=== PATIENT | male | born 1960 | race Caucasian/White ===

== ENCOUNTER 2024-12-28 07:13 | Emergency (ER) | payer MEDICARE, MEDICAID, SELFPAY ==
[2024-12-28 07:14] VITALS: BP 149/121; PULSE 78; RESP 18; TEMP 36.8; O2SAT 100; BMI 24.5
[2024-12-28 07:50] VITALS: O2SAT 100
--- NOTE | 2024-12-28 08:06 | EDS_ITS ---
HPI History of Present Illness Chief Complaint: Anxiety Informant: patient Onset/Context/Timing Onset: Weeks (3) Context: Gradual Onset Timing: Continuous Quality: Cannot catch a full breath Location: Chest Worsened by: Laying flat, exertion Relieved by: Nothing Narrative Narrative: Patient presents with increasing anxiety and panic attacks that have been getting worse over the past 3 weeks. Patient states that he wakes up at night feeling like he cannot catch his breath. Patient states his breathing is worse when he lays flat. Patient states that his breathing is also worse with walking and exertion. Patient states nothing makes his breathing any better. Patient admits to some subjective fevers and chills. Patient also admits to some palpitations. Patient states he has some nausea vomiting after coughing episodes. [facility] Medical History (Updated 12/28/24 @ 11:[address] Lauro Barker DO) Lupus (systemic lupus erythematosus) COPD (chronic obstructive pulmonary disease) Home Medications ?Medication ?Instructions ?Recorded ?Last Taken ?Type albuterol sulfate 90 mcg/actuation 2 puff inhalation Q 4H PRN PRN 12/28/24 Unknown History aerosol inhaler wheezing budesonide 160 mcg-glycopyr 9 inh inhalation 12/28/24 Unknown History mcg-formot 4.8 mcg/actuation HFA inhaler (Breztri Aerosphere) hydroxyzine pamoate 25 mg capsule 50 mg (2 x 25 mg) PO TID PRN PRN 12/28/24 Unknown Rx Anxiety #30 CAPSULES tiotropium bromide 2.5 2 puff inhalation DAILY 03/16 Unknown History mcg/actuation mist for inhalation (Spiriva Respimat) Allergy/AdvReac Type Severity Reaction Status Date / Time Unable to Assess Allergy Verified 12/28/24 07:14 Surgical History (Updated 12/28/24 @ 08:[address] Lauro Barker DO) History of total hip replacement Social History (Updated 12/28/24 @ 08:[address] Lauro Barker DO) Smoking Status: Current every day smoker tobacco type: cigarettes substance use type: marijuana ROS ROS ED Constitutional Constitutional ED: Reports chills and fever(s) Eyes Eyes: Reports blurry vision; Denies diplopia ENT ENT ED: Denies rhinorrhea or sore throat Cardiovascular Cardiovascular: Reports chest pain and palpitations Respiratory/Chest Respiratory/Chest: Reports cough and dyspnea Gastrointestinal Gastrointestinal: Reports nausea and vomiting Genitourinary Genitourinary ED: Denies dysuria or hematuria Musculoskeletal Musculoskeletal: Reports back pain and neck pain Integumentary Reports rash; Denies abscess Neurologic Neurologic: Denies headache(s) or weakness Allergic/Immunologic Allergic/Immunologic ED: Denies mouth swelling or urticaria EXAM Physical Exam Const Vital Signs: 12/28/24 07:14 12/28/24 07:50 12/28/24 09:13 Temperature 98.3 F Temperature Source Oral Pulse Rate 78 69 Respiratory Rate 18 16 Respiratory Effort Short of Breath Respiratory Pattern Tachypnea Blood Pressure 149/121 H 117/64 Blood Pressure Mean 130 81 Pulse Ox 100 96 Oxygen Delivery Method Room Air Room Air Room Air 12/28/24 11:00 Temperature Temperature Source Pulse Rate 72 Respiratory Rate 16 Respiratory Effort Respiratory Pattern Blood Pressure 118/63 Blood Pressure Mean 81 Pulse Ox 98 Oxygen Delivery Method Room Air Positive well nourished and well developed General Appearance ED: well developed and NAD HEENT Reports moist mucous membranes Neck supple and no JVD Resp normal respiratory effort and clear to auscultation bilaterally Cardio regular rate and regular rhythm GI non-tender and non-distended Palpation: soft Extremity normal to inspection General Extremety ED: Negative for edema or tenderness General Extremity: Negative for edema Neuro oriented x3, CN's II-XII intact bilaterally and no sensory deficits noted Sensorium / Orientation: alert Motor Exam: strength 5/5 throughout Psych mental status grossly normal MDM MDM MDM Narrative Medical decision making narrative: Different diagnosis includes COPD exacerbation, pneumonia, bronchitis, electrolyte abnormality, viral illness, cardiac dysrhythmia, pulmonary embolism, and anxiety. EKG will be obtained to assess for cardiac dysrhythmia and cardiac ischemia. Chest x-ray will be obtained to assess for pneumonia and bronchitis. CBC will be obtained to assess for leukocytosis and anemia. Basic metabolic profile will be obtained to assess for electrolyte abnormality and renal function. High-sensitivity troponin will be obtained to assess for cardiac ischemia. COVID-19, influenza, and RSV PCR will be obtained to assess for viral illness. D-dimer will be obtained to assess for pulmonary embolism. Lab Data Attestation: I reviewed the patient's lab results. Lab results narrative: CBC was reviewed and was within normal limits. Basic metabolic profile was reviewed and was within normal limits. D-dimer was reviewed and was normal at 0.35. Urinalysis was reviewed. There is no evidence of urinary tract infection or hematuria. COVID-19 PCR was reviewed and was negative. Influenza PCR was reviewed and was negative for influenza A and influenza B. RSV PCR was reviewed and was negative. Labs: Laboratory Results - last 24 hr 12/28/24 12/28/24 12/28/24 08:55 10:12 10:58 WBC 10.2 RBC 4.05 L Hgb 14.5 Hct 41.2 MCV 101.7 H MCH 35.8 H MCHC 35.2 RDW Std Deviation 48.2 H RDW Coeff of Chris 12.7 Plt Count 193 MPV 11.3 Immature Gran % (Auto) 0.400 Neut % (Auto) 85.0 H Lymph % (Auto) 8.[address] [place] [place] % (Auto) 5.2 Eos % (Auto) 0.7 Baso % (Auto) 0.2 Absolute Neuts (auto) 8.7 H Absolute Lymphs (auto) 0.86 Nucleated RBC % 0 D-Dimer Quant (PE/DVT) 0.35 Sodium 139 Potassium 3.7 Chloride 103 Carbon Dioxide 21.2 Anion Gap 15 BUN 12 Creatinine 1.07 Estim Creat Clear Calc 53.15 Est GFR (MDRD) Non-Af 77 BUN/Creatinine Ratio 11.4 Glucose 110 H Calcium 9.3 Urine Color Cancelled [place] Urine Clarity Cancelled Sl. Cloudy Urine pH Cancelled 6.5 Ur Specific [place] Cancelled 1.015 U Specif Grav (Refrac) Cancelled Urine Protein Cancelled 30 H Urine Glucose (UA) Cancelled Normal Urine Ketones Cancelled 50 H Urine Occult Blood Cancelled 10 H Urine Nitrite Cancelled Negative Urine Bilirubin Cancelled Negative Urine Urobilinogen Cancelled 4 H Ur Leukocyte Esterase Cancelled Negative Urine RBC Cancelled 0-5 SEEN Urine WBC Cancelled 0-5 SEEN Ur Squamous Epith Cells Cancelled 0-5 SEEN Ur Transition Epith Cell Cancelled Ur Renal Epithelial Cell Cancelled Calcium Oxalate Crystal Cancelled Uric Acid Crystals Cancelled Triple Phos Crystals Cancelled Other Crystals Cancelled Amorphous Sediment Cancelled Urine Bacteria Cancelled RARE Hyaline Casts Cancelled Fine Granular Casts Cancelled Coarse Granular Casts Cancelled Waxy Casts Cancelled RBC Casts Cancelled WBC Casts Cancelled Urine Mucus Cancelled 2+ Urine Trichomonas Cancelled Urine Yeast Cancelled Radiography Chest X-Ray - ED: 2 View, Read by ED Physician, Read by Radiologist and No Acute Disease Diagnostic Testing: Clinical Impression(s) from Imaging Studies Chest X-Ray 12/28/24 09:10 IMPRESSION: No evidence of acute cardiopulmonary pathology. Other findings as noted. Reading Location: [id number] and lateral chest x-ray was obtained. There are 2 views. On my independent interpretation, lung marcos are clear. There is normal cardiac silhouette. Bony thorax is normal. There is no acute process noted. Radiologist also interpreted the x-ray and agrees. EKG Initial EKG: Attestation: I personally reviewed and interpreted this EKG as follows: Interpretation: Sinus Rhythm (74) and No Acute Injury Pattern Comments: EKG was obtained. On my independent interpretation, it showed a normal sinus rhythm with a rate of 74. MI interval, QRS interval, and QTc intervals were all normal. Walker was normal. There are no acute ST or T wave changes. Prior EKG tracings: not available for review Prior: No Prior Treatment and Re-Evaluation :: Patient was given a dose of hydroxyzine here. Patient is feeling better on reevaluation. Patient was advised of his findings. Patient was given a prescription for a short course of hydroxyzine. Patient was instructed to follow-up with his primary care physician in 5 to 7 days. Patient understood and was agreeable with plan. All questions were answered. Discharge Plan Triage Chief Complaint: Anxiety Other Complaint: Shortness of Breath ED Provider: Lauro Barker Dx/Rx/DC Orders Clinical Impression: Anxiety, COPD (chronic obstructive pulmonary disease) Instructions: ED Anxiety Reaction Prescriptions: New hydroxyzine pamoate 25 mg capsule 50 mg PO TID PRN PRN (Reason: Anxiety) Qty: 30 0RF No Action albuterol sulfate 90 mcg/actuation HFA aerosol inhaler 2 puff inhalation Q4H PRN PRN (Reason: wheezing) Spiriva Respimat 2.5 mcg/actuation mist 2 puff inhalation DAILY Breztri Aerosphere 160-9-4.8 mcg/actuation HFA aerosol inhaler inhalation Primary Care Provider: Maco Bettencourt Referrals: Maco Bettencourt MD [Primary Care Provider] - 3-5 Days Print Language: Cameroonian Disposition Disposition: Home, Self Care
[2024-12-28] MEDS: hydrOXYzine PAM 25 MG Capsule PO (08:53)
[2024-12-28 09:06] LABS: Hematocrit 41.2 % (40-54); Hemoglobin 14.5 g/dL (13.0-16.5); Immature Granulocytes Count 0.040 X10^3/uL (0.0-0.0); Mean Corp Hgb Conc 35.2 g/dL (32-36); Mean Corpuscular Volume 101.7 fL (80-94); Mean Platelet Vol. 11.3 fl (6.2-12.0); NRBC Flagged by Analyzer 0 % (0-5); Platelet Count 193 K/mm3 (150-450); RBC Distribution Width CV 12.7 % (11.6-14.6); RBC Distribution Width SD 48.2 fl (35.1-43.9); Red Blood Count 4.05 M/mm3 (4.6-6.2); White Blood Count 10.2 K/mm3 (4.4-11.0)
--- NOTE | 2024-12-28 09:10 | RAD_ITS ---
PROCEDURE: CHEST PA AND LATERAL 12/28/2024 REASON FOR EXAM: DYSPNEA TECHNIQUE: CHEST PA AND LATERAL COMPARISON: None. FINDINGS: The lungs are clear. The heart size is normal. The mediastinum and pulmonary vascular pattern are unremarkable. The upper abdominal bowel gas pattern is normal. There is a wedge compression fracture probably T12. RAD/Chest PA and Lateral IMPRESSION: No evidence of acute cardiopulmonary pathology. Other findings as noted. Reading Location: [id number]
[2024-12-28 09:13] VITALS: BP 117/64; PULSE 69; RESP 16; O2SAT 96
[2024-12-28 09:31] LABS: D-Dimer Quantitative (DVT/PE) 0.35 FEU/ug/m (0.27-0.49)
[2024-12-28 09:33] LABS: Anion Gap 15 (5-15); BUN 12 mg/dL (4-19); BUN/Creat Ratio 11.4 RATIO (10-20); Calcium,Total 9.3 mg/dL (7.6-11.0); Carbon Dioxide 21.2 mmol/L (21.0-32.0); Chloride 103 mmol/L (98-108); Estimated Creatinine Clearance 53.15 ml/min (50-250); Glucose 110 mg/dL (70-99); Potassium 3.7 mmol/L (3.3-5.1)
[2024-12-28 11:00] VITALS: BP 118/63; PULSE 72; RESP 16; O2SAT 98
[2024-12-28 11:20] LABS: Color, Urine Amber (Yellow); Glucose, Dipstick Normal (Normal); Ketone-Dipstick 50 mg/dl (Negative); Leukocyte Esterase-Dipstick Negative /ul (Negative); Nitrite-Dipstick Negative (Negative); Occult Blood-Urine 10 /ul (Negative); Protein-Dipstick 30 mg/dl (Negative); Specific Gravity, Urine 1.015 (1.002-1.030); Urine Bilirubin Dipstick Negative (Negative)
[2024-12-28 11:28] LABS: Mucous, Urine 2+ /hpf (<or=2+); Red Blood Cells-Urine 0-5 SEEN /hpf (0-5); Squamous Epithelial Cells - UA 0-5 SEEN /hpf (0-5)
[2024-12-28 11:59] VITALS: BP 113/84; PULSE 84; RESP 16; TEMP 36.8; O2SAT 97
== END 2024-12-28 12:04 | disposition home or self-care (01) ==
PROVIDERS: Emergency Provider Emergency Medicine; PCP Family Medicine; Visit Provider Emergency Medicine
DX: F41.9 Anxiety disorder, unspecified (principal); J44.9 Chronic obstructive pulmonary disease, unspecified; F17.210 Nicotine dependence, cigarettes, uncomplicated
CPT/HCPCS: 71046; 80048; 81001; 85025; 85379; 87631; 93005; 99285; A4216

== ENCOUNTER 2025-04-25 09:50 | Inpatient (IN) | payer MEDICARE, MEDICAID, SELFPAY ==
[2025-04-25] VITALS (22 sets, daily range): BP systolic 106–134; BP diastolic 70–86; PULSE 49–87; RESP 10–31; TEMP 36.2–37.1; O2SAT 92–100; BMI 24.7; BMI 24.2
[2025-04-25] MEDS: Heparin Injection (Vial) 5,000 UNIT/ML VIAL 4000 UNIT IV (09:50)
[2025-04-25] MEDS: TICAGRELOR 90 MG TABLET 180 MG PO (09:54)
--- NOTE | 2025-04-25 09:55 | EKG12_ITS ---
Test Reason : STEMI
--- NOTE | 2025-04-25 10:01 | ED.VIS.CHEST ---
HPI History of Present Illness Chief Complaint: Chest Pain Informant: patient Narrative Narrative: Patient is a 64-year-old male with history of COPD and SLE with regular tobacco use presenting as a STEMI. Patient states he woke up this morning and had a hard time getting back to sleep. He states he was having heartburn. He was feeling short of breath. An episode of nausea and vomiting as well as diarrhea. EMS was called and when EMS arrived patient became unresponsive. They state that he was in some type of block and then went into V-fib. ACLS protocol was started and CPR was performed. He was defibrillated, went into V. tach and then had sinus bradycardia. EKG showed inferior SC and patient was transferred to the emergency room. Received full dose aspirin and route. Patient is awake and talking at time of arrival. He is able to provide the history for me. Lives alone but reportedly son is on his way. States he is comfortable with cardiac catheterization as long as he does not receive any vaccinations. Denies any known history of any cardiac disease. Is still having chest pain. [facility] Medical History Lupus (systemic lupus erythematosus) COPD (chronic obstructive pulmonary disease) Home Medications ?Medication ?Instructions ?Recorded ?Last Taken ?Type albuterol sulfate 90 mcg/actuation 2 puff inhalation Q4H PRN PRN 12/28/24 Unknown History aerosol inhaler wheezing budesonide 160 mcg-glycopyr 9 inh inhalation 12/28/24 Unknown History mcg-formot 4.8 mcg/actuation HFA inhaler (Breztri Aerosphere) hydroxyzine pamoate 25 mg capsule 50 mg (2 x 25 mg) PO TID PRN PRN 12/28/24 Unknown Rx Anxiety #30 CAPSULES tiotropium bromide 2.5 2 puff inhalation DAILY 12/28/24 Unknown History mcg/actuation mist for inhalation (Spiriva Respimat) Allergy/AdvReac Type Severity Reaction Status Date / Time Unable to Assess Allergy Verified 12/28/24 07:14 Surgical History History of total hip replacement Social History Smoking Status: Current every day smoker tobacco type: cigarettes substance use type: marijuana ROS ROS ED Constitutional Constitutional ED: Denies chills, fever(s) or sweats Cardiovascular Cardiovascular: Reports chest pain Respiratory/Chest Respiratory/Chest: Reports cough Gastrointestinal Gastrointestinal: Reports diarrhea, nausea and vomiting Musculoskeletal Musculoskeletal: Denies arthralgias, back pain or myalgias Integumentary Denies rash Neurologic Neurologic: Reports weakness Hematologic/Lymphatic Hematologic/Lymphatic: Denies easy bleeding or easy bruising EXAM Physical Exam Const Vital Signs: 04/25/25 09:50 04/25/25 09:50 04/25/25 09:51 Temperature 98.7 F Temperature Source Oral Pulse Rate 59 L Respiratory Rate 20 H 20 H Respiratory Effort Normal Pulse Ox 100 Oxygen Delivery Method Room Air 04/25/25 09:58 Temperature Temperature Source Pulse Rate Respiratory Rate Respiratory Effort Pulse Ox Oxygen Delivery Method Room Air Constitutional Narrative: Patient samuels, in no acute distress but unwell appearing General Appearance ED: Negative for pallor HEENT Reports dry mucous membranes Mouth ED: Yes dry mucous membranes Mouth: dry mucous membranes Neck supple and no JVD Chest Wall inspection of chest normal Resp normal respiratory effort and clear to auscultation bilaterally Cardio regular rhythm and no murmurs Cardio Narrative: 2+ radial and DP pulses Rate: bradycardia GI normal to inspection, nondistended, normoactive bowel sounds and soft to palpation Extremity normal to inspection Extremity Narrative: Mottled General Extremety ED: Negative for edema General Extremity: Negative for edema Neuro oriented x3 Sensorium / Orientation: awake and alert Motor Exam: general weakness Psych mental status grossly normal Skin no rashes or lesions noted and no wounds General Skin Exam: Negative for pallor Heart Score History: Highly Suspicious ECG: Significant ST-Depression Age: >/= 65 years Risk Factors: >/= 3 Risk Factors or History of CAD Score: 8 MDM MDM MDM Narrative Medical decision making narrative: Patient is evaluated for chest pain in the setting of V-fib arrest prior to arrival. Prearrival EKG initiated is a lot of artifact so unable to determine however second EKG send is consistent with inferior SC likely some lateral extension. STEMI alert is called prearrival. Case initially was discussed with Dr. Hernandez who will come and to see the patient. Will go to the ER since initially there was report from EMS of him being in and out of it to determine if he needs any intubation or further airway control. Upon arrival to ER patient is awake alert and conversing appropriately. He does not require intubation emergently. Is given Brilinta, heparin bolus and Zofran. EKG also shows ST elevations in inferior leads with depression in V2, lead I and aVL consistent with ST elevation SC. Patient taken to the [facility] and actually will have cardiac catheterization performed Dr. Everett who is onsite. Case discussed with hospitalist, Dr. Khan for admission after cardiac catheterization. Lab work is pending. Rhythm Strip Rhythm Strip: Bradycardia Rate: 45 EKG Initial EKG: Attestation: I personally reviewed and interpreted this EKG as follows: Comments: Bradycardia at 45 bpm-suspect third-degree heart block ST elevations in inferior leads with reciprocal depressions in lead I, aVL and T wave changes to V4 through V6 Normal intervals These changes are all acute compared to prior EKG on 12/28/2024 Management Discussion w/another healthcare provider: Hospitalist and Healthcare Applications Analyst (Cardiology ) Critical Care Time Critical Care Time: Yes Critical care time (excluding procedures): 30-74 minutes (20), Discussing w/Patient &/or Family/Assistant Professor Of Marine Biology, Discussing w/Consultants and Arranging Admission or Transfer Discharge Plan Dx/Rx/DC Orders Clinical Impression: ST elevation (STEMI) myocardial infarction, Third degree heart block, Cardiac arrest with ventricular fibrillation Disposition Disposition: Acute Care Hospital [facility]
[2025-04-25 10:06] LABS: Hematocrit 42.4 % (40-54); Hemoglobin 14.4 g/dL (13.0-16.5); Immature Granulocytes Count 0.170 X10^3/uL (0.0-0.0); Mean Corp Hgb Conc 34.0 g/dL (32-36); Mean Corpuscular Volume 105.2 fL (80-94); Mean Platelet Vol. 11.0 fl (6.2-12.0); NRBC Flagged by Analyzer 0.2 % (0-5); Platelet Count 243 K/mm3 (150-450); RBC Distribution Width CV 12.6 % (11.6-14.6); RBC Distribution Width SD 49.5 fl (35.1-43.9); Red Blood Count 4.03 M/mm3 (4.6-6.2); White Blood Count 12.6 K/mm3 (4.4-11.0)
[2025-04-25 10:21] LABS: Prothrombin Time (Protime)PT. 13.1 SECONDS (11.7-14.9)
[2025-04-25 10:22] LABS: Partial Thromboplast Time 27.8 Seconds (24.1-36.2)
[2025-04-25 10:24] LABS: Anion Gap 17 (5-15); BUN 8 mg/dL (4-19); BUN/Creat Ratio 5.6 RATIO (10-20); Calcium,Total 8.8 mg/dL (7.6-11.0); Carbon Dioxide 18.8 mmol/L (21.0-32.0); Chloride 105 mmol/L (98-108); Estimated Creatinine Clearance 40.05 ml/min (50-250); Glucose 228 mg/dL (70-99); Potassium 3.2 mmol/L (3.3-5.1); Troponin T High Sensitivity 33 ng/L (<=22)
--- NOTE | 2025-04-25 11:06 | PCM.CONS.C ---
Assessment & Plan Assessment/Plan (1) ST elevation (STEMI) myocardial infarction: PLAN: Emergent coronary angiography was done. It showed total occlusion of the proximal RCA. Successful percutaneous revascularization was performed with balloon angioplasty, aspiration thrombectomy and placement of 2 drug-eluting stents. Excellent results were noted with mosque of NURA-3 flow. Continue aspirin lifelong. P2 Y12 treatment for at least 6 months. (2) Coronary artery disease: PLAN: See #1 above. Patient is also noted to have severe disease in his left circumflex obtuse marginal and in his mid LAD. For staged PCI. (3) Cardiac arrest with successful resuscitation: PLAN: Pulseless V. tach arrest in the field in the setting of an acute myocardial infarction. Successfully cardioverted. (4) Nicotine dependence: PLAN: Quit smoking. (5) COPD (chronic obstructive pulmonary disease): PLAN: As per internal medicine. (6) Lupus (systemic lupus erythematosus): PLAN: As per internal medicine/rheumatology. HPI Consult Data Date of Consult: 04/25/25 HPI Narrative Reason for Consultation: STEMI HPI Narrative: 64-year-old gentleman with past medical history significant for nicotine dependence and SLE. He woke up this morning with anterior chest discomfort. Described it more as burning. EMS was called. Upon arrival of the EMS, he passed out. He was noted to be in ventricular tachycardia. Successfully cardioverted with 1 shock. An ECG was done in the field which showed acute inferior posterior myocardial infarction. Subsequently a STEMI alert was called. [facility] Medical History Lupus (systemic lupus erythematosus) COPD (chronic obstructive pulmonary disease) Home Medications ?Medication ?Instructions ?Recorded ?Last Taken ?Type albuterol sulfate 90 mcg/actuation 2 puff inhalation Q4H PRN PRN 12/28/24 Unknown History aerosol inhaler wheezing budesonide 160 mcg-glycopyr 9 inh inhalation 12/28/24 Unknown History mcg-formot 4.8 mcg/actuation HFA inhaler (Breztri Aerosphere) hydroxyzine pamoate 25 mg capsule 50 mg (2 x 25 mg) PO TID PRN PRN 12/28/24 Unknown Rx Anxiety #30 CAPSULES tiotropium bromide 2.5 2 puff inhalation DAILY 12/28/24 Unknown History mcg/actuation mist for inhalation (Spiriva Respimat) Allergy/AdvReac Type Severity Reaction Status Date / Time Unable to Assess Allergy Verified 12/28/24 07:14 Surgical History History of total hip replacement Social History Smoking Status: Current every day smoker tobacco type: cigarettes substance use type: marijuana Physical Exam Narrative Anxious appearing. Heart sounds 1 and 2 noted. Chest clear to auscultation bilaterally. Alert oriented x 3. No ankle edema. Objective Data Vital Signs: Vital Signs Temp Pulse Resp BP Pulse Ox O2 Del Method 98 F 53 L 10 L 125/86 H 92 Room Air 04/25/25 10:27 04/25/25 10:27 04/25/25 10:27 04/25/25 10:27 04/25/25 10:27 04/25/25 09:58 Oxygen Delivery Method Room Air Weight: 135 lb 2.294 oz Body Mass Index (BMI) 24.7 Intake & Output: Intake and Output for Last 24 Hours 04/23/25 04/24/25 04/25/25 22:59 23:59 23:59 Intake Total 0 / 0 Balance 0 / 0 Lab / Micro Data 04/25/25 09:45 04/25/25 09:45 Labs: Laboratory Results - last 24 hr 04/25/25 09:45: WBC 12.6 H, RBC 4.03 L, Hgb 14.4, Hct 42.4, MCV 105.2 H, MCH 35.7 H, MCHC 34.0, RDW Std Deviation 49.5 H, RDW Coeff of Chris 12.6, Plt Count 243, MPV 11.0, Immature Gran % (Auto) 1.400 H, Neut % (Auto) 70.1 H, Lymph % (Auto) 20.1, [place] % (Auto) 5.4, Eos % (Auto) 2.2, Baso % (Auto) 0.8, Absolute Neuts (auto) 8.8 H, Absolute Lymphs (auto) 2.52, Nucleated RBC % 0.2, Sodium 140, Potassium 3.2 L, Chloride 105, Carbon Dioxide 18.8 L, Anion Gap 17 H, BUN 8, Creatinine 1.42 H, Estim Creat Clear Calc 40.05 L, Est GFR (MDRD) Non-Af 55 L, BUN/Creatinine Ratio 5.6 L, Glucose 228 H, Calcium 8.8, Troponin T High Sens 33 H Rhythm Strip Rhythm Strip: Bradycardia Rate: 45 Cardiology Labs/Tests 04/25/25 09:45: WBC 12.6 H, RBC 4.03 L, Hgb 14.4, Hct 42.4, MCV 105.2 H, MCH 35.7 H, MCHC 34.0, Plt Count 243, MPV 11.0, Immature Gran % (Auto) 1.400 H, Neut % (Auto) 70.1 H, Lymph % (Auto) 20.1, [place] % (Auto) 5.4, Eos % (Auto) 2.2, Baso % (Auto) 0.8, Absolute Neuts (auto) 8.8 H, Nucleated RBC % 0.2, Sodium 140, Potassium 3.2 L, Chloride 105, Carbon Dioxide 18.8 L, Anion Gap 17 H, BUN 8, Creatinine 1.42 H, Est GFR (MDRD) Non-Af 55 L, BUN/Creatinine Ratio 5.6 L, Glucose 228 H, Calcium 8.8 Rhythm: EKG: ECHO: Stress Test: Cardiac Cath: PCI: CT Surgery: Holter monitor: EPS: PPM: CXR: Chest CT Scan: NURA Risk Score for UA/STEMI Assesmment (YES = 1) Risk Stratification Applicable: No
--- NOTE | 2025-04-25 11:35 | PCM.HP.STD ---
HPI - General General Date of Admission: 04/25/25 HPI Narrative JARRELL MERCER, is a 64 M who presents to the hospital as a STEMI alert. He had what appears to be an inferior RI EKG. He was at home feeling short of breath as well as some heartburn and had an episode of nausea and vomiting. EMS was called to the home where he became unresponsive. He appeared to have initially some sort of AV block and then proceeded into V-fib arrest. He was successfully resuscitated after defibrillation and transferred to the hospital. He went to the [facility] where he was found to have a 100% proximal RCA lesion as well as 70% mid LAD and a 90% proximal OM1 lesion with an EF of 40%. He had a drug-eluting stent placed to the proximal RCA with a plan for staged procedure as an outpatient for his remaining lesions. [facility] Medical History Lupus (systemic lupus erythematosus) COPD (chronic obstructive pulmonary disease) Home Medications ?Medication ?Instructions ?Recorded ?Last Taken ?Type albuterol sulfate 90 mcg/actuation 2 puff inhalation Q4H PRN PRN 12/28/24 Unknown History aerosol inhaler wheezing budesonide 160 mcg-glycopyr 9 inh inhalation 12/28/24 Unknown History mcg-formot 4.8 mcg/actuation HFA inhaler (Breztri Aerosphere) hydroxyzine pamoate 25 mg capsule 50 mg (2 x 25 mg) PO TID PRN PRN 12/28/24 Unknown Rx Anxiety #30 CAPSULES tiotropium bromide 2.5 2 puff inhalation DAILY 12/28/24 Unknown History mcg/actuation mist for inhalation (Spiriva Respimat) Allergy/AdvReac Type Severity Reaction Status Date / Time Unable to Assess Allergy Verified 12/28/24 07:14 Family History (Updated 04/25/25 @ 13:[address] Mirza Chew MD) Other Heart disease Surgical History History of total hip replacement Social History Smoking Status: Current every day smoker tobacco type: cigarettes substance use type: marijuana ROS Constitutional Constitutional: Denies chills, fatigue, fever(s) or malaise Eyes Eyes: Denies blurry vision ENT HEENT: Denies headache(s) or nasal discharge Cardiovascular Cardiovascular: Reports chest pain; Denies dyspnea on exertion or syncope Respiratory/Chest Respiratory/Chest: Denies cough, shortness of breath at rest or shortness of breath with exertion Gastrointestinal Gastrointestinal: Reports nausea and vomiting; Denies constipation or diarrhea Genitourinary Genitourinary: Denies dysuria Neurologic Neurologic: Denies focal weakness, numbness or tremor(s) Psychiatric Psychiatric: Denies anxiety or depression Vital Signs Vital Signs Vital Signs: 04/25/25 09:50 04/25/25 09:50 04/25/25 09:51 Temperature 98.7 F Temperature Source Oral Pulse Rate 59 L Respiratory Rate 20 H 20 H Respiratory Effort Normal Blood Pressure Blood Pressure Mean Blood Pressure Source Blood Pressure Position Blood Pressure Location Pulse Ox 100 Oxygen Delivery Method Room Air Oxygen Flow Rate (L/min) 04/25/25 09:58 04/25/25 10:27 04/25/25 11:14 Temperature 98 F 97.2 F L Temperature Source Temporal Pulse Rate 53 L 78 Respiratory Rate 10 L 22 H Respiratory Effort Blood Pressure 125/86 H 134/80 H Blood Pressure Mean 99 98 Blood Pressure Source Monitor Blood Pressure Position Supine Blood Pressure Location Left Arm Pulse Ox 92 100 Oxygen Delivery Method Room Air Nasal Cannula Oxygen Flow Rate (L/min) 4 Weight Weight: 132 lb 8 oz Body Mass Index (BMI) 24.2 Physical Exam Narrative General: Alert, Oriented x3, Cooperative, No apparent distress HEENT: Atraumatic, PERRLA, EOMI, Normocephalic Oral: Moist Mucosa Neck: Supple, No JVD Lungs: Diminished, Normal air movement, No rhonchi, No wheeze, No rales Cardiovascular: Regular rate, Regular Rhythm, Normal S1, Normal S2, No murmurs Abdomen: Soft, Non Tender, Non-Distended, No Hepato-splenomegaly Extremities: No edema, Capillary Refill Less than 3 Seconds Skin: No rashes, No breakdown Musculoskeletal: No Tenderness to Palpation of Joints or Extremities Neurological: No focal neurological deficits, moves all extremities Psych/Mental Status: Normal Affect, Appropriate Results Lab / Micro Data 04/25/25 09:45 04/25/25 09:45 Labs: Laboratory Results - last 24 hr 04/25/25 09:45: WBC 12.6 H, RBC 4.03 L, Hgb 14.4, Hct 42.4, MCV 105.2 H, MCH 35.7 H, MCHC 34.0, RDW Std Deviation 49.5 H, RDW Coeff of Chris 12.6, Plt Count 243, MPV 11.0, Immature Gran % (Auto) 1.400 H, Neut % (Auto) 70.1 H, Lymph % (Auto) 20.1, [place] % (Auto) 5.4, Eos % (Auto) 2.2, Baso % (Auto) 0.8, Absolute Neuts (auto) 8.8 H, Absolute Lymphs (auto) 2.52, Nucleated RBC % 0.2, PT 13.1, INR 1.0, APTT 27.8, Sodium 140, Potassium 3.2 L, Chloride 105, Carbon Dioxide 18.8 L, Anion Gap 17 H, BUN 8, Creatinine 1.42 H, Estim Creat Clear Calc 40.05 L, Est GFR (MDRD) Non-Af 55 L, BUN/Creatinine Ratio 5.6 L, Glucose 228 H, Calcium 8.8, Troponin T High Sens 33 H Rhythm Strip Rhythm Strip: Bradycardia Rate: 45 Assessment & Plan Assessment/Plan (1) Cardiac arrest with successful resuscitation: (2) Cardiac arrest with ventricular fibrillation: PLAN: Plan 1. V-fib then V. tach arrest secondary to an occluded RCA/essential HTN/HLD ? Successful CAROLYNE to the proximal RCA where he had 100% occlusion ? Staged procedure with the left circulation as an outpatient for the LAD and OM1 ? Continue with dual antiplatelets ? Continue with lisinopril and metoprolol ? Continue with Lipitor ? During the procedure he became a little combative had to be given some Versed I was on standby for possible intubation in order to allow the procedure to proceed however he was able to remain calm for the remainder of the procedure 2. COPD ? Not in exacerbation ? Continue with his home inhalers once verified DVT: SCDs 75 minutes was spent on direct patient care, including documentation as well as chart review and collaboration with colleagues Charges/Coding Visit Charges Inpatient E&M: 36447 Init Hosp L3
--- NOTE | 2025-04-25 11:56 | ECQM.STEMI ---
STEMI STEMI ED Door Time / Other REG STEMI EKG Time (1) ST elevation (STEMI) myocardial infarction: Acute 04/25/25 09:50 Balloon/Aspiration Date-Time Date of Balloon/Aspiration:: 04/25/25 Time of Balloon/Aspiration:: 10:14
[2025-04-25 12:09] LABS: ACT Activated Clotting Time 209 sec (74-137)
[2025-04-25 12:09] LABS: ACT Activated Clotting Time 235 sec (74-137)
[2025-04-25] MEDS: 0.9% Normal Saline (1000mL) 1,000 ML 150 ML IV (12:17)
[2025-04-25 14:17] LABS: Troponin T High Sens 2 HR 3017 ng/L (<=22)
[2025-04-25 16:07] LABS: Troponin T High Sens 4 HR 4270 ng/L (<=22)
--- NOTE | 2025-04-25 17:02 | NURSING ---
RN attempted to educate patient and patient son tila on [id number] form. Patient is concerned on denis of medications and would like to speak with social work. Did not sign paper at this time.
[2025-04-25] MEDS: Ensure Plus High Protein 120 ML LIQUID PO (17:43)
[2025-04-25] MEDS: hydrOXYzine PAM 25 MG Capsule 50 MG PO (21:21)
[2025-04-25] MEDS: TICAGRELOR 90 MG TABLET PO (21:22)
[2025-04-25] MEDS: Budesonide Respules 0.5 MG/2 ML AMPUL.NEB. INHALATION (23:37)
[2025-04-26] VITALS (27 sets, daily range): BP systolic 83–116; BP diastolic 58–82; PULSE 66–95; RESP 17–25; TEMP 36.8–37.3; O2SAT 94–99; BMI 25.7
--- NOTE | 2025-04-26 05:02 | EKG12_ITS ---
Test Reason : PORT PCI
[2025-04-26 05:06] LABS: Hematocrit 35.4 % (40-54); Hemoglobin 12.6 g/dL (13.0-16.5); Mean Corp Hgb Conc 35.6 g/dL (32-36); Mean Corpuscular Volume 102.0 fL (80-94); Mean Platelet Vol. 10.9 fl (6.2-12.0); Platelet Count 184 K/mm3 (150-450); RBC Distribution Width CV 13.0 % (11.6-14.6); RBC Distribution Width SD 48.5 fl (35.1-43.9); Red Blood Count 3.47 M/mm3 (4.6-6.2); White Blood Count 9.7 K/mm3 (4.4-11.0)
--- NOTE | 2025-04-26 05:34 | NURSING ---
0445- RN bedside w/ patient. No urine output overnight. Asked patient if he needed to use the bathroom as patient had not urinated all night. Patient responded with well i havent really been drinking so I wouldnt to be peeing, its not like I have a refrigerator full of coke here. This RN asked patient if he would like to attempt to pee, pt declined and requested to go back to sleep, will continue to monitor
[2025-04-26 05:35] LABS: AST(SGOT) 233 U/L (<=37); Alanine Aminotransfer ALT/SGPT 126 U/L (<=46); Albumin, Serum 3.6 g/dL (3.4-4.8); Alkaline Phosphatase 127 U/L (40-129); Anion Gap 9 (5-15); BUN 12 mg/dL (4-19); BUN/Creat Ratio 12.2 RATIO (10-20); Calcium,Total 8.6 mg/dL (7.6-11.0); Carbon Dioxide 23.0 mmol/L (21.0-32.0); Chloride 106 mmol/L (98-108); Cholesterol 115 mg/dL (<=200); Estimated Creatinine Clearance 56.88 ml/min (50-250); Globulin 2.2 g/dL (2.2-4.2); Glucose 116 mg/dL (70-99); Low Density Lipoprotein Calc. 63 mg/dL; Potassium 4.6 mmol/L (3.3-5.1); Triglycerides 122 mg/dL; Very Low Density Lipoprotein 24 mg/dL (5-40); cholesterol:hdl ratio screen 3.87
[2025-04-26] MEDS: Budesonide Respules 0.5 MG/2 ML AMPUL.NEB. INHALATION ×2 (06:59→19:02)
--- NOTE | 2025-04-26 07:00 | ECHOD_ITS ---
Reason For Study ECHO/Echo Complete
--- NOTE | 2025-04-26 08:05 | CRPHASE1_ITS ---
Patient Communication
--- NOTE | 2025-04-26 08:05 | CRPHASE1 ---
Patient Communication Patient Information Former Patient:: Phase I PHII Cardiac Rehab Discussed with Patient:: Yes Guide to Cardiac Rehab Given to Patient:: Yes Cardiac Rehab Facility Choice List Given to Patient:: Yes Communication to Cardiac Rehab Product Managent Intern:: Taylor Everett Sessions:: 36 sessions - 3 days/wk, 12 weeks Cardiac Rehabilitation Info Program Information Cardiac Rehabilitation Program Information: Cardiac Rehab The cardiac rehab team at [facility] consists of highly skilled exercise physiologists, nurses, respiratory therapists and physicians working together with you. Our purpose is to help you have a full recovery and achieve the goals you set for yourself. Over the years many of our patients have returned to activities they assumed they would never do again! We can help restore your confidence and motivation to make lifestyle changes that can have a significant impact on your health and quality of life! We can help answer questions and concerns you may have about exercise, lifestyle, medications, diet, stress and anxiety which are common following a hospitalization. WE monitor ECG and vital signs during exercise and discuss your progress with you and report to your physician(s). Cardiac Rehab is proven to help reduce readmissions, improve functional capacity and lower recurrence of problems with your heart. Our Cardiac Rehab program is Certified by the [place] [employer] and Pulmonary [employer] (AACVPR) and Accredited by the [place] [employer] through our [facility]. You can contact us at . We invite you to call us with your questions or to get started in our program. If you have other questions or concerns be sure to ask your physician/provider during your follow-up visit. WE look forward to seeing you!
--- NOTE | 2025-04-26 08:05 | CRPH1.INSTRU ---
General Education Discussed with Patient CAD and cardiac anatomy and function:: Needs reinforcement Explanation of diagnoses and procedures:: Needs reinforcement Sign/Symptoms of LA:: Needs reinforcement Antiplatelet therapy: Needs reinforcement Proper use of NTG-SL: Needs reinforcement Emergency procedures and activation of EMS: Needs reinforcement Compliance of all prescribed medications: Needs reinforcement Smoking Risk Factors Patient Nicotine/Smoking Risk Factors Are:: Cigarettes Recommendations Recommendations Include:: Smoking cessation strategies/Smoking packet Response Code Nicotine/Smoking Response Code:: Needs reinforcement Dyslipidemia Recommendations Recommendations Include:: Lipid profile not available Response Code Dyslipidemia Response Code:: Needs reinforcement Overweight/Obesity Risk Factors Patient Overweight/Obesity Risk Factors Are:: BMI Normal [24-29 & > 65 years old] Response Code Overweight/Obesity:: Needs reinforcement Hypertension Risk Factors Patient Hypertension Risk Factors Are:: No documented hx of HTN Response Code Hypertension:: Needs reinforcement Heart Disease Risk Factors Patient Heart Disease Risk Factors Are:: Family history of heart disease < 65 years old Recommendations Recommendations Include:: Educated family members of their risk and Educated family members of importance of prevention of heart disease Response Code Heart Disease Response Code:: Needs reinforcement Diabetes Risk Factors Patient Diabetes Risk Factors Are:: No documented hx of diabetes Response Code Diabetes:: Needs reinforcement Metabolic Syndrome Recommendations Recommendations Include:: Does not meet criteria Response Code Metabolic Syndrome Response Code:: Needs reinforcement Sedentary Risk Factors Patient Sedentary Risk Factors Are:: Lack of regular exercise Recommendations Recommendations Include:: Monitored Outpatient Cardiac Rehab Response Code Sedentary Response Code:: Needs reinforcement Stress Recommendations Recommendations Include:: Identification of stressors, and assessment of coping skills and Stress management techniques Response Code Stress Response Code:: Needs reinforcement
--- NOTE | 2025-04-26 08:07 | PCM.PN.CARD ---
Subjective Subjective Patient resting position in bed. Echocardiogram just been completed. He is complaining of some anterior sternal pain status post CPR yesterday. Patient's telemetry is showing some short runs of 3-4 beats of ventricular tachycardia but nothing sustained. Repeat ECG shows an evolving inferior wall infarct. There is no significant heart block noted on his telemetry. The patient denies any recurrence of his mid retrosternal sensation that radiated down his left arm and up into his neck that preceded his VF arrest. Patient also expresses significant anxiety around his family situation he does have a 50-year smoking history. Objective Data Vital Signs: Vital Signs Temp Pulse Resp BP Pulse Ox O2 Del Method O2 Flow Rate 98.6 F 82 23 H 106/58 L 97 Nasal Cannula 2 04/26/25 04:00 04/26/25 07:00 04/26/25 07:00 04/26/25 07:00 04/26/25 07:00 04/26/25 07:00 04/26/25 07:00 Oxygen Flow Rate (L/min) 2 Oxygen Delivery Method Nasal Cannula Weight: 140 lb Body Mass Index (BMI) 25.7 Intake & Output: Intake and Output for Last 24 Hours 04/24/25 04/25/25 04/26/25 23:59 23:59 23:59 Intake Total 1525 / 1525 Output Total 500 / 500 Balance 1025 / 1025 Lab / Micro Data Attestation: I reviewed the patient's lab results. 04/26/25 04:45 04/26/25 04:45 Labs: Laboratory Results - last 24 hr 04/25/25 09:45: WBC 12.6 H, RBC 4.03 L, Hgb 14.4, Hct 42.4, MCV 105.2 H, MCH 35.7 H, MCHC 34.0, RDW Std Deviation 49.5 H, RDW Coeff of Chris 12.6, Plt Count 243, MPV 11.0, Immature Gran % (Auto) 1.400 H, Neut % (Auto) 70.1 H, Lymph % (Auto) 20.1, [place] % (Auto) 5.4, Eos % (Auto) 2.2, Baso % (Auto) 0.8, Absolute Neuts (auto) 8.8 H, Absolute Lymphs (auto) 2.52, Nucleated RBC % 0.2, PT 13.1, INR 1.0, APTT 27.8, Sodium 140, Potassium 3.2 L, Chloride 105, Carbon Dioxide 18.8 L, Anion Gap 17 H, BUN 8, Creatinine 1.42 H, Estim Creat Clear Calc 40.05 L, Est GFR (MDRD) Non-Af 55 L, BUN/Creatinine Ratio 5.6 L, Glucose 228 H, Calcium 8.8, Troponin T High Sens 33 H 04/25/25 10:12: Activated Clotting Time 209 H 04/25/25 10:54: Activated Clotting Time 235 H 04/25/25 13:14: Troponin T Hi Sens 2 Hr 3017 H* 04/25/25 14:57: Troponin T Hi Sens 4Hr 4270 H* 04/26/25 04:45: WBC 9.7, RBC 3.47 L, Hgb 12.6 L, Hct 35.4 L, MCV 102.0 H, MCH 36.3 H, MCHC 35.6, RDW Std Deviation 48.5 H, RDW Coeff of Chris 13.0, Plt Count 184, MPV 10.9, Sodium 138, Potassium 4.6, Chloride 106, Carbon Dioxide 23.0, Anion Gap 9, BUN 12, Creatinine 1.00, Estim Creat Clear Calc 56.88, Est GFR (MDRD) Non-Af 84, BUN/Creatinine Ratio 12.2, Glucose 116 H, Calcium 8.6, Total Bilirubin 0.48, AST 233 H, ALT 126 H, Alkaline Phosphatase 127, Total Protein 5.8 L, Albumin 3.6, Globulin 2.2, Albumin/Globulin Ratio 1.6, Triglycerides 122, Cholesterol 115, LDL Cholesterol, Calc 63, VLDL Cholesterol 24, HDL Cholesterol 30 L, Cholesterol/HDL Ratio 3.87 Rhythm Strip Rhythm Strip: Sinus Rhythm Rate: 65 Ectopy: PVC(s) (Short 3-4 beat runs of VT) Cardiology Labs/Tests 04/25/25 09:45: WBC 12.6 H, RBC 4.03 L, Hgb 14.4, Hct 42.4, MCV 105.2 H, MCH 35.7 H, MCHC 34.0, Plt Count 243, MPV 11.0, Immature Gran % (Auto) 1.400 H, Neut % (Auto) 70.1 H, Lymph % (Auto) 20.1, [place] % (Auto) 5.4, Eos % (Auto) 2.2, Baso % (Auto) 0.8, Absolute Neuts (auto) 8.8 H, Nucleated RBC % 0.2, PT 13.1, INR 1.0, APTT 27.8, Sodium 140, Potassium 3.2 L, Chloride 105, Carbon Dioxide 18.8 L, Anion Gap 17 H, BUN 8, Creatinine 1.42 H, Est GFR (MDRD) Non-Af 55 L, BUN/Creatinine Ratio 5.6 L, Glucose 228 H, Calcium 8.8 04/26/25 04:45: WBC 9.7, RBC 3.47 L, Hgb 12.6 L, Hct 35.4 L, MCV 102.0 H, MCH 36.3 H, MCHC 35.6, Plt Count 184, MPV 10.9, Sodium 138, Potassium 4.6, Chloride 106, Carbon Dioxide 23.0, Anion Gap 9, BUN 12, Creatinine 1.00, Est GFR (MDRD) Non-Af 84, BUN/Creatinine Ratio 12.2, Glucose 116 H, Calcium 8.6, Total Bilirubin 0.48, Triglycerides 122, Cholesterol 115, VLDL Cholesterol 24, HDL Cholesterol 30 L, Cholesterol/HDL Ratio 3.87 Rhythm: EKG: ECHO: Stress Test: Cardiac Cath: PCI: CT Surgery: Holter monitor: EPS: PPM: CXR: Chest CT Scan: Physical Exam Const alert and oriented x3 Constitutional Narrative: Anxious HEENT normocephalic Eyes EOMs intact bilaterally Neck no JVD Chest inspection of chest normal Chest Narrative: Tender to palpation of the along the sternum Resp normal respiratory effort Auscultation: wheezes expiratory wheezes and throughout Cardio Cardio Narrative: Distant heart tones Rate: regular rate Rhythm: regular rhythm Heart Sounds: S1 normal and S2 normal; Negative for click, gallop or murmur GI GI Narrative: Scaphoid Extremity no pedal edema Extremity Narrative: Right hand intact normal neurologic and capillary refill documented Neuro Neuro Narrative: Alert and oriented Psych Psych Narrative: Patient is anxious and almost tearful about his family situation with his son being arrested. Assessment & Plan Assessment/Plan (1) ST elevation (STEMI) myocardial infarction: QUALIFIERS: Involved coronary artery: right coronary artery Qualified Code(s): I21.11 - ST elevation (STEMI) myocardial infarction involving right coronary artery PLAN: Patient presented yesterday with an acute ST elevation microinfarction in the inferior leads. He had developed retrosternal chest discomfort radiating into his left arm and up his neck he called EMS and just as they arrived he arrested with a ventricular fib arrest. The patient had a short round of CPR and was defibrillated and resuscitated. The patient was brought to the [facility] ED he was taken emergently to the [facility] where the right coronary was totally obstructed and was revascularized. The patient also has 70% mid LAD lesion and a 90% OM1 branch lesion of the circumflex. The plan is to intervene upon these after 4 to 6 weeks of recovery. 2D echocardiogram is pending at this time his LV gram appeared to show an EF in the 40% range at the time of his acute intervention. The patient has been started on low-dose LAURA and beta-vincenzo therapy. He is also on dual antiplatelet therapy which cannot be interrupted for 1 year. The patient has had some short runs of nonsustained VT only 3-4 beats. He will need to be monitored for another 24 to 48 hours. He is very anxious about his family situation and if some type of angiolytic therapy could be instituted would be of benefit in his cardiovascular care. I discussed this with the hospitalist. (2) Cardiac arrest with ventricular fibrillation: PLAN: Patient status post VF arrest at the time of an acute ischemic event. Will evaluate his LV function it appeared to be greater than 35% on LV gram at the time of his acute intervention. 2D echocardiogram is pending. (3) Nicotine dependence: QUALIFIERS: Nicotine product type: cigarettes Substance use status: unspecified nicotine-induced disorder Qualified Code(s): F17.219 - Nicotine dependence, cigarettes, with unspecified nicotine-induced disorders PLAN: Patient has a 50-year smoking history. His lung exam is consistent with wheezing he is on some aerosol therapy in his home environment. He was down to about 1/2 pack/day until there was a family event that created significant anxiety and stress in his life and he is now back to smoking over a pack a day. We did go over options for smoking cessation. (4) COPD (chronic obstructive pulmonary disease): QUALIFIERS: COPD type: unspecified COPD Qualified Code(s): J44.9 - Chronic obstructive pulmonary disease, unspecified PLAN: The patient has been diagnosed with COPD in the past he is on albuterol and Breztri aerosol therapies in his home environment. (5) Elevated LFTs: PLAN: Patient's LFTs were elevated on admission. He was instituted on atorvastatin 40 mg daily yesterday. We need to reevaluate his LFTs to make sure they are coming down it is likely they were related to hepatic congestion from his VF arrest. If they are elevating I would recommend holding the atorvastatin. The patient's cholesterol total was 115 triglycerides 122, LDL 63, and HDL 30 on admission. This could be artificially depressed given his acute event. (6) Elevated fasting blood sugar: PLAN: Patient's fasting blood sugar this morning is 116. He does not have a history of diabetes this is probably stress related. However given his risk factor profile would recommend hemoglobin A1c being checked just to rule out diabetes. PLAN: Plan 1. Continue current guideline directed medical therapy for LV recovery with lisinopril and beta-vincenzo therapy. 2. Repeat LFTs and check hemoglobin A1c. 3. If LFTs continue to rise would withhold atorvastatin until reevaluated at a later time improved the LFTs are resolved. 4. Consider adding an Danza lytic therapy to assist with smoking cessation and his overall stressful situation in his home environment. 5. Patient should follow-up with [facility] advanced practitioner in 7 to 10 days after discharge. 6. Patient should follow-up with Dr. Everett in 4 to 6 weeks to reevaluate and plan for staged revascularization of the LAD and OM branch of the circumflex. 7. If patient recovers and is able to ambulate and care for himself in the next 24 to 48 hours he could be discharged at that time provided he has no further significant ventricular ectopy. Charges/Coding Visit Charges Inpatient E&M: 25375 Subs Hosp L3
[2025-04-26] MEDS: Aspirin E.C. 81 MG Tablet PO (08:16)
[2025-04-26] MEDS: TICAGRELOR 90 MG TABLET PO ×2 (08:18→21:55)
[2025-04-26] MEDS: Ensure Plus High Protein 120 ML LIQUID PO ×3 (08:31→18:05)
--- NOTE | 2025-04-26 08:50 | PCM.PN.HOSP ---
Subjective Subjective Nursing is reported that he seems very anxious however he says his anxiety is getting better and refused to take the Zoloft that was prescribed as he did not want to get addicted. Objective Data Objective Data Vital Signs: Vital Signs Temp Pulse Resp BP Pulse Ox O2 Del Method O2 Flow Rate 98.6 F 80 23 H 104/65 97 Nasal Cannula 2 04/26/25 04:00 04/26/25 08:16 04/26/25 07:00 04/26/25 08:16 04/26/25 07:00 04/26/25 07:00 04/26/25 07:00 Oxygen Flow Rate (L/min) 2 Oxygen Delivery Method Nasal Cannula Weight: 140 lb Body Mass Index (BMI) 25.7 Intake & Output: Intake and Output for Last 24 Hours 04/25/25 04/26/25 04/27/25 03:59 03:59 03:59 Intake Total 1525 / 1525 Output Total 500 / 500 Balance 1025 / 1025 Lab / Micro Data 04/26/25 04:45 04/26/25 04:45 Labs: Laboratory Results - last 24 hr 04/25/25 09:45: WBC 12.6 H, RBC 4.03 L, Hgb 14.4, Hct 42.4, MCV 105.2 H, MCH 35.7 H, MCHC 34.0, RDW Std Deviation 49.5 H, RDW Coeff of Chris 12.6, Plt Count 243, MPV 11.0, Immature Gran % (Auto) 1.400 H, Neut % (Auto) 70.1 H, Lymph % (Auto) 20.1, [place] % (Auto) 5.4, Eos % (Auto) 2.2, Baso % (Auto) 0.8, Absolute Neuts (auto) 8.8 H, Absolute Lymphs (auto) 2.52, Nucleated RBC % 0.2, PT 13.1, INR 1.0, APTT 27.8, Sodium 140, Potassium 3.2 L, Chloride 105, Carbon Dioxide 18.8 L, Anion Gap 17 H, BUN 8, Creatinine 1.42 H, Estim Creat Clear Calc 40.05 L, Est GFR (MDRD) Non-Af 55 L, BUN/Creatinine Ratio 5.6 L, Glucose 228 H, Calcium 8.8, Troponin T High Sens 33 H 04/25/25 10:12: Activated Clotting Time 209 H 04/25/25 10:54: Activated Clotting Time 235 H 04/25/25 13:14: Troponin T Hi Sens 2 Hr 3017 H* 04/25/25 14:57: Troponin T Hi Sens 4Hr 4270 H* 04/26/25 04:45: WBC 9.7, RBC 3.47 L, Hgb 12.6 L, Hct 35.4 L, MCV 102.0 H, MCH 36.3 H, MCHC 35.6, RDW Std Deviation 48.5 H, RDW Coeff of Chris 13.0, Plt Count 184, MPV 10.9, Sodium 138, Potassium 4.6, Chloride 106, Carbon Dioxide 23.0, Anion Gap 9, BUN 12, Creatinine 1.00, Estim Creat Clear Calc 56.88, Est GFR (MDRD) Non-Af 84, BUN/Creatinine Ratio 12.2, Glucose 116 H, Calcium 8.6, Total Bilirubin 0.48, AST 233 H, ALT 126 H, Alkaline Phosphatase 127, Total Protein 5.8 L, Albumin 3.6, Globulin 2.2, Albumin/Globulin Ratio 1.6, Triglycerides 122, Cholesterol 115, LDL Cholesterol, Calc 63, VLDL Cholesterol 24, HDL Cholesterol 30 L, Cholesterol/HDL Ratio 3.87 Rhythm Strip Rhythm Strip: Sinus Rhythm Rate: 65 Ectopy: PVC(s) (Short 3-4 beat runs of VT) Physical Exam Narrative General: Alert, Oriented x3, Cooperative, No apparent distress HEENT: Atraumatic, PERRLA, EOMI, Normocephalic Oral: Moist Mucosa Neck: Supple, No JVD Lungs: Diminished, Normal air movement, No rhonchi, No wheeze, No rales Cardiovascular: Regular rate, Regular Rhythm, Normal S1, Normal S2, No murmurs Abdomen: Soft, Non Tender, Non-Distended, No Hepato-splenomegaly Extremities: No edema, Capillary Refill Less than 3 Seconds Skin: No rashes, No breakdown Musculoskeletal: No Tenderness to Palpation of Joints or Extremities Neurological: No focal neurological deficits, moves all extremities Psych/Mental Status: Normal Affect, Appropriate, little anxious Assessment & Plan Assessment/Plan (1) Cardiac arrest with successful resuscitation: (2) Cardiac arrest with ventricular fibrillation: PLAN: Plan 1. V-fib then V. tach arrest secondary to an occluded RCA/essential HTN/HLD ? Successful CAROLYNE to the proximal RCA where he had 100% occlusion ? Staged procedure with the left circulation as an outpatient for the LAD and OM1 ? Continue with dual antiplatelets ? Continue with lisinopril and metoprolol ? Continue with Lipitor ? Plan for discharge tomorrow and will need to follow-up with cardiology in 2 weeks 2. COPD ? Not in exacerbation ? Continue with his home inhalers once verified 3. Anxiety ? He takes hydroxyzine as needed 3 times daily ? I attempted help him out long-term especially since he has had a significant event recently with his heart attack and I started him on Zoloft however he refused because he did not want to get addicted ? Continue with his hydroxyzine DVT: SCDs Charges/Coding Visit Charges Inpatient E&M: 56962 Subs Hosp L2
--- NOTE | 2025-04-26 09:42 | CASEMGMT ---
Addendum entered by Chase Magallon 04/27/25 11:04: GABY MONTEZ to the pt's room to discuss potential P2Y Rx. Pt states that he now prefers [facility] at the time of DC and would like to know the cost of his prescriptions once DC'd. CM to follow. Addendum entered by Chase Magallon 04/26/25 15:03: [facility] returns call and states that they are unable to accept the pt due to being out of network. Pt updated and states that he is agreeable to reviewing a list of other options. See DPA note. List provided at this time and requested the pt to select top 3 preferences. CM to follow. Original Note: RN MELIDA Assessment Face to Face with patient for initial transition planning/care coordination assessment. GABY MONTEZ introduced self and role at [facility], pt voices understanding. Pt is A&Ox4 and is resting comfortably in bed and is calm. Care providers, pharmacy, and demographics verified. Admitting dx: STEMI LACE Strata: 2 PCP: Maco Bettencourt Specialists: Denies. Pt plans to follow up with [facility] as an OP after DC Preferred Pharmacy: [facility] Pt reports that his son can bring in his p2y rx before leaving and denies wanting to use [facility] Insurance: [facility], [facility] Prescription Benefit: Yes LNOK: Dayne (Son), Katty (Son) Living Arrangements: Pt lives alone in a single story home with 4 steps to enter ADLs/IADLs: Pt states that he is indep at baseline Transportation: Self, son DME: Inhaler. Incentive Spirometer. Cane. Pt is currently requiring additional oxygen and may qualify for home oxygen use. A verbal list of local in-network DME companies were provided to the pt at this time. Pt prefers [facility].? HHC/SNF: Denies hx of Pt?s goal: Home Plan: Per the hospitalist, DC is projected for tomorrow. Anticipate home with HHC and follow up with cardiology. Follow for new oxygen needs and anticoag Rx. Pt states that he would like more assistance at home. Pt states that he wants skilled HHC as well as pvt duty aid. Pt was informed that the plans to follow up with the pt about possibly getting set up with [facility] who can help the pt with ENGINEERING EQUIPMENT OPERATOR. Pt states that he cannot afford ENGINEERING EQUIPMENT OPERATOR out of pocket. Regarding skilled HHC, pt declines wanting to review a list of local in-network HHC agencies and states that he prefers [facility]. TC to [facility] HH. No answer, VM left with referral. Pt states that he feels safe with this plan and denies any further questions or concerns at this time. Sherry Magallon RN CM
--- NOTE | 2025-04-26 10:00 | EKG12_ITS ---
Test Reason : post pci
--- NOTE | 2025-04-26 14:06 | CASEMGMT ---
Discharge Planning A list of HH providers including quality and resource use data and consistent with the patient's preferred geographic region, medical needs, and insurance network was created in CarePort Guide.? This list was provided to the RN MELIDA. Becyk Gaston, Discharge Planning Asst.
[2025-04-26 14:35] LABS: AST(SGOT) 236 U/L (<=37); Alanine Aminotransfer ALT/SGPT 128 U/L (<=46); Albumin, Serum 3.6 g/dL (3.4-4.8); Alkaline Phosphatase 125 U/L (40-129); Bilirubin, Direct 0.14 mg/dL (0.00-0.30); Globulin 2.3 g/dL (2.2-4.2)
--- NOTE | 2025-04-26 15:32 | CASEMGMT ---
Social Work- SW met with pt to conduct SDOH assessment. Pt pleasant and cooperative in demeanor. Pt initially presented with flat affect, but as pt engaged in conversation, pt affect became normal. Pt was tearful at times discussing life events, past traumas, and fears of /eternity. Pt shared that since his Kay passed in 2016, pt has had numerous losses and pt has struggled with anxiety and depression. Pt currently works with [employer] at [email or web address] and pt also reports using the crisis call lines regularly. Pt reports that he has notices a significant decrease in anxiety recently. Pt shared that he has been reading the Bible to combat some anxiety regarding /eternity that still exists. Pt reports that he does not sleep well, as he often awakens throughout the night. SW and pt discussed sleep deprivation possibly escalating mental health symptoms. Pt reports that he finds nick in his six grandkids and watches them as needed when his son works. Pt reports his youngest son lives close and reports a strong relationship with him. Pt second son recently went to long-term for 100 years, but pt reports that they were close as well. Pt has two sons that he has never had a relationship with due to custody issues. Pt provided information from [facility] on heating and housing repair programs, as well as information on [facility] housing repair program, food resources for hot meals, WH[facility], and advanced directives packet and rack card. Pt reports that he has stable housing in a rental, but it needs some updates and repairs. Pt reports that he has never had a shut-off notice, but needs assistance with heating. Pt reports that he drives and has no transportation issues. Pt reports that he receives SNAP and often has money left on card. Pt reports poor appetite. Pt reports no safety concerns. Pt spoke about spirituality and shared his intentions to improve his life. Pt seeking out resources and assistance as a part of that. Pt appreciative of time spent. SW remains available to follow for any additional needs. ALEXANDRIA Cooper
--- NOTE | 2025-04-26 15:58 | CASEMGMT ---
Addendum entered by Becky Gaston 04/27/25 09:12: [facility], [facility], and [facility] declined. [facility] has accepted. RN CM updated. Becky Gaston DC Planning Asst. Addendum entered by Becky Gaston 04/27/25 08:13: [facility]. Referral sent to [facility], [facility], [facility], and [facility]. Becky Gaston DC Planning Asst Original Note: Discharge Planning HH referral sent via CarePort to Count Includes [facility], [facility], and [facility]. Becky Gaston DC Planning Asst.
[2025-04-26] MEDS: hydrOXYzine PAM 25 MG Capsule 50 MG PO (21:56)
[2025-04-27] VITALS (11 sets, daily range): BP systolic 104–116; BP diastolic 68–81; PULSE 73–94; RESP 15–35; TEMP 36–36.7; O2SAT 95–97; BMI 26.3
[2025-04-27 06:18] LABS: Hematocrit 34.1 % (40-54); Hemoglobin 11.8 g/dL (13.0-16.5); Immature Granulocytes Count 0.030 X10^3/uL (0.0-0.0); Mean Corp Hgb Conc 34.6 g/dL (32-36); Mean Corpuscular Volume 103.6 fL (80-94); Mean Platelet Vol. 10.5 fl (6.2-12.0); NRBC Flagged by Analyzer 0 % (0-5); Platelet Count 184 K/mm3 (150-450); RBC Distribution Width CV 12.9 % (11.6-14.6); RBC Distribution Width SD 48.7 fl (35.1-43.9); Red Blood Count 3.29 M/mm3 (4.6-6.2); White Blood Count 8.1 K/mm3 (4.4-11.0)
[2025-04-27 06:52] LABS: Anion Gap 11 (5-15); BUN 13 mg/dL (4-19); BUN/Creat Ratio 13.1 RATIO (10-20); Calcium,Total 8.6 mg/dL (7.6-11.0); Carbon Dioxide 22.3 mmol/L (21.0-32.0); Chloride 107 mmol/L (98-108); Estimated Creatinine Clearance 58.63 ml/min (50-250); Glucose 105 mg/dL (70-99); Potassium 3.5 mmol/L (3.3-5.1)
--- NOTE | 2025-04-27 06:56 | PCM.PN.HOSP ---
Subjective Subjective Patient is a 64-year-old gentleman who presented with chest pain. Patient apparently did experience cardiac arrest and route to the hospital resuscitated successfully using ACLS with ROSC SC. He went to the Set O Type Operator was found to have 100%Proximal RCA lesion as well as 70% mid LAD and 90% OM1 with an EF of 40%. Patient had an CAROLYNE placed to the RCA lesion and subsequently admitted to the intensive care unit. Seen this a.m. patient complains of significant chest muscle pain from the compression. Objective Data Objective Data Vital Signs: Vital Signs Temp Pulse Resp BP Pulse Ox O2 Del Method O2 Flow Rate 97.9 F 88 35 H 104/68 95 Room Air 2 04/27/25 04:00 04/27/25 04:00 04/27/25 04:00 04/27/25 04:00 04/27/25 04:00 04/27/25 04:00 04/26/25 12:00 Oxygen Flow Rate (L/min) 2 Oxygen Delivery Method Room Air Weight: 64.949 kg Body Mass Index (BMI) 26.3 Intake & Output: Intake and Output for Last 24 Hours 04/25/25 04/26/25 04/27/25 23:59 23:59 23:59 Intake Total 1525 / 1525 800 / 1100 300 / 300 Output Total 500 / 500 0 / 0 0 / 0 Balance 1025 / 1025 800 / 1100 300 / 300 Lab / Micro Data 04/27/25 06:05 04/27/25 06:05 Labs: Laboratory Results - last 24 hr 04/26/25 04:45: Hemoglobin A1c 5.6, Total Bilirubin 0.45, Direct Bilirubin 0.14, AST 236 H, ALT 128 H, Alkaline Phosphatase 125, Total Protein 5.9, Albumin 3.6, Globulin 2.3 04/27/25 06:05: WBC 8.1, RBC 3.29 L, Hgb 11.8 L, Hct 34.1 L, MCV 103.6 H, MCH 35.9 H, MCHC 34.6, RDW Std Deviation 48.7 H, RDW Coeff of Chris 12.9, Plt Count 184, MPV 10.5, Immature Gran % (Auto) 0.400, Neut % (Auto) 73.8 H, Lymph % (Auto) 15.8 L, [place] % (Auto) 8.6, Eos % (Auto) 1.2, Baso % (Auto) 0.2, Absolute Neuts (auto) 6.0, Absolute Lymphs (auto) 1.27, Nucleated RBC % 0, Sodium 139, Potassium 3.5, Chloride 107, Carbon Dioxide 22.3, Anion Gap 11, BUN 13, Creatinine 0.97, Estim Creat Clear Calc 58.63, Est GFR (MDRD) Non-Af 87, BUN/Creatinine Ratio 13.1, Glucose 105 H, Calcium 8.6 Radiography Diagnostic Testing: Radiology Impression Echocardiogram 04/26/25 07:00 Interpretation Summary The study was technically difficult. Inferior hypokinesis. Estimated LVEF 55%. Stage I diastolic dysfunction. Mild (1+) aortic valve insufficiency. Ordering Physician: Taylor Everett Referring Physician: Maco Bettencourt Performed By: Hayley Palomares, JIM, RVT Rhythm Strip Rhythm Strip: Sinus Rhythm Rate: 65 Ectopy: PVC(s) (Short 3-4 beat runs of VT) Physical Exam Narrative GENERAL: cooperative HEENT: Atraumatic; normocephalic EYES; Anicteric, Normal Conjunctiva NECK; supple, normal thyroid, RESPIRATORY: Diminished to auscultation CARDIOVASCULAR: Regular S1 S2, GI: soft, normoactive bowel sounds, : No Renal angle tenderness; EXTREMITIES: No edema, no clubbing, MUSCULOSKELETAL: no muscle wasting NEURO: Awake; no lateralizing signs. SKIN: No Rash PSYCH; Flat affect Assessment & Plan Assessment/Plan (1) Cardiac arrest with successful resuscitation: (2) Cardiac arrest with ventricular fibrillation: PLAN: Plan Patient is a 64-year-old gentleman who presented with chest pain. Patient apparently did experience cardiac arrest and route to the hospital resuscitated successfully using ACLS with ROSC SC. He went to the Set O Type Operator was found to have 100%Proximal RCA lesion as well as 70% mid LAD and 90% OM1 with an EF of 40%. Patient had an CAROLYNE placed to the RCA lesion and subsequently admitted to the intensive care unit. Acute STEMI ? Patient underwent emergency left heart catheterization; as found to have 100%Proximal RCA lesion as well as 70% mid LAD and 90% OM1 with an EF of 40%. Patient had an CAROLYNE placed to the RCA lesion. Plan is to undergo staged intervention and further evaluation as outpatient. Currently on guideline directed medical therapy 2. V-fib V. tach ? Treated successfully and route to the hospital 3. Musculoskeletal chest wall pain ? An order was given for patient to receive Toradol 30 mg x 1 patient placed on muscle relaxer 4. COPD ? Currently not in exacerbation aerosol treatment as needed 5. Hypertension ? Blood pressure controlled, home medications continued with dose adjustment as needed 6. SLE ? Per history currently not in any flareup 7. Anxiety disorder ? Patient is on hydroxyzine prior to coming in and plan is to resume 8. Tobacco dependence ? Counseled on cessation, offered nicotine patch for tobacco cravings 9. Abnormal LFTs ? Suspected to be secondary to shock liver will continue with monitoring 10. DVT prophylaxis ? On enoxaparin Time spent in the patient's overall evaluation,decision-making process, review of diagnostic data, adjustment of management, discussion with other providers, nursing nursing and ancillary staff involved in patient's care documentation, 50 Minutes Charges/Coding Visit Charges Inpatient E&M: 10201 [facility] L3
[2025-04-27] MEDS: Budesonide Respules 0.5 MG/2 ML AMPUL.NEB. INHALATION ×2 (07:10→20:48)
--- NOTE | 2025-04-27 07:34 | PCM.PN.CARD ---
Subjective Subjective Patient is resting more comfortably in the bed this morning. He still is tachypneic respiratory rate in the 25-35 breaths/min. He also is coughing up some nonpurulent sputum. He also complains of significant rib pain status post CPR. Patient's ectopy has completely resolved he has been in normal sinus rhythm over the last 24 hours. The echocardiogram done yesterday showed an EF in the 55% range which represents excellent recovery from his acute inferior wall infarct. Objective Data Vital Signs: Vital Signs Temp Pulse Resp BP Pulse Ox O2 Del Method O2 Flow Rate 97.9 F 88 35 H 104/68 95 Room Air 2 04/27/25 04:00 04/27/25 04:00 04/27/25 04:00 04/27/25 04:00 04/27/25 04:00 04/27/25 04:00 04/26/25 12:00 Oxygen Flow Rate (L/min) 2 Oxygen Delivery Method Room Air Weight: 143 lb 3 oz Body Mass Index (BMI) 26.3 Intake & Output: Intake and Output for Last 24 Hours 04/25/25 04/26/25 04/27/25 23:59 23:59 23:59 Intake Total 1525 / 1525 800 / 1100 300 / 300 Output Total 500 / 500 0 / 0 0 / 0 Balance 1025 / 1025 800 / 1100 300 / 300 Lab / Micro Data 04/27/25 06:05 04/27/25 06:05 Labs: Laboratory Results - last 24 hr 04/26/25 04:45: Hemoglobin A1c 5.6, Total Bilirubin 0.45, Direct Bilirubin 0.14, AST 236 H, ALT 128 H, Alkaline Phosphatase 125, Total Protein 5.9, Albumin 3.6, Globulin 2.3 04/27/25 06:05: WBC 8.1, RBC 3.29 L, Hgb 11.8 L, Hct 34.1 L, MCV 103.6 H, MCH 35.9 H, MCHC 34.6, RDW Std Deviation 48.7 H, RDW Coeff of Chris 12.9, Plt Count 184, MPV 10.5, Immature Gran % (Auto) 0.400, Neut % (Auto) 73.8 H, Lymph % (Auto) 15.8 L, [place] % (Auto) 8.6, Eos % (Auto) 1.2, Baso % (Auto) 0.2, Absolute Neuts (auto) 6.0, Absolute Lymphs (auto) 1.27, Nucleated RBC % 0, Sodium 139, Potassium 3.5, Chloride 107, Carbon Dioxide 22.3, Anion Gap 11, BUN 13, Creatinine 0.97, Estim Creat Clear Calc 58.63, Est GFR (MDRD) Non-Af 87, BUN/Creatinine Ratio 13.1, Glucose 105 H, Calcium 8.6 Rhythm Strip Rhythm Strip: Sinus Rhythm Rate: 65 Ectopy: PVC(s) (Short 3-4 beat runs of VT) Cardiology Labs/Tests 04/26/25 04:45: Hemoglobin A1c 5.6, Total Bilirubin 0.45, Direct Bilirubin 0.14 04/27/25 06:05: WBC 8.1, RBC 3.29 L, Hgb 11.8 L, Hct 34.1 L, MCV 103.6 H, MCH 35.9 H, MCHC 34.6, Plt Count 184, MPV 10.5, Immature Gran % (Auto) 0.400, Neut % (Auto) 73.8 H, Lymph % (Auto) 15.8 L, [place] % (Auto) 8.6, Eos % (Auto) 1.2, Baso % (Auto) 0.2, Absolute Neuts (auto) 6.0, Nucleated RBC % 0, Sodium 139, Potassium 3.5, Chloride 107, Carbon Dioxide 22.3, Anion Gap 11, BUN 13, Creatinine 0.97, Est GFR (MDRD) Non-Af 87, BUN/Creatinine Ratio 13.1, Glucose 105 H, Calcium 8.6 Rhythm: EKG: ECHO: Stress Test: Cardiac Cath: PCI: CT Surgery: Holter monitor: EPS: PPM: CXR: Chest CT Scan: Radiography Diagnostic Testing: Radiology Impression Echocardiogram 04/26/25 07:00 Interpretation Summary The study was technically difficult. Inferior hypokinesis. Estimated LVEF 55%. Stage I diastolic dysfunction. Mild (1+) aortic valve insufficiency. Ordering Physician: Taylor Everett Referring Physician: Maco Bettencourt Performed By: Hayley Palomares, RDCS, RVT Physical Exam Const alert and oriented x3 HEENT normocephalic Eyes EOMs intact bilaterally Chest inspection of chest normal Resp normal respiratory effort Auscultation: rhonchi throughout Cardio Rate: regular rate Rhythm: regular rhythm Heart Sounds: S1 normal and S2 normal; Negative for click, gallop or murmur Extremity no pedal edema Psych mental status grossly normal Assessment & Plan Assessment/Plan (1) ST elevation (STEMI) myocardial infarction: QUALIFIERS: Involved coronary artery: right coronary artery Qualified Code(s): I21.11 - ST elevation (STEMI) myocardial infarction involving right coronary artery PLAN: Patient is echocardiogram [address] elevation inferior wall microinfarction shows his EF has improved to 55%. Patient denies any recurrence of any anginal symptoms. His original anginal symptom was retrosternal chest discomfort rating to his left arm and up his neck that preceded his VF arrest by a few minutes. Patient does have some elevated LFTs probably related to hepatic congestion and shock liver from his event. He is tolerating his current medical regiment of an LAURA and low-dose beta-vincenzo therapy. The patient is complaining of rib pain related to his resuscitation effort. (2) Cardiac arrest with successful resuscitation: PLAN: Patient status post CPR and defibrillation in the field. This was related to an acute ischemic event with an inferior wall infarct. LVEF is 55% on echocardiogram following recovery. (3) Elevated LFTs: PLAN: Patient's LFTs are elevated on his first set. Would recommend reevaluating the LFTs if they are continuing to rise would discontinue the statin and reevaluate LFTs in 6 weeks. It is highly likely the elevated LFTs were related to shock liver. (4) Elevated fasting blood sugar: PLAN: Patient's fasting blood sugar was elevated his hemoglobin A1c however was measured at 5.6. Suggested his fasting blood sugars are elevated due to his physiologic stress. PLAN: Plan 1. Recommend continue current medical therapy. 2. Increase pulmonary toilet and ambulation. 3. If the patient is stable and ambulating the halls without issues should be able to be discharged in the next 24 hours. 4. Patient should follow-up in the [facility] office with nurse practitioner in 7 to [address] Everett in 4?6 weeks. 5. If further assistance is needed please call Dr. William Chong he is covering for the [facility] the rest of the week and this weekend. Charges/Coding Visit Charges Inpatient E&M: 04780 Subs Hosp L2
[2025-04-27 07:50] LABS: AST(SGOT) 102 U/L (<=37); Alanine Aminotransfer ALT/SGPT 84 U/L (<=46); Albumin, Serum 3.5 g/dL (3.4-4.8); Alkaline Phosphatase 120 U/L (40-129); Bilirubin, Direct 0.30 mg/dL (0.00-0.30); Globulin 2.2 g/dL (2.2-4.2)
--- NOTE | 2025-04-27 09:09 | CASEMGMT ---
Addendum entered by Chase Magallon 04/27/25 09:16: DPA reports that [facility] called and has accepted the pt with a SOC TBD. RN CM to the pt's room and notified. Pt states understanding and denies further questions at this time. Original Note: Per ICU rounds, pt is not medically ready for DC today and is now projected for DC tomorrow. Pt informed that many of the HH referrals have been declined due to staffing and/or being out of network. Pt states that he does not have a preference on the HH agency and states that he is willing to take whoever is able to accept him that is in-network. DPA notified. CM to follow. Tentative DC plan: Home with HH, anticoag Rx, and follow up with [facility] as an OP. Follow for oxygen needs. Pt denies further questions or concerns at this time.
[2025-04-27] MEDS: HYDROmorphone 0.5 MG/0.5 ML SYRINGE IV (09:13)
[2025-04-27] MEDS: TICAGRELOR 90 MG TABLET PO ×2 (09:14→21:38)
[2025-04-27] MEDS: Aspirin E.C. 81 MG Tablet PO (09:14)
[2025-04-27] MEDS: Ensure Plus High Protein 120 ML LIQUID PO ×2 (13:51→16:28)
--- NOTE | 2025-04-27 14:30 | CHAPLAIN ---
Type of Pastoral Visit _x__ Initial Visit ___ Follow-up Visit ___ On-call Visit ___ General Patient Visit ___ Spiritual Assessment ___ Family Conference ___ Bereavement ___ Rapid Response ___ Code Blue ___ Other (describe below) Pastoral Care Referral From _x__ Patient ___ Family _x__ Nurse ___ Physician ___ Salesperson Books ___ [place] ___ Other (describe below) Sacrament/Intervention _x__ Active listening ___ Anointing ___ Druze ___ Bereavement ___ Communion _x__ Karen exploration ___ _x__ Life review _x__ Prayer ___ Reconciliation ___ Sacrament of Sick _x__ Supportive presence ___ Wedding ___ Other (describe below) Pastoral Comments patient requested a visit from the furnace packer due to his concerns and fears about and the after life; pt explains his experience with heart attack and the 'darkness' he felt and saw; pt wants to affirm his Pentecostal beliefs and find peace/assurance of salvation; pt also describes his decisions to move with to [place] and then she ; lots of listening and reflecting with patient; times given to explain what the scriptures of Pentecostal karen say in particualr to his questions; affirmation of patient making good questions known and being open to find peace and hope; also prayed with this patient; pt expresses more peace and contentment at this time
[2025-04-27] MEDS: 0.9% Saline Lock 10 ML Syringe IV (21:38)
[2025-04-28] VITALS (8 sets, daily range): BP systolic 108–123; BP diastolic 70–71; PULSE 77–100; RESP 16–20; TEMP 36.6–36.9; O2SAT 94–99; BMI 24.5
--- NOTE | 2025-04-28 02:43 | EKG12_ITS ---
Test Reason : chest pain
[2025-04-28] MEDS: hydrOXYzine PAM 25 MG Capsule 50 MG PO (03:09)
[2025-04-28 04:44] LABS: Hematocrit 34.0 % (40-54); Hemoglobin 11.8 g/dL (13.0-16.5); Immature Granulocytes Count 0.030 X10^3/uL (0.0-0.0); Mean Corp Hgb Conc 34.7 g/dL (32-36); Mean Corpuscular Volume 103.0 fL (80-94); Mean Platelet Vol. 10.7 fl (6.2-12.0); NRBC Flagged by Analyzer 0 % (0-5); Platelet Count 199 K/mm3 (150-450); RBC Distribution Width CV 12.8 % (11.6-14.6); RBC Distribution Width SD 48.3 fl (35.1-43.9); Red Blood Count 3.30 M/mm3 (4.6-6.2); White Blood Count 6.4 K/mm3 (4.4-11.0)
[2025-04-28 05:26] LABS: Anion Gap 10 (5-15); BUN 11 mg/dL (4-19); BUN/Creat Ratio 10.6 RATIO (10-20); Calcium,Total 8.8 mg/dL (7.6-11.0); Carbon Dioxide 23.0 mmol/L (21.0-32.0); Chloride 107 mmol/L (98-108); Cholesterol 104 mg/dL (<=200); Estimated Creatinine Clearance 55.22 ml/min (50-250); Glucose 95 mg/dL (70-99); Low Density Lipoprotein Calc. 56 mg/dL; Magnesium 2.0 mg/dL (1.5-2.2); Potassium 3.6 mmol/L (3.3-5.1); Triglycerides 92 mg/dL; Very Low Density Lipoprotein 18 mg/dL (5-40); cholesterol:hdl ratio screen 3.50
[2025-04-28] MEDS: Budesonide Respules 0.5 MG/2 ML AMPUL.NEB. INHALATION (07:29)
[2025-04-28] MEDS: Aspirin E.C. 81 MG Tablet PO (08:03)
[2025-04-28] MEDS: TICAGRELOR 90 MG TABLET PO (10:34)
--- NOTE | 2025-04-28 14:20 | PCM.PROGNOTE ---
Subjective Subjective Patient seen and examined with his nurse by his bedside. He had no active complaints. He was admitted with a complaint of debility and weakness. Review of systems otherwise negative. He has remained hemodynamically stable. Objective Data Objective Data Vital Signs: Vital Signs Temp Pulse Resp BP Pulse Ox O2 Del Method O2 Flow Rate 97.9 F 81 16 118/71 94 Room Air 2 04/28/25 08:00 04/28/25 12:45 04/28/25 12:45 04/28/25 08:00 04/28/25 12:45 04/28/25 12:45 04/28/25 08:00 Oxygen Flow Rate (L/min) 2 Oxygen Delivery Method Room Air Weight: 133 lb 6.075 oz Body Mass Index (BMI) 24.5 Intake & Output: Intake and Output for Last 24 Hours 04/26/25 04/27/25 04/28/25 23:59 23:59 23:59 Intake Total 800 / 1100 1360 / 1360 500 / 500 Output Total 0 / 0 0 / 0 Balance 800 / 1100 1360 / 1360 500 / 500 Lab / Micro Data 04/28/25 04:10 04/28/25 04:10 Labs: Laboratory Results - last 24 hr 04/28/25 04:10: WBC 6.4, RBC 3.30 L, Hgb 11.8 L, Hct 34.0 L, MCV 103.0 H, MCH 35.8 H, MCHC 34.7, RDW Std Deviation 48.3 H, RDW Coeff of Chris 12.8, Plt Count 199, MPV 10.7, Immature Gran % (Auto) 0.500, Neut % (Auto) 66.2, Lymph % (Auto) 19.4, Winston % (Auto) 9.9, Eos % (Auto) 3.5, Baso % (Auto) 0.5, Absolute Neuts (auto) 4.2, Absolute Lymphs (auto) 1.23, Nucleated RBC % 0, Sodium 140, Potassium 3.6, Chloride 107, Carbon Dioxide 23.0, Anion Gap 10, BUN 11, Creatinine 1.03, Estim Creat Clear Calc 55.22, Est GFR (MDRD) Non-Af 81, BUN/Creatinine Ratio 10.6, Glucose 95, Calcium 8.8, Phosphorus 3.4, Magnesium 2.0, Triglycerides 92, Cholesterol 104, LDL Cholesterol, Calc 56, VLDL Cholesterol 18, HDL Cholesterol 30 L, Cholesterol/HDL Ratio 3.50 Rhythm Strip Rhythm Strip: Sinus Rhythm Rate: 65 Ectopy: PVC(s) (Short 3-4 beat runs of VT) Physical Exam Const alert, oriented x3 and no apparent distress
--- NOTE | 2025-04-28 14:31 | DCINST_ITS ---
Discharge Instructions
--- NOTE | 2025-04-28 14:31 | PCM.DC.SUM ---
Providers Date of Admission: 04/25/25 Date of Discharge: 04/28/25 Primary Care Physician: Dr. Maco Bettencourt MD Reason For Visit: STEMI Diagnosis Discharge Diagnosis (1) Cardiac arrest with successful resuscitation: Status: Acute Code(s): I46.9 - Cardiac arrest, cause unspecified (2) Cardiac arrest with ventricular fibrillation: Status: Acute Code(s): I46.9 - Cardiac arrest, cause unspecified; I49.01 - Ventricular fibrillation Medications at Discharge Home Medications albuterol sulfate 90 mcg/actuation aerosol inhaler 2 puff inhalation Q4H PRN PRN wheezing 12/28/24 budesonide 160 mcg-glycopyr 9 mcg-formot 4.8 mcg/actuation HFA inhaler (Breztri Aerosphere) 2 inh inhalation BID COPD 12/28/24 hydroxyzine pamoate 25 mg capsule 50 mg (2 x 25 mg) PO TID PRN PRN Anxiety #30 CAPSULES 12/28/24 aspirin 81 mg tablet,delayed release 81 mg PO BREAKFAST #30 tabs 04/28/25 atorvastatin 40 mg tablet 40 mg PO QHS #30 tabs 04/28/25 lisinopril 2.5 mg tablet 2.5 mg PO DAILY #30 tabs 04/28/25 metoprolol tartrate 25 mg tablet 12.5 mg (1/2 x 25 mg) PO BID #30 tabs 04/28/25 oxycodone 5 mg tablet 5 mg PO Q6H PRN PRN Pain Score 6-10 3 days #12 tabs 04/28/25 ticagrelor 90 mg tablet 90 mg PO BID #60 tabs 04/28/25 Hospital Course Operations None Procedures 2-D Echocardiogram and Cardiac catheterization Summary of Care Provided Minutes Spent on Discharge: 45 Hospital Course: Patient is a 64-year-old male with a past medical history as outlined was admitted to the ED on 04/25/2025 with complaint of shortness of breath and chest pain which she thought was heartburn as well as nausea and vomiting. He subsequently became nonresponsive. EMS was called to his home and he was initially in what was thought to be an AV block but subsequently went into V-fib and cardiac arrest. He was successfully resuscitated via ACLS protocol and had defibrillation done and was transferred to the hospital. He had emergent cardiac cath which showed 100% proximal RCA lesion as well as 70% mid LAD and 90% proximal obtuse marginal 1 artery lesion and had an EF of 40%. Cath. He had a drug-eluting stent inserted in the proximal RCA with plan for outpatient staged PCI of the remaining blood vessels. He was admitted and managed for acute cardiopulmonary arrest in the setting of ST elevation [place]. Cardiology was on board during the admission. He had 2D echo which showed stage I diastolic dysfunction with normal left ventricular size and thickness and inferior hypokinesis and EF of 55% as well as stage I diastolic dysfunction. He was placed on aspirin and Brilinta as well as high intensity statin. He was also placed on lisinopril and metoprolol. He was discharged on p.o. oxycodone 5 mg every 6 hours as needed for total of 12 tablets for 3 days for the chest pain that he was having on account of the CPR with rib contusions. OARRS score was checked and no red flags were seen. He was discharged on 04/28/2025 and is follow-up with his PCP and follow-up with cardiology on outpatient basis Patient seen and examined prior to discharge. He still did complain of the musculoskeletal chest pain from the chest compressions. Review of systems otherwise negative. Labs and vitals reviewed. Home medication reviewed and reconciled. Physical Exam Const alert, oriented x3 and no apparent distress General Appearance: cooperative and comfortable Orientation / Consciousness: awake Exam Limitations: no limitations HEENT normocephalic, head/scalp atraumatic, hearing grossly normal bilaterally, moist oral mucous membranes and oropharynx normal Mouth: oral and palatal mucosa normal Eyes PERRL, EOMs intact bilaterally and conjunctivae normal Neck supple and no JVD Resp normal respiratory effort, no retractions, no use of accessory muscles and clear to auscultation bilaterally Cardio regular rate, regular rhythm, S1 normal heart sound, S2 normal heart sound and no murmurs GI normal to inspection, nondistended, normoactive bowel sounds, soft to palpation, non-tender and non-distended Extremity normal to inspection, full ROM and no clubbing, cyanosis or edema Skin no rashes or lesions noted Neuro oriented x3, CN's II-XII intact bilaterally, moves all extremities, no focal motor deficits and no sensory deficits noted Sensorium / Orientation: awake and alert Motor Exam: strength 5/5 throughout Psych affect normal Weight / BMI Weight Weight: 133 lb 6.075 oz Body Mass Index (BMI) 24.5 ABG / Lab / Microbiology Data 04/28/25 04:10 04/28/25 04:10 Laboratory: Laboratory Results - last 24 hr 04/28/25 04:10: WBC 6.4, RBC 3.30 L, Hgb 11.8 L, Hct 34.0 L, MCV 103.0 H, MCH 35.8 H, MCHC 34.7, RDW Std Deviation 48.3 H, RDW Coeff of Chris 12.8, Plt Count 199, MPV 10.7, Immature Gran % (Auto) 0.500, Neut % (Auto) 66.2, Lymph % (Auto) 19.4, Ceiba % (Auto) 9.9, Eos % (Auto) 3.5, Baso % (Auto) 0.5, Absolute Neuts (auto) 4.2, Absolute Lymphs (auto) 1.23, Nucleated RBC % 0, Sodium 140, Potassium 3.6, Chloride 107, Carbon Dioxide 23.0, Anion Gap 10, BUN 11, Creatinine 1.03, Estim Creat Clear Calc 55.22, Est GFR (MDRD) Non-Af 81, BUN/Creatinine Ratio 10.6, Glucose 95, Calcium 8.8, Phosphorus 3.4, Magnesium 2.0, Triglycerides 92, Cholesterol 104, LDL Cholesterol, Calc 56, VLDL Cholesterol 18, HDL Cholesterol 30 L, Cholesterol/HDL Ratio 3.50 D/C Instructions Discharge Activity: Return to Normal Activity Weight Bearing Status: Weight bearing as tolerated Call your doctor if you observe: Fever of 101 or Higher, Shortness of breath, Dizziness, Swelling in the ankles and Chest pain DC O2, CPAP, BIPAP Needs Home O2 Discharge instructions: No DC home with Oxygen: No Meaningful Use Info Meaningful Use Meaningful Use Diagnoses (Choose all that apply): AMI AMI/Post PCI/Angioplasty Aspirin given w/in 24hrs of arrival?: Yes ASA at discharge?: Yes Antiplatelet Therapy at Discharge:: Yes Statins at discharge?: Yes Caio/ARB at discharge?: Yes Beta Chana at discharge?: Yes Done w/ Acute IL measure.: Yes Documented LVEF (%): 55 Discharge Plan Admission Admit Date/Time: 04/25/25 11:32 Primary Reason for Your Visit: cardiac arrest due to STEMI Attending Provider: Damaris [place] Primary Care Provider: Maco Bettencourt Consulting Providers: Araceli Hernandez; Mirza Chew; William Schmitz Instructions Patient Instructions: Exercising After a Heart Attack, Heart Attack Additional Instructions / Restrictions: will need follow up CMP within one week with PCP to monitor liver function levels. Discharge Orders/Prescriptions Prescriptions: New aspirin 81 mg Tablet,Delayed Release (Dr/Ec) 81 mg PO BREAKFAST Qty: 30 2RF atorvastatin 40 mg Tablet 40 mg PO QHS Qty: 30 2RF lisinopril 2.5 mg Tablet 2.5 mg PO DAILY Qty: 30 2RF oxycodone 5 mg Tablet 5 mg PO Q6H PRN PRN (Reason: Pain Score 6-10) 3 Days Qty: 12 0RF metoprolol tartrate 25 mg Tablet 12.5 mg PO BID Qty: 30 2RF ticagrelor 90 mg Tablet 90 mg PO BID Qty: 60 2RF Continued albuterol sulfate 90 mcg/actuation HFA aerosol inhaler 2 puff inhalation Q4H PRN PRN (Reason: wheezing) Breztri Aerosphere 160-9-4.8 mcg/actuation HFA aerosol inhaler 2 inh inhalation BID hydroxyzine pamoate 25 mg capsule 50 mg PO TID PRN PRN (Reason: Anxiety) Qty: 30 0RF Referrals / Follow Up: Jeffery Ferguson MD [Med Staff - Active Staff, Cardiology] - Within 2 Weeks Maco Bettencourt MD [Primary Care Provider, Medical] - Within 1 Week Disposition Disposition (needs filled in before D/C Order can be placed): Home, Self Care Charges/Coding Visit Charges Inpatient E&M: 60031 Disch Hosp >30min
--- NOTE | 2025-04-28 14:46 | CASEMGMT ---
Addendum entered by Becky Gaston 04/28/25 15:23: [facility] confirmed SOC for 05/01/25. Original Note: Discharge Planning DC instructions sent via [facility] to [facility] with request for SOC. Becky Gaston, DC Planning Asst.
--- NOTE | 2025-04-28 14:47 | CASEMGMT ---
Patient has order for discharge. GABY MONTEZ updated DC estate planning attorney to send DC paperwork to [facility]. GABY MONTEZ in to discuss discharge needs with patient. GABY MONTEZ updated patient that [facility] will be contacting him with start of care. Patient denied further needs or help at discharge. Patient did not qualify for home oxygen. Patient had no further questions or concerns.
--- NOTE | 2025-04-28 15:10 | PHA.DC_ITS ---
Pharmacy [place] Med Rec Counseling
--- NOTE | 2025-04-28 15:10 | PHA.DC.MC.R ---
Pharmacy [place] Med Rec Counseling Pharmacy Service has performed discharge medication reconciliation and counseling for this patient. Patient requested meds to beds, this [facility] called retail and asked for delivery. 1. ASPIRIN 81MG PO BREAKFAST 2. ATORVASTATIN 40MG PO QHS 3. LISINOPRIL 2.5MG PO DAILY 4. METOPROLOL TARTRATE 12.5MG PO BID 5. OXYCODONE 5MG PO Q6H PRN PAIN 6. TICAGRELOR 90MG PO BID The patient's discharge medication list was reviewed for discrepancies and discrepancies were resolved. The patient was counseled on the following discharge medications and changes in medications for homegoing were reviewed. The Reason for Use, instructions for use, and potential side effects were reviewed for all new medications. The patient's questions regarding all of their medications were answered. The patient was able to verbally demonstrate an understanding of their discharge medications. Patient counseled by pharmacy services representativeMoo. Medications at Discharge Home Medications albuterol sulfate 90 mcg/actuation aerosol inhaler 2 puff inhalation Q4H PRN PRN wheezing 12/28/24 budesonide 160 mcg-glycopyr 9 mcg-formot 4.8 mcg/actuation HFA inhaler (Breztri Aerosphere) 2 inh inhalation BID COPD 12/28/24 hydroxyzine pamoate 25 mg capsule 50 mg (2 x 25 mg) PO TID PRN PRN Anxiety #30 CAPSULES 12/28/24 aspirin 81 mg tablet,delayed release 81 mg PO BREAKFAST #30 tabs 04/28/25 atorvastatin 40 mg tablet 40 mg PO QHS #30 tabs 04/28/25 lisinopril 2.5 mg tablet 2.5 mg PO DAILY #30 tabs 04/28/25 metoprolol tartrate 25 mg tablet 12.5 mg (1/2 x 25 mg) PO BID #30 tabs 04/28/25 oxycodone 5 mg tablet 5 mg PO Q6H PRN PRN Pain Score 6-10 3 days #12 tabs 04/28/25 ticagrelor 90 mg tablet 90 mg PO BID #60 tabs 04/28/25
== END 2025-04-28 15:35 | disposition home health service (06) | DRG 359 ==
LOC: ED 10:11 → ICU 12:13 → PCU 04-27 15:58
PROVIDERS: Family Medicine; Internal Medicine; Internal Medicine Cardiovascular Disease; Admitting Provider Specialist; Emergency Provider Emergency Medicine; PCP Family Medicine; Referring Provider Specialist; Visit Provider Student in an Organized Health Care Education/Training Program
DX: I21.11 ST elevation (STEMI) myocardial infarction involving right coronary artery (principal); I49.01 Ventricular fibrillation; K72.00 Acute and subacute hepatic failure without coma; I46.2 Cardiac arrest due to underlying cardiac condition; I44.2 Atrioventricular block, complete; I47.20 Ventricular tachycardia, unspecified; M32.9 Systemic lupus erythematosus, unspecified; E78.5 Hyperlipidemia, unspecified; S20.219A Contusion of unspecified front wall of thorax, initial encounter; J44.9 Chronic obstructive pulmonary disease, unspecified; I10 Essential (primary) hypertension; F17.210 Nicotine dependence, cigarettes, uncomplicated; F41.9 Anxiety disorder, unspecified; I25.10 Atherosclerotic heart disease of native coronary artery without angina pectoris; I49.3 Ventricular premature depolarization; R73.09 Other abnormal glucose; X58.XXXA Exposure to other specified factors, initial encounter; Z79.51 Long term (current) use of inhaled steroids
CPT/HCPCS: 36415; 80048; 80053; 80061; 80076; 83036; 83735; 84100; 84484; 85025; 85027; 85347; 85610; 85730; 92941; 92973; 93005; 93306; 93458; 94640; 94668; 94762; 97802; 99152; 99153; 99285; 99406; C1725; C1757; C1894; Q9957; Q9967; A4216; C1769; C1874; C1887; C9606; J2405

== ENCOUNTER 2025-06-06 07:17 | Day surgery (SDC) | payer MEDICARE, MEDICAID, SELFPAY ==
[2025-05-08 12:39] LABS: Hematocrit 45.1 % (40-54); Hemoglobin 16.0 g/dL (13.0-16.5); Immature Granulocytes Count 0.030 X10^3/uL (0.0-0.0); Mean Corp Hgb Conc 35.5 g/dL (32-36); Mean Corpuscular Volume 101.3 fL (80-94); Mean Platelet Vol. 10.3 fl (6.2-12.0); NRBC Flagged by Analyzer 0 % (0-5); Platelet Count 405 K/mm3 (150-450); RBC Distribution Width CV 12.2 % (11.6-14.6); RBC Distribution Width SD 46.3 fl (35.1-43.9); Red Blood Count 4.45 M/mm3 (4.6-6.2); White Blood Count 10.1 K/mm3 (4.4-11.0)
[2025-05-08 13:57] LABS: Anion Gap 16 (5-15); BUN 20 mg/dL (4-19); BUN/Creat Ratio 17.7 RATIO (10-20); Calcium,Total 9.7 mg/dL (7.6-11.0); Carbon Dioxide 18.6 mmol/L (21.0-32.0); Chloride 102 mmol/L (98-108); Glucose 105 mg/dL (70-99); Potassium 4.1 mmol/L (3.3-5.1)
--- NOTE | 2025-05-30 10:04 | PCM.HP.BLA ---
History and Physical Date of Admission: 06/06/25 This is a 64-year-old gentleman who presents to the cardiac color laboratory technician for a staged PCI. He states he woke up on 04/25/2025 with anterior chest discomfort, describing it as a burning sensation. He called EMS, and upon arrival of the EMS, he passed out. He was noted to be in ventricular tachycardia. Successfully cardioverted with 1 shock. An ECG was done in the field which showed acute inferior posterior myocardial infarction. Subsequently a STEMI alert was called. He underwent a cardiac catheterization which demonstrated 100% stenosis in his proximal RCA, 70% stenosis in his mid LAD, and 90% stenosis in his proximal OM1. He underwent successful CAROLYEN to the proximal RCA. His echocardiogram from 04/26/2025 demonstrated an ejection fraction of 55%, inferior hypokinesis, stage I diastolic dysfunction, and mild aortic valve insufficiency. He also has a history of significant nicotine dependence and SLE. From a cardiac standpoint, the patient is doing well. He denies any palpitations, chest pain, pressure or heaviness. He does acknowledge SOB with exertion and at rest. He attributes this to his COPD. He denies Orthopnea, and PND. He does not have bleeding issues; no blood in urine, stool, or nosebleeds. He does acknowledge fatigue. He attributes this to his Lupus. He denies myalgias, or claudication. He does not have edema, or sudden weight gain. He does acknowledge occasional lightheadedness with getting up too quick. He denies dizziness, syncopal or near syncopal episodes, and headaches. Intake Vital Signs See EMR Allergies See EMR Medications See EMR [facility] Medical History Smoker Lupus (systemic lupus erythematosus) COPD (chronic obstructive pulmonary disease) Surgical History History of total hip replacement Family History Other Heart disease Social History Smoking Status: Current every day smoker tobacco type: cigarettes substance use type: marijuana ROS Const Const: Positive for fatigue (LUPUS); Negative for weakness, headache(s) or frequent falls Eyes Eyes: Negative for blurry vision ENT ENT: Negative for headache(s), dizziness or Nosebleed/epistaxis Cardio Chest Pain: No Palpitations: No Edema: None Muscle aches with walking: None Resp Respiratory: Positive for SOB with activity (COPD); Negative for SOB at rest or SOB orthopnea\SOB lying down GI GI: Negative nausea, vomiting, heartburn, bright, red blood in stools or black,tarry stools : Negative for hematuria Neuro Neuro: Positive for lightheadedness (occasional); Negative for dizziness, near syncope, syncope (when he had UT), frequent falls, headache(s), weakness or blurry vision Endo Endo: Positive for fatigue (LUPUS) Cardiology Exam Const Appearance: cooperative and no acute distress Nutritional Appearance: average body habitus Orientation: alert and oriented x3 Head Head: normal to inspection Ears: hearing grossly normal bilaterally Nose: external nose normal Face and Sinus: face symmetric Eyes General: appearance normal, both eyes and all related structures Eyelids: eyelids normal Conjunctivae: conjunctivae normal Pupils: PERRL and pupil size EOM: EOM intact bilaterally Neck Neck: normal visual inspection Carotids: Negative bruit Chest Chest inspection: normal inspection of the chest and normal respiratory effort Auscultation: Bilateral: Diminished Lung Sounds Cardio Palpation: normal PMI Rate: regular rate Rhythm: regular rhythm Heart sounds: S1 normal and S2 normal; Negative rub, gallop or murmur GI GI: normal to inspection and soft Neuro General: patient alert and patient oriented x3 Skin Skin: no rashes or lesions noted Extremities Pulses: Normal: Right Posterior Tibial Pulse, Left Posterior Tibial Pulse, Right Radial Pulse and Left Radial Pulse Bruits: Negative: Right Radial Bruit Lower Extremity Edema: None: Bilateral Psych Psychological: normal affect Supplemental Info Supplemental Information Echocardiogram 04/26/2025: Interpretation Summary The study was technically difficult. Inferior hypokinesis. Estimated LVEF 55%. Stage I diastolic dysfunction. Mild (1+) aortic valve insufficiency. Cardiac catheterization 04/25/2025: CONCLUSIONS 100% Prox RCA 70% Mid LAD 90% Prox OM1 LVEF 40% post-dilated using 3.5 mm balloon, optimized distally using 4.0 mm balloon RECOMMENDATIONS ASA Indefinitley P2Y12 inhibitors for atleast 6 months Staged PCI to OM/LAD Assessment and Plan Assessment and Plan (1) Coronary artery disease status post coronary stent insertion: Status: Acute Comment: CAROLYNE to the proximal RCA?04/25/2025 Plan: Patient has a history of coronary artery disease with recent stent placement to his Proximal RCA on 04/25/2025. His most recent cardiac catheterization from 04/25/2025 demonstrated 100% stenosis in his proximal RCA, 70% stenosis in his mid LAD, and 90% stenosis in his proximal OM1. This was reviewed with patient. Dr. Everett would like to have a staged PCI to his OM/LAD. Cardiac catheterization instructions were reviewed with patient, and he verbalizes understanding. His most recent lipid panel from 04/28/2025: Cholesterol 104, HDL 30, LDL 56, triglycerides 92. At this time he will continue aspirin 81 mg daily, Brilinta 90 mg twice daily, atorvastatin 40 mg daily, and metoprolol 12.5 mg twice daily. The importance of staying on Brilinta was reviewed. Will keep close follow-up with patient.
[2025-06-05 08:50] VITALS: BMI 24.7
[2025-06-06] VITALS (12 sets, daily range): BP systolic 91–107; BP diastolic 58–73; PULSE 63–89; RESP 11–21; TEMP 36–36.4; O2SAT 94–99
--- OUTSIDE RECORDS SUMMARY | 2025-06-06 07:22 | XMS RPT_ITS | CCD ---
Author Organization [facility] Care Team Providers Care Power House Engineer Name Role Phone ROBBIE CARLOS Referring Unavailable ROBBIE CARLOS Admitting Unavailable ROBBIE CARLOS Attending Unavailable KIRAN CAIN Consulting Unavailable Maco Morales MD Primary Care Provider [phone] REFERRING, SHASHI PABON Attending Unavailable REFERRING, SHASHI PABON Primary Care Unavailable Maco Morales MD Primary Care Provider SHIMA MARTIN Referring Unavailable MACO MORALES Primary Care Unavailable SHIMA MARTIN Admitting Unavailable SHIMA MARTIN Attending Unavailable Haagen RELIEF CHARGE NURSE.RUBBERIZING MECHANIC Vee Unavailable Brandon RELIEF CHARGE NURSE.MILENA, Antonietta A Unavailable Dr. Maco Morales MD Primary Care Provider Dr. Lauro Barker DO Emergency Provider Nagajothi, Nagapradee Admitting Unavailabl e Vincentajothi, Nagapradee Referring UnavailJeffery Stack Attending Unavailable [facility] Care Unavailable David, Nagapradee Consulting UnavailMirza Aaron Consulting Unavailable Mirza Chew Attending Unavailable Nagajothi, Nagapradee Admitting Unavailabl e Vincentajothi, Nagapradee Referring UnavailJeffery Stack Attending Unavailable David, Vincentapradee Consulting UnavailMaco [facility] Care Unavailable Mirza Chew Consulting Unavailable Karolyn Schmitz Consulting Unavailable Taylor Everett Attending Unavailable Maco Morales Primary Care Unavailable Karolyn Schmitz Attending Unavailable Damaris [place] Attending Unavailable Damaris [place] Consulting Unavailable aTylor Everett Attending Unavailable Lauro Barker Attending Unavailable Maco Morales Primary Care Unavailable Damaris [place] Attending Unavailable Vincent Hernandezapradee Admitting Unavailabl e Nagajothi, Nagapradee Referring Unavailabl e David, Vincentapradee Consulting [facility] Unavailable Mirza Chew Consulting Unavailable Karolyn Schmitz Unavailable NICOLE HOWARD Referring Unavailable MACO MORALES Primary Care Unavailable ANTONIETTA SYKES Referring Unavailable MACO MORALES Primary Care Unavailable ANTONIETTA SYKES Attending Unavailable MACO MORALES Primary Care Unavailable CARMENMACO Vaca Primary Care Unavailable YAW LANGSTON Attending Unavailable YAW LANGSTON Referring Unavailable MACO MORALES Primary Care Unavailable NICOLE HOWARD Attending Unavailable NICOLE HOWARD Referring Unavailable CARMENMACO [place]aca Primary Care Unavailable Allergies Allergy Classification Reported Allergen(s) Allergy Type Date of Onset Reaction(s) Facility (20 sources) Minocycline; Translations: [MINOCYCLINE] Drug Allergy 1 Itching [facility] Other [place] Repository (20 sources) Acetaminophen / oxyCODONE; Translations: [OXYCODONE-ACETAM INOPHEN] Drug Allergy 1 Mental Status Change [facility] (8 sources) oxyCODONE Drug Allergy 9 Mental Status Change [facility] (13 sources) buPROPion; Translations: [BUPROPION] Drug Allergy 5 Unknown [facility] (13 sources) varenicline; Translations: [VARENICLINE] Drug Allergy 5 Other: See Comments [facility] Work Phone: (1 source) Unable to Assess Drug allergy (disorder) 5 [facility] Repository Medications Current Medications Medication Drug Class(es) Dates Sig (Normalized) Sig (Original) acetaminophen 325 mg oral tablet (5 sources) take 1 tablet by mouth every six hours as needed acetaminophen (TYLENOL) 325 mg tablet Take 325 mg by mouth every 6 hours as needed for pain. Active [id number] 200 actuat albuterol 0.09 mg/actuat metered dose inhaler (20 sources) beta2-Adrenergic Agonist Start: 12-28-2024 Albuterol Sulfate 90 mcg/actuation HFA aerosol inhaler Active 2 NMA INHALATION EVERY 4 HOURS NEEDED as needed for wheezing December 28, 2024 12:00am Start: 10-19-2023 End: 11-03-2025 take 2 puff(s) by inhalation every four hours as needed for wheezing albuterol HFA (VENTOLIN HFA) 90 mcg/actuation inhaler Indications: Other emphysema (HCC) Inhale 2 puffs as instructed every 4 hours as needed for wheezing/shortness of breath. 1 each 11/03/2024 11/03/2025 Active Start: 05-07-2021 End: 09-01-2023 albuterol (PROVENTIL) 2.5 mg /3 mL (0.083 %) nebulizer solution Indications: Bronchitis Use 3 mL via nebulizer every 4 hours as needed for wheezing/shortness of breath. Use over 5-15minutes. 3 mL 0 05/07/2021 09/01/2023 Discontinued Start: 05-07-2021 End: 09-01-2023 take 2 puff(s) by inhalation every four hours as needed for wheezing albuterol HFA (PROVENTIL HFA, VENTOLIN HFA) 90 mcg/actuation inhaler Indications: Bronchitis Inhale 2 Puffs as instructed every 4 hours as needed for wheezing/shortness of breath. 18 g 0 05/07/2021 09/01/2023 Discontinued Comment on above: Inhale 2 Puffs as in structed every 4 hours as needed for wheezing/shortness of breath. Use 3 mL via nebuliz er every 4 hours as needed for wheezing/shortness of breath. Use over 5-15minutes. azithromycin 250 mg oral tablet (3 sources) Macrolide Antimicrobial Start: End: take 2 tablets by mouth once daily, then take 1 tablet by mouth once daily azithromycin (ZITHROMAX) 250 mg tablet Take 2 tablets by mouth once daily for 1 day, THEN 1 tablet once daily for 4 days. 6 tablet 12/03/2024 12/08/2024 Active Budesonide-Glycopyr- Formoterol [Budesonide 160 Mcg-Glycopyr 9 Mcg-Formot 4.8 Mcg/Actuation Hfa Inhaler] (14 sources) Corticosteroid, beta2-Adrenergic Agonist Start: Budesonide-Glycopyr -Formoterol [Budesonide 160 Mcg-Glycopyr 9 Mcg-Formot 4.8 Mcg/Actuation Hfa Inhaler] (Budesonide 160 Mcg-Glycopyr 9 Mcg-Formot 4.8 ) 160-9-4.8 mcg/actuation HFA aerosol inhaler Active NMA INHALATION December 28, 2024 12:00am Start: 11-03-2024 End: 11-03-2025 take 2 puff(s) by inhalation twice daily stzgrfdooi-gbxqgcla-zwphbhcgyb (BREZTRI) 160-9-4.8 mcg/actuation HFA aerosol inhaler Indications: Chronic obstructive pulmonary disease, unspecified COPD type (HCC) Inhale 2 puffs as instructed two times a day. 1 each 11/03/2024 11/03/2025 Active hydrOXYzine pamoate 25 mg oral capsule (1 source) Antihistamine Start: 12-28-2024 Hydroxyzine Pamoate 25 mg capsule Active 50 mg PO 3 TIMES DAILY NEEDED as needed for Anxiety 30 0 December 28, 2024 12:00am predniSONE 10 mg oral tablet (3 sources) Start: 12-03-2024 End: 12-12-2024 predniSONE (DELTASONE) 10 mg tablet Take 4 tabs daily for 3 days, then 2 tabs daily for 3 days, then 1 tab daily for 3 days with food. 21 tablet 12/03/2024 12/12/2024 Active 60 actuat tiotropium 0.0025 mg/actuat inhalation spray (20 sources) Anticholinergic Start: 12-28-2024 take 2.5 ug by inhalation once daily Tiotropium [place] (Tiotropium [place] 2.5 Mcg/Actuation Mist For Inhalation) 2.5 mcg/actuation mist Active 2 NMA INHALATION DAILY December 28, 2024 12:00am Start: 09-14-2023 End: 10-25-2025 take 2 puff(s) by inhalation once daily, then take 2 puff(s) by inhalation once daily tiotropium bromide (SPIRIVA RESPIMAT) 2.5 mcg/actuation inhaler Indications: Chronic obstructive pulmonary disease, unspecified COPD type (HCC) Inhale 2 puffs as instructed once daily. Inhale two puffs once daily. 1 each 10/25/2024 11/03/2024 Discontinued (Duplicate Entry) Comment on above: Inhale 2 Puffs as in structed once daily. Inhale two puffs once daily. Completed/Discontinued Medications Medication Drug Class(es) Dates Sig (Normalized) Sig (Original) busPIRone hydrochloride 5 mg oral tablet (5 sources) Start: 09-03-2018 End: 09-01-2023 take 1 tablet by mouth every twelve hours as needed for anxiety and anxiety busPIRone (BUSPAR) 5 mg tablet Indications: Anxiety Take 1 tablet by mouth twice daily as needed. For anxiety 60 tablet 09/03/2018 09/01/2023 Discontinued Comment on above: Take 1 tablet by regino twice daily as needed. For anxiety diphenhydrAMINE hydrochloride 25 mg oral capsule (5 sources) Histamine-1 Receptor Antagonist Start: 04-28-2012 End: 09-01-2023 take 1 capsule by mouth every six hours as needed diphenhydrAMINE (BENADRYL) 25 mg capsule Indications: Pain, hip , Pain, knee Take 1 capsule by mouth every 6 hours as needed. 0 04/28/2012 09/01/2023 Discontinued Comment on above: Take 1 capsule by mo [facility] every 6 hours as needed. loratadine 10 mg oral tablet (5 sources) Start: 09-02-2018 End: 09-01-2023 take 1 tablet by mouth once daily loratadine (CLARITIN) 10 mg tablet Indications: Nasal congestion Take 1 tablet by mouth once daily. 30 tablet 3 09/02/2018 09/01/2023 Discontinued Comment on above: Take 1 tablet by regino once daily. polyethylene glycol 3350 261821 mg / potassium chloride 2970 mg / sodium bicarbonate 6740 mg / sodium chloride 5860 mg / sodium sulfate 25717 mg powder for oral solution (1 source) Osmotic Laxative Start: 10-12-2023 End: 10-12-2023 peg 3350-Electrolytes (GOLYTELY) 236-22.74-6.74 -5.86 gram suspension Indications: Positive colorectal cancer screening using Cologuard test Take 4,000 mL by mouth one time only for 1 dose. Refer to printed prep instructions from your provider. 4000 mL 0 10/12/2023 10/12/2023 sertraline 50 mg oral tablet (5 sources) Serotonin Reuptake Inhibitor Start: 08-10-2018 End: 09-01-2023 sertraline (ZOLOFT) 50 mg tablet Indications: Anxiety with depression 1/2 pill daily X 1 week; then increase to a whole pill daily. 30 tablet 1 08/10/2018 09/01/2023 Discontinued Comment on above: 1/2 pill daily X 1 w [place]; then increase to a whole pill daily. triamcinolone acetonide 1 mg/ml topical cream (5 sources) Corticosteroid Start: 12-12-2013 End: 09-01-2023 triamcinolone acetonide 0.1 % cream Indications: Eczematous dermatitis , Contact dermatitis and other eczema, due to unspecified cause , Pruritus , Rash and other nonspecific skin eruption , Allergy to insect bites Use as directed 454 g 0 12/12/2013 09/01/2023 Discontinued Comment on above: Use as directed varenicline 1 mg oral tablet (16 sources) Partial Cholinergic Nicotinic Agonist Start: 12-03-2024 End: 12-03-2025 take 1 tablet by mouth twice daily varenicline (CHANTIX) 1 mg tablet Indications: Tobacco use Take 1 tablet by mouth two times a day. Patient should start on December 03, 2024. 60 tablet 11 12/03/2024 02/06/2025 Discontinued Start: 11-03-2024 End: 02-06-2025 take 0.5 tablet by mouth once daily, then take 0.5 tablet by mouth twice daily, then take 1 tablet by mouth twice daily varenicline (CHANTIX) 1 mg tablet Indications: Tobacco use Take 0.5 tablets by mouth once daily for 3 days, THEN 0.5 tablets two times a day for 4 days, THEN 1 tablet two times a day for 23 days. 52 tablet 11/03/2024 02/06/2025 Discontinued Problems Active Problems Problem Classification Problem Date Documented Da te Episodic/Chronic Acute myocardial infarction (4 sources) ST elevation (STEMI) myocardial infarction of unspecified site; Translations: [ST elevation (STEMI) myocardial infarction involving right coronary artery] Onset: 05-03-2025 Chronic Anxiety disorders (20 sources) Mixed anxiety and depressive disorder; Translations: [Anxiety disorder, unspecified] Onset: 07-12-2018 Resolved: 09-01-2023 07-12-2018 Chronic Cardiac arrest and ventricular fibrillation (4 sources) Cardiac arrest, cause unspecified; Translations: [Ventricular fibrillation] Onset: 05-03-2025 Chronic Chronic obstructive pulmonary disease and bronchiectasis (20 sources) Chronic obstructive lung disease; Translations: [Chronic obstructive pulmonary disease, unspecified] Onset: 10-19-2023 09-14-2023 Chronic Coronary atherosclerosis and other heart disease (2 sources) Atherosclerotic heart disease of [place] coronary artery without angina pectoris; Translations: [Atherosclerotic heart disease of [place] coronary artery without angina pectoris] Onset: 05-03-2025 Chronic Diabetes mellitus without complication (2 sources) Impaired fasting glucose; Translations: [Impaired fasting glucose] Onset: 05-03-2025 Episodic Disorders of lipid metabolism (20 sources) Hypertriglyceridemia; Translations: [Pure hyperglyceridemia] Onset: 12-04-2010 12-04-2010 Chronic Other bone disease and musculoskeletal deformities (1 source) Idiopathic aseptic necrosis of left femur; Translations: [Idiopathic aseptic necrosis of left femur] Onset: 07-26-2018 Chronic Other bone disease and musculoskeletal deformities (20 sources) Bilateral hips aseptic necrosis; Translations: [Idiopathic aseptic necrosis of right femur] Onset: 09-13-2013 09-13-2013 Chronic Other connective tissue disease (1 source) Presence of left artificial hip joint; Translations: [Presence of left artificial hip joint] Onset: 07-26-2018 Chronic Other gastrointestinal disorders (1 source) Other fecal abnormalities; Translations: [Positive colorectal cancer screening using Cologuard test] Onset: 09-22-2023 Episodic Other hematologic conditions (1 source) Macrocytosis; Translations: [Other specified diseases of blood and blood-forming organs] 10-20-2023 Chronic Other inflammatory condition of skin (20 sources) Cutaneous lupus erythematosus; Translations: [Other local lupus erythematosus] Onset: 09-01-2023 09-01-2023 Chronic Other inflammatory condition of skin (1 source) Other local lupus erythematosus; 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] Onset: 09-01-2023 Chronic Other liver diseases (1 source) Alkaline phosphatase raised; Translations: [Abnormal levels of other serum enzymes] 10-20-2023 Episodic Other lower respiratory disease (3 sources) Dyspnea; Translations: [Shortness of breath] 09-01-2023 Episodic Other lower respiratory disease (2 sources) Cough; Translations: [Subacute cough] 12-03-2024 Episodic Other lower respiratory disease (3 sources) Multiple nodules of lung; Translations: [Other nonspecific abnormal finding of lung field] 02-06-2025 Episodic Other lower respiratory disease (1 source) Other nonspecific abnormal finding of lung field; Translations: [Multiple lung nodules] Onset: 02-06-2025 Episodic Other screening for suspected conditions (not mental disorders or infectious disease) (14 sources) Patient encounter status; Translations: [Encounter for screening for malignant neoplasm of colon] Onset: 11-03-2024 09-01-2023 Episodic Residual codes; unclassified (6 sources) Tobacco user; Translations: [Tobacco use] 02-06-2025 Episodic Residual codes; unclassified (3 sources) Tobacco use; Translations: [Tobacco abuse] Onset: 07-12-2018 Episodic Residual codes; unclassified (1 source) Pain, unspecified; Translations: [Pain, unspecified] Onset: 06-04-2018 Screening and history of mental health and substance abuse codes (3 sources) Tobacco use and exposure - finding 09-07-2024 Chronic Substance-related disorders (6 sources) Tobacco dependence caused by cigarettes; Translations: [Nicotine dependence, cigarettes, uncomplicated] Onset: 12-03-2024 12-03-2024 Chronic Systemic lupus erythematosus and connective tissue disorders (20 sources) Systemic lupus erythematosus; Translations: [Systemic lupus erythematosus, unspecified] Onset: 07-12-2018 Resolved: 09-01-2023 07-12-2018 Chronic Unclassified (2 sources) Patient encounter status 09-07-2024 Unclassified (1 source) Subacute cough; Translations: [Subacute cough] Onset: 12-03-2024 Past or Other Problems Problem Classification Problem Date Documented Da te Episodic/Chronic Allergic reactions (20 sources) Eczema; Translations: [Dermatitis, unspecified] Onset: 04-08-2011 Resolved: 09-01-2023 04-08-2011 Episodic Immunizations and screening for infectious disease (2 sources) Suspected disease caused by 2019-nCoV; Translations: [Suspected COVID-19 virus infection] Onset: 11-03-2024 05-07-2021 Episodic Osteoarthritis (20 sources) Unilateral primary osteoarthritis, left hip; Translations: [Osteoarthritis of left hip joint] Onset: 06-30-2018 Resolved: 07-26-2018 07-26-2018 Chronic Other bone disease and musculoskeletal deformities (20 sources) Avascular necrosis of bone of hip; Translations: [Idiopathic aseptic necrosis of right femur] Onset: 09-13-2013 Resolved: 07-26-2018 09-13-2013 Chronic Other gastrointestinal disorders (20 sources) Stool DNA-based colorectal cancer screening positive; Translations: [Other fecal abnormalities] Onset: 09-22-2023 09-22-2023 Episodic Other inflammatory condition of skin (1 source) Itching of skin; Translations: [Pruritus, unspecified] Onset: 04-08-2011 04-08-2011 Episodic Other inflammatory condition of skin (20 sources) Pruritus, unspecified; Translations: [Unspecified pruritic disorder] Onset: 04-08-2011 Resolved: 09-01-2023 04-08-2011 Episodic Other injuries and conditions due to external causes (20 sources) Excoriation of skin; Translations: [Other injury of unspecified body region, initial encounter] Onset: 04-08-2011 Resolved: 09-01-2023 04-08-2011 Episodic Other nervous system disorders (20 sources) Skin sensation disturbance; Translations: [Unspecified disturbances of skin sensation] Onset: 04-08-2011 Resolved: 09-01-2023 04-08-2011 Episodic Other skin disorders (20 sources) Eruption; Translations: [Rash and other nonspecific skin eruption] Onset: 04-08-2011 Resolved: 09-01-2023 04-08-2011 Episodic Other skin disorders (20 sources) Folliculitis; Translations: [Follicular disorder, unspecified] Onset: 04-09-2011 Resolved: 09-01-2023 04-09-2011 Episodic Residual codes; unclassified (20 sources) Tobacco use and exposure - finding; Translations: [Tobacco use] Onset: 07-12-2018 07-12-2018 Episodic Residual codes; unclassified (20 sources) Postoperative state; Translations: [Other specified postprocedural states] Onset: 07-26-2018 Resolved: 07-27-2018 07-27-2018 Episodic Screening and history of mental health and substance abuse codes (20 sources) H/O: depression; Translations: [Personal history of other mental and behavioral disorders] Onset: 09-01-2023 09-01-2023 Episodic Skin and subcutaneous tissue infections (20 sources) Pyoderma; Translations: [Pyoderma] Onset: 04-08-2011 04-08-2011 Episodic Results Test Name Value Interpretation Reference Range Facility CNPNon 11-11-2025 CNPN Telephone (FAMPWS) JOHNNIE PISANO ([id number]) 1960 M Date Time Provider Department 05/02/25 MACO MORALES [facility] During your visit today, we recorded the following information about you: Pebbles Gastelum, JAZMINE 05/02/2025 12:30 PM Signed Keshia Magallon pillowcase turner with [facility] calling as they received referral to see pt post hospital discharge for an CT. Requesting order for SN, OT AND PT. Please call back only if problem. Pt has hospital follow up scheduled with Dr. Morales for 05/08. TCM already completed. Maco Morales MD 05/02/2025 1:41 PM Signed agree Allergies As of Date: 05/02/2025 Noted Allergy Reaction PERCOCET (OXYCODONE-ACETAMINO PHEN)05/07/2021 1 - Mental Status Change CHANTIX (VARENICLINE) 11/15/2024 14 - Other: See Comments Comments: panic WELLBUTRIN (BUPROPION) 11/15/2024 16 - Unknown Comments: Panic MINOCYCLINE 04/21/2011 9 - Itching Date Reviewed: 02/06/2025 Reviewed by: Shima Chow MA - Fully Assessed Reason for Visit: Home Care Management [1305] Prescriptions as of 05/02/2025 - acetaminophen (TYLENOL) 325 mg tablet Take 325 mg by mouth every 6 hours as needed for pain. - albuterol HFA (VENTOLIN HFA) 90 mcg/actuation inhaler Inhale 2 puffs as instructed every 4 hours as needed for wheezing/shortness of breath. - budesonide-glycopyr- formoterol (BREZTRI) 160-9-4.8 mcg/actuation HFA aerosol inhaler Inhale 2 puffs as instructed two times a day. Problem List As Of Date 05/02/2025 Noted Resolved Hypertriglyceridemia [E78.1] 12/04/2010 Pyoderma, unspecified [L08.0] 04/08/2011 Eczematous dermatitis [L30.9] 04/08/2011 09/01/2023 Contact dermatitis and other eczema, due to uns*04/08/2011 09/01/2023 Pruritus [L29.9] 04/08/2011 09/01/2023 Excoriation [T14.8XXA] 04/08/2011 09/01/2023 Disturbance of skin sensation [R20.9] 04/08/2011 09/01/2023 Rash and other nonspecific skin eruption [R21] 04/08/2011 09/01/2023 Allergy to insect bites [Z91.038] 04/08/2011 Folliculitis [L73.9] 04/09/2011 09/01/2023 Avascular necrosis of bones of both hips [M87.0*09/13/2013 Primary localized osteoarthritis of left hip [M*06/30/2018 07/26/2018 Avascular necrosis of hip, left (HCC) [M87.052] 06/30/2018 07/26/2018 Systemic lupus erythematosus (HCC) [M32.9] 07/12/2018 09/01/2023 Tobacco use [Z72.0] 07/12/2018 Anxiety and depression [F41.9, F32.A] 07/12/2018 09/01/2023 Post-operative state [Z98.890] 07/26/2018 07/27/2018 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] 09/01/2023 History of depression [Z86.59] 09/01/2023 Well adult exam [Z00.00] 09/01/2023 10/19/2023 Positive colorectal cancer screening using [place]*09/22/2023 Other emphysema (HCC) [J43.8] 10/19/2023 Encounter Status:Closed by MACO MORALES on 05/02/25 Normal [facility] Basic Metabolic Profile (BMP )on 04-30-2025 BUN Normal 4-19 [facility] Comment on above: Result Comment: Canc elled via OM: Order cancelled - Patient discharged Performed By: #### L 300.8000, L500.2500, L100.0100 #### [facility] Laboratory [address] [place], [address] BUN/CRE Normal 10-20 [facility] Comment on above: Result Comment: Canc elled via OM: Order cancelled - Patient discharged Performed By: #### L 300.8000, L500.2500, L100.0100 #### [facility] [address] [place], [address] Calcium Normal 7.6-11.0 [facility] Comment on above: Result Comment: Canc elled via OM: Order cancelled - Patient discharged Performed By: #### L 300.8000, L500.2500, L100.0100 #### [facility] [address] [place], [address] CL Normal 98-108 [facility] Comment on above: Result Comment: Canc elled via OM: Order cancelled - Patient discharged Performed By: #### L 300.8000, L500.2500, L100.0100 #### [facility] [address] [place], [address] CO2 Normal 21.0-32.0 [facility] Comment on above: Result Comment: Canc elled via OM: Order cancelled - Patient discharged Performed By: #### L 300.8000, L500.2500, L100.0100 #### [facility] [address] [place], [address] CREAT,SERUM Normal 0.70-1.20 [facility] Comment on above: Result Comment: Canc elled via OM: Order cancelled - Patient discharged Performed By: #### L 300.8000, L500.2500, L100.0100 #### [facility] [address] [place], [address] eGFR Normal >60 [facility] Comment on above: Result Comment: Canc elled via OM: Order cancelled - Patient discharged Performed By: #### L 300.8000, L500.2500, L100.0100 #### [facility] [address] [place], [address] GAP Normal 5-15 [facility] Comment on above: Result Comment: Canc elled via OM: Order cancelled - Patient discharged Performed By: #### L 300.8000, L500.2500, L100.0100 #### [facility] [address] [place], [address] GLU Normal 70-99 [facility] Comment on above: Result Comment: Canc elled via OM: Order cancelled - Patient discharged Performed By: #### L 300.8000, L500.2500, L100.0100 #### [facility] [address] [place], [address] Potassium Normal 3.3-5.1 [facility] Comment on above: Result Comment: Canc elled via OM: Order cancelled - Patient discharged Performed By: #### L 300.8000, L500.2500, L100.0100 #### [facility] [address] [place], [address] Basic Metabolic Profile (BMP) Normal 133-145 [facility] [facility] Comment on above: Result Comment: Canc elled via OM: Order cancelled - Patient discharged Performed By: #### L 300.8000, L500.2500, L100.0100 #### [facility] [address] [place], [address] CBC W/Diff, Automatedon 11-0 -2024 Absolute Neut Normal 2.0-7.7 [facility] Comment on above: Result Comment: Canc elled via OM: Order cancelled - Patient discharged Performed By: #### L 300.8000, L500.2500, L100.0100 #### [facility] [address] [place], [address] HCT Normal 40-54 [facility] Comment on above: Result Comment: Canc elled via OM: Order cancelled - Patient discharged Performed By: #### L 300.8000, L500.2500, L100.0100 #### [facility] [address] [place], [address] HGB Normal 13.0-16.5 [facility] Comment on above: Result Comment: Canc elled via OM: Order cancelled - Patient discharged Performed By: #### L 300.8000, L500.2500, L100.0100 #### [facility] [address] [place], [address] MCH Normal 27.0-32.0 [facility] Comment on above: Result Comment: Canc elled via OM: Order cancelled - Patient discharged Performed By: #### L 300.8000, L500.2500, L100.0100 #### [facility] [address] [place], [address] MCHC Normal 32-36 [facility] Comment on above: Result Comment: Canc elled via OM: Order cancelled - Patient discharged Performed By: #### L 300.8000, L500.2500, L100.0100 #### [facility] [address] [place], [address] MCV Normal 80-94 [facility] Comment on above: Result Comment: Canc elled via OM: Order cancelled - Patient discharged Performed By: #### L 300.8000, L500.2500, L100.0100 #### [facility] [address] [place], [address] NEUT% Normal 47-70 [facility] Comment on above: Result Comment: Canc elled via OM: Order cancelled - Patient discharged Performed By: #### L 300.8000, L500.2500, L100.0100 #### [facility] [address] [place], [address] PLT Normal 150-450 [facility] Comment on above: Result Comment: Canc elled via OM: Order cancelled - Patient discharged Performed By: #### L 300.8000, L500.2500, L100.0100 #### [facility] [address] [place], [address] RBC Normal 4.6-6.2 [facility] Comment on above: Result Comment: Canc elled via OM: Order cancelled - Patient discharged Performed By: #### L 300.8000, L500.2500, L100.0100 #### [facility] [address] [place], [address] RDW CV Normal 11.6-14.6 [facility] Comment on above: Result Comment: Canc elled via OM: Order cancelled - Patient discharged Performed By: #### L 300.8000, L500.2500, L100.0100 #### [facility] [address] [place], [address] RDW SD Normal 35.1-43.9 [facility] Comment on above: Result Comment: Canc elled via OM: Order cancelled - Patient discharged Performed By: #### L 300.8000, L500.2500, L100.0100 #### [facility] [address] [place], [address] WBC Normal 4.4-11.0 [facility] Comment on above: Result Comment: Canc elled via OM: Order cancelled - Patient discharged Performed By: #### L 300.8000, L500.2500, L100.0100 #### [facility] [address] [place], [address] Basic Metabolic Profile (BMP )on 04-29-2025 BUN Normal 4-19 [facility] Comment on above: Result Comment: Canc elled via OM: Order cancelled - Patient discharged Performed By: #### L 300.8000, L500.2500, L100.0100 #### [facility] [address] [place], [address] BUN/CRE Normal 10-20 [facility] Comment on above: Result Comment: Canc elled via OM: Order cancelled - Patient discharged Performed By: #### L 300.8000, L500.2500, L100.0100 #### [facility] [address] [place], [address] Calcium Normal 7.6-11.0 [facility] Comment on above: Result Comment: Canc elled via OM: Order cancelled - Patient discharged Performed By: #### L 300.8000, L500.2500, L100.0100 #### [facility] [address] [place], [address] CL Normal 98-108 [facility] Comment on above: Result Comment: Canc elled via OM: Order cancelled - Patient discharged Performed By: #### L 300.8000, L500.2500, L100.0100 #### [facility] [address] [place], [address] CO2 Normal 21.0-32.0 [facility] Comment on above: Result Comment: Canc elled via OM: Order cancelled - Patient discharged Performed By: #### L 300.8000, L500.2500, L100.0100 #### [facility] [address] [place], [address] CREAT,SERUM Normal 0.70-1.20 [facility] Comment on above: Result Comment: Canc elled via OM: Order cancelled - Patient discharged Performed By: #### L 300.8000, L500.2500, L100.0100 #### [facility] [address] [place], [address] eGFR Normal >60 [facility] Comment on above: Result Comment: Canc elled via OM: Order cancelled - Patient discharged Performed By: #### L 300.8000, L500.2500, L100.0100 #### [facility] [address] [place], [address] GAP Normal 5-15 [facility] Comment on above: Result Comment: Canc elled via OM: Order cancelled - Patient discharged Performed By: #### L 300.8000, L500.2500, L100.0100 #### [facility] [address] [place], [address] GLU Normal 70-99 [facility] Comment on above: Result Comment: Canc elled via OM: Order cancelled - Patient discharged Performed By: #### L 300.8000, L500.2500, L100.0100 #### [facility] [address] [place], [address] Potassium Normal 3.3-5.1 [facility] Comment on above: Result Comment: Canc elled via OM: Order cancelled - Patient discharged Performed By: #### L 300.8000, L500.2500, L100.0100 #### [facility] [address] [place], [address] Basic Metabolic Profile (BMP) Normal 133-145 [facility] Comment on above: Result Comment: Canc elled via OM: Order cancelled - Patient discharged Performed By: #### L 300.8000, L500.2500, L100.0100 #### [facility] [address] [place], [address] CBC W/Diff, Automatedon 11-0 -2024 Absolute Neut Normal 2.0-7.7 [facility] Comment on above: Result Comment: Canc elled via OM: Order cancelled - Patient discharged Performed By: #### L 300.8000, L500.2500, L100.0100 #### [facility] [address] [place], [address] HCT Normal 40-54 [facility] Comment on above: Result Comment: Canc elled via OM: Order cancelled - Patient discharged Performed By: #### L 300.8000, L500.2500, L100.0100 #### [facility] [address] [place], [address] HGB Normal 13.0-16.5 [facility] Comment on above: Result Comment: Canc elled via OM: Order cancelled - Patient discharged Performed By: #### L 300.8000, L500.2500, L100.0100 #### [facility] [address] [place], [address] MCH Normal 27.0-32.0 [facility] Comment on above: Result Comment: Canc elled via OM: Order cancelled - Patient discharged Performed By: #### L 300.8000, L500.2500, L100.0100 #### [facility] [address] [place], [address] MCHC Normal 32-36 [facility] Comment on above: Result Comment: Canc elled via OM: Order cancelled - Patient discharged Performed By: #### L 300.8000, L500.2500, L100.0100 #### [facility] [address] [place], [address] MCV Normal 80-94 [facility] Comment on above: Result Comment: Canc elled via OM: Order cancelled - Patient discharged Performed By: #### L 300.8000, L500.2500, L100.0100 #### [facility] [address] [place], [address] NEUT% Normal 47-70 [facility] Comment on above: Result Comment: Canc elled via OM: Order cancelled - Patient discharged Performed By: #### L 300.8000, L500.2500, L100.0100 #### [facility] [address] [place], [address] PLT Normal 150-450 [facility] Comment on above: Result Comment: Canc elled via OM: Order cancelled - Patient discharged Performed By: #### L 300.8000, L500.2500, L100.0100 #### [facility] [address] [place], [address] RBC Normal 4.6-6.2 [facility] Comment on above: Result Comment: Canc elled via OM: Order cancelled - Patient discharged Performed By: #### L 300.8000, L500.2500, L100.0100 #### [facility] [address] [place], [address] RDW CV Normal 11.6-14.6 [facility] Comment on above: Result Comment: Canc elled via OM: Order cancelled - Patient discharged Performed By: #### L 300.8000, L500.2500, L100.0100 #### [facility] [address] [place], [address] RDW SD Normal 35.1-43.9 [facility] Comment on above: Result Comment: Canc elled via OM: Order cancelled - Patient discharged Performed By: #### L 300.8000, L500.2500, L100.0100 #### [facility] [address] [place], [address] WBC Normal 4.4-11.0 [facility] Comment on above: Result Comment: Canc elled via OM: Order cancelled - Patient discharged Performed By: #### L 300.8000, L500.2500, L100.0100 #### [facility] [address] [place], [address] 12 Lead EKGon 04-28-2025 12 Lead EKG [facility] [address] [place] [address] 12 Lead EKG 04/28/25 0254 MR#: [id number] Acct: [id number] Name: JOHNNIE PISANO Rep #: [id number] : 1960 64 From: Jeffery Ferguson MD Attending Dr: Dr. Damaris [place] MD Status: DI S IN Ordering Dr: Mirza Chew MD Date: 04/28/25 Location: [facility] Sex: M C Admitted: 04/25/25 Test Reason : chest pain Blood Pressure : */* mmHG Vent. Rate : 66 BPM Atrial Rate : 66 BPM P-R Int : 172 ms QRS Dur : 72 ms QT Int : 402 ms P-R-T Axes : 45 -6 -52 degrees QTcB Int : 421 ms Normal sinus rhythm Low voltage QRS Inferior infarct (cited on or before 26-Apr-2025) Abnormal ECG When compared with ECG of 26-Apr-2025 05:02, No significant change was found Confirmed by Jeffery Ferguson ([id number]), acquisition editor RIZWANA BRIZUELA ([id number]) on 05/01/2025 10:34:54 AM Referred By: Araceli Hernandez Confirmed By: Jeffery Ferguson 05/01/25 1034 Date Jeffery Ferguson MD CC: Dr. Araceli Hernandez MD; Dr. Damaris Colorado MD; Dr. Mirza Chew MD; Dr. Maco Morales MD Signed Normal [facility] Basic Metabolic Profile (BMP )on 04-28-2025 BUN/CRE 10.6 RATIO Normal 10-20 [facility] Comment on above: Performed By: #### L 500.2500, L500.4100, L501.2300, L501.5200, L100.0100 #### [facility] [address] [place], [address] Calcium [Mass/Vol] 8.8 mg/dL Normal 7.6-11.0 [facility] Comment on above: Performed By: #### L 500.2500, L500.4100, L501.2300, L501.5200, L100.0100 #### [facility] [address] [place], [address] Chloride [Moles/Vol] 107 mmol/L Normal 98-108 [facility] Comment on above: Performed By: #### L 500.2500, L500.4100, L501.2300, L501.5200, L100.0100 #### [facility] [address] [place], [address] CO2 [Moles/Vol] 23.0 mmol/L Normal 21.0-32.0 [facility] Comment on above: Performed By: #### L 500.2500, L500.4100, L501.2300, L501.5200, L100.0100 #### [facility] [address] [place], [address] Creatinine [Mass/Vol] 1.03 mg/dL Normal 0.70-1.20 [facility] Comment on above: Performed By: #### L 500.2500, L500.4100, L501.2300, L501.5200, L100.0100 #### [facility] [address] [place], [address] ECRCL 55.22 ml/min Normal 50-250 [facility] Comment on above: Performed By: #### L 500.2500, L500.4100, L501.2300, L501.5200, L100.0100 #### [facility] [address] [place], [address] GAP 10 Normal 5-15 [facility] Comment on above: Performed By: #### L 500.2500, L500.4100, L501.2300, L501.5200, L100.0100 #### [facility] [address] [place], [address] GFR/1.73 sq M.predicted among non-blacks MDRD (S/P/Bld) [Vol rate/Area] 81 mL/min/{1.73_m2} Normal >60 [facility] Comment on above: Result Comment: mL/m in/1.73m2 CKD-EPI Creatinine Equation (2020) Performed By: #### L 500.2500, L500.4100, L501.2300, L501.5200, L100.0100 #### [facility] [address] [place], [address] Glucose [Mass/Vol] 95 mg/dL Normal 70-99 [facility] Comment on above: Performed By: #### L 500.2500, L500.4100, L501.2300, L501.5200, L100.0100 #### [facility] [address] [place], [address] Potassium [Moles/Vol] 3.6 mmol/L Normal 3.3-5.1 [facility] Comment on above: Performed By: #### L 500.2500, L500.4100, L501.2300, L501.5200, L100.0100 #### [facility] [address] [place], [address] Sodium [Moles/Vol] 140 mmol/L Normal 133-145 [facility] Comment on above: Performed By: #### L 500.2500, L500.4100, L501.2300, L501.5200, L100.0100 #### [facility] [address] [place], [address] Urea nitrogen [Mass/Vol] 11 mg/dL Normal 4-19 [facility] Comment on above: Performed By: #### L 500.2500, L500.4100, L501.2300, L501.5200, L100.0100 #### [facility] [address] [place], [address] CBC W/Diff, Automatedon 11-0 Absolute Lymph 1.23 X10 3/uL Normal 0.83-4.51 [facility] Comment on above: Performed By: #### L 500.2500, L500.4100, L501.2300, L501.5200, L100.0100 #### [facility] [address] [place], [address] Absolute Neut 4.2 X10 3/uL Normal 2.0-7.7 [facility] Comment on above: Performed By: #### L 500.2500, L500.4100, L501.2300, L501.5200, L100.0100 #### [facility] [address] [place], [address] Basophils/100 WBC (Bld) 0.5 % Normal 0-1 [facility] Comment on above: Performed By: #### L 500.2500, L500.4100, L501.2300, L501.5200, L100.0100 #### [facility] [address] [place], [address] Eosinophils/100 WBC (Bld) 3.5 % Normal 0-5 [facility] Comment on above: Performed By: #### L 500.2500, L500.4100, L501.2300, L501.5200, L100.0100 #### [facility] [address] [place], [address] Erythrocyte distribution width (RBC) [Ratio] 12.8 % Normal 11.6-14.6 [facility] Comment on above: Performed By: #### L 500.2500, L500.4100, L501.2300, L501.5200, L100.0100 #### [facility] [address] [place], [address] Hematocrit (Bld) [Volume fraction] 34.0 % Low 40-54 [facility] Comment on above: Performed By: #### L 500.2500, L500.4100, L501.2300, L501.5200, L100.0100 #### [facility] [address] [place], [address] Hemoglobin (Bld) [Mass/Vol] 11.8 g/dL Low 13.0-16.5 [facility] Comment on above: Performed By: #### L 500.2500, L500.4100, L501.2300, L501.5200, L100.0100 #### [facility] [address] [place], [address] IG% 0.500 Normal 0.0-0.9 [facility] Comment on above: Result Comment: IG% - Immature Granulocytes (promyelocytes, myelocytes and metamyelocytes) > 1% indicates that a LEFT SHIFT is Present. Performed By: #### L 500.2500, L500.4100, L501.2300, L501.5200, L100.0100 #### [facility] [address] [place], [address] Lymphocytes/100 WBC (Bld) 19.4 % Normal 19-41 [facility] Comment on above: Performed By: #### L 500.2500, L500.4100, L501.2300, L501.5200, L100.0100 #### [facility] [address] [place], [address] MCH (RBC) [Entitic mass] 35.8 pg High 27.0-32.0 [facility] Comment on above: Performed By: #### L 500.2500, L500.4100, L501.2300, L501.5200, L100.0100 #### [facility] [address] [place], [address] MCHC (RBC) [Mass/Vol] 34.7 g/dL Normal 32-36 [facility] Comment on above: Performed By: #### L 500.2500, L500.4100, L501.2300, L501.5200, L100.0100 #### [facility] [address] [place], [address] MCV (RBC) [Entitic vol] 103.0 fL High 80-94 [facility] Comment on above: Performed By: #### L 500.2500, L500.4100, L501.2300, L501.5200, L100.0100 #### [facility] [address] [place], [address] Monocytes/100 WBC (Bld) 9.9 % Normal 0-10 [facility] Comment on above: Performed By: #### L 500.2500, L500.4100, L501.2300, L501.5200, L100.0100 #### [facility] [address] [place], [address] Neutrophils/100 WBC (Bld) 66.2 % Normal 47-70 [facility] Comment on above: Performed By: #### L 500.2500, L500.4100, L501.2300, L501.5200, L100.0100 #### [facility] [address] [place], [address] Nucleated RBC (Bld) [#/Vol] 0 10*3/uL Normal 0-5 [facility] Comment on above: Performed By: #### L 500.2500, L500.4100, L501.2300, L501.5200, L100.0100 #### [facility] [address] [place], [address] Platelet mean volume (Bld) [Entitic vol] 10.7 fL Normal 6.2-12.0 [facility] Comment on above: Performed By: #### L 500.2500, L500.4100, L501.2300, L501.5200, L100.0100 #### [facility] [address] [place], [address] Platelets (Bld) [#/Vol] 199 10*3/uL Normal 150-450 [facility] Comment on above: Performed By: #### L 500.2500, L500.4100, L501.2300, L501.5200, L100.0100 #### [facility] [address] [place], [address] RBC (Bld) [#/Vol] 3.30 10*6/uL Low 4.6-6.2 [facility] Comment on above: Performed By: #### L 500.2500, L500.4100, L501.2300, L501.5200, L100.0100 #### [facility] [address] [place], [address] RDW SD 48.3 fl High 35.1-43.9 [facility] Comment on above: Performed By: #### L 500.2500, L500.4100, L501.2300, L501.5200, L100.0100 #### [facility] [address] [place], [address] WBC (Bld) [#/Vol] 6.4 10*3/uL Normal 4.4-11.0 [facility] Comment on above: Performed By: #### L 500.2500, L500.4100, L501.2300, L501.5200, L100.0100 #### [facility] [address] [place], [address] Discharge Instructionon 11-[address] [facility] Medical Records Department [address] [place] [address] Instructions for Home/Discharge Instructions 04/28/25 1431 MR#: [id number] Acct: [id number] Name: JOHNNIE IPSANO Rep #: [id number] : 1960 64 From: Damaris Colorado MD PCP: Dr. Maco Morales MD Status:ADM IN Discharge Instructions DC O2, CPAP, BIPAP needs Home O2 Discharge instructions: No Dressing / Incision Discharge Activity: Return to Normal Activity Weight Bearing Status: Weight bearing as tolerated Dressing / Incision Call your doctor if you observe: Fever of 101 or Higher, Shortness of breath, Dizziness, Swelling in the ankles and Chest pain Follow Up Care Test Results: Test results from this visit will be discussed in further detail at your follow-up appointment, if applicable. Discharge Plan Admission Admit Date/Time: 04/25/25 11:32 Primary Reason for Your Visit: cardiac arrest due to STEMI Attending Provider: Damaris Colorado Primary Care Provider: Maco Morales Consulting Providers: Araceli Hernandez ; Mirza Chew; Karolyn Schmitz Instructions Patient Instructions: Exercising After a Heart Attack, Heart Attack Additional Instructions / Restrictions: will need follow up CMP within one week with PCP to monitor liver function levels. Discharge Orders/Prescriptions Prescriptions: New aspirin 81 mg Tablet,Delayed Release (Dr/Ec) 81 mg PO BREAKFAST Qty: 30 2RF atorvastatin 40 mg Tablet 40 mg PO QHS Qty: 30 2RF lisinopril 2.5 mg Tablet 2.5 mg PO DAILY Qty: 30 2RF oxycodone 5 mg Tablet 5 mg PO Q6H PRN PRN (Reason: Pain Score 6-10) 3 Days Qty: 12 0RF metoprolol tartrate 25 mg Tablet 12.5 mg PO BID Qty: 30 2RF ticagrelor 90 mg Tablet 90 mg PO BID Qty: 60 2RF Continued albuterol sulfate 90 mcg/actuation HFA aerosol inhaler 2 puff inhalation Q4H PRN PRN (Reason: wheezing) Breztri Aerosphere 160-9-4.8 mcg/actuation HFA aerosol inhaler 2 inh inhalation BID hydroxyzine pamoate 25 mg capsule 50 mg PO TID PRN PRN (Reason: Anxiety) Qty: 30 0RF Referrals / Follow Up: Jeffery Ferguson MD [Med Staff - Active Staff, Cardiology] - Within 2 Weeks Maco Morales MD [Primary Care Provider, Medical] - Within 1 Week Disposition Disposition (needs filled in before D/C Order can be placed): Home, Self Care 04/28/25 1431 Damaris Colorado MD CC: Dr. Karolyn Schmitz MD; Dr. Araceli Hernandez MD; Dr. Mirza Chew MD; Dr. Mcao Morales MD Signed Normal [facility] Lipid Profileon 04-28-2025 CHOL:HDL 3.50 Normal [facility] Comment on above: Performed By: #### L 500.2500, L500.4100, L501.2300, L501.5200, L100.0100 #### [facility] Laboratory [address] [place], [address] Cholesterol [Mass/Vol] 104 mg/dL Normal <=200 [facility] Comment on above: Result Comment: Chol esterol level, Desirable <200 mg/dL Borderline high cholesterol 200-239 mg/dL High cholesterol >=240 mg/dL Recommendations of the NCEP Adult Treatment Panel for the following risk-cutoff thresholds for the [place] population. Performed By: #### L 500.2500, L500.4100, L501.2300, L501.5200, L100.0100 #### [facility] Laboratory [address] [place], [address] Cholesterol in HDL [Mass/Vol] 30 mg/dL Low [facility] Comment on above: Result Comment: [place] onal Cholesterol Education Program (NCEP) guidelines: <40 mg/dL: Low HDL-cholesterol (major risk factor for CHD) >= 60 mg/dL: High HDL-cholesterol (negative risk factor for CHD) HDL-cholesterol is affected by a number of factors, e.g. smoking, exercise, hormones, sex and age. Performed By: #### L 500.2500, L500.4100, L501.2300, L501.5200, L100.0100 #### [facility] Laboratory [address] [place], [address] Cholesterol in LDL [Mass/Vol] 56 mg/dL Normal [facility] Comment on above: Result Comment: Bord xkoqrp=038-926 mg/dL Higher Gfwj=859 mg/dL or greater Do Equation 2020 for LDL-C Performed By: #### L 500.2500, L500.4100, L501.2300, L501.5200, L100.0100 #### [facility] Laboratory [address] [place], [address] Cholesterol in VLDL [Mass/Vol] 18 mg/dL Normal 5-40 [facility] Comment on above: Performed By: #### L 500.2500, L500.4100, L501.2300, L501.5200, L100.0100 #### [facility] Laboratory [address] [place], [address] Triglyceride [Mass/Vol] 92 mg/dL Normal [facility] Comment on above: Result Comment: The drugs N-Acetylcysteine and Metamizole may falsely depress this assay. Normal range: <150 mg/dL Borderline High: 150-199 mg/dL High: 200-499 mg/dL Very High: >500 mg/dL Performed By: #### L 500.2500, L500.4100, L501.2300, L501.5200, L100.0100 #### [facility] Laboratory [address] [place], [address] Magnesiumon 04-28-2025 Magnesium [Mass/Vol] 2.0 mg/dL Normal 1.5-2.2 [facility] Comment on above: Performed By: #### L 400.0001 #### [facility] Laboratory [address] [place], [address] Phosphoruson 04-28-2025 Phosphate [Mass/Vol] 3.4 mg/dL Normal 2.7-4.5 [facility] Comment on above: Performed By: #### L 500.2500, L500.4100, L501.2300, L501.5200, L100.0100 #### [facility] Laboratory [address] [place], [address] 12 Lead EKGon 04-27-2025 12 Lead EKG [facility] Cardiovascular Services [address] [place] [address] 12 Lead EKG 04/27/25 1512 MR#: [id number] Acct: [id number] Name: RUSLANJOHNNIE DAVE Rep #: [id number] : 1960 64 From: Jeffery Ferguson MD Attending Dr: Dr. Damaris Colorado MD Status: DI S IN Ordering Dr: Taylor Everett MD Date: 04/27/25 Location: [facility] Sex: M C Admitted: 04/25/25 Test Reason : Blood Pressure : */* mmHG Vent. Rate : 68 BPM Atrial Rate : 69 BPM P-R Int : 174 ms QRS Dur : 74 ms QT Int : 452 ms P-R-T Axes : -6 -21 -40 degrees QTcB Int : 480 ms Poor data quality rhythm probably NSR with 1st degree AV block Inferior infarct (cited on or before 26-Apr-2025) Abnormal ECG Confirmed by Jeffery Ferguson ([id number]), acquisition editor RIZWANA BRIZUELA ([id number]) on 05/01/2025 10:36:25 AM Referred By: Araceli Hernandez Confirmed By: Jeffery Ferguson 05/01/25 1036 Date Jeffery Ferguson MD CC: Dr. Taylor Everett MD; Dr. Araceli Hernandez MD; Dr. Damaris Colorado MD; Dr. Maco Morales MD Signed Normal [facility] Basic Metabolic Profile (BMP )on 04-27-2025 BUN/CRE 13.1 RATIO Normal 10-20 [facility] Comment on above: Performed By: #### L 400.0001 #### [facility] Laboratory [address] [place], [place], [address] Calcium [Mass/Vol] 8.6 mg/dL Normal 7.6-11.0 [facility] Comment on above: Performed By: #### L 400.0001 #### [facility] Laboratory [address] [place], [place], [address] (329 Chloride [Moles/Vol] 107 mmol/L Normal 98-108 [facility] Comment on above: Performed By: #### L 400.0001 #### [facility] Laboratory [address] [place], [address] CO2 [Moles/Vol] 22.3 mmol/L Normal 21.0-32.0 [facility] Comment on above: Performed By: #### L 400.0001 #### [facility] Laboratory [address] [place], [address] Creatinine [Mass/Vol] 0.97 mg/dL Normal 0.70-1.20 [facility] Comment on above: Performed By: #### L 400.0001 #### [facility] Laboratory [address] [place], [address] ECRCL 58.63 ml/min Normal 50-250 [facility] Comment on above: Performed By: #### L 400.0001 #### [facility] Laboratory [address] [place], [address] GAP 11 Normal 5-15 [facility] Comment on above: Performed By: #### L 400.0001 #### [facility] Laboratory [address] [place], [address] GFR/1.73 sq M.predicted among non-blacks MDRD (S/P/Bld) [Vol rate/Area] 87 mL/min/{1.73_m2} Normal >60 [facility] Comment on above: Result Comment: mL/m in/1.73m2 CKD-EPI Creatinine Equation (2020) Performed By: #### L 400.0001 #### [facility] Laboratory [address] [place], [address] Glucose [Mass/Vol] 105 mg/dL High 70-99 [facility] Comment on above: Performed By: #### L 400.0001 #### [facility] Laboratory [address] [place], [address] Potassium [Moles/Vol] 3.5 mmol/L Normal 3.3-5.1 [facility] Comment on above: Performed By: #### L 400.0001 #### [facility] Laboratory [address] [place], [address] Sodium [Moles/Vol] 139 mmol/L Normal 133-145 [facility] Comment on above: Performed By: #### L 400.0001 #### [facility] Laboratory [address] [place], [address] Urea nitrogen [Mass/Vol] 13 mg/dL Normal 4-19 [facility] Comment on above: Performed By: #### L 400.0001 #### [facility] Laboratory [address] [place], [address] CBC W/Diff, Automatedon 11-0 6-2024 Absolute Lymph 1.27 X10 3/uL Normal 0.83-4.51 [facility] Comment on above: Performed By: #### L 400.0001 #### [facility] Laboratory [address] [place], [address] Absolute Neut 6.0 X10 3/uL Normal 2.0-7.7 [facility] Comment on above: Performed By: #### L 400.0001 #### [facility] Laboratory [address] [place], [address] Basophils/100 WBC (Bld) 0.2 % Normal 0-1 [facility] Comment on above: Performed By: #### L 400.0001 #### [facility] Laboratory [address] [place], [address] Eosinophils/100 WBC (Bld) 1.2 % Normal 0-5 [facility] Comment on above: Performed By: #### L 400.0001 #### [facility] Laboratory [address] [place], [address] Erythrocyte distribution width (RBC) [Ratio] 12.9 % Normal 11.6-14.6 [facility] Comment on above: Performed By: #### L 400.0001 #### [facility] Laboratory [address] [place], [address] Hematocrit (Bld) [Volume fraction] 34.1 % Low 40-54 [facility] Comment on above: Performed By: #### L 400.0001 #### [facility] Laboratory [address] [place], [address] Hemoglobin (Bld) [Mass/Vol] 11.8 g/dL Low 13.0-16.5 [facility] Comment on above: Performed By: #### L 400.0001 #### [facility] Laboratory [address] [place], [address] IG% 0.400 Normal 0.0-0.9 [facility] Comment on above: Result Comment: IG% - Immature Granulocytes (promyelocytes, myelocytes and metamyelocytes) > 1% indicates that a LEFT SHIFT is Present. Performed By: #### L 400.0001 #### [facility] Laboratory [address] [facility] [place], [address] Lymphocytes/100 WBC (Bld) 15.8 % Low 19-41 [facility] Comment on above: Performed By: #### L 400.0001 #### [facility] Laboratory [address] [place], [address] MCH (RBC) [Entitic mass] 35.9 pg High 27.0-32.0 [facility] Comment on above: Performed By: #### L 400.0001 #### [facility] Laboratory [address] [place], [address] MCHC (RBC) [Mass/Vol] 34.6 g/dL Normal 32-36 [facility] Comment on above: Performed By: #### L 400.0001 #### [facility] Laboratory [address] [facility] [place], [address] MCV (RBC) [Entitic vol] 103.6 fL High 80-94 [facility] Comment on above: Performed By: #### L 400.0001 #### [facility] Laboratory [address] [place], [address] Monocytes/100 WBC (Bld) 8.6 % Normal 0-10 [facility] Comment on above: Performed By: #### L 400.0001 #### [facility] Laboratory [address] [place], [address] Neutrophils/100 WBC (Bld) 73.8 % High 47-70 [facility] Comment on above: Performed By: #### L 400.0001 #### [facility] Laboratory [address] [place], [address] Nucleated RBC (Bld) [#/Vol] 0 10*3/uL Normal 0-5 [facility] Comment on above: Performed By: #### L 400.0001 #### [facility] Laboratory [address] [place], [address] Platelet mean volume (Bld) [Entitic vol] 10.5 fL Normal 6.2-12.0 [facility] Comment on above: Performed By: #### L 400.0001 #### [facility] Laboratory [address] [place], [address] Platelets (Bld) [#/Vol] 184 10*3/uL Normal 150-450 [facility] Comment on above: Performed By: #### L 400.0001 #### [facility] Laboratory [address] [place], [address] RBC (Bld) [#/Vol] 3.29 10*6/uL Low 4.6-6.2 [facility] Comment on above: Performed By: #### L 400.0001 #### [facility] Laboratory [address] [place], [address] RDW SD 48.7 fl High 35.1-43.9 [facility] Comment on above: Performed By: #### L 400.0001 #### [facility] Laboratory [address] [place], [address] WBC (Bld) [#/Vol] 8.1 10*3/uL Normal 4.4-11.0 [facility] Comment on above: Performed By: #### L 400.0001 #### [facility] Laboratory [address] [place], [address] Liver Profileon 04-27-2025 Albumin [Mass/Vol] 3.5 g/dL Normal 3.4-4.8 [facility] Comment on above: Performed By: #### L 400.0001 #### [facility] Laboratory [address] [place], [address] ALK PHOS 120 U/L Normal 40-129 [facility] Comment on above: Performed By: #### L 400.0001 #### [facility] Laboratory [address] [place], [address] ALT [Catalytic activity/Vol] 84 U/L High <=46 [facility] Comment on above: Performed By: #### L 400.0001 #### [facility] Laboratory [address] [place], [address] AST [Catalytic activity/Vol] 102 U/L High <=37 [facility] Comment on above: Performed By: #### L 400.0001 #### [facility] Laboratory [address] [place], [address] Bilirubin [Mass/Vol] 0.65 mg/dL Normal 0.00-1.30 [facility] Comment on above: Performed By: #### L 400.0001 #### [facility] Laboratory [address] [place], [address] Bilirubin.direct [Mass/Vol] 0.30 mg/dL Normal 0.00-0.30 [facility] Comment on above: Performed By: #### L 400.0001 #### [facility] Laboratory [address] [place], [address] Globulin (S) [Mass/Vol] 2.2 g/dL Normal 2.2-4.2 [facility] Comment on above: Performed By: #### L 400.0001 #### [facility] Laboratory [address] [place], [address] T PROT 5.7 g/dL Low 5.9-8.4 [facility] Comment on above: Performed By: #### L 400.0001 #### [facility] Laboratory [address] [place], [address] 12 Lead EKGon 04-26-2025 12 Lead EKG [facility] Cardiovascular Services [address] [place] [address] 12 Lead EKG 04/25/25 1110 MR#: [id number] Acct: [id number] Name: JOHNNIE PISANO Rep #: [id number] : 1960 64 From: Jeffery Ferguson MD Attending Dr: Dr. Mirza Chew MD Status : ADM IN Ordering Dr: Taylor Everett MD Date: 04/26/25 Location: ICU Sex: M C Admitted: 04/25/25 Test Reason : post pci Blood Pressure : */* mmHG Vent. Rate : 77 BPM Atrial Rate : 77 BPM P-R Int : 232 ms QRS Dur : 74 ms QT Int : 382 ms P-R-T Axes : 78 69 87 degrees QTcB Int : 432 ms Critical Test Result: STEMI Sinus rhythm with 1st degree A-V block ST elevation consider inferior injury or acute infarct ACUTE CT / STEMI Consider right ventricular involvement in acute inferior infarct Abnormal ECG When compared with ECG of 25-Apr-2025 09:51, MANUAL COMPARISON REQUIRED DATA IS UNCONFIRMED Confirmed by Jeffery Ferguson ([id number]), acquisition editor ZAIRA GARBER ([id number]) on 04/26/2025 7:17:32 AM Referred By: Araceli Hernandez Confirmed By: Jeffery Ferguson 04/26/25 0717 Date Jeffery Ferguson MD CC: Dr. Taylor Everett MD; Dr. Araceli Hernandez MD; Dr. Mirza Chew MD; Dr. Maco Morales MD Signed [facility] 12 Lead EKG [facility] Cardiovascular Services [address] [place] [address] 12 Lead EKG 04/26/25 0502 MR#: [id number] Acct: [id number] Name: JOHNNIE PISANO Rep #: [id number] : 1960 64 From: Jeffery Ferguson MD Attending Dr: Dr. Mirza Chew MD Status : ADM IN Ordering Dr: Araceli Hernandez MD Date: 5 Location: ICU Sex: M C Admitted: 04/25/25 Test Reason : PORT PCI Blood Pressure : */* mmHG Vent. Rate : 66 BPM Atrial Rate : 66 BPM P-R Int : 188 ms QRS Dur : 66 ms QT Int : 412 ms P-R-T Axes : -10 0 -12 degrees QTcB Int : 431 ms Normal sinus rhythm Inferior infarct , age undetermined Abnormal ECG When compared with ECG of 25-Apr-2025 11:10, MANUAL COMPARISON REQUIRED DATA IS UNCONFIRMED Confirmed by Jeffery Ferguson ([id number]), acquisition editor ZAIRA GARBER ([id number]) on 04/26/2025 12:45:56 PM Referred By: Araceli Hernandez Confirmed By: Jeffery Ferguson 04/26/25 1245 Date Jeffery Ferguson MD CC: Dr. Araceli Hernandez MD; Dr. Mirza Chew MD; Dr. Maco Morales MD Signed [facility] CBC-Complete Blood Cnt No Di ffon 04-26-2025 Erythrocyte distribution width (RBC) [Ratio] 13.0 % Normal 11.6-14.6 [facility] Comment on above: Performed By: #### L 300.8000, L500.2500, L100.0100 #### [facility] Laboratory [address] [place], [address] Hematocrit (Bld) [Volume fraction] 35.4 % Low 40-54 [facility] Comment on above: Performed By: #### L 300.8000, L500.2500, L100.0100 #### [facility] Laboratory [address] [place], [address] Hemoglobin (Bld) [Mass/Vol] 12.6 g/dL Low 13.0-16.5 [facility] Comment on above: Performed By: #### L 300.8000, L500.2500, L100.0100 #### [facility] Laboratory [address] [place], [address] MCH (RBC) [Entitic mass] 36.3 pg High 27.0-32.0 [facility] Comment on above: Performed By: #### L 300.8000, L500.2500, L100.0100 #### [facility] Laboratory [address] [place], [address] MCHC (RBC) [Mass/Vol] 35.6 g/dL Normal 32-36 [facility] Comment on above: Performed By: #### L 300.8000, L500.2500, L100.0100 #### [facility] Laboratory [address] [place], [address] MCV (RBC) [Entitic vol] 102.0 fL High 80-94 [facility] Comment on above: Performed By: #### L 300.8000, L500.2500, L100.0100 #### [facility] Laboratory [address] [place], [address] Platelet mean volume (Bld) [Entitic vol] 10.9 fL Normal 6.2-12.0 [facility] Comment on above: Performed By: #### L 300.8000, L500.2500, L100.0100 #### [facility] Laboratory [address] [place], [address] Platelets (Bld) [#/Vol] 184 10*3/uL Normal 150-450 [facility] Comment on above: Performed By: #### L 300.8000, L500.2500, L100.0100 #### [facility] Laboratory [address] [place], [address] RBC (Bld) [#/Vol] 3.47 10*6/uL Low 4.6-6.2 [facility] Comment on above: Performed By: #### L 300.8000, L500.2500, L100.0100 #### [facility] Laboratory [address] [place], [address] RDW SD 48.5 fl High 35.1-43.9 [facility] Comment on above: Performed By: #### L 300.8000, L500.2500, L100.0100 #### [facility] Laboratory [address] [place], [address] WBC (Bld) [#/Vol] 9.7 10*3/uL Normal 4.4-11.0 [facility] Comment on above: Performed By: #### L 300.8000, L500.2500, L100.0100 #### [facility] Laboratory [address] [place], [address] Comprehensive Metabolic Prof azemil 04-26-2025 Albumin [Mass/Vol] 3.6 g/dL Normal 3.4-4.8 [facility] Comment on above: Performed By: #### L 300.8000, L500.2500, L100.0100 #### [facility] Laboratory [address] [place], [address] Albumin/Globulin [Mass ratio] 1.6 {ratio} Normal 0.9-2.4 [facility] Comment on above: Performed By: #### L 300.8000, L500.2500, L100.0100 #### [facility] Laboratory [address] [place], [address] ALK PHOS 127 U/L Normal 40-129 [facility] Comment on above: Performed By: #### L 300.8000, L500.2500, L100.0100 #### [facility] Laboratory [address] [place], [address] ALT [Catalytic activity/Vol] 126 U/L High <=46 [facility] Comment on above: Performed By: #### L 300.8000, L500.2500, L100.0100 #### [facility] Laboratory [address] [place], [address] AST [Catalytic activity/Vol] 233 U/L High <=37 [facility] Comment on above: Result Comment: Hemo lysis present, Results??could be affected. ?? Performed By: #### L 300.8000, L500.2500, L100.0100 #### [facility] Laboratory [address] [place], [address] Bilirubin [Mass/Vol] 0.48 mg/dL Normal 0.00-1.30 [facility] Comment on above: Performed By: #### L 300.8000, L500.2500, L100.0100 #### [facility] Laboratory [address] [place], [address] BUN/CRE 12.2 RATIO Normal 10-20 [facility] Comment on above: Performed By: #### L 300.8000, L500.2500, L100.0100 #### [facility] Laboratory [address] [place], [address] Calcium [Mass/Vol] 8.6 mg/dL Normal 7.6-11.0 [facility] Comment on above: Performed By: #### L 300.8000, L500.2500, L100.0100 #### [facility] Laboratory [address] [place], [address] Chloride [Moles/Vol] 106 mmol/L Normal 98-108 [facility] Comment on above: Performed By: #### L 300.8000, L500.2500, L100.0100 #### [facility] Laboratory [address] [place], [address] CO2 [Moles/Vol] 23.0 mmol/L Normal 21.0-32.0 [facility] Comment on above: Performed By: #### L 300.8000, L500.2500, L100.0100 #### [facility] [address] [place], [address] Creatinine [Mass/Vol] 1.00 mg/dL Normal 0.70-1.20 [facility] Comment on above: Performed By: #### L 300.8000, L500.2500, L100.0100 #### [facility] [address] [place], [address] ECRCL 56.88 ml/min Normal 50-250 [facility] Comment on above: Performed By: #### L 300.8000, L500.2500, L100.0100 #### [facility] [address] [place], [address] GAP 9 Normal 5-15 [facility] Comment on above: Performed By: #### L 300.8000, L500.2500, L100.0100 #### [facility] [address] [place], [address] GFR/1.73 sq M.predicted among non-blacks MDRD (S/P/Bld) [Vol rate/Area] 84 mL/min/{1.73_m2} Normal >60 [facility] Comment on above: Result Comment: mL/m in/1.73m2 CKD-EPI Creatinine Equation (2020) Performed By: #### L 300.8000, L500.2500, L100.0100 #### [facility] [address] [place], [address] Globulin (S) [Mass/Vol] 2.2 g/dL Normal 2.2-4.2 [facility] Comment on above: Performed By: #### L 300.8000, L500.2500, L100.0100 #### [facility] [address] [place], [address] Glucose [Mass/Vol] 116 mg/dL High 70-99 [facility] Comment on above: Performed By: #### L 300.8000, L500.2500, L100.0100 #### [facility] [address] [place], [address] Potassium [Moles/Vol] 4.6 mmol/L Normal 3.3-5.1 [facility] Comment on above: Result Comment: Hemo lysis present, Results??could be affected. ?? Performed By: #### L 300.8000, L500.2500, L100.0100 #### [facility] [address] [place], [address] Sodium [Moles/Vol] 138 mmol/L Normal 133-145 [facility] Comment on above: Performed By: #### L 300.8000, L500.2500, L100.0100 #### [facility] [address] [place], [address] T PROT 5.8 g/dL Low 5.9-8.4 [facility] Comment on above: Performed By: #### L 300.8000, L500.2500, L100.0100 #### [facility] [address] [place], [address] Urea nitrogen [Mass/Vol] 12 mg/dL Normal 4-19 [facility] Comment on above: Performed By: #### L 300.8000, L500.2500, L100.0100 #### [facility] [address] [place], [address] Echo Completeon 04-26-2025 Echo Complete [facility] Cardiovascular Services [address] [place] [address] Echo Complete 04/26/25 0724 MR#: [id number] Acct: [id number] Name: JOHNNIE PISANO Rep #: [id number] : 1960 64 From: Taylor Everett MD Attending Dr: Dr. Mirza Chew MD Status : ADM IN Ordering Dr: Taylor Everett MD Date: 04/26/25 Location: ICU Sex: M C Admitted: 04/25/25 Reason For Study Reason For Study: CHEST PAIN Procedure This was a 2D Doppler, Color Flow transthoracic echocardiogram. The study was technically difficult. Exam performed portable in ICU/CCU. Left Ventricle Normal size and thickness. Inferior hypokinesis. Estimated LVEF 55%. Stage I diastolic dysfunction. Right Ventricle Normal right ventricle. Atria The left and right atria are normal. Mitral Valve Normal mitral valve. Tricuspid Valve Trivial tricuspid valve insufficiency. Unable to estimate RV systolic pressure due to insufficient tricuspid regurgitant envelope. Aortic Valve Trisinus/trileaflet aortic valve. Mild (1+) aortic valve insufficiency. Pulmonic Valve The pulmonic valve is not well visualized. Great Vessels Normal sized aortic root. Pericardium/Pleural No pericardial effusion. MMode/2D Measurements Calculations LVIDd: 4.5 cm IVSd: 0.83 cm Ao root diam: 3.2 cm LVIDs: 3.3 cm LVPWd: 0.91 cm RVDd: 3.3 cm FS: 26.5 % LAV(MOD-bp): 43.4 ml LVAd ap4: 27.9 cm2 LVAd ap2: 19.0 cm2 LAV(MOD-bp) Indexed: 27.1 ml/m2 LVLd ap4: 7.7 cm LVLd ap2: 6.6 cm LAV(MOD-sp2): 40.6 ml EDV(MOD-sp4): 83.7 ml EDV(MOD-sp2): 45.1 ml LAV(MOD-sp4): 41.6 ml EDV(sp4-el): 85.6 ml EDV(sp2-el): 46.4 ml LVAs ap4: 14.8 cm2 LVAs ap2: 10.7 cm2 LVLs ap4: 6.4 cm LVLs ap2: 5.5 cm ESV(MOD-sp4): 29.9 ml ESV(MOD-sp2): 18.1 ml ESV(sp4-el): 28.9 ml ESV(sp2-el): 17.4 ml EF(MOD-sp4): 64.3 % EF(MOD-sp2): 59.9 % EF(sp4-el): 66.2 % SV(MOD-sp4): 53.8 ml SV(MOD-sp2): 27.0 ml SV(sp4-el): 56.6 ml SI(MOD-sp4): 33.6 ml/m2 SI(MOD-sp2): 16.8 ml/m2 LA A4 area: 14.9 cm2 LA dimension(2D): 4.4 cm RA A4 area: 11.4 cm2 TAPSE: 1.8 cm Time Measurements MV dec time: 0.16 sec Doppler Measurements Calculations MV E max john: 76.8 cm/sec Lat Peak E' John: 10.6 cm/sec Med Peak E' John: 9.0 cm/sec MV A max john: 59.9 cm/sec E/E' lat: 7.2 E/E' med: 8.6 MV E/A: 1.3 MV V2 max: 89.7 cm/sec MV P1/2t max john: 90.6 cm/sec Ao V2 max: 136.9 cm/sec MV max P.2 mmHg MV P1/2t: 50.5 msec Ao max P.5 mmHg MV V2 mean: 42.6 cm/sec Ao V2 mean: 88.4 cm/sec MV mean P.91 mmHg MV dec slope: 525.7 cm/sec2 Ao mean P.6 mmHg MV V2 VTI: 19.8 cm MVA(P1/2t): 4.4 cm2 Ao V2 VTI: 22.4 cm AV (velocity ratio): 0.84 LV V1 max: 96.9 cm/sec PA V2 max: 104.5 cm/sec TR max john: 187.9 cm/sec LV V1 max P.8 mmHg TR max P.1 mmHg LV V1 mean P.9 mmHg LV V1 mean: 64.5 cm/sec LV V1 VTI: 18.8 cm ECHO/Echo Complete Interpretation Summary The study was technically difficult. Inferior hypokinesis. Estimated LVEF 55%. Stage I diastolic dysfunction. Mild (1+) aortic valve insufficiency. Ordering Physician: Taylor Everett Referring Physician: Maco Morales Performed By: Hayley Palomares, JIM, RVT 04/26/25 1500 Date Taylor Everett MD CC: Dr. Taylor Everett MD; Dr. Araceli Hernandez MD; Dr. Mirza Chew MD; Dr. Maco Morales MD Date Dictated: 04/26/25 0724 Date Transcribed: 04/26/25 1500 Electronic Device Repairer: Signed Normal [facility] Hemoglobin A1con 04-26-2025 HbA1c (Bld) [Mass fraction] 5.6 % Normal <=5.6 [facility] Comment on above: Result Comment: Norm al < 5.7 % Prediabetic 5.7 - 6.4 % Diabetic >or= 6.5 % Please note range changes. Performed By: #### L 400.0001 #### [facility] [address] [place], [address] Lipid Profileon 04-26-2025 CHOL:HDL 3.87 Normal [facility] Comment on above: Performed By: #### L 300.8000, L500.2500, L100.0100 #### [facility] [address] [place], [address] Cholesterol [Mass/Vol] 115 mg/dL Normal <=200 [facility] Comment on above: Result Comment: Chol esterol level, Desirable <200 mg/dL Borderline high cholesterol 200-239 mg/dL High cholesterol >=240 mg/dL Recommendations of the NCEP Adult Treatment Panel for the following risk-cutoff thresholds for the [place] population. Performed By: #### L 300.8000, L500.2500, L100.0100 #### [facility] [address] [place], [address] Cholesterol in HDL [Mass/Vol] 30 mg/dL Low [facility] Comment on above: Result Comment: [place] onal Cholesterol Education Program (NCEP) guidelines: <40 mg/dL: Low HDL-cholesterol (major risk factor for CHD) >= 60 mg/dL: High HDL-cholesterol (negative risk factor for CHD) HDL-cholesterol is affected by a number of factors, e.g. smoking, exercise, hormones, sex and age. Performed By: #### L 300.8000, L500.2500, L100.0100 #### [facility] [address] [place], [address] Cholesterol in LDL [Mass/Vol] 63 mg/dL Normal [facility] Comment on above: Result Comment: Bord cfazhk=238-823 mg/dL Higher Meah=821 mg/dL or greater Do Equation 2020 for LDL-C Performed By: #### L 300.8000, L500.2500, L100.0100 #### [facility] [address] [place], [address] Cholesterol in VLDL [Mass/Vol] 24 mg/dL Normal 5-40 [facility] Comment on above: Performed By: #### L 300.8000, L500.2500, L100.0100 #### [facility] [address] [place], [address] Triglyceride [Mass/Vol] 122 mg/dL Normal [facility] Comment on above: Result Comment: The drugs N-Acetylcysteine and Metamizole may falsely depress this assay. Normal range: <150 mg/dL Borderline High: 150-199 mg/dL High: 200-499 mg/dL Very High: >500 mg/dL Performed By: #### L 300.8000, L500.2500, L100.0100 #### [facility] [address] [place], [address] Liver Profileon 04-26-2025 Albumin [Mass/Vol] 3.6 g/dL Normal 3.4-4.8 [facility] Comment on above: Performed By: #### L 400.0001 #### [facility] [address] [place], [address] ALK PHOS 125 U/L Normal 40-129 [facility] Comment on above: Performed By: #### L 400.0001 #### [facility] [address] [place], [address] ALT [Catalytic activity/Vol] 128 U/L High <=46 [facility] Comment on above: Performed By: #### L 400.0001 #### [facility] [address] [place], [address] AST [Catalytic activity/Vol] 236 U/L High <=37 [facility] Comment on above: Result Comment: Hemo lysis present, Results??could be affected. ?? Performed By: #### L 400.0001 #### [facility] [address] [place], [address] Bilirubin [Mass/Vol] 0.45 mg/dL Normal 0.00-1.30 [facility] Comment on above: Performed By: #### L 400.0001 #### [facility] [address] [place], [address] Bilirubin.direct [Mass/Vol] 0.14 mg/dL Normal 0.00-0.30 [facility] Comment on above: Result Comment: Hemo lysis present, Results??could be affected. ?? Performed By: #### L 400.0001 #### [facility] [address] [place], [address] Globulin (S) [Mass/Vol] 2.3 g/dL Normal 2.2-4.2 [facility] Comment on above: Performed By: #### L 400.0001 #### [facility] [address] [place], [address] T PROT 5.9 g/dL Normal 5.9-8.4 [facility] Comment on above: Performed By: #### L 400.0001 #### [facility] [address] [place], [address] 12 Lead EKGon 04-25-2025 12 Lead EKG [facility] Cardiovascular Services [address] [place] [address] 12 Lead EKG 04/25/25 0951 MR#: [id number] Acct: [id number] Name: JOHNNIE PISANO Rep #: [id number] : 1960 64 From: Jeffery Ferguson MD Attending Dr: Dr. Mirza Chew MD Status : ADM IN Ordering Dr: Jazmin Kuhn DO Date: 04/25/25 Location: ICU Sex: M C Admitted: 04/25/25 Test Reason : STEMI Blood Pressure : */* mmHG Vent. Rate : 45 BPM Atrial Rate : 48 BPM P-R Int : * ms QRS Dur : 104 ms QT Int : 422 ms P-R-T Axes : * 81 86 degrees QTcB Int : 365 ms Critical Test Result: STEMI Sinus bradycardia with second degree AV block Cannot rule out Septal infarct Inferior injury pattern ACUTE CT / STEMI Consider right ventricular involvement in acute inferior infarct Abnormal ECG Confirmed by Jeffery Ferugson ([id number]), acquisition editor ZAIRA GARBER ([id number]) on 04/26/2025 12:36:24 PM Referred By: Araceli Hernandez Confirmed By: Jeffery Ferguson 04/26/25 1236 Date Jeffery Ferguson MD CC: Dr. Jazmin Kuhn DO; Dr. Araceli Hernandez MD; Dr. Mirza Chew MD; Dr. Maco Morales MD Signed Normal [facility] ACT Activated Clotting Timeo n 04-25-2025 ACTk CLOT TIME 235 sec High 74-137 [facility] Comment on above: Performed By: #### L 9100.0100 #### [facility] [address] [place], [address] ACTk CLOT TIME 209 sec High 74-137 [facility] Comment on above: Performed By: #### L 400.0001 #### [facility] [address] [place], [address] Basic Metabolic Profile (BMP )on 04-25-2025 BUN/CRE 5.6 RATIO Low 10-20 [facility] Comment on above: Performed By: #### L 300.8000, L500.2500, L100.0100 #### [facility] [address] [place], [address] Calcium [Mass/Vol] 8.8 mg/dL Normal 7.6-11.0 [facility] Comment on above: Performed By: #### L 300.8000, L500.2500, L100.0100 #### [facility] Laboratory [address] [place], [address] Chloride [Moles/Vol] 105 mmol/L Normal 98-108 [facility] Comment on above: Performed By: #### L 300.8000, L500.2500, L100.0100 #### [facility] [address] [place], [address] CO2 [Moles/Vol] 18.8 mmol/L Low 21.0-32.0 [facility] Comment on above: Performed By: #### L 300.8000, L500.2500, L100.0100 #### [facility] [address] [place], [address] Creatinine [Mass/Vol] 1.42 mg/dL High 0.70-1.20 [facility] Comment on above: Performed By: #### L 300.8000, L500.2500, L100.0100 #### [facility] [address] [place], [address] ECRCL 40.05 ml/min Low 50-250 [facility] Comment on above: Performed By: #### L 300.8000, L500.2500, L100.0100 #### [facility] Laboratory [address] [place], [address] GAP 17 High 5-15 [facility] Comment on above: Performed By: #### L 300.8000, L500.2500, L100.0100 #### [facility] Laboratory [address] [place], [address] GFR/1.73 sq M.predicted among non-blacks MDRD (S/P/Bld) [Vol rate/Area] 55 mL/min/{1.73_m2} Low >60 [facility] Comment on above: Result Comment: mL/m in/1.73m2 CKD-EPI Creatinine Equation (2020) Performed By: #### L 300.8000, L500.2500, L100.0100 #### [facility] [address] [place], [address] Glucose [Mass/Vol] 228 mg/dL High 70-99 [facility] Comment on above: Performed By: #### L 300.8000, L500.2500, L100.0100 #### [facility] [address] [place], [address] Potassium [Moles/Vol] 3.2 mmol/L Low 3.3-5.1 [facility] Comment on above: Performed By: #### L 300.8000, L500.2500, L100.0100 #### [facility] [address] [place], [address] Sodium [Moles/Vol] 140 mmol/L Normal 133-145 [facility] Comment on above: Performed By: #### L 300.8000, L500.2500, L100.0100 #### [facility] [address] [place], [address] Urea nitrogen [Mass/Vol] 8 mg/dL Normal 4-19 [facility] Comment on above: Performed By: #### L 300.8000, L500.2500, L100.0100 #### [facility] [address] [place], [address] CBC W/Diff, Automatedon 11-0 -2024 Absolute Lymph 2.52 X10 3/uL Normal 0.83-4.51 [facility] Comment on above: Performed By: #### L 300.8000, L500.2500, L100.0100 #### [facility] [address] [place], [address] Absolute Neut 8.8 X10 3/uL High 2.0-7.7 [facility] Comment on above: Performed By: #### L 300.8000, L500.2500, L100.0100 #### [facility] [address] [place], [address] Basophils/100 WBC (Bld) 0.8 % Normal 0-1 [facility] Comment on above: Performed By: #### L 300.8000, L500.2500, L100.0100 #### [facility] [address] [place], [address] Eosinophils/100 WBC (Bld) 2.2 % Normal 0-5 [facility] Comment on above: Performed By: #### L 300.8000, L500.2500, L100.0100 #### [facility] [address] [place], [address] Erythrocyte distribution width (RBC) [Ratio] 12.6 % Normal 11.6-14.6 [facility] Comment on above: Performed By: #### L 300.8000, L500.2500, L100.0100 #### [facility] [address] [place], [address] Hematocrit (Bld) [Volume fraction] 42.4 % Normal 40-54 [facility] Comment on above: Performed By: #### L 300.8000, L500.2500, L100.0100 #### [facility] [address] [place], [address] Hemoglobin (Bld) [Mass/Vol] 14.4 g/dL Normal 13.0-16.5 [facility] Comment on above: Performed By: #### L 300.8000, L500.2500, L100.0100 #### [facility] [address] [place], [address] IG% 1.400 High 0.0-0.9 [facility] Comment on above: Result Comment: IG% - Immature Granulocytes (promyelocytes, myelocytes and metamyelocytes) > 1% indicates that a LEFT SHIFT is Present. Performed By: #### L 300.8000, L500.2500, L100.0100 #### [facility] [address] [place], [address] Lymphocytes/100 WBC (Bld) 20.1 % Normal 19-41 [facility] Comment on above: Performed By: #### L 300.8000, L500.2500, L100.0100 #### [facility] [address] [place], [address] MCH (RBC) [Entitic mass] 35.7 pg High 27.0-32.0 [facility] Comment on above: Performed By: #### L 300.8000, L500.2500, L100.0100 #### [facility] [address] [place], [address] MCHC (RBC) [Mass/Vol] 34.0 g/dL Normal 32-36 [facility] Comment on above: Performed By: #### L 300.8000, L500.2500, L100.0100 #### [facility] [address] [place], [address] MCV (RBC) [Entitic vol] 105.2 fL High 80-94 [facility] Comment on above: Performed By: #### L 300.8000, L500.2500, L100.0100 #### [facility] [address] [place], [address] Monocytes/100 WBC (Bld) 5.4 % Normal 0-10 [facility] Comment on above: Performed By: #### L 300.8000, L500.2500, L100.0100 #### [facility] [address] [place], [address] Neutrophils/100 WBC (Bld) 70.1 % High 47-70 [facility] Comment on above: Performed By: #### L 300.8000, L500.2500, L100.0100 #### [facility] [address] [place], [address] Nucleated RBC (Bld) [#/Vol] 0.2 10*3/uL Normal 0-5 [facility] Comment on above: Performed By: #### L 300.8000, L500.2500, L100.0100 #### [facility] [address] [place], [address] Platelet mean volume (Bld) [Entitic vol] 11.0 fL Normal 6.2-12.0 [facility] Comment on above: Performed By: #### L 300.8000, L500.2500, L100.0100 #### [facility] [address] [place], [address] Platelets (Bld) [#/Vol] 243 10*3/uL Normal 150-450 [facility] Comment on above: Performed By: #### L 300.8000, L500.2500, L100.0100 #### [facility] [address] [place], [address] RBC (Bld) [#/Vol] 4.03 10*6/uL Low 4.6-6.2 [facility] Comment on above: Performed By: #### L 300.8000, L500.2500, L100.0100 #### [facility] [address] [place], [address] RDW SD 49.5 fl High 35.1-43.9 [facility] Comment on above: Performed By: #### L 300.8000, L500.2500, L100.0100 #### [facility] [address] [place], [address] WBC (Bld) [#/Vol] 12.6 10*3/uL High 4.4-11.0 [facility] Comment on above: Performed By: #### L 300.8000, L500.2500, L100.0100 #### [facility] [address] [place], [address] Cardiac Cath Interventionon 04-25-2025 Cardiac Cath Intervention [facility] Imaging Services [address] [place] [address] Cardiac Cath Intervention MR#: [id number] Acct: [id number] Name: PISANOJOHNNIE DAVE Rep #: [id number] : 1960 64 From: Taylor Everett MD PCP: Dr. Maco Morales MD Status:ADM IN Patient Name: JOHNNIE PISANO Study Date: 04/25/2025 Performing: Taylor Everett MD Ht: 62 inches 157.48 cm : 1960 Wt: 135.14 lbs 61.3 kg Age: 64 Gender: male BSA: 1.62 PROCEDURE(S) PERFORMED IC16-([id number])AM I, CAROLYNE OR PTCA, ARTERY/GRAFT, SINGLE VESSEL DC01-([id number])LHC/COR/ LV IC17-([id number])CORONARY MECHANICAL THROMBECTOMY (ANGIOJET,PENUMBRA) CLINICAL PROFILE AND CO-MORBIDITIES Indications: ACS <= 24 hrs Heart Failure: None Stress/Imaging Stress/Image Study Performed: No CAD Presentations: STEMI. Symptom onset Date/Time: 03/25/2025 Time Not Available CONCLUSIONS 100% Prox RCA 70% Mid LAD 90% Prox OM1 LVEF 40% post-dilated using 3.5 mm balloon, optimized distally using 4.0 mm balloon RECOMMENDATIONS ASA Indefinitley P2Y12 inhibitors for atleast 6 months Staged PCI to OM/LAD DESCRIPTION OF PROCEDURE The patient arrived to the procedure lab. The risks and benefits of the procedure as well as a full description of our services here and lack of surgical backup were fully explained to the patient and/or their significant other prior to the catheterization. The Timeout was completed, verifying the correct patient and procedure. The patient's procedural site was prepped and draped in the usual fashion. Local anesthetic was given subcutaneously to right radial region with Lidocaine 2%. Using a modified Seldinger technique, arterial access was obtained via the right radial artery, a 6Fr sheath was inserted.. Right Coronary Artery selective angiography was then performed in multiple views using a 6 Fr. JR 4 guide. Left Coronary Artery selective angiography was performed in multiple views using a 5 Fr. JL3.5 catheter. Left Ventriculography was performed in STERLING projection using a 5 Fr. Pigtail catheter. LV to AO pullback pressures were then recorded JR 4.0 Guide catheter was inserted and engaged into the RCA. Runthrough Guide wire was advanced to the RCA. 2.5 x 15 Emerge Balloon catheter was advanced across lesion in the right coronary, proximal. PTCA balloon inflated at 9 atms for 8 secs. 3.0 x 38 Lavelle Drug Eluting stent was advanced across the lesion in the right coronary, proximal. Angiogram performed post stent deployment. 3.0 x 22 [place] Drug Eluting stent was advanced across the lesion in the right coronary, proximal. Angiogram performed post stent deployment. 3.5 x 20 NC Emerge Balloon catheter was inserted post stent. 4 x 6 NC Euphora Balloon catheter was inserted post stent. Angiogram performed pre balloon dilatation. Angiogram performed post balloon dilatation. The arterial sheath was pulled and a TR Band was applied for hemostasis. 10cc air CORONARY ANGIOGRAPHY DOMINANCE: Right Dominant LEFT HEART ASSESSMENT Left Ventricular Ejection Fraction: by LV Gram 40% LVEDP: 19 mmHg LEFT MAIN: Angiographically normal LEFT ANTERIOR DESCENDING ARTERY: LAD: Tubular 50% Proximal lesion in LAD Tubular 70% Mid lesion in LAD OM 1: Tubular 90% Proximal lesion in MARG1 OM 2: Tubular 90% Proximal lesion in MARG1 RIGHT CORONARY ARTERY: RCA: Complex 100% Proximal lesion in RCA INTERVENTION INFORMATION LESION SITE: RCA (Proximal) Lesion Complexity: High/C, thrombus present: Yes, lesion length: 58 mm, culprit lesion: Yes, In-stent restenosis: No Pre Stenosis: 100 % Pre intervention NURA flow: 0 PROCEDURE: Drug Eluting Stent with pre and post dilatation, Aspiration thrombectomy Post Stenosis: 0 % Post intervention NURA flow: 3 Lesion Devices: Terumo .014 180cm Runthrough Extra Floppy straight Cordis 6 Fr JR4 100cm Guide Catheter Humza Sci EMERGE MR 2.50x15 BALLOON Penumbra Indigo Penumbra CAT Rx 140cm large lumen Medtronic 3.0 x 38 LAVELLE FRONTIER CAROLYNE Medtronic 3.0 x 22 LAVELLE FRONTIER CAROLYNE Humza Sci NC EMERGE MR 3.50x20 BALLOON Medtronic NC EUPHORA RX 4.0x06 BALLOON COMPLICATIONS No Complications PROCEDURE MEDICATIONS Fentanyl 50 mcg IV Versed 2 mg IV Oxygen: 4 L/min via nasal cannula Amiodarone 150 mg/min @ 04/25/2025 10:17:42 Heparin 3000 unit(s) IV 04/25/2025 10:15:45 Heparin 1000 unit(s) IV 04/25/2025 11:00:21 Magnesium Sulfate 2 Gm 04/25/2025 10:22:00 Verapamil 2.5mg, Ntg 200mcgs, given IA 04/25/2025 10:09:45 SUMMARY OF HEMODYNAMIC DATA Time AIR REST ECG 10:06:12 AO 96/59 (74) SA 10:12:11 LV 98/4, 18 10:48:57 LV 100/4, 19 10:49:05 LV 100/0, 20 10:50:27 LVp 100/2, 19 10:50:42 AOp 98/54 (73) 10:50:49 11:17:07 Signed By Taylor Everett MD On 04/25/2025 11:20:49 Taylor Everett MD 1 (more content not included)... Normal [facility] Consultation - Cardiologyon 04-25-2025 Consultation - Cardiology [facility] Medical Records Department [address] [place] [address] Consultation - Cardiology 04/25/25 1106 MR#: [id number] Acct: [id number] Name: JOHNNIE PISANO Rep #: [id number] : 1960 64 From: Taylor Everett MD PCP: Dr. Maco Morales MD Status:ADM IN Location: ICU ICU-1 Assessment Plan Assessment/Plan (1) ST elevation (STEMI) myocardial infarction: PLAN: Emergent coronary angiography was done. It showed total occlusion of the proximal RCA. Successful percutaneous revascularization was performed with balloon angioplasty, aspiration thrombectomy and placement of 2 drug-eluting stents. Excellent results were noted with rastafari of NURA-3 flow. Continue aspirin lifelong. P2 Y12 treatment for at least 6 months. (2) Coronary artery disease: PLAN: See #1 above. Patient is also noted to have severe disease in his left circumflex obtuse marginal and in his mid LAD. For staged PCI. (3) Cardiac arrest with successful resuscitation: PLAN: Pulseless V. tach arrest in the field in the setting of an acute myocardial infarction. Successfully cardioverted. (4) Nicotine dependence: PLAN: Quit smoking. (5) COPD (chronic obstructive pulmonary disease): PLAN: As per internal medicine. (6) Lupus (systemic lupus erythematosus): PLAN: As per internal medicine/rheumatolog y. HPI Consult Data Date of Consult: 04/25/25 HPI Narrative Reason for Consultation: STEMI HPI Narrative: 64-year-old gentleman with past medical history significant for nicotine dependence and SLE. He woke up this morning with anterior chest discomfort. Described it more as burning. EMS was called. Upon arrival of the EMS, he passed out. He was noted to be in ventricular tachycardia. Successfully cardioverted with 1 shock. An ECG was done in the field which showed acute inferior posterior myocardial infarction. Subsequently a STEMI alert was called. [facility] Medical History Lupus (systemic lupus erythematosus) COPD (chronic obstructive pulmonary disease) Home Medications ???Medication ???Instructions ???Recorded ???Last Taken ???Type albuterol sulfate 90 mcg/actuation 2 puff inhalation Q4H PRN PRN Unknown History aerosol inhaler wheezing budesonide 160 mcg-glycopyr 9 inh inhalation 12/28/24 Unknown Hi story mcg-formot 4.8 mcg/actuation HFA inhaler (Breztri Aerosphere) hydroxyzine pamoate 25 mg capsule 50 mg (2 x 25 mg) PO TID PRN PRN 12/28/24 Unknown Rx Anxiety #30 CAPSULES tiotropium bromide 2.5 2 puff inhalation DAILY 12/28/24 U nknown History mcg/actuation mist for inhalation (Spiriva Respimat) Allergy/AdvReac Type Severity Reaction Status Date / Time Unable to Assess Allergy Verified 12/28/24 07:14 Surgical History History of total hip replacement Social History Smoking Status: Current every day smoker tobacco type: cigarettes substance use type: marijuana Physical Exam Narrative Anxious appearing. Heart sounds 1 and 2 noted. Chest clear to auscultation bilaterally. Alert oriented x 3. No ankle edema. Objective Data Vital Signs: Vital Signs Temp Pulse Resp BP Pulse Ox O2 Del Method 98 F 53 L 10 L 125/86 H 92 Room Air 04/25/25 10:27 04/25/25 10:27 04/25/25 10:27 04/25/25 10:27 04/25/25 10:27 04/25/25 09:58 Oxygen Delivery Method Room Air Weight: 135 lb 2.294 oz Body Mass Index (BMI) 24.7 Intake Output: Intake and Output for Last 24 Hours 04/23/25 04/24/25 04/25/25 22:59 23:59 23:59 Intake Total 0 / 0 Balance 0 / 0 Lab / Micro Data 04/25/25 09:45 04/25/25 09:45 Labs: Laboratory Results - last 24 hr 04/25/25 09:45: WBC 12.6 H, RBC 4.03 L, Hgb 14.4, Hct 42.4, MCV 105.2 H, MCH 35.7 H, MCHC 34.0, RDW Std Deviation 49.5 H, RDW Coeff of Chris 12.6, Plt Count 243, MPV 11.0, Immature Gran % (Auto) 1.400 H , Neut % (Auto) 70.1 H, Lymph % (Auto) 20.1, [place] % (Auto) 5.4, Eos % (Auto) 2.2, Baso % (Auto) 0.8, Absolute Neuts (auto) 8.8 H, Absolute Lymphs (auto) 2.52, Nucleated RBC % 0.2, Sodium 140, Potassium 3.2 L, Chloride 105, Carbon Dioxide 18.8 L, Anion Gap 17 H, BUN 8, Creatinine 1.42 H, Estim Creat Clear Calc 40.05 L, Est GFR (MDRD) Non-Af 55 L, BUN/Creatinine Ratio 5.6 L, Glucose 228 H, Calcium 8.8, Troponin T High Sens 33 H Rhythm Strip Rhythm Strip: Bradycardia Rate: 45 Cardiology Labs/Tests 04/25/25 09:45: WBC 12.6 H, RBC 4.03 L, Hgb 14.4, Hct 42.4, MCV 105.2 H, MCH 35.7 H, MCHC 34.0, Plt Count 243, MPV 11.0, Immature Gran % (Auto) 1.400 H, Neut % (Auto) 70.1 H, Lymph % (Auto) 20.1, [place] % (Auto) 5.4, Eos % (Auto) 2.2, Baso % (Auto) 0.8, Absolute Neuts (auto) 8.8 H, Nucleated RBC % 0.2, Sodium 140, Potass (more content not included)... Normal [facility] Emergency Department Summary on 04-25-2025 Emergency Department Summary [facility] Medical Records Department [address] [place] [address] Emergency Department Summary 04/25/25 MR#: [id number] Acct: [id number] Name: JOHNNIE PISANO Rep #: [id number] : 1960 64 From: Jazmin Kuhn DO PCP: Dr. Maco Morales MD Status:REG ER Location: ED HPI History of Present Illness Chief Complaint: Chest Pain Informant: patient Narrative Narrative: Patient is a 64-year-old male with history of COPD and SLE with regular tobacco use presenting as a STEMI. Patient states he woke up this morning and had a hard time getting back to sleep. He states he was having heartburn. He was feeling short of breath. An episode of nausea and vomiting as well as diarrhea. EMS was called and when EMS arrived patient became unresponsive. They state that he was in some type of block and then went into V-fib. ACLS protocol was started and CPR was performed. He was defibrillated, went into V. tach and then had sinus bradycardia. EKG showed inferior CT and patient was transferred to the emergency room. Received full dose aspirin and route. Patient is awake and talking at time of arrival. He is able to provide the history for me. Lives alone but reportedly son is on his way. States he is comfortable with cardiac catheterization as long as he does not receive any vaccinations. Denies any known history of any cardiac disease. Is still having chest pain. [facility] Medical History Lupus (systemic lupus erythematosus) COPD (chronic obstructive pulmonary disease) Home Medications ???Medication ???Instructions ???Recorded ???Last Taken ???Type albuterol sulfate 90 mcg/actuation 2 puff inhalation Q4H PRN PRN Unknown History aerosol inhaler wheezing budesonide 160 mcg-glycopyr 9 inh inhalation 12/28/24 Unknown Hi story mcg-formot 4.8 mcg/actuation HFA inhaler (Breztri Aerosphere) hydroxyzine pamoate 25 mg capsule 50 mg (2 x 25 mg) PO TID PRN PRN 12/28/24 Unknown Rx Anxiety #30 CAPSULES tiotropium bromide 2.5 2 puff inhalation DAILY 12/28/24 U nknown History mcg/actuation mist for inhalation (Spiriva Respimat) Allergy/AdvReac Type Severity Reaction Status Date / Time Unable to Assess Allergy Verified 12/28/24 07:14 Surgical History History of total hip replacement Social History Smoking Status: Current every day smoker tobacco type: cigarettes substance use type: marijuana ROS ROS ED Constitutional Constitutional ED: Denies chills, fever(s) or sweats Cardiovascular Cardiovascular: Reports chest pain Respiratory/Chest Respiratory/Chest: Reports cough Gastrointestinal Gastrointestinal: Reports diarrhea, nausea and vomiting Musculoskeletal Musculoskeletal: Denies arthralgias, back pain or myalgias Integumentary Denies rash Neurologic Neurologic: Reports weakness Hematologic/Lymphati c Hematologic/Lymphati c: Denies easy bleeding or easy bruising EXAM Physical Exam Const Vital Signs: 04/25/25 09:50 04/25/25 09:50 04/25/25 09:51 Temperature 98.7 F Temperature Source Oral Pulse Rate 59 L Respiratory Rate 20 H 20 H Respiratory Effort Normal Pulse Ox 100 Oxygen Delivery Method Room Air 04/25/25 09:58 Temperature Temperature Source Pulse Rate Respiratory Rate Respiratory Effort Pulse Ox Oxygen Delivery Method Room Air Constitutional Narrative: Patient samuels, in no acute distress but unwell appearing General Appearance ED: Negative for pallor HEENT Reports dry mucous membranes Mouth ED: Yes dry mucous membranes Mouth: dry mucous membranes Neck supple and no JVD Chest Wall inspection of chest normal Resp normal respiratory effort and clear to auscultation bilaterally Cardio regular rhythm and no murmurs Cardio Narrative: 2+ radial and DP pulses Rate: bradycardia GI normal to inspection, nondistended, normoactive bowel sounds and soft to palpation Extremity normal to inspection Extremity Narrative: Mottled General Extremety ED: Negative for edema General Extremity: Negative for edema Neuro oriented x3 Sensorium / Orientation: awake and alert Motor Exam: general weakness Psych mental status grossly normal Skin no rashes or lesions noted and no wounds General Skin Exam: Negative for pallor Heart Score History: Highly Suspicious ECG: Significant ST-Depression Age: >/= 65 years Risk Factors: >/= 3 Risk Factors or History of CAD Score: 8 MDM MDM MDM Narrative Medical decision making narrative: Patient is evaluated for chest pain in the setting of V-fib arrest prior to arrival. Prearrival EKG initiated is a lot of artifact (more content not included)... Normal [facility] H AND P Exam - Hospitaliston 04-25-2025 H&P Exam - Hospitalist [facility] Medical Records Department [address] [place] [address] H P Exam - Hospitalist 04/25/25 1135 MR#: [id number] Acct: [id number] Name: JOHNNIE PISANO Rep #: [id number] : 1960 64 From: Mirza Chew MD PCP: Dr. Maco Morales MD Status:ADM IN Location: ICU ICU05-1 HPI - General General Date of Admission: 04/25/25 HPI Narrative JOHNNIE PISANO, is a 64 M who presents to the hospital as a STEMI alert. He had what appears to be an inferior CT EKG. He was at home feeling short of breath as well as some heartburn and had an episode of nausea and vomiting. EMS was called to the home where he became unresponsive. He appeared to have initially some sort of AV block and then proceeded into V-fib arrest. He was successfully resuscitated after defibrillation and transferred to the hospital. He went to the [facility] where he was found to have a 100% proximal RCA lesion as well as 70% mid LAD and a 90% proximal OM1 lesion with an EF of 40%. He had a drug-eluting stent placed to the proximal RCA with a plan for staged procedure as an outpatient for his remaining lesions. [facility] Medical History Lupus (systemic lupus erythematosus) COPD (chronic obstructive pulmonary disease) Home Medications ???Medication ???Instructions ???Recorded ???Last Taken ???Type albuterol sulfate 90 mcg/actuation 2 puff inhalation Q4H PRN PRN Unknown History aerosol inhaler wheezing budesonide 160 mcg-glycopyr 9 inh inhalation 12/28/24 Unknown Hi story mcg-formot 4.8 mcg/actuation HFA inhaler (Breztri Aerosphere) hydroxyzine pamoate 25 mg capsule 50 mg (2 x 25 mg) PO TID PRN PRN 12/28/24 Unknown Rx Anxiety #30 CAPSULES tiotropium bromide 2.5 2 puff inhalation DAILY 12/28/24 U nknown History mcg/actuation mist for inhalation (Spiriva Respimat) Allergy/AdvReac Type Severity Reaction Status Date / Time Unable to Assess Allergy Verified 12/28/24 07:14 Family History (Updated 04/25/25 @ 13:[address] Mirza Chew MD) Other Heart disease Surgical History History of total hip replacement Social History Smoking Status: Current every day smoker tobacco type: cigarettes substance use type: marijuana ROS Constitutional Constitutional: Denies chills, fatigue, fever(s) or malaise Eyes Eyes: Denies blurry vision ENT HEENT: Denies headache(s) or nasal discharge Cardiovascular Cardiovascular: Reports chest pain; Denies dyspnea on exertion or syncope Respiratory/Chest Respiratory/Chest: Denies cough, shortness of breath at rest or shortness of breath with exertion Gastrointestinal Gastrointestinal: Reports nausea and vomiting; Denies constipation or diarrhea Genitourinary Genitourinary: Denies dysuria Neurologic Neurologic: Denies focal weakness, numbness or tremor(s) Psychiatric Psychiatric: Denies anxiety or depression Vital Signs Vital Signs Vital Signs: 04/25/25 09:50 04/25/25 09:50 04/25/25 09:51 Temperature 98.7 F Temperature Source Oral Pulse Rate 59 L Respiratory Rate 20 H 20 H Respiratory Effort Normal Blood Pressure Blood Pressure Mean Blood Pressure Source Blood Pressure Position Blood Pressure Location Pulse Ox 100 Oxygen Delivery Method Room Air Oxygen Flow Rate (L/min) 04/25/25 09:58 04/25/25 10:27 04/25/25 11:14 Temperature 98 F 97.2 F L Temperature Source Temporal Pulse Rate 53 L 78 Respiratory Rate 10 L 22 H Respiratory Effort Blood Pressure 125/86 H 134/80 H Blood Pressure Mean 99 98 Blood Pressure Source Monitor Blood Pressure Position Supine Blood Pressure Location Left Arm Pulse Ox 92 100 Oxygen Delivery Method Room Air Nasal Cannula Oxygen Flow Rate (L/min) 4 Weight Weight: 132 lb 8 oz Body Mass Index (BMI) 24.2 Physical Exam Narrative General: Alert, Oriented x3, Cooperative, No apparent distress HEENT: Atraumatic, PERRLA, EOMI, Normocephalic Oral: Moist Mucosa Neck: Supple, No JVD Lungs: Diminished, Normal air movement, No rhonchi, No wheeze, No rales Cardiovascular: Regular rate, Regular Rhythm, Normal S1, Normal S2, No murmurs Abdomen: Soft, Non Tender, Non-Distended, No Hepato-splenomegaly Extremities: No edema, Capillary Refill Less than 3 Seconds Skin: No rashes, No breakdown Musculoskeletal: No Tenderness to Palpation of Joints or Extremities Neurological: No focal neurological deficits, moves all extremities Psych/Mental Status: Normal Affect, Appropriate Results Lab / Micro Data 04/25/25 09:45 04/25/25 09:45 Labs: Laboratory Results - last 24 hr 04/25/25 09:45: WBC (more content not included)... Normal [facility] L501.4021on 04-25-2025 Trop T High Sen 33 ng/L High <=22 [facility] Comment on above: Performed By: #### L 300.8000, L500.2500, L100.0100 #### [facility] Laboratory [address] [place], [address] /QUALITYon 04-25-2025 /QUALITY [facility] Medical Records Department [address] [place] [address] Quality Report 04/25/25 1156 MR#: [id number] Acct: [id number] Name: JOHNNIE PISANO Rep #: [id number] : 1960 64 From: Evan Ness PCP: Dr. Maco Morales MD Status:ADM IN Y Location: ICU ICU05-1 STEMI STEMI ED Door Time / Other REG STEMI EKG Time (1) ST elevation (STEMI) myocardial infarction: Acute 04/25/25 09:50 Balloon/Aspiration Date-Time Date of Balloon/Aspiration:: 04/25/25 Time of Balloon/Aspiration:: 10:14 04/25/25 1157 Date Evan Rogers Signature (if applicable): Date CC: Signed Normal [facility] Partial Thromboplast Timeon 04-25-2025 aPTT Coag (Bld) [Time] 27.8 s Normal 24.1-36.2 [facility] Comment on above: Performed By: #### L 300.8000, L500.2500, L100.0100 #### [facility] Laboratory [address] [place], [address] Prothrombin Time w/INRon INR Coag (PPP) [Relative time] 1.0 {INR} Normal [facility] Comment on above: Performed By: #### L 300.8000, L500.2500, L100.0100 #### [facility] Laboratory [address] [place], [address] PT Coag (PPP) [Time] 13.1 s Normal 11.7-14.9 [facility] Comment on above: Performed By: #### L 300.8000, L500.2500, L100.0100 #### [facility] Laboratory [address] [place], [address] Troponin T HS 2 HRon 025 Trop T High Sen 3017 ng/L Invalid Interpretation Code <=22 [facility] Comment on above: Result Comment: Crit ical Result(s) Called at: by:??Results read back by same. Critical Result(s) Called at 1410 04/25: by: ABDI??Results read back by same. AMENDED REPORT 04/25/25 1417 Trop T HS 2HR previously reported as: 3017 *H ng/L Critical Result(s) Called at: by:??Results read back by same. Performed By: #### L 300.8000, L500.2500, L100.0100 #### [facility] Laboratory [address] [place], [place], [id number] Troponin T HS 4 HRon 025 Trop T High Sen 4270 ng/L Invalid Interpretation Code <=22 [facility] Comment on above: Result Comment: Crit ical Result(s) Called at 1600 04/25/25 by:??ROMAN OSBORNE Results read back by same. Performed By: #### L 400.0001 #### [facility] Laboratory [address] [place], [place], [address] US Abdominal Aorta for elinor solomon 02-09-2025 IMPRESSION: Negative study for abdominal aortic aneurysm. Electronic Device Repairer: JOSE Transcribe Date/Time: Feb 09 2025 10:06A Dictated by : MAHIN LARKIN MD This examination was interpreted and the report reviewed and electronically signed by: MAHIN LARKIN MD on Feb 09 2025 10:07AM [facility] DIVISION OF RADIOLOGY * * *Final Report* * * DATE OF EXAM: Feb 09 2025 9:10AM U 1028 - US SCREENING AAA / PROCEDURE REASON: Tobacco abuse * * * * Physician Interpretation * * * * EXAMINATION: SCREENING ABDOMINAL AORTA ULTRASOUND HISTORY: Screening evaluation for abdominal aortic aneurysm. Risk factor for aortic aneurysm. TECHNIQUE: Sonography of the abdominal aorta was performed. Images were obtained and stored in a permanent archive. MQ: USAOS_1 COMPARISON: None RESULT: AORTA (AP x TV): Proximal: 2.2 cm x 2.2 cm Mid (level of renal arteries): 2.1 cm x 1.9 cm Distal:1.5 cm x 2.0 cm Common Iliac Arteries (AP x TV): Right:0.8 cm x 0.9 cm Left: 0.7 cm x 0.8 cm Atherosclerotic plaque: present DIVISION OF RADIOLOGY Provider, [facility] [place] - 02/09/2025 * * *Final Report* * * DATE OF EXAM: Feb 09 2025 9:10AM WRU 1028 - US SCREENING AAA / PROCEDURE REASON: Tobacco abuse * * * * Physician Interpretation * * * * EXAMINATION: SCREENING ABDOMINAL AORTA ULTRASOUND HISTORY: Screening evaluation for abdominal aortic aneurysm. Risk factor for aortic aneurysm. TECHNIQUE: Sonography of the abdominal aorta was performed. Images were obtained and stored in a permanent archive. MQ: USAOS_1 COMPARISON: None RESULT: AORTA (AP x TV): Proximal: 2.2 cm x 2.2 cm Mid (level of renal arteries): 2.1 cm x 1.9 cm Distal:1.5 cm x 2.0 cm Common Iliac Arteries (AP x TV): Right:0.8 cm x 0.9 cm Left: 0.7 cm x 0.8 cm Atherosclerotic plaque: present IMPRESSION IMPRESSION: Negative study for abdominal aortic aneurysm. Electronic Device Repairer: [employer] Transcribe Date/Time: Feb 09 2025 10:06A Dictated by : MAHIN LARKIN MD This examination was interpreted and the report reviewed and electronically signed by: MAHIN LARKIN MD on Feb 09 2025 10:07AM EST [facility] Radiology Study observation (narrative) [facility] US Abdominal Aorta for elinor ningOrdered By: [facility] Provider on 02-09-2025 [facility] US SCREENING AAAon US SCREENING AAA * * *Final Report* * * DATE OF EXAM: Feb 09 2025 9:10AM WRU 1028 - US SCREENING AAA / PROCEDURE REASON: Tobacco abuse * * * * Physician Interpretation * * * * EXAMINATION: SCREENING ABDOMINAL AORTA ULTRASOUND HISTORY: Screening evaluation for abdominal aortic aneurysm. Risk factor for aortic aneurysm. TECHNIQUE: Sonography of the abdominal aorta was performed. Images were obtained and stored in a permanent archive. MQ: USAOS_1 COMPARISON: None RESULT: AORTA (AP x TV): Proximal: 2.2 cm x 2.2 cm Mid (level of renal arteries): 2.1 cm x 1.9 cm Distal:1.5 cm x 2.0 cm Common Iliac Arteries (AP x TV): Right:0.8 cm x 0.9 cm Left: 0.7 cm x 0.8 cm Atherosclerotic plaque: present IMPRESSION: Negative study for abdominal aortic aneurysm. Electronic Device Repairer: PSCB Transcribe Date/Time: Feb 09 2025 10:06A Dictated by : MAHIN LARKIN MD This examination was interpreted and the report reviewed and electronically signed by: MAHIN LARKIN MD on Feb 09 2025 10:07AM EST [id number] CN Normal [facility] CNOVon 02-06-2025 CNOV Office Visit (PULMWS) JOHNNIE PISANO ([id number]) 1960 M Date Time Provider Department 02/06/25 10:30 AM NICOLE HOWARD PULMKADI During your visit today, we recorded the following information about you: Pulse Respiration Blood pressure Weight 94/minute 20/minute 131/52 60 kg Shima Chow MA 02/06/2025 11:54 AM Signed Patient presents with: Follow up lung cancer screening AMB ROOMING INTAKE FLOWSHEET DATA Pain Pain Level: 3 Pain Location: (Side in ribs) Description: Aching Duration Amount of Time: 3 Duration Units: Months Frequency: Intermittent Intervention/Comfort measure: Medication Patient is having pain on both sides of his ribs,. Feels is from his coughing. Patient states his mucous has been more solid lately. CT Scan done today. Taking Tylenol for his pain and is effective. Nicole Howard APRN.CNP 02/06/2025 11:54 AM Signed [facility] Lung Cancer Screening Annual Visit Current or Ex-smoker? [Current] Exam Type: annual LDCT Number of Pack Years: 36 Current smoker (=0) or Number of Years since Quit: 0 The patient's smoking history is similar to prior year lung cancer screening visit. Chief Complaint: Established patient in lung cancer screening program here for annual follow-up and preliminary evaluation of today's LDCT exam for lung nodule surveillance/managem ent. Impression / Recommendations Assessment: Johnnie Pisano is at an increased risk for developing lung cancer based on their past tobacco use and continues to qualify for annual low dose CT screening. Plan: Indeterminate pulmonary nodules: Previously identified lung nodules appear stable and no new nodules of concern were noted during preliminary review of today's exam. Anticipated result: LUNG RADS Category 2 - Low dose CT Scan to be repeated in one year. Plan subject to change pending final radiology report and recommendations. Nature of the lung nodule(s) and the recommendations for further evaluation discussed in detail with patient. Johnnie Pisano expressed understanding and is in agreement with plan. 2. Encounter for screening for malignant neoplasm of respiratory organs I have determined that the patient is eligible for continued low dose CT screening based on age, absence of signs or symptoms of lung cancer, smoking history and total pack years. The patient was counseled on the importance of adherence to annual LDCT lung cancer screening, impact of comorbidities and ability or willingness to undergo diagnosis and treatment. The patient understands and would like to continue with annual lung screening: Yes. 3. Personal history of nicotine dependence reports that he has been smoking cigarettes. He has a 36 pack-year smoking history. He has quit using smokeless tobacco. His smokeless tobacco use included chew and snuff. The patient was counseled on the importance of smoking cessation if current smoker and, if appropriate, offered additional tobacco cessation counseling services - Smoking Cessation Counseling. SMOKING CESSATION COUNSELING Smoking cessation methods including Nicotine Replacement Therapies, Varenicline, and Behavior Modification were discussed with the patient and assistance offered. Consider aculaser treatment. The medical conditions adversely affected by cigarette use include:COPD, Emphysema, and Lung Cancer. Counseled on benefits of quitting smoking, recommended cessation or reduction to prevent development and/or progression of emphysema. The patient is currently not ready to quit. I personally spent 5 minutes in counseling. The time spent in smoking cessation counseling is exclusive of any other counseling during this visit. Nicole Howard APRN.RUBBERIZING MECHANIC History of Present Illness: Johnnie Pisano is a 64-year-old male with a history of COPD and emphysema, presenting for annual lung cancer screening follow-up. Johnnie reports chronic dyspnea, which has been progressively worsening. He experiences significant shortness of breath with minimal exertion, such as walking from room to room or checking the mail. He also notes dyspnea when drying himself after bathing. He denies chest pain associated with exertion but reports positional chest discomfort when sitting, which he attributes to his posture and underlying lupus. This discomfort is exacerbated by movement and is described as a stretching sensation in the chest. Johnnie has a chronic cough with sputum production, which he describes as thick, gummy, and grayish in color. He denies hemoptysis. He also reports wheezing, which has improved since using Breztri inhaler. He occasionally uses albuterol, especially in hotter weather. He has been on Breztri for 2 months and notes relief of chest pressure a (more content not included)... Normal [facility] JOHNNIE PISANO ([id number]) 1960 M Date Time Provider Department 02/06/25 ANTONIETTA SYKES [facility] During your visit today, we recorded the following information about you: Farheen Napier RDMS 02/06/2025 1:58 PM Signed Good afternoon, Please change the Aorta ultrasound to an US SCREENING FOR AAA- this is the correct order for that diagnosis. Thanks, [facility]en Napier [facility] Antonietta Sykes, ASHLEE.RUBBERIZING MECHANIC 02/06/2025 5:31 PM Signed Third order placed Allergies As of Date: 02/06/2025 Noted Allergy Reaction PERCOCET (OXYCODONE-ACETAMINO PHEN)05/07/2021 1 - Mental Status Change CHANTIX (VARENICLINE) 11/15/2024 14 - Other: See Comments Comments: panic WELLBUTRIN (BUPROPION) 11/15/2024 16 - Unknown Comments: Panic MINOCYCLINE 04/21/2011 9 - Itching Date Reviewed: 02/06/2025 Reviewed by: Shima Chow MA - Fully Assessed Reason for Visit: Orders [681] Primary Visit Diagnosis:Tobacco abuse [Z72.0] Order(s):US SCREENING FOR AAA [[id number]] Order #: [id number] FUTURE Prescriptions as of 02/06/2025 - acetaminophen (TYLENOL) 325 mg tablet Take 325 mg by mouth every 6 hours as needed for pain. - albuterol HFA (VENTOLIN HFA) 90 mcg/actuation inhaler Inhale 2 puffs as instructed every 4 hours as needed for wheezing/shortness of breath. - budesonide-glycopyr- formoterol (BREZTRI) 160-9-4.8 mcg/actuation HFA aerosol inhaler Inhale 2 puffs as instructed two times a day. Problem List As Of Date 02/06/2025 Noted Resolved Hypertriglyceridemia [E78.1] 12/04/2010 Pyoderma, unspecified [L08.0] 04/08/2011 Eczematous dermatitis [L30.9] 04/08/2011 09/01/2023 Contact dermatitis and other eczema, due to uns*04/08/2011 09/01/2023 Pruritus [L29.9] 04/08/2011 09/01/2023 Excoriation [T14.8XXA] 04/08/2011 09/01/2023 Disturbance of skin sensation [R20.9] 04/08/2011 09/01/2023 Rash and other nonspecific skin eruption [R21] 04/08/2011 09/01/2023 Allergy to insect bites [Z91.038] 04/08/2011 Folliculitis [L73.9] 04/09/2011 09/01/2023 Avascular necrosis of bones of both hips [M87.0*09/13/2013 Primary localized osteoarthritis of left hip [M*06/30/2018 07/26/2018 Avascular necrosis of hip, left (HCC) [M87.052] 06/30/2018 07/26/2018 Systemic lupus erythematosus (HCC) [M32.9] 07/12/2018 09/01/2023 Tobacco use [Z72.0] 07/12/2018 Anxiety and depression [F41.9, F32.A] 07/12/2018 09/01/2023 Post-operative state [Z98.890] 07/26/2018 07/27/2018 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] 09/01/2023 History of depression [Z86.59] 09/01/2023 Well adult exam [Z00.00] 09/01/2023 10/19/2023 Positive colorectal cancer screening using [place]*09/22/2023 Other emphysema (HCC) [J43.8] 10/19/2023 Encounter Status:Closed by ANTONIETTA SYKES on 02/06/25 [address] [facility] [address] LUNG SCREEN WO IVCONon CT LUNG SCREEN WO IVCON * * *Final Repor t* * * DATE OF EXAM: Feb 06 2025 10:38AM [facility] 0562 - CT LUNG SCREEN WO IVCON / PROCEDURE REASON: multiple diagnoses * * * * Physician Interpretation * * * * EXAMINATION: CHEST CT WITHOUT CONTRAST (LOW-DOSE CT LUNG CANCER SCREENING PROTOCOL) CLINICAL HISTORY: Lung cancer LDCT screening ? absence of signs or symptoms of lung cancer. Nicotine dependence (cigarettes). Subsequent (annual) Technique: Spiral CT acquisition of the chest from the thoracic inlet to the upper abdomen without contrast. MQ: CTLCS_6 Patient characteristics: * Isha-za-Pbfvr: 1960; Age at exam: 64 years * Gender: Male * Lung Disease: Asymptomatic (no signs or symptoms of lung disease) * Number of Pack Years: 36 * Current smoker (=0) or Number of Years since Quit: 0 * Ordering provider and NPI: NICOLE HOWARD [id number] * Interpreting radiologist and NPI: Omar [id number] Exam acquisition parameters: * Exam Date: 02/06/2025 10:38 AM * Site: [facility] * * CT System Doubler Helper: [place] * CT System Model: Sensation * Tube Current-Time (mA-sec): 18 * Peak Voltage (kV): 120V * Scan Time (sec): 11.03 * Scan Volume (z-length, cm): -29.35 * Pitch: 0.75 * Slice Thickness (mm): 1.5 * CT Dose-Length Product: 67 mGy*cm * CT Dose Index: 1.43mGy * CT Dose Reduction Method: Automated exposure control(AEC) and iterative recon COMPARISON: 10/15/2023 RESULT: Are nodules present? Yes, 1-5 nodules There is a new ill-defined nodule in right lower lobe measuring approximately 4 mm on image 150 series 4. It may represent a small mucous plug. The previously described right upper lobe 2 mm nodule is no longer identified. Other lung nodule comments: Other findings: The visualized portion of thyroid gland is unremarkable. No lymph node enlargement in the thorax. Normal heart size. No pleural effusions or pleural thickening. Emphysema: Mild, centrilobular and paraseptal, upper lung Incidental coronary calcium as automatically processed and calculated using AI: Total Coronary Calcium Score = [100+] Agatston Units Percentile Rank (age and gender matched relative to reference population): [25th-75th] percentile* [* https://www.tejada-nhl bi.org/calcium/input .aspx] Localizer images: No additional findings. IMPRESSION: LungRADS category: 3 LungRADS modifier: None LungRADS 0 reason: n/a Recommendations: Followup LDCT in 6 months Other actionable findings: Reference: [employer]. Lung CT Screening Reporting and Data System (Lung-RADS). Available at: http://www.acr.org/Q uality-Safety/Resour janet/LungRADS Electronic Device Repairer: JOSE Transcribe Date/Time: Feb 09 2025 9:35A Dictated by : MALIK QUINTANA MD This examination was interpreted and the report reviewed and electronically signed by: MALIK QUINTANA MD on Feb 09 2025 9:39AM EST [id number] Normal [facility] JOHNNIE PISANO ([id number]) 1960 M Date Time Provider Department 12/29/24 MACO MORALES During your visit today, we recorded the following information about you: Dafne Dumont RN 12/29/2024 1:26 PM Signed Patient requesting to cancel today's appt due to transportation issues. Appt was for anxiety issues related to 9 year anniversary of his 's . Reports he did have recent ER visit due to this. He was evaluated and discharged. ER ordered him 30 pills of hydroxyzine to use prn. Patirnt unable to make ER F/U at this time but plans to call back in to make appt. Dafne Dumont RN Allergies As of Date: 12/29/2024 Noted Allergy Reaction PERCOCET (OXYCODONE-ACETAMINO PHEN)05/07/2021 1 - Mental Status Change CHANTIX (VARENICLINE) 11/15/2024 14 - Other: See Comments Comments: panic WELLBUTRIN (BUPROPION) 11/15/2024 16 - Unknown Comments: Panic MINOCYCLINE 04/21/2011 9 - Itching Date Reviewed: 12/03/2024 Reviewed by: Michelle Dorsey LPN - Fully Assessed Reason for Visit: Patient Update [1234] Prescriptions as of 12/29/2024 - albuterol HFA (VENTOLIN HFA) 90 mcg/actuation inhaler Inhale 2 puffs as instructed every 4 hours as needed for wheezing/shortness of breath. - budesonide-glycopyr- formoterol (BREZTRI) 160-9-4.8 mcg/actuation HFA aerosol inhaler Inhale 2 puffs as instructed two times a day. - varenicline (CHANTIX) 1 mg tablet Take 0.5 tablets by mouth once daily for 3 days, THEN 0.5 tablets two times a day for 4 days, THEN 1 tablet two times a day for 23 days. - varenicline (CHANTIX) 1 mg tablet Take 1 tablet by mouth two times a day. Patient should start on December 03, 2024. Problem List As Of Date 12/29/2024 Noted Resolved Hypertriglyceridemia [E78.1] 12/04/2010 Pyoderma, unspecified [L08.0] 04/08/2011 Eczematous dermatitis [L30.9] 04/08/2011 09/01/2023 Contact dermatitis and other eczema, due to uns*04/08/2011 09/01/2023 Pruritus [L29.9] 04/08/2011 09/01/2023 Excoriation [T14.8XXA] 04/08/2011 09/01/2023 Disturbance of skin sensation [R20.9] 04/08/2011 09/01/2023 Rash and other nonspecific skin eruption [R21] 04/08/2011 09/01/2023 Allergy to insect bites [Z91.038] 04/08/2011 Folliculitis [L73.9] 04/09/2011 09/01/2023 Avascular necrosis of bones of both hips [M87.0*09/13/2013 Primary localized osteoarthritis of left hip [M*06/30/2018 07/26/2018 Avascular necrosis of hip, left (HCC) [M87.052] 06/30/2018 07/26/2018 Systemic lupus erythematosus (HCC) [M32.9] 07/12/2018 09/01/2023 Tobacco use [Z72.0] 07/12/2018 Anxiety and depression [F41.9, F32.A] 07/12/2018 09/01/2023 Post-operative state [Z98.890] 07/26/2018 07/27/2018 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] 09/01/2023 History of depression [Z86.59] 09/01/2023 Well adult exam [Z00.00] 09/01/2023 10/19/2023 Positive colorectal cancer screening using [place]*09/22/2023 Other emphysema (HCC) [J43.8] 10/19/2023 Encounter Status:Closed by DAFNE DUMNOT on 12/29/24 Normal [facility] Absolute lymphocyte countOrd ered By: Lauro Barker on 12-28-2024 Lymphocytes Auto (Unsp spec) [#/Vol] 0.86 10*3/uL 0.83-4.51 [facility] Absolute neutrophil countOrd ered By: Lauro Barker on 12-28-2024 Neutrophils (Bld) [#/Vol] 8.7 10*3/uL High 2.0-7.7 [facility] Anion gap in Serum or Plasma Ordered By: Lauro Barker on 12-28-2024 Anion gap [Moles/Vol] 15 mmol/L 5-15 [facility] Automated lymphocyte count a s percentage of total leukocytesOrdered By: Lauro Barker on 12-28-2024 Lymphocytes/100 WBC Auto (Unsp spec) 8.5 % Low 19- [facility] BUN/creatinine ratioOrdered By: Lauro Barker on 12-28-2024 Urea nitrogen/Creatinine [Mass ratio] 11.4 mg/mg - [facility] Basic Metabolic Profile (BMP )on 12-28-2024 BUN/CRE 11.4 RATIO Normal - [facility] Comment on above: Performed By: #### L 300.8000, L500.2500, L100.0100 #### [facility] Laboratory [address] [place], [address] Calcium [Mass/Vol] 9.3 mg/dL Normal 7.6-11.0 [facility] Comment on above: Performed By: #### L 300.8000, L500.2500, L100.0100 #### [facility] [address] [place], [address] Chloride [Moles/Vol] 103 mmol/L Normal 98-108 [facility] Comment on above: Performed By: #### L 300.8000, L500.2500, L100.0100 #### [facility] [address] [place], [address] CO2 [Moles/Vol] 21.2 mmol/L Normal 21.0-32.0 [facility] Comment on above: Performed By: #### L 300.8000, L500.2500, L100.0100 #### [facility] [address] [place], [address] Creatinine [Mass/Vol] 1.07 mg/dL Normal 0.70-1.20 [facility] Comment on above: Performed By: #### L 300.8000, L500.2500, L100.0100 #### [facility] [address] [place], [address] ECRCL 53.15 ml/min Normal 50-250 [facility] Comment on above: Performed By: #### L 300.8000, L500.2500, L100.0100 #### [facility] [address] [place], [address] GAP 15 Normal 5-15 [facility] Comment on above: Performed By: #### L 300.8000, L500.2500, L100.0100 #### [facility] [address] [place], [address] GFR/1.73 sq M.predicted among non-blacks MDRD (S/P/Bld) [Vol rate/Area] 77 mL/min/{1.73_m2} Normal >60 [facility] Comment on above: Result Comment: mL/m in/1.73m2 CKD-EPI Creatinine Equation (2020) Performed By: #### L 300.8000, L500.2500, L100.0100 #### [facility] [address] [place], [address] Glucose [Mass/Vol] 110 mg/dL High 70-99 [facility] Comment on above: Performed By: #### L 300.8000, L500.2500, L100.0100 #### [facility] [address] [place], [address] Potassium [Moles/Vol] 3.7 mmol/L Normal 3.3-5.1 [facility] Comment on above: Performed By: #### L 300.8000, L500.2500, L100.0100 #### [facility] [address] [place], [address] Sodium [Moles/Vol] 139 mmol/L Normal 133-145 [facility] Comment on above: Performed By: #### L 300.8000, L500.2500, L100.0100 #### [facility] [address] [place], [address] Urea nitrogen [Mass/Vol] 12 mg/dL Normal 4-19 [facility] Comment on above: Performed By: #### L 300.8000, L500.2500, L100.0100 #### [facility] [address] [place], [address] Basophil percentageOrdered B y: Lauro Barker on 12-28-2024 Basophils/100 WBC (Bld) 0.2 % 0-1 [facility] Bilirubin Test strip Ql (U)O rdered By: Lauro Barker on 12-28-2024 Bilirubin Ql (U) Negative Negative [facility] CBC W/Diff, Automatedon Absolute Lymph 0.86 X10 3/uL Normal 0.83-4.51 [facility] Comment on above: Performed By: #### L 300.8000, L500.2500, L100.0100 #### [facility] [address] [place], [address] Absolute Neut 8.7 X10 3/uL High 2.0-7.7 [facility] Comment on above: Performed By: #### L 300.8000, L500.2500, L100.0100 #### [facility] [address] [place], [address] Basophils/100 WBC (Bld) 0.2 % Normal 0-1 [facility] Comment on above: Performed By: #### L 300.8000, L500.2500, L100.0100 #### [facility] [address] [place], [address] Eosinophils/100 WBC (Bld) 0.7 % Normal 0-5 [facility] Comment on above: Performed By: #### L 300.8000, L500.2500, L100.0100 #### [facility] [address] [place], [address] Erythrocyte distribution width (RBC) [Ratio] 12.7 % Normal 11.6-14.6 [facility] Comment on above: Performed By: #### L 300.8000, L500.2500, L100.0100 #### [facility] [address] [place], [address] Hematocrit (Bld) [Volume fraction] 41.2 % Normal 40-54 [facility] Comment on above: Performed By: #### L 300.8000, L500.2500, L100.0100 #### [facility] [address] [place], [address] Hemoglobin (Bld) [Mass/Vol] 14.5 g/dL Normal 13.0-16.5 [facility] Comment on above: Performed By: #### L 300.8000, L500.2500, L100.0100 #### [facility] [address] [place], [address] IG% 0.400 Normal 0.0-0.9 [facility] Comment on above: Result Comment: IG% - Immature Granulocytes (promyelocytes, myelocytes and metamyelocytes) > 1% indicates that a LEFT SHIFT is Present. Performed By: #### L 300.8000, L500.2500, L100.0100 #### [facility] [address] [place], [address] Lymphocytes/100 WBC (Bld) 8.5 % Low 19-41 [facility] Comment on above: Performed By: #### L 300.8000, L500.2500, L100.0100 #### [facility] [address] [place], [address] MCH (RBC) [Entitic mass] 35.8 pg High 27.0-32.0 [facility] Comment on above: Performed By: #### L 300.8000, L500.2500, L100.0100 #### [facility] [address] [place], [address] MCHC (RBC) [Mass/Vol] 35.2 g/dL Normal 32-36 [facility] Comment on above: Performed By: #### L 300.8000, L500.2500, L100.0100 #### [facility] [address] [place], [address] MCV (RBC) [Entitic vol] 101.7 fL High 80-94 [facility] Comment on above: Performed By: #### L 300.8000, L500.2500, L100.0100 #### [facility] [address] [place], [address] Monocytes/100 WBC (Bld) 5.2 % Normal 0-10 [facility] Comment on above: Performed By: #### L 300.8000, L500.2500, L100.0100 #### [facility] [address] [place], [address] Neutrophils/100 WBC (Bld) 85.0 % High 47-70 [facility] Comment on above: Performed By: #### L 300.8000, L500.2500, L100.0100 #### [facility] [address] [place], [address] Nucleated RBC (Bld) [#/Vol] 0 10*3/uL Normal 0-5 [facility] Comment on above: Performed By: #### L 300.8000, L500.2500, L100.0100 #### [facility] [address] [place], [address] Platelet mean volume (Bld) [Entitic vol] 11.3 fL Normal 6.2-12.0 [facility] Comment on above: Performed By: #### L 300.8000, L500.2500, L100.0100 #### [facility] [address] [place], [address] Platelets (Bld) [#/Vol] 193 10*3/uL Normal 150-450 [facility] Comment on above: Performed By: #### L 300.8000, L500.2500, L100.0100 #### [facility] [address] [place], [address] RBC (Bld) [#/Vol] 4.05 10*6/uL Low 4.6-6.2 [facility] Comment on above: Performed By: #### L 300.8000, L500.2500, L100.0100 #### [facility] [address] [place], [address] RDW SD 48.2 fl High 35.1-43.9 [facility] Comment on above: Performed By: #### L 300.8000, L500.2500, L100.0100 #### [facility] [address] [place], [address] WBC (Bld) [#/Vol] 10.2 10*3/uL Normal 4.4-11.0 [facility] Comment on above: Performed By: #### L 300.8000, L500.2500, L100.0100 #### [facility] [address] [place], [address] Carbon dioxide, total [Moles /volume] in Central venous bloodOrdered By: Lauro Barker on 12-28-2024 CO2 [Moles/Vol] 21.2 mmol/L 21.0-32.0 [facility] Chest PA and Lateralon 12-28 Chest PA and Lateral [facility] Imaging Services [address] [place] [address] Chest PA and Lateral MR#: [id number] Acct: [id number] Name: JOHNNIE PISANO Rep #: [id number] : 1960 M 64 From: Andrade Chavez MD PCP: Dr. Maco Morales MD Status: REG ER Study: Chest PA and Lateral Date of Exam: 12/28/24 Exam# [id number] Ordering Dr: Laruo Barker DO PROCEDURE: CHEST PA AND LATERAL 12/28/2024 REASON FOR EXAM: DYSPNEA TECHNIQUE: CHEST PA AND LATERAL COMPARISON: None. FINDINGS: The lungs are clear. The heart size is normal. The mediastinum and pulmonary vascular pattern are unremarkable. The upper abdominal bowel gas pattern is normal. There is a wedge compression fracture probably T12. RAD/Chest PA and Lateral IMPRESSION: No evidence of acute cardiopulmonary pathology. Other findings as noted. Reading Location: [id number] CC: Dr. Lauro Barker DO; Dr. Maco Morales MD Electronic Device Repairer: Signed Normal [facility] Chloride assayOrdered By: Hal Barker on 12-28-2024 Chloride [Moles/Vol] 103 mmol/L 98-108 [facility] D-Dimer Quantitative (DVT/PE )on 12-28-2024 D-DIMER QUANT 0.35 FEU/ug/m Normal 0.27-0.49 [facility] Comment on above: Result Comment: NORM AL D-Dimer level (<0.50) indicates no DVT or PE. Performed By: #### L 300.8000, L500.2500, L100.0100 #### [facility] Laboratory [address] [place], [place], [id number] Emergency Department Summary on 12-28-2024 Emergency Department Summary [facility] Medical Records Department [address] [place] [address] Emergency Department Summary 12/28/24 MR#: [id number] Acct: [id number] Name: JOHNNIE PISANO Rep #: [id number] : 1960 64 From: Lauro Barker DO PCP: Dr. Maco Morales MD Status:DEP ER Location: ED HPI History of Present Illness Chief Complaint: Anxiety Informant: patient Onset/Context/Timing Onset: Weeks (3) Context: Gradual Onset Timing: Continuous Quality: Cannot catch a full breath Location: Chest Worsened by: Laying flat, exertion Relieved by: Nothing Narrative Narrative: Patient presents with increasing anxiety and panic attacks that have been getting worse over the past 3 weeks. Patient states that he wakes up at night feeling like he cannot catch his breath. Patient states his breathing is worse when he lays flat. Patient states that his breathing is also worse with walking and exertion. Patient states nothing makes his breathing any better. Patient admits to some subjective fevers and chills. Patient also admits to some palpitations. Patient states he has some nausea vomiting after coughing episodes. [facility] Medical History (Updated 12/28/24 @ 11:[address] Lauro Barker DO) Lupus (systemic lupus erythematosus) COPD (chronic obstructive pulmonary disease) Home Medications ???Medication ???Instructions ???Recorded ???Last Taken ???Type albuterol sulfate 90 mcg/actuation 2 puff inhalation Q4H PRN PRN Unknown History aerosol inhaler wheezing budesonide 160 mcg-glycopyr 9 inh inhalation 12/28/24 Unknown Hi story mcg-formot 4.8 mcg/actuation HFA inhaler (Breztri Aerosphere) hydroxyzine pamoate 25 mg capsule 50 mg (2 x 25 mg) PO TID PRN PRN 12/28/24 Unknown Rx Anxiety #30 CAPSULES tiotropium bromide 2.5 2 puff inhalation DAILY 12/28/24 U nknown History mcg/actuation mist for inhalation (Spiriva Respimat) Allergy/AdvReac Type Severity Reaction Status Date / Time Unable to Assess Allergy Verified 12/28/24 07:14 Surgical History (Updated 12/28/24 @ 08:[address] Lauro Barker DO) History of total hip replacement Social History (Updated 12/28/24 @ 08:[address] Lauro Barker DO) Smoking Status: Current every day smoker tobacco type: cigarettes substance use type: marijuana ROS ROS ED Constitutional Constitutional ED: Reports chills and fever(s) Eyes Eyes: Reports blurry vision; Denies diplopia ENT ENT ED: Denies rhinorrhea or sore throat Cardiovascular Cardiovascular: Reports chest pain and palpitations Respiratory/Chest Respiratory/Chest: Reports cough and dyspnea Gastrointestinal Gastrointestinal: Reports nausea and vomiting Genitourinary Genitourinary ED: Denies dysuria or hematuria Musculoskeletal Musculoskeletal: Reports back pain and neck pain Integumentary Reports rash; Denies abscess Neurologic Neurologic: Denies headache(s) or weakness Allergic/Immunologic Allergic/Immunologic ED: Denies mouth swelling or urticaria EXAM Physical Exam Const Vital Signs: 12/28/24 07:14 12/28/24 07:50 12/28/24 09:13 Temperature 98.3 F Temperature Source Oral Pulse Rate 78 69 Respiratory Rate 18 16 Respiratory Effort Short of Breath Respiratory Pattern Tachypnea Blood Pressure 149/121 H 117/64 Blood Pressure Mean 130 81 Pulse Ox 100 96 Oxygen Delivery Method Room Air Room Air Room Air 12/28/24 11:00 Temperature Temperature Source Pulse Rate 72 Respiratory Rate 16 Respiratory Effort Respiratory Pattern Blood Pressure 118/63 Blood Pressure Mean 81 Pulse Ox 98 Oxygen Delivery Method Room Air Positive well nourished and well developed General Appearance ED: well developed and NAD HEENT Reports moist mucous membranes Neck supple and no JVD Resp normal respiratory effort and clear to auscultation bilaterally Cardio regular rate and regular rhythm GI non-tender and non-distended Palpation: soft Extremity normal to inspection General Extremety ED: Negative for edema or tenderness General Extremity: Negative for edema Neuro oriented x3, CN's II-XII intact bilaterally and no sensory deficits noted Sensorium / Orientation: alert Motor Exam: strength 5/5 throughout Psych mental status grossly normal MDM MDM MDM Narrative Medical decision making narrative: Different diagnosis includes COPD exacerbation, pneumonia, bronchitis, electrolyte abnormality, viral illness, cardiac dysrhythmia, pulmonary embolism, and anxiety. EKG will be obtained to assess for cardiac dysrhythmia and cardiac ischemia. Chest x-ray will be obtained to assess for pneumonia and bronchitis. CBC will be obtained to assess for leukocytosis and anemia. Basic metabolic profile will be obtained to assess for electroly (more content not included)... Normal [facility] Eosinophil percentageOrdered By: Lauro Barker on 12-28-2024 Eosinophils/100 WBC (Bld) 0.7 % 0-5 [facility] Erythrocyte distribution wid th ratioOrdered By: Lauro Barker on 12-28-2024 Erythrocyte distribution width (RBC) [Ratio] 12.7 % 11.6-14.6 [facility] Erythrocyte distribution wid th standard deviationOrdered By: Lauro Barker on 12-28-2024 Erythrocyte distribution width (RBC) [Ratio] 48.2 fl High 35.1-43.9 [facility] Glomerular filtration rate ( GFR) estimation/1.73 sq m using serum, plasma, or whole bOrdered By: Lauro Barker on 12-28-2024 GFR/1.73 sq M.predicted among non-blacks MDRD (S/P/Bld) [Vol rate/Area] 77 mL/min/{1.73_m2} >60 [facility] Comment on above: mL/min/1.73m2 CKD-EP I Creatinine Equation (2020) Hematocrit Auto (Bld) [Volum e fraction]Ordered By: Lauro Barker on 12-28-2024 Hematocrit (Bld) [Volume fraction] 41.2 % 40-54 [facility] Hemoglobin measurementOrdere d By: Lauro Barker on 12-28-2024 Hemoglobin (Bld) [Mass/Vol] 14.5 g/dL 13.0-16.5 [facility] Immature granulocytes/100 WB C Auto (Bld)Ordered By: Lauro Barker on 12-28-2024 Immature granulocytes/100 WBC (Bld) 0.400 % 0.0-0.9 [facility] Comment on above: IG% - Immature Granu locytes (promyelocytes, myelocytes and metamyelocytes) > 1% indicates that a LEFT SHIFT is Present. Influenza virus A and B and SARS-CoV-2 (COVID-19) and Respiratory syncytial virus RNAOrdered By: Lauro Barker on 12-28-2024 SARS-CoV-2 (COVID-19) RNA SULEIMAN+probe Ql (Unsp spec) [facility] Ketones Test strip Ql (U)Ord ered By: Lauro Barker on 12-28-2024 Ketones Ql (U) 50 mg/dl High Negative [facility] M100.678on 12-28-2024 M100.678 Pending SARS-CoV-2 (COVID 19) Negative INFLUENZA A Negative INFLUENZA B Negative RSV PCR Negative Normal [facility] Comment on above: Performed By: #### L 300.8000, L500.2500, L100.0100 #### [facility] Laboratory [address] [place], [address] MCV (mean corpuscular volume ) determinationOrdered By: Lauro Barker on 12-28-2024 MCV (RBC) [Entitic vol] 101.7 fL High 80-94 [facility] Mean corpuscular hemoglobin (MCH) determinationOrdered By: Lauro Barker on 12-28-2024 MCH (RBC) [Entitic mass] 35.8 pg High 27.0-32.0 [facility] Mean corpuscular hemoglobin concentration (MCHC) determinationOrdered By: Lauro Barker on 12-28-2024 MCHC (RBC) [Mass/Vol] 35.2 g/dL 32-36 [facility] Mean platelet volume determi nationOrdered By: Lauro Barker on 12-28-2024 Platelet mean volume (Bld) [Entitic vol] 11.3 fL 6.2-12.0 [facility] Microscopic analysis of urin e for red blood cells (RBC)Ordered By: Lauro Barker on 12-28-2024 Microscopic analysis of urine for red blood cells (RBC) 0-5 SEEN /hpf 0-5 [facility] Monocyte percentageOrdered B y: Lauro Barker on 12-28-2024 Monocytes/100 WBC (Bld) 5.2 % 0-10 [facility] Mucus LM Ql (Urine sed)Order ed By: Lauro Barker on 12-28-2024 Mucus Ql (Urine sed) 2+ /hpf [facility] Neutrophil percentageOrdered By: Lauro Barker on 12-28-2024 Neutrophils/100 WBC (Bld) 85.0 % High 47-70 [facility] Nitrite Test strip Ql (U)Ord ered By: Lauro Barker on 12-28-2024 Nitrite Ql (U) Negative Negative [facility] Nucleated red blood cell per centageOrdered By: Lauro Barkre on 12-28-2024 Nucleated RBC/100 WBC (Bld) [Ratio] 0 % 0-5 [facility] Platelet countOrdered By: Hal Barker on 12-28-2024 Platelets (Bld) [#/Vol] 193 10*3/uL 150-450 [facility] Potassium measurement (mass/ volume)Ordered By: Lauro Barker on 12-28-2024 Potassium (Unsp spec) [Mass/Vol] 3.7 mmol/L 3.3-5.1 [facility] Protein Test strip Ql (U)Ord ered By: Lauro Barker on 12-28-2024 Protein Ql (U) 30 mg/dl High Negative [facility] RBC Auto (Bld) [#/Vol]Ordere d By: Lauro Barker on 12-28-2024 RBC (Bld) [#/Vol] 4.05 10*6/uL Low 4.6-6.2 [facility] Serum creatinine measurement (mass/volume)Ordered By: Lauro Barker on 12-28-2024 Creatinine [Mass/Vol] 1.07 mg/dL 0.70-1.20 [facility] Serum glucose measurement (m ass/volume)Ordered By: Lauro Barker on 12-28-2024 Glucose [Mass/Vol] 110 mg/dL High 70-99 [facility] Serum or plasma calcium natalya urement (mass/volume)Ordered By: Lauro Barker on 12-28-2024 Calcium [Mass/Vol] 9.3 mg/dL 7.6-11.0 [facility] Serum or plasma urea nitroge n measurement (mass/volume)Ordered By: Lauro Barker on 12-28-2024 Urea nitrogen [Mass/Vol] 12 mg/dL 4-19 [facility] Sodium levelOrdered By: Lauro Barker on 12-28-2024 Sodium [Moles/Vol] 139 mmol/L 133-145 [facility] Squamous epithelial cells de tection in urine sediment by light microscopyOrdered By: Lauro Barker on 12-28-2024 Epithelial cells.squamous LM Ql (Urine sed) 0-5 SEEN /hpf 0-5 [facility] Urinalysis, Completeon 12-28 BACTERIA RARE Normal None Seen [facility] Comment on above: Order Comment: COLOR OF URINE MAY AFFECT DIPSTICK RESULTS. CLEAN CATCH Performed By: #### L 400.0001 #### [facility] Laboratory [address] [place], [address] EPI,SQUAMOUS 0-5 SEEN Normal 0-5 [facility] Comment on above: Order Comment: COLOR OF URINE MAY AFFECT DIPSTICK RESULTS. CLEAN CATCH Performed By: #### L 400.0001 #### [facility] Laboratory [address] [facility] [address] Mucus Ql (Urine sed) 2+ /hpf Normal [facility] Comment on above: Order Comment: COLOR OF URINE MAY AFFECT DIPSTICK RESULTS. CLEAN CATCH Performed By: #### L 400.0001 #### [facility] Laboratory [address] [facility] [address] RBC 0-5 SEEN Normal 0-5 [facility] Comment on above: Order Comment: COLOR OF URINE MAY AFFECT DIPSTICK RESULTS. CLEAN CATCH Performed By: #### L 400.0001 #### [facility] Laboratory [address] [place], [address] WBC 0-5 SEEN Normal 0-5 [facility] Comment on above: Order Comment: COLOR OF URINE MAY AFFECT DIPSTICK RESULTS. CLEAN CATCH Performed By: #### L 400.0001 #### [facility] Laboratory [address] [place], [address] UR Preservative Preservative Added Normal [facility] Comment on above: Order Comment: COLOR OF URINE MAY AFFECT DIPSTICK RESULTS. CLEAN CATCH Result Comment: WRON G PATIENT COLLECTED PER A. KIRKPATRICK Performed By: #### L 400.0001 #### [facility] Laboratory [address] [place], [address] BILIRUBIN URINE Negative Normal Negative [facility] Comment on above: Order Comment: COLOR OF URINE MAY AFFECT DIPSTICK RESULTS. CLEAN CATCH Result Comment: WRON G PATIENT COLLECTED PER A. KIRKPATRICK Performed By: #### L 400.0001 #### [facility] Laboratory [address] [place], [address] Clarity (U) Turbid Normal Clear [facility] Comment on above: Order Comment: COLOR OF URINE MAY AFFECT DIPSTICK RESULTS. CLEAN CATCH Result Comment: SURINDER Lopez PATIENT COLLECTED PER Martina KIRKPATRICK Performed By: #### L 400.0001 #### [facility] Laboratory [address] [place], [address] Color (U) Brown Normal Yellow [facility] Comment on above: Order Comment: COLOR OF URINE MAY AFFECT DIPSTICK RESULTS. CLEAN CATCH Result Comment: SURINDER Lopez PATIENT COLLECTED PER Martina KIRKPATRICK Performed By: #### L 400.0001 #### [facility] Laboratory [address] [place], [address] GLUCOSE, UR Normal Normal Normal [facility] Comment on above: Order Comment: COLOR OF URINE MAY AFFECT DIPSTICK RESULTS. CLEAN CATCH Result Comment: SURINDER Lopez PATIENT COLLECTED PER Martina KIRKPATRICK Performed By: #### L 400.0001 #### [facility] Laboratory [address] [place], [address] KETONE UR 5 mg/dl Abnormal Negative [facility] Comment on above: Order Comment: COLOR OF URINE MAY AFFECT DIPSTICK RESULTS. CLEAN CATCH Result Comment: SURINDER Lopez PATIENT COLLECTED PER Martina KIRKPATRICK Performed By: #### L 400.0001 #### [facility] Laboratory [address] [place], [address] LEUK ESTERASE 500 /ul Abnormal Negative [facility] Comment on above: Order Comment: COLOR OF URINE MAY AFFECT DIPSTICK RESULTS. CLEAN CATCH Result Comment: SURINDER Lopez PATIENT COLLECTED PER Martina KIRKPATRICK Performed By: #### L 400.0001 #### [facility] Laboratory [address] [place], [address] Nitrite Ql (U) Positive Abnormal Negative [facility] Comment on above: Order Comment: COLOR OF URINE MAY AFFECT DIPSTICK RESULTS. CLEAN CATCH Result Comment: SURINDER Lopez PATIENT COLLECTED PER Martina KIRKPATRICK Performed By: #### L 400.0001 #### [facility] Laboratory [address] [place], [address] OCCULT BLOOD-UR 250 /ul Abnormal Negative [facility] Comment on above: Order Comment: COLOR OF URINE MAY AFFECT DIPSTICK RESULTS. CLEAN CATCH Result Comment: SURINDER Lopez PATIENT COLLECTED PER Martina KIRKPATRICK Performed By: #### L 400.0001 #### [facility] Laboratory [address] [place], [address] pH UR 6.0 Normal 5.0 - 8.0 [facility] Comment on above: Order Comment: COLOR OF URINE MAY AFFECT DIPSTICK RESULTS. CLEAN CATCH Result Comment: SURINDER Lopez PATIENT COLLECTED PER Cary. ABDIAS Performed By: #### L 400.0001 #### [facility] Laboratory [address] [place], [address] PROT DIPSTX 100 mg/dl Abnormal Negative [facility] Comment on above: Order Comment: COLOR OF URINE MAY AFFECT DIPSTICK RESULTS. CLEAN CATCH Result Comment: SURINDER Lopez PATIENT COLLECTED PER Cary. ABDIAS Performed By: #### L 400.0001 #### [facility] Laboratory [address] [place], [address] SP.GR. DIPSTX 1.020 Normal 1.002-1.030 [facility] Comment on above: Order Comment: COLOR OF URINE MAY AFFECT DIPSTICK RESULTS. CLEAN CATCH Result Comment: SURINDER Lopez PATIENT COLLECTED PER Cary. ABDIAS Performed By: #### L 400.0001 #### [facility] Laboratory [address] [place], [address] UROBILI 1 mg/dl Abnormal Normal [facility] Comment on above: Order Comment: COLOR OF URINE MAY AFFECT DIPSTICK RESULTS. CLEAN CATCH Result Comment: SURINDER Lopez PATIENT COLLECTED PER Cary. ABDIAS Performed By: #### L 400.0001 #### [facility] Laboratory [address] [place], [address] BACTERIA 0 SEEN Normal None Seen [facility] Comment on above: Order Comment: COLOR OF URINE MAY AFFECT DIPSTICK RESULTS. CLEAN CATCH Result Comment: SURINDER Lopez PATIENT COLLECTED PER Martina KIRKPATRICK Performed By: #### L 400.0001 #### [facility] Laboratory [address] [place], [address] EPI,SQUAMOUS 0 SEEN Normal 0-5 [facility] Comment on above: Order Comment: COLOR OF URINE MAY AFFECT DIPSTICK RESULTS. CLEAN CATCH Result Comment: SURINDER Lopez PATIENT COLLECTED PER Cary. ABDIAS Performed By: #### L 400.0001 #### [facility] Laboratory [address] [place], [address] Mucus Ql (Urine sed) 0 SEEN Normal [facility] Comment on above: Order Comment: COLOR OF URINE MAY AFFECT DIPSTICK RESULTS. CLEAN CATCH Result Comment: SURINDER Lopez PATIENT COLLECTED PER Martina KIRKPATRICK Performed By: #### L 400.0001 #### [facility] Laboratory [address] [facility] [address] RBC 0 SEEN Normal 0-5 [facility] Comment on above: Order Comment: COLOR OF URINE MAY AFFECT DIPSTICK RESULTS. CLEAN CATCH Result Comment: SURINDER Lopez PATIENT COLLECTED PER Martina KIRKPATRICK Performed By: #### L 400.0001 #### [facility] Laboratory [address] [place], [address] WBC 0 SEEN Normal 0-5 [facility] Comment on above: Order Comment: COLOR OF URINE MAY AFFECT DIPSTICK RESULTS. CLEAN CATCH Result Comment: SURINDER Lopez PATIENT COLLECTED PER Martina KIRKPATRICK Performed By: #### L 400.0001 #### [facility] Laboratory [address] [place], [address] Urine clarityOrdered By: Yumiko Barker on 12-28-2024 Clarity (U) Sl. Cloudy Clear [facility] Urine color determinationOrd ered By: Lauro Barker on 12-28-2024 Color (U) Falguni Yellow [facility] Urine glucose detectionOrder ed By: Lauro Barker on 12-28-2024 Glucose Ql (U) Normal mg/dl Normal [facility] Urine leukocyte esterase det ection by dipstickOrdered By: Lauro Barker on 12-28-2024 Leukocyte esterase Test strip Ql (U) Negative Negative [facility] Urine pHOrdered By: Lauro cabrera on 12-28-2024 pH (U) 6.5 [pH] 5.0 - 8.0 [facility] Urine sediment bacteria coun t by microscopy (number/high power field)Ordered By: Lauro Barker on 12-28-2024 Bacteria LM.HPF (Urine sed) [#/Area] RARE /hpf None Seen [facility] Urine specific gravity measu rementOrdered By: Lauro Barker on 12-28-2024 Specific gravity (U) [Rel density] 1.015 1.002-1.030 [facility] Urine urobilinogen measureme ntOrdered By: Lauro Barker on 12-28-2024 Urobilinogen Ql (U) 4 mg/dl High Normal [facility] White blood cell (WBC) count Ordered By: Lauro Barker on 12-28-2024 WBC (Bld) [#/Vol] 10.2 10*3/uL 4.4-11.0 [facility] White blood cell countOrdere d By: Lauro Barker on 12-28-2024 White blood cell count 0-5 SEEN /hpf 0-5 [facility] CNOVon 12-03-2024 [facility] Office Visit ([facility]) JOHNNIE PISANO ([id number]) 1960 M Date Time Provider Department 12/03/24 10:30 AM YAW LANGSTON [facility] During your visit today, we recorded the following information about you: Temperature Pulse Respiration Blood pressure 98 degrees 95/minute 20/minute 115/87 Weight 61 kg Yaw Langston PA 12/03/2024 10:59 AM Signed [facility] Subjective Johnnie Pisano is a 64 year old male. Patient presents with: Wheezing: SOB, cough chronic, increased and changed, states mucous is solid and is sticking in throat, x months worsening HPI Dyspnea: - Experiencing dyspnea, particularly when warm; leads to panic and hyperventilation. - Using Breztri and albuterol inhalers; albuterol use increased to every 2 hours when outdoors. - Noted increase in thick phlegm production. - Denies recent chest X-ray. COPD: - Diagnosed with COPD; using Breztri and albuterol inhalers. - Albuterol use increased to every 2 hours when outdoors. - Noted increase in thick phlegm production. - Denies recent chest X-ray. Anxiety: - Experiencing anxiety attacks related to dyspnea. - Reports hot and cold flashes, with difficulty regulating body temperature. - Loss of appetite; eating minimally over the past few days. - History of significant family stress and loss of , which may contribute to anxiety. - No SI/HI. Tobacco Use: - Smoking over a pack of cigarettes per day - Tried Chantix- had side effects - Considering laser treatment for smoking cessation. PAST MEDICAL HISTORY Diagnosis Date Avascular necrosis of bone of hip (HCC) Eczema Elevated blood pressure 2010 Hyperlipidemia Lupus PAST SURGICAL HISTORY Procedure Laterality Date COLONOSCOPY FLX DX W/COLLJ SPEC WHEN PFRMD 11/2023 rpt 2yrs PAST SURGICAL HISTORY OF teeth extraction TOTAL HIP REPLACEMENT Left 07/2018 [facility] ALLERGIES Percocet [Oxycodone-Acetamino phen], Chantix [Varenicline], Wellbutrin [Bupropion], and Minocycline MEDICATIONS albuterol HFA (VENTOLIN HFA) 90 mcg/actuation inhaler Inhale 2 puffs as instructed every 4 hours as needed for wheezing/shortness of breath. budesonide-glycopyr- formoterol (BREZTRI) 160-9-4.8 mcg/actuation HFA aerosol inhaler Inhale 2 puffs as instructed two times a day. azithromycin (ZITHROMAX) 250 mg tablet Take 2 tablets by mouth once daily for 1 day, THEN 1 tablet once daily for 4 days. predniSONE (DELTASONE) 10 mg tablet Take 4 tabs daily for 3 days, then 2 tabs daily for 3 days, then 1 tab daily for 3 days with food. varenicline (CHANTIX) 1 mg tablet Take 0.5 tablets by mouth once daily for 3 days, THEN 0.5 tablets two times a day for 4 days, THEN 1 tablet two times a day for 23 days. (Patient not taking: Reported on 12/03/2024) varenicline (CHANTIX) 1 mg tablet Take 1 tablet by mouth two times a day. Patient should start on December 03, 2024. (Patient not taking: Reported on 12/03/2024) FAMILY HISTORY Problem Relation Age of Onset Cancer Father Lung cancer other (lupus) Sister other (lupus) Sister Cancer Brother ? unsure what type(s) of CA Heart Maternal Grandmother Stroke Maternal Grandmother Hypertension Maternal Grandmother Ischemic Heart Disease Maternal Grandfather None Son None Son None Son Social History Tobacco Use Smoking status: Every Day Current packs/day: 1.00 Average packs/day: 1 pack/day for 36.0 years (36.0 ttl pk-yrs) Types: Cigarettes Smokeless tobacco: Former Types: Chew, Snuff Vaping Use Vaping status: Never Used Substance Use Topics Alcohol use: Yes Comment: approx 8 beers/month Drug use: Yes Frequency: 2.0 times per week Types: Marijuana Review of Systems Constitutional: (+) hot flashes, (+) chills, (+) decreased appetite Ears/Nose/Mouth/Thro at: (+) nasal congestion Respiratory: (+) dyspnea, (+) hyperventilation, (+) cough with thick sputum Psychiatric: (+) panic attacks, (+) anxiety Objective BP 115/87 Pulse 95 Temp 36.7 ?C (98 ?F) Resp 20 Wt 61 kg (134 lb 7.7 oz) SpO2 98% BMI 24.43 kg/m? Physical Exam Vitals reviewed. Constitutional: General: He is not in acute distress. Appearance: Normal appearance. He is not toxic-appearing. HENT: Right Ear: Tympanic membrane and ear canal normal. Left Ear: Tympanic membrane and ear canal normal. Nose: Nose normal. Mouth/Throat: Mouth: Mucous membranes are moist. Cardiovascular: Rate and Rhythm: Normal rate and regular rhythm. Pulmonary: Effort: Pulmonary effort is normal. Breath sounds: Wheezing present. No rhonchi or rales. Skin: General: Skin is warm and dry. Neurological: Mental Status: He is alert. General: No acute distress. Resp: Wheezing noted in left lung. {1. Subacute cough (R05.2) 2. COPD with exacerbation (HCC) (J44.1) - Increased cough with production of thick sputum; wheezing noted in the (more content not included)... Normal [facility] XR CHEST 2V FRONTAL/LATon XR CHEST 2V FRONTAL/LAT * * *Final Repor t* * * DATE OF EXAM: Dec 03 2024 10:59AM WOX [id number] - XR CHEST 2V FRONTAL/LAT / PROCEDURE REASON: Subacute cough * * * * Physician Interpretation * * * * EXAMINATION: CHEST RADIOGRAPH (2 VIEW FRONTAL and LATERAL) CLINICAL HISTORY: Subacute cough MQ: XC2_6 EXAM DATE/TIME: 12/03/2024 10:59 AM COMPARISON: 05/07/2021. RESULT: Lines, tubes, and devices: None. Lungs and pleura: There is bilateral pulmonary emphysema. No consolidation. No lung mass. No pleural effusion. No pneumothorax. Cardiomediastinal silhouette: Normal cardiomediastinal silhouette. Bones and soft tissues: Unremarkable. IMPRESSION: Stable exam with bilateral pulmonary emphysema and no definite acute radiographic abnormality. Electronic Device Repairer: JOSE Transcribe Date/Time: Dec 03 2024 11:29A Dictated by : DEJAH CH MD This examination was interpreted and the report reviewed and electronically signed by: DEJAH CH MD on Dec 03 2024 11:31AM EST [id number] CN Normal [facility] XR Chest PA and Lateralon IMPRESSION: Stable exam with bilateral pulmonary emphysema and no definite acute radiographic abnormality. Electronic Device Repairer: [facility] Transcribe Date/Time: Dec 03 2024 11:29A Dictated by : DEJAH CH MD This examination was interpreted and the report reviewed and electronically signed by: DEJAH CH MD on Dec 03 2024 11:31AM EST DIVISION OF RADIOLOGY * * *Final Report* * * DATE OF EXAM: Dec 03 2024 10:59AM WOX 5291 - XR CHEST 2V FRONTAL/LAT / PROCEDURE REASON: Subacute cough * * * * Physician Interpretation * * * * EXAMINATION: CHEST RADIOGRAPH (2 VIEW FRONTAL & LATERAL) CLINICAL HISTORY: Subacute cough MQ: XC2_6 EXAM DATE/TIME: 12/03/2024 10:59 AM COMPARISON: 05/07/2021. RESULT: Lines, tubes, and devices: None. Lungs and pleura: There is bilateral pulmonary emphysema. No consolidation. No lung mass. No pleural effusion. No pneumothorax. Cardiomediastinal silhouette: Normal cardiomediastinal silhouette. Bones and soft tissues: Unremarkable. DIVISION OF RADIOLOGY Provider, [facility] [place] - 12/03/2024 * * *Final Report* * * DATE OF EXAM: Dec 03 2024 10:59AM WOX 5291 - XR CHEST 2V FRONTAL/LAT / PROCEDURE REASON: Subacute cough * * * * Physician Interpretation * * * * EXAMINATION: CHEST RADIOGRAPH (2 VIEW FRONTAL & LATERAL) CLINICAL HISTORY: Subacute cough MQ: XC2_6 EXAM DATE/TIME: 12/03/2024 10:59 AM COMPARISON: 05/07/2021. RESULT: Lines, tubes, and devices: None. Lungs and pleura: There is bilateral pulmonary emphysema. No consolidation. No lung mass. No pleural effusion. No pneumothorax. Cardiomediastinal silhouette: Normal cardiomediastinal silhouette. Bones and soft tissues: Unremarkable. IMPRESSION IMPRESSION: Stable exam with bilateral pulmonary emphysema and no definite acute radiographic abnormality. Electronic Device Repairer: [facility] Transcribe Date/Time: Dec 03 2024 11:29A Dictated by : DEJAH CH MD This examination was interpreted and the report reviewed and electronically signed by: DEJAH CH MD on Dec 03 2024 11:31AM [facility] Study observation (narrative) Kalin carrera [facility] XR Chest PA and LateralOrder ed By: [facility] Provider on 12-03-2024 [facility] Kathryn 12-01-2024 CNPN Telephone (FAMPWS) JOHNNIE PISANO ([id number]) 1960 M Date Time Provider Department 12/01/24 MACO MORALESWS During your visit today, we recorded the following information about you: Yaa, Dariana Jensen 12/01/2024 2:35 PM Signed Patient calling in to let the office know he wants to move forward with quitting smoking. He states he has heard good things about a facility in [place] called [facility]. He wanted to see the providers thoughts on this and if they think he would be a good fit he is asking us to send a referral over to them. Their fax number is [phone]. Please review and advise. Dariana Mon December 01, 2024 2:34 PM Moshe Cruz LPN 12/02/2024 9:20 AM Signed [email or web address] Maco Morales MD 12/02/2024 11:10 AM Signed I don't think it will hurt. Not sure how effective it is. Not well studied. Maco Morales MD 12/02/2024 12:56 PM Signed done Moshe Cruz LPN 12/02/2024 2:51 PM Signed States that he talked with his insurance company and they are the ones who gave him the info. Advised that would fax the referral as requested. Moshe Cruz LPN 12/03/2024 8:48 AM Signed Completed. Allergies As of Date: 12/01/2024 Noted Allergy Reaction PERCOCET (OXYCODONE-ACETAMINO PHEN)05/07/2021 1 - Mental Status Change CHANTIX (VARENICLINE) 11/15/2024 14 - Other: See Comments Comments: panic WELLBUTRIN (BUPROPION) 11/15/2024 16 - Unknown Comments: Panic MINOCYCLINE 04/21/2011 9 - Itching Date Reviewed: 11/03/2024 Reviewed by: Raquel Bean MA - Fully Assessed Reason for Visit: Patient Question [6937] Primary Visit Diagnosis:Tobacco use [Z72.0] Order(s):CONSULT TO SMOKING/VAPING CESSATION [[id number]] Order #: [id number]: 1 Prescriptions as of 12/03/2024 - albuterol HFA (VENTOLIN HFA) 90 mcg/actuation inhaler Inhale 2 puffs as instructed every 4 hours as needed for wheezing/shortness of breath. - budesonide-glycopyr- formoterol (BREZTRI) 160-9-4.8 mcg/actuation HFA aerosol inhaler Inhale 2 puffs as instructed two times a day. - varenicline (CHANTIX) 1 mg tablet Take 0.5 tablets by mouth once daily for 3 days, THEN 0.5 tablets two times a day for 4 days, THEN 1 tablet two times a day for 23 days. - varenicline (CHANTIX) 1 mg tablet Take 1 tablet by mouth two times a day. Patient should start on December 03, 2024. Problem List As Of Date 12/01/2024 Noted Resolved Hypertriglyceridemia [E78.1] 12/04/2010 Pyoderma, unspecified [L08.0] 04/08/2011 Eczematous dermatitis [L30.9] 04/08/2011 09/01/2023 Contact dermatitis and other eczema, due to uns*04/08/2011 09/01/2023 Pruritus [L29.9] 04/08/2011 09/01/2023 Excoriation [T14.8XXA] 04/08/2011 09/01/2023 Disturbance of skin sensation [R20.9] 04/08/2011 09/01/2023 Rash and other nonspecific skin eruption [R21] 04/08/2011 09/01/2023 Allergy to insect bites [Z91.038] 04/08/2011 Folliculitis [L73.9] 04/09/2011 09/01/2023 Avascular necrosis of bones of both hips [M87.0*09/13/2013 Primary localized osteoarthritis of left hip [M*06/30/2018 07/26/2018 Avascular necrosis of hip, left (HCC) [M87.052] 06/30/2018 07/26/2018 Systemic lupus erythematosus (HCC) [M32.9] 07/12/2018 09/01/2023 Tobacco use [Z72.0] 07/12/2018 Anxiety and depression [F41.9, F32.A] 07/12/2018 09/01/2023 Post-operative state [Z98.890] 07/26/2018 07/27/2018 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] 09/01/2023 History of depression [Z86.59] 09/01/2023 Well adult exam [Z00.00] 09/01/2023 10/19/2023 Positive colorectal cancer screening using [place]*09/22/2023 Other emphysema (HCC) [J43.8] 10/19/2023 Encounter Status:Closed by MOSHE CRUZ on 12/03/24 [facility] ([id number]) 1960 M Date Time Provider Department 11/15/24 ANTONIETTA SYKES [facility] During your visit today, we recorded the following information about you: Ana Castellanos LPN 11/15/2024 8:31 AM Signed Patient calling has been having side effects from the chantix rx, he is having anxiety, panic attacks, decreased appetite, worse dry mouth, hot and cold flashes, has very real fear can not shake. He did not take chantix stopped Thursday. He is still very fearful, feels like he needs to talk to someone all the time. Gave him the phone number for [facility]. Patient asking for a referral for Grief counseling to deal with his 10 years ago. Patient said he had similar effects from Wellbutrin in the past. Patient uses [facility] for his pharmacy if needed. He is still trying not to smoke. Please advise Antonietta Sykes APRN.[facility] 11/15/2024 8:58 AM Signed Please let patient know that I listed Chantix and Wellbutrin as an intolerance under his allergies. The medication is metabolized out through the urine. He can have some in his system for up to 4 days but will continue to lessen. Raquel Bean MA 11/15/2024 10:47 AM Signed Attempted to call patient. Mailbox is full Raquel Bean MA November 15, 2024 10:47 AM Heidi Reyna RN 11/15/2024 11:18 AM Signed Patient notified of provider's instructions. Patient verbalizes understanding. Heidi Reyna RN Allergies As of Date: 11/15/2024 Noted Allergy Reaction PERCOCET (OXYCODONE-ACETAMINO PHEN)05/07/2021 1 - Mental Status Change CHANTIX (VARENICLINE) 11/15/2024 14 - Other: See Comments Comments: panic WELLBUTRIN (BUPROPION) 11/15/2024 16 - Unknown Comments: Panic MINOCYCLINE 04/21/2011 9 - Itching Date Reviewed: 11/03/2024 Reviewed by: Raquel Bean MA - Fully Assessed Reason for Visit: Patient Question [5814] side effects [Other] Prescriptions as of 11/15/2024 - albuterol HFA (VENTOLIN HFA) 90 mcg/actuation inhaler Inhale 2 puffs as instructed every 4 hours as needed for wheezing/shortness of breath. - budesonide-glycopyr- formoterol (BREZTRI) 160-9-4.8 mcg/actuation HFA aerosol inhaler Inhale 2 puffs as instructed two times a day. - varenicline (CHANTIX) 1 mg tablet Take 0.5 tablets by mouth once daily for 3 days, THEN 0.5 tablets two times a day for 4 days, THEN 1 tablet two times a day for 23 days. - varenicline (CHANTIX) 1 mg tablet Take 1 tablet by mouth two times a day. Patient should start on December 03, 2024. Problem List As Of Date 11/15/2024 Noted Resolved Hypertriglyceridemia [E78.1] 12/04/2010 Pyoderma, unspecified [L08.0] 04/08/2011 Eczematous dermatitis [L30.9] 04/08/2011 09/01/2023 Contact dermatitis and other eczema, due to uns*04/08/2011 09/01/2023 Pruritus [L29.9] 04/08/2011 09/01/2023 Excoriation [T14.8XXA] 04/08/2011 09/01/2023 Disturbance of skin sensation [R20.9] 04/08/2011 09/01/2023 Rash and other nonspecific skin eruption [R21] 04/08/2011 09/01/2023 Allergy to insect bites [Z91.038] 04/08/2011 Folliculitis [L73.9] 04/09/2011 09/01/2023 Avascular necrosis of bones of both hips [M87.0*09/13/2013 Primary localized osteoarthritis of left hip [M*06/30/2018 07/26/2018 Avascular necrosis of hip, left (HCC) [M87.052] 06/30/2018 07/26/2018 Systemic lupus erythematosus (HCC) [M32.9] 07/12/2018 09/01/2023 Tobacco use [Z72.0] 07/12/2018 Anxiety and depression [F41.9, F32.A] 07/12/2018 09/01/2023 Post-operative state [Z98.890] 07/26/2018 07/27/2018 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] 09/01/2023 History of depression [Z86.59] 09/01/2023 Well adult exam [Z00.00] 09/01/2023 10/19/2023 Positive colorectal cancer screening using [place]*09/22/2023 Other emphysema (HCC) [J43.8] 10/19/2023 Encounter Status:Closed by HEIDI REYNA on 11/15/24 [facility] CNOVon 11-03-2024 CNOV Office Visit (FAMPWS) JOHNNIE PISANO ([id number]) 1960 M Date Time Provider Department 11/03/24 3:40 PM ANTONIETTA SYKESPWS During your visit today, we recorded the following information about you: Pulse Blood pressure Weight Height 90/minute 118/68 64.9 kg 1.58 m Antonietta Sykes APRN.CNP 11/03/2024 4:38 PM Signed Chief Reason For Appointment Patient presents with: Medicare Wellness Exam Johnnie Pisano is a 64 year old male who presents for annual exam. Last office visit date: 10/19/2023 Accompanied By self only Have you had any critical events, hospital stays, ER visits, surgeries or procedures since your last visit here in our office: No Specialists/Other Healthcare Providers Seen: Patient Care Team: Maco Morales MD as PCP - General (Family Medicine) Vee Clayton APRN.CNP as Floor Coverer Apprentice (Family Medicine) Antonietta Sykes APRN.CNP as Floor Coverer Apprentice (Family Medicine) Concerns today: Tobacco use Emphysema Pain in back between scapula- occ. Into shoulder tips HPI Breathing bad espeically when it is dense air Johnnie is a 64-year-old male with a history of lupus and COPD, presenting for evaluation of shoulder pain. Shoulder Pain: - Chronic bilateral shoulder pain, initially in the right shoulder, now also in the left. - Pain localized to the scapular region and occasionally at the distal end of the shoulder. - Aggravated by prolonged sitting with pressure on the shoulders; radiates to the neck. - Denies known trauma or injury. - Attempts to alleviate pain by changing posture and stretching. COPD: - Managed with Spiriva and albuterol; notices increased dyspnea when Spiriva is not used in the morning. - Dyspnea exacerbated by heavy air, such as during foggy or rainy mornings. - Chronic cough with sputum production, thicker in the morning. - Occasional chest pain, not worsened by movement or palpation, typically occurs when sitting. - Occasional palpitations. - Denies orthopnea or paroxysmal nocturnal dyspnea. - Smokes approximately one pack per day; previously reduced to half a pack per day. - Has tried nicotine patches in the past without success. - Interested in smoking cessation options. - Recent lung cancer screening performed in [place]; next screening scheduled for February 06. Lupus: - Diagnosed while living in [place]; has not seen a letter carrier due to distance and cost. - Manages symptoms independently, using moisturizing cream for skin lesions and wearing UV-protective sleeves. - Experiences joint pain primarily in the winter and skin issues in the summer. - Avoids sun exposure and wears long sleeves when possible. - Reports excessive thirst and sweating, believes it is related to lupus. - Denies seizures or tremors. - Denies suicidal thoughts, but expresses concern about current world events. Active Problems ACTIVE PROBLEM LIST Other Emphysema (Hcc) - 10/19/2023 Positive Colorectal Cancer Screening Using Cologuard Test - 09/22/2023 Cutaneous Lupus Erythematosus - 09/01/2023 Comment: Saw Dr Miller History of Depression - 09/01/2023 Tobacco Use - 07/12/2018 Avascular Necrosis of Bones of Both Hips (Hcc) - 09/13/2013 Pyoderma, Unspecified - 04/08/2011 Allergy to Insect Bites - 04/08/2011 Hypertriglyceridemia - 12/04/2010 ROS: GENERAL: NAD, alert and oriented. SKIN: unremarkable, no rash but multiple round lesions that itch. HEAD: normocephalic. EYES: PERRLA, EOMI, conjunctiva clear. EARS: external ears normal, canals clear, TM's normal. NOSE/SINUSES: Nares normal. Septum midline. OROPHARYNX: lips, mucosa, and tongue normal, good dentition. No oral lesions noted. Throat appears dry. NECK: Supple, no lymphadenopathy, normal thyroid, no carotid bruits. LUNGS: Clear to auscultation bilaterally, no wheezes/rhonchi/rale s. HEART: Regular rate and rhythm, no murmurs. No ectopy. EXTREMITIES: Normal, No deformities, No skin discoloration, No edema. NEURO: Awake, alert and oriented x3, cranial nerves II-XII grossly intact, normal gait, no involuntary motions. PAST MEDICAL HISTORY Diagnosis Date Avascular necrosis of bone of hip (HCC) Eczema Elevated blood pressure 2010 Hyperlipidemia Lupus PAST SURGICAL HISTORY Procedure Laterality Date COLONOSCOPY FLX DX W/COLLJ SPEC WHEN PFRMD 11/2023 rpt 2yrs PAST SURGICAL HISTORY OF teeth extraction TOTAL HIP REPLACEMENT Left 07/2018 [facility] Medication List Current Outpatient Medications Medication Sig Dispense Refill albuterol HFA (VENTOLIN HFA) 90 mcg/actuation inhaler Inhale 2 puffs as instructed every 4 hours as needed for wheezing/shortness of breath. 1 each 11 budesonide-glycopyr- formoterol (BREZTRI) 160-9-4.8 mcg/actuation HFA aerosol inhaler Inhale 2 puffs as instructed two times a day. 1 each 11 varenicline (CHANTIX) 1 mg tablet Take 0.5 ta (more content not included)... Normal [facility] ANES POSTPROC EVALon 024 ANES POSTPROC EVAL HNO ID: [id number] Author: KAROLYN SUMMERS APRN.CRNA Service: Anesthesiology Author Type: Nurse Drive Away Driver Type: Anesthesia Postprocedure Evaluation Filed: 11/05/2023 12:07 Note Text: POST ANESTHESIA EVALUATION NOTE : 1960 Procedure Summary Date: 11/05/23 Room / Location: SURGERY Anesthesia Start: 1047 Anesthesia Stop: 1207 Procedure: COLONOSCOPY DIAGNOSTIC Diagnosis: Positive colorectal cancer screening using Cologuard test Positive colorectal cancer screening using Cologuard test Scheduled Providers: Shima Martin MD; Karolyn Summers APRN.[employer] Responsible Provider: Karolyn Summers APRN.CRNA Anesthesia Type: MAC ASA Status: 3 Anesthesia Type: MAC Last Vitals Vitals Value Taken Time BP 102/69 11/05/23 1205 Temp 36.6 ?C (97.8 ?F) 11/05/23 1204 Pulse 84 11/05/23 1206 Resp 27 11/05/23 1206 SpO2 95 % 11/05/23 1206 Vitals shown include unfiled device data. Post Anesthesia Patient Status Patient Evaluation: PACU. Anticipated Disposition: phase 2 then home. Neurological Status: sleepy but arousable. Pulmonary Status: breathing comfortably on room air Airway Control: returned to baseline unsupported. Cardiovascular Status: stable. Pain Management: clinically adequate Postoperative Hydration: acceptable. Intraoperative Events: no significant anesthesia events Post Operative Nausea/Vomiting Status: no significant post operative nausea or vomiting Recommendation: continue current plan of care. Anesthesia Observations No Documentation SIGNATURE: Karolyn Summers APRN.[employer] PATIENT NAME: Johnnie Pisano DATE: November 05, 2023 TIME: 12:07 PM CSN: [id number] Normal [facility] ANES PRE-OPon 11-05-2023 ANES PRE-OP HNO ID: [id number] Author: KAROLYN SUMMERS APRN.[employer] Service: Anesthesiology Author Type: Nurse Drive Away Driver Type: Anesthesia Preprocedure Evaluation Filed: 11/05/2023 10:39 Note Text: ANESTHESIOLOGY DAY OF SURGERY NOTE : 1960 Procedure Information Date/Time: 11/05/23 1115 Scheduled providers: Shima Martin MD; Karolyn Summers APRN.[employer] Procedure: COLONOSCOPY DIAGNOSTIC Location: LD SURGERY Estimated body mass index is 24.87 kg/m? as calculated from the following: Height as of 10/29/23: 157.5 cm (5' 2). Weight as of 10/29/23: 61.7 kg (136 lb). Most recent hematocrit and potassium results: Hematocrit 44.2 10/19/2023 Potassium 4.1 10/19/2023 Relevant Problems NEURO-PSYCH (+) History of depression PULMONARY (+) Other emphysema (HCC) I - PHYSICAL EVALUATION AIRWAY Patient intubated: No. Tracheostomy tube not present Mallampati: II. TM distance: >3 FB. Neck ROM: full ROM without neurological symptoms. Mouth opening: adequate. Short neck: no. Thick neck: no Fonseca present: no Lip Bite Test: II Microretrognathia/Mi cronagthia/Recessed Chin: No DENTAL Dentures, upper: complete. Additional exam findings: no II - ANESTHESIA PLAN ASA Score: 3 Anesthetic Plan: MAC The patient is a current smoker. NPO Status: adequate Beta Vincenzo Administration of chronic beta vincenzo medication not planned. Monitoring Plan Monitoring plan: standard ASA. Post Procedure Analgesic Plan Postoperative analgesic plan: per surgical service. Informed Consent Anesthetic risks, benefits, alternatives, personnel and consent discussed: yes. Patient / Responsible Libertarian agrees to proceed: yes Patient / Surrogate agrees to blood products: blood products not planned DNR status reviewed with patient and/or family prior to surgery. patient elects to suspend DNR status in the perioperative setting (Full Code). Significant changes in the patient condition since the History and Physical, not otherwise documented in primary service progress note: no. Potential Anesthesia issues that may suggest increased risk of complications or contraindication to planned procedure: none. Discussed the possibility of lip / dental damage: yes Vitals Value Taken Time BP 139/101 11/05/23 1035 Pulse 108 11/05/23 1038 Resp 25 11/05/23 1038 Temp SpO2 100 % 11/05/23 1038 Vitals shown include unfiled device data. No current facility-administere d medications on file as of 11/05/2023. Outpatient Medications as of 11/05/2023 Medication Sig - tiotropium bromide (SPIRIVA RESPIMAT) 2.5 mcg/actuation inhaler Inhale 2 Puffs as instructed once daily. Inhale two puffs once daily. - albuterol HFA (VENTOLIN HFA) 90 mcg/actuation inhaler Inhale 2 Puffs as instructed every 4 hours as needed for wheezing/shortness of breath. I have interviewed and examined the patient. I have reviewed the medical record and/or the pre-anesthesia evaluation, pertinent labs, and test results. This contains updated information obtained within 48 hours of Surgery/Procedure. SIGNATURE: Karolyn Summers APRN.CRNA PATIENT NAME: Johnnie Pisano DATE: November 05, 2023 TIME: 10:38 AM CSN: [id number] [facility] BRIEF OP NOTon 11-05-2023 BRIEF OP NOT HNO ID: [id number] Author: SHIMA MARTIN MD Service: General Surgery Author Type: Physician Type: Brief Op Note Filed: 11/05/2023 12:03 Note Text: BRIEF OPERATIVE NOTE SURGERY DATE: 11/05/2023 Incision/Procedure Start Time: 10:53 cecal intubation time: 11:05 Incision Close/Procedure End Time: 11:58 Surgeon(s)/Procedura list(s) and Rehab Office Coordinator(s): alicia Procedures: Colonoscopy with multiple polyectomies Anesthesia: MAC Findings: hepatic flex polyps x 4 (1 - 2 cm); tranverse colon polyp 1 cm; descending colon polyp x 4 9 (1-2. 5 cm) - clip placed at defect to close 2.5 cm site; sigmoid colon x 4 (1-2 cm), rectosigmoid mass biopsies using cold forceps; rectal polyp 2 cm Estimated Blood Loss: minimal Specimens: see above Complications: None Closure Technique: na Preop Diagnosis: cologard positive, no previous colonoscopy Postop Diagnosis: multiple colon polyps as above, diverticulosis, hemorrhoids, sigmoid colon mass SIGNATURE: Shima Martin MD PATIENT NAME: Johnnie Pisano DATE: November 05, 2023 TIME: 12:00 PM Acct: [id number] [facility] HISTORY PHYSICALon HISTORY PHYSICAL HNO ID: [id number] Author: SHIMA MARTIN MD Service: General Surgery Author Type: Physician Type: H&P Filed: 11/05/2023 10:35 Note Text: HISTORY AND PHYSICAL Johnnie Pisano 1960 REFERRING PHYSICIAN: Maco Morales MD CHIEF COMPLAINT: Colonoscopy Consult (Positive Cologuard test 09/14/2023) HPI: The patient is a 63 year old male referred for endoscopy. Johnnie is found to be positive for Cologard. He states that his brother of unknown metastatic cancer. The patient denies blood in stools, denies abdominal pain, and denies changes in bowel habits. The patient has not had previous colonoscopy. PAST MEDICAL HISTORY PAST MEDICAL HISTORY Diagnosis Date Avascular necrosis of bone of hip (HCC) Eczema Elevated blood pressure 2010 Hyperlipidemia Lupus (HCC) PAST SURGICAL HISTORY PAST SURGICAL HISTORY Procedure Laterality Date PAST SURGICAL HISTORY OF teeth extraction TOTAL HIP REPLACEMENT Left 07/2018 [facility] CURRENT MEDICATIONS Current Outpatient Medications Medication Sig tiotropium bromide (SPIRIVA RESPIMAT) 2.5 mcg/actuation inhaler Inhale 2 Puffs as instructed once daily. Inhale two puffs once daily. peg 3350-Electrolytes (GOLYTELY) 236-22.74-6.74 -5.86 gram suspension Take 4,000 mL by mouth one time only for 1 dose. Refer to printed prep instructions from your provider. No current facility-administere d medications for this visit. ALLERGIES: Percocet [Oxycodone-Acetamino phen] and Minocycline PERSONAL HISTORY: SOCIAL HISTORY Social History Tobacco Use Smoking status: Every Day Packs/day: 1.00 Years: 36.00 Additional pack years: 0.00 Total pack years: 36.00 Types: Cigarettes Smokeless tobacco: Former Types: Chew, Snuff Vaping Use Vaping Use: Never used Substance Use Topics Alcohol use: Yes Comment: approx 8 beers/month Drug use: Yes Frequency: 2.0 times per week Types: Marijuana FAMILY HISTORY FAMILY HISTORY Problem Relation Age of Onset Cancer Father Lung cancer other (lupus) Sister other (lupus) Sister Cancer Brother ? unsure what type(s) of CA Heart Maternal Grandmother Stroke Maternal Grandmother Hypertension Maternal Grandmother Ischemic Heart Disease Maternal Grandfather None Son None Son None Son REVIEW OF SYSTEMS: Denies chest pain Denies shrtoness of breath PHYSICAL EXAMINATION: General: The patient is 63 year old male, well nourished, well hydrated in no acute distress. The patient is oriented to time, place, and person. VITALS: Blood pressure 132/82, pulse 100, temperature 36.8 ?C (98.2 ?F), resp. rate 20, height 157.5 cm (5' 2), weight 62.1 kg (137 lb), SpO2 97%. Body mass index is 25.06 kg/m?. Head: Normal cephalic, atraumatic Eyes: pupils are equally round, sclera are clear/anicteric, wearing glasses Neck is supple with no tracheal deviation Cardiac: normal heart sounds, regular Respiratory: Normal respiratory excursion and pattern. Abdominal exam: benign Extremities: no clubbing, cyanosis or edema. Neuro: non focal Psych: normal mood IMPRESSION: cologard positive PLAN: I have discussed the above with the patient. I have offered colonoscopy , possible biopsies I have explained the procedure to the patient. I have counseled the patient as to the risks of the procedure, including but not limited to: infection, bleeding, injury to any intrabdominal organs such as liver/spleen, perforation of the GI tract, inability to complete the procedure, complications of anesthesia, etc. - the patient understands. The patient wishes to proceed. I have answered all questions to the patient?s satisfaction and the patient has no further questions. [facility] OPERATIVE NOon 11-05-2023 OPERATIVE NO HNO ID: [id number] Author: SHIMA MARTIN MD Service: General Surgery Author Type: Physician Type: Operative Report Filed: 11/06/2023 08:50 Note Text: [facility] - Operative Report - JOHNNIE Diaz : 1960 AGE: 63. SEX: M PATIENT TYPE: O HOSP [facility]: [facility] LOCATION: [facility] ATTENDING PHYSICIAN: Shima Martin MD CSN NUMBER: [id number] DATE OF SURGERY/PROCEDURE: 11/05/2023 INCISION/PROCEDURE START TIME: 1053 INCISION CLOSE/PROCEDURE END TIME: 1158 PREOPERATIVE DIAGNOSIS: Cologuard positive. POSTOPERATIVE DIAGNOSIS: Multiple colon polyps, sigmoid colon mass, diverticulosis, and hemorrhoids. SURGEON: Shima Martin MD OIL LEASE OPERATOR: No Additional Staff SURGERY/PROCEDURE: Colonoscopy with polypectomies. ANESTHESIA: MAC. LOCATION: [facility]. INDICATIONS: Johnnie Pisano is a 63-year-old male who presents for a colonoscopy. He was found to be Cologuard positive. He has had no previous colonoscopy. He has been counseled on the risks of procedure including, but not limited to, infection, bleeding, perforation of GI tract, inability to complete the procedure, injury to any internal organs, etc. The patient understands and agrees to proceed. DESCRIPTION OF PROCEDURE: After informed consent was given, the patient was brought to the endoscopy suite. Appropriate time-out protocol was followed. The patient was placed in left lateral decubitus position. The colonoscope was lubricated and carefully inserted in the patient's anus and advanced into the rectum. It was then advanced into the sigmoid colon, then left colon, past splenic flexure into transverse colon, past hepatic flexure into the right colon, then into the cecum. The cecum was identified by confluence of teniae coli, identification of ileocecal valve, appendiceal orifice, and external palpation. At this level, the colonoscope was slowly retracted back and entire colonic mucosal surface was examined. The colon cleansing preparation had retained fecal material; however, with adequate irrigation lavage, the colonic brennan could be seen adequately. There was no evidence of any masses, polyps, lesions in the right colon. At the hepatic flexure, there were multiple polyps noted, 4 in total. They range in size from 1 to 2 cm. They were removed completely using a hot snare device. In the transverse colon, there appeared to be a 1 cm polyp. This was also removed using a hot snare device. In the descending colon, there appeared to be 4 polyps. They range in size from 1 to 2.5 cm in size. For the largest polyp that was 2.5 cm, clips were placed to close the defect and a total of 3 clips were used. The polyps had been removed using a hot snare device. In the sigmoid colon, there were 4 polyps that were removed using hot snare device and these range in size from 1 to 2 cm. At the rectosigmoid junction, there appeared to be a large polypoid mass. It appeared greater than 3 cm. Biopsies were taken using cold forceps. In the rectum, polyp that was removed that was approximately 2 cm in size and this was about 2 cm from the anal verge. Retroflexed view in the rectum revealed hemorrhoidal changes, but no active inflammation or bleeding. The endoscope was removed intact. Digital examination of the anal canal revealed no palpable masses. The patient tolerated the procedure well, was brought to Recovery Room in stable condition. ESTIMATED BLOOD LOSS: Minimal. SPECIMENS: Hepatic flexure polyps x4, transverse colon polyp, descending colon polyps x4, sigmoid colon polyps x4, rectosigmoid mass biopsies, and rectal polyp. COMPLICATIONS: None. RECOMMENDATIONS: The patient will be referred to the advanced Endoscopic center at ([facility]) [facility] for consideration of removal of the sigmoid colon mass/polyp. Shima Martin MD LW:[id number] /[id number] Normal [facility] SURGICAL PATHOLOGYon 024 CASE REPORT Normal [facility] Comment on above: Order Comment: Speci men Type: TISSUE SPECIMEN Ordering Facility: [facility] Address: [address] [place] [address] Result Comment: Surg ical Pathology Report Case: [id number] Authorizing Provider: Shima Martin MD Collected: 11/05/2023 11:13 AM Ordering Location: [facility] SURGERY Received: 11/05/2023 02:10 PM Pathologist: Eda Martinez MD Specimens: A) - Colon, Hepatic Flexure, Polyp, 4 polyps Hepatic flexure B) - Colon, Transverse, Polyp, 1 polyp transverse colon C) - Colon, Descending, Polyp, 4 polyps descending colon D) - Colon, Sigmoid, Polyp, 4 polyps Sigmoid colon E) - Colon, Rectosigmoid, Biopsy, rectosigmoid mass F) - Rectum, Polyp, 1 polyp rectal Performed By: #### S #### [facility] CLIA [id number] [address] DIAGNOSIS COMMENT Normal [facility] Comment on above: Order Comment: Darreli jose angel Type: TISSUE SPECIMEN Ordering Facility: [facility] Address: [address] [place] [address] Result Comment: In p art E fragmentation and limited sample precludes further evaluation, no evidence of malignancy identified in submitted sample. In view of endoscopic findings clinical correlation and additional tissue sampling is recommended if clinically warranted. Parts B and E has been reviewed by Dr. Zayra Shay, who concurs with the above findings. Performed By: #### S #### [facility] CLIA [id number] [address] FINAL DIAGNOSIS Normal [facility] Comment on above: Order Comment: Speci men Type: TISSUE SPECIMEN Ordering Facility: [facility] Address: [address] [place] [address] Result Comment: A. H epatic flexure polyp, polypectomy: -- Fragments of tubular adenoma, in part obscured by cautery artifact. B. Transverse colon polyp, polypectomy: -- Polypoid fragment of colonic mucosa with marked cautery artifact and features suggestive of tubular adenoma, see comment. C. Descending colon polyp (x4), polypectomy: -- Fragments of tubular adenoma, in part obscured by cautery artifact. D. Sigmoid colon polyp (x4), polypectomy: -- Fragments of tubular adenoma. E. Rectosigmoid mass, biopsy: -- Fragments of colonic mucosa with features of mucosal prolapse and melanosis coli, see comment. F. Rectal polyp, polypectomy: -- Tubular adenoma. Performed By: #### S #### [facility] CLIA [id number] [address] FINAL PERFORMING LAB Normal [facility] Comment on above: Order Comment: Speci men Type: TISSUE SPECIMEN Ordering Facility: [facility] Address: [address] [place] [address] Result Comment: Diag nostic interpretation performed at [place], [address] [place] [address] CLIA# [id number] Junior Legal Secretary: Lauro Fine M.D. Performed By: #### S #### [facility] CLIA [id number] [address] GROSS DESCRIPTION Normal [facility] Comment on above: Order Comment: Speci men Type: TISSUE SPECIMEN Ordering Facility: [facility] Address: [address] [place] [address] Result Comment: A. C olon, Hepatic Flexure, Polyp Received in formalin labeled hepatic flexure colon polyp are multiple irregular [place]ledo soft tissue fragments aggregating to 1.5 x 0.6 x 0.4 cm. The specimen is submitted entirely in A1. B. Colon, Transverse, Polyp Received in formalin labeled transverse colon polyp is a irregular [place]o soft tissue fragment measuring 0.3 x 0.3 x 0.2 cm. The specimen is submitted entirely in B1. C. Colon, Descending, Polyp Received in formalin labeled 4 polyps descending colon are multiple irregular [place] soft tissue fragments aggregating to 1.5 x 1 x 0.4 cm. The specimen is submitted entirely in C1. D. Colon, Sigmoid, Polyp Received in formalin labeled sigmoid colon polyps x4 are multiple irregular [place]ledo soft tissue fragments aggregating to 1.7 x 1 x 0.4 cm. The specimen is submitted entirely in D1. E. Colon, Rectosigmoid, Biopsy Received in formalin labeled rectosigmoid biopsy are multiple irregular [place]o soft tissue fragments aggregating to 0.5 x 0.4 x 0.2 cm. The specimen is submitted entirely in E1. F. Rectum, Polyp Received in formalin labeled rectal polyp is a round-toledo sessile polyp measuring 1 x 0.8 x 0.7 cm. The line of resection is inked blue. Specimen is serially sectioned and submitted entirely in F1. Gross examination performed at [place], [address] [place] [address] CLIA#[id number] OLS November 06, 2023 1:54 PM Performed By: #### S #### [facility] CLIA [id number] [address] [place] [address] NURSING PROGon 10-29-2023 NURSING PROG HNO ID: [id number] Author: JILLIAN MENSAH, JAZMINE Service: ? Author Type: Registered Nurse Type: Nursing Progress Note Filed: 10/29/2023 11:58 Note Text: Pre-Procedure Checklist Johnnie Pisano [phone] (home) 1960 63 year old Body mass index is 24.87 kg/m?. Allergies: Percocet [Oxycodone* Mental Status Change Minocycline Itching Procedure: colonoscopy ( Positive cologuard) Date of Procedure: 11/05/23 Smoke: Yes (18 cigs/day) Alcohol: Yes (occasional) Street Drugs: Yes (medical Marijuana occasionally Diabetic: No Insulin: No Problems with Anesthesia (Self or Family?) No Detail Assembler: none Saw committee member in the last 6 months? No Recent EKG/Cardiac Testing: No Chest pain in the last 6 months (<6 months cardiac clearance needed): No History of: Heart Attack/Stroke/Blood Clot?: none Shortness of Breath: Yes (has COPD)Asthma: No Inhalers: Yes Any Outstanding Consults?: No If yes, list: Additional Notes: Maritime Guard: Brandin Bernal [facility] LUNG VOLUMESon 09-11-2023 [facility] SPIROMETRY WITH DILATOR IF O BSTRUCTEDon 09-11-2023 ERV BOX (L) 1.13 L [facility] GBZ52-97% POST (L/S) 0.96 L/S [facility] eland [facility] RGS36-80% PRE (L/S) 0.81 L/S [facility] land [facility] FEV1 PRE (L) 2.02 L [facility] FEV1/FVC POST (%) 56 % [facility] FEV1/FVC PRE (%) 56 % [facility] FEV1_POST (L) 2.16 L [facility] FRC Box (L) 4.61 L [facility] FVC POST (L) 3.86 L [facility] FVC PRE (L) 3.61 L [facility] IC BOX (L) 2.24 L [facility] PEF POST (L/S) 4.28 L/S [facility] PEF PRE (L/S) 4.38 L/S [facility] RV Box (L) 3.43 L [facility] RV/TLC Box (%) 51 % [facility] TLC Box (L) 6.78 L [facility] VC (L) BOX 3.37 L [facility] XR HIP 1 VIEW LEFTon 024 XR HIP 1 VIEW LEFT ORIGINAL EXAMINATION: 1 XRAY VIEWS OF THE LEFT HIP 08/01/2023 9:39 am COMPARISON: None. HISTORY: ORDERING SYSTEM PROVIDED HISTORY: Reason for Exam: PAIN FINDINGS: Left total hip arthroplasty is in place. The hardware is intact and there is no evidence of loosening. Alignment is normal. There is no acute fracture. The soft tissues are unremarkable. IMPRESSION: Unremarkable left hip arthroplasty. Interpreted by: Todd Kirkpatrick Preliminary Report By: Todd Kirkpatrick Electronically signed By Todd Kirkpatrick Dictated Date: 2023 3:59:49 PM Prelim Date: 2023 4:00:30 PM Sign Date: 2023 4:00:30 PM Ordering Provider: SHASHI REFERRING Normal [facility] ([place]) XR SPINE LUMBOSACRAL 2 OR 3 VIEWSon 2023 XR SPINE LUMBOSACRAL 2 OR 3 VIEWS ORIGINAL EXAMINATION: XRAY VIEWS OF THE LUMBAR SPINE08/01/2023 9:38 am LUMBAR SPINE 2 or 3 VIEWS COMPARISON: None HISTORY: ORDERING SYSTEM PROVIDED HISTORY: Reason for Exam: PAIN FINDINGS: There is a moderate compression deformity of L1. Vertebral body heights are otherwise maintained. There is no spondylolisthesis. Disc spaces are relatively well preserved. The sacroiliac joints are unremarkable. IMPRESSION: Age-indeterminate moderate compression deformity of L1. Interpreted by: Todd Kirkpatrick Preliminary Report By: Todd Kirkpatrick Electronically signed By Todd Kirkpatrick Dictated Date: 2023 5:03:44 PM Prelim Date: 2023 5:05:24 PM Sign Date: 2023 5:05:24 PM Ordering Provider: SHASHI REFERRING Normal [facility]) XR Chest PA and Lateralon IMPRESSION: Overall findings unchanged. Electronic Device Repairer: JOSE Transcribe Date/Time: May 07 2021 2:33P Dictated by : HELEN GREENE MD This examination was interpreted and the report reviewed and electronically signed by: HELEN GREENE MD on May 07 2021 2:36PM [facility] DIVISION OF RADIOLOGY * * *Final Report* * * DATE OF EXAM: May 07 2021 2:20PM WOX [id number] - XR CHEST 2V FRONTAL/LAT / PROCEDURE REASON: Suspected COVID-19 virus infection * * * * Physician Interpretation * * * * EXAMINATION: CHEST RADIOGRAPH (2 VIEW FRONTAL & LATERAL) CLINICAL HISTORY: Suspected COVID-19 virus infection MQ: XC2_6 EXAM DATE/TIME: 05/07/2021 2:20 PM COMPARISON: Chest radiograph(s) dated 07/12/2018 RESULT: Lines, tubes, and devices: None. Lungs and pleura: Mild left basilar opacities/atelectasi s remain unchanged. No new consolidation. No lung mass. No pleural effusion. No pneumothorax. There are large bilateral pericardial fat pads. Cardiomediastinal silhouette: Stable cardiomediastinal silhouette. Bones and soft tissues: The spine shows degenerative changes. L1 or T12 vertebral body compression deformity/age indeterminate fracture is again noted. DIVISION OF RADIOLOGY Provider, [facility] [place] - 05/07/2021 * * *Final Report* * * DATE OF EXAM: May 07 2021 2:20PM WOX [id number] - XR CHEST 2V FRONTAL/LAT / PROCEDURE REASON: Suspected COVID-19 virus infection * * * * Physician Interpretation * * * * EXAMINATION: CHEST RADIOGRAPH (2 VIEW FRONTAL & LATERAL) CLINICAL HISTORY: Suspected COVID-19 virus infection MQ: XC2_6 EXAM DATE/TIME: 05/07/2021 2:20 PM COMPARISON: Chest radiograph(s) dated 07/12/2018 RESULT: Lines, tubes, and devices: None. Lungs and pleura: Mild left basilar opacities/atelectasi s remain unchanged. No new consolidation. No lung mass. No pleural effusion. No pneumothorax. There are large bilateral pericardial fat pads. Cardiomediastinal silhouette: Stable cardiomediastinal silhouette. Bones and soft tissues: The spine shows degenerative changes. L1 or T12 vertebral body compression deformity/age indeterminate fracture is again noted. IMPRESSION IMPRESSION: Overall findings unchanged. Electronic Device Repairer: FLAG[facility] MEM[facility] HOSPITALSherry Transcribe Date/Time: May 07 2021 2:33P Dictated by : HELEN GREENE MD This examination was interpreted and the report reviewed and electronically signed by: HELEN GREENE MD on May 07 2021 2:36PM EST [facility] Radiology Study observation (narrative) Kalin Romero XR Chest PA and LateralOrder ed By: [facility] Provider on 05-07-2021 [facility] Basic Metabolic Panlon 07-27 Anion gap molar conc 8 mmol/L Low -18 [facility] Comment on above: Performed By: #### C , BMP ####[facility] [address] [place], [place] [id number] Calcium mass conc 8.7 mg/dL Normal 8.5-10.2 [facility] Comment on above: Performed By: #### C BC, BMP ####[facility] [address] [place] [address] Chloride molar conc 104 mmol/L Normal 97-105 [facility] Comment on above: Performed By: #### C BC, BMP ####[facility] [address] [place] [address] CO2 molar conc 25 mmol/L Normal 22-30 [facility] Comment on above: Performed By: #### C BC, BMP ####[facility] [address] [place] [address] Creatinine mass conc 0.79 mg/dL Normal 0.73-1.22 [facility] Comment on above: Performed By: #### C BC, BMP ####[facility] [address] [place] [address] eGFR- Amer. >60 Normal [facility] Comment on above: Performed By: #### C BC, BMP ####[facility] [address] [place] [address] GFR/1.73 sq M predicted among non-blacks MDRD vol rate/area (S/P/Bld) mL/min/{1.73_m2} Normal [facility] Comment on above: Result Comment: eGFR (Estimated GFR) Units of measure: mL/min/1.73 meters squared eGFR is derived from the reexpressed MDRD Study equation using the following parameters: serum creatinine, age, gender and race. The creatinine assay has been calibrated to be traceable to IDMS. An eGFR <60 mL/min/1.73m2 for >3 months is consistent with chronic kidney disease. Refer to KDOQI guidelines for clinical interpretation. In patients with unstable renal function, e.g. those with acute kidney injury, the eGFR may not accurately reflect actual GFR. Performed By: #### C BC, BMP ####[facility] [address] [place] [address] Glucose mass conc 96 mg/dL Normal 74-99 [facility] Comment on above: Result Comment: The [place] Diabetes Association (ADA) provides guidance for cutoff values for fasting glucose and random glucose. The ADA defines fasting as no caloric intake for at least 8 hours. Fasting plasma glucose results between 100 to 125 mg/dL indicate increased risk for diabetes (prediabetes). Fasting plasma glucose results greater than or equal to 126 mg/dL meet the criteria for diagnosis of diabetes. In the absence of unequivocal hyperglycemia, results should be confirmed by repeat testing. In a patient with classic symptoms of hyperglycemia or hyperglycemic crisis, random plasma glucose results greater than or equal to 200 mg/dL meet the criteria for diagnosis of diabetes. Reference: Standards of Medical Care in Diabetes 2016, [place] [employer] Association. Diabetes Care. 2016.39(Suppl 1). Performed By: #### C BC, BMP ####[facility] [address] [place] [address] Potassium molar conc 4.0 mmol/L Normal 3.7-5.1 [facility] Comment on above: Performed By: #### C BC, BMP ####[facility] [address] [place] [address] Sodium molar conc 137 mmol/L Normal 136-144 [facility] Comment on above: Performed By: #### C BC, BMP ####[facility] [address] [place] [address] Urea nitrogen mass conc 8 mg/dL Low 9-24 [facility] Comment on above: Performed By: #### C BC, BMP ####[facility] [address] [place] [address] CASE MANAGEMon 07-27-2018 CASE MANAGEM HNO ID: [id number] Author: Aliyah (Rn) JAZMINE Reid Service: Case Management Author Type: Registered Nurse Type: Care Mgt Progress Note Filed: 07/27/2018 12:14 PM Note Text: CARE MANAGEMENT DISCHARGE NOTE SERVICE DATE: 07/27/2018 SERVICE TIME: 12:12 PM LOS: 1 day Admission Date: 07/26/2018 DISCHARGE ARRANGEMENT (list agency and phone number) Home Provider: rose mary Phone: rose mary CAREGIVER ASSESSMENT: Caregiver is ready, willing and able to meet the patient's needs as recommended by the inter-professional team? No Caregiver Needed Patient's transition needs and plan for meeting these needs: na Does the patient have an acute stroke diagnosis, or has the patient had a stroke during this admission? No HANDOFF COMMUNICATION: Primary Care Physician: :Carmen Summary of care sent to: Maco Morales MD? PCP - General Family Practice [phone] [address] [facility] [address] Next Steps: Follow up Kiran Cain MD? Internal Medicine [phone] Kiran Cain MD INC [address] [facility] [address] Next Steps: Follow up Robbie Carlos MD FACS? Orthopedics [phone] [address] TRANSPORTATION ARRANGEMENTS: Car Family will transport ADDITIONAL CONTACT RESOURCES: na Needs Prior to Discharge: Ready for Discharge Discharge order written for today, patient discharged home with no services. Patient agrees with discharge plan. Family will transport. SIGNATURE: Aliyah Reid RN PATIENT NAME: Johnnie Pisano DATE: July 27, 2018 TIME: 12:12 PM PAGER/CONTACT #: [phone] [facility] CASE [facility]: [id number] Author: Aliyah (Rn) JAZMINE Reid Service: Case Management Author Type: Registered Nurse Type: Care Mgt Initial Assessment Filed: 07/27/2018 12:10 PM Note Text: CARE MANAGEMENT: ASSESSMENT AND DISCHARGE PLAN SERVICE DATE: 07/27/2018 SERVICE TIME: 10:55 AM PRIMARY CARE PHYSICIAN: Maco Morales MD (confirmed) ADMISSION STATUS: Inpatient Needs Prior to Discharge: None MEDICAL: Patient/Representati ve Stated Goals: To have reduction in pain To have reduction in symptoms To improve my functional status To return home to life as it was Health Insurance: MEDICARE A AND B Medicaid Health Issues Impacting Discharge Plan: Chronic Avascular necrosis of hip, smoker, lupus, HTN, chronic pain Last Admission Date: none Is this Within the Past 30 days? No Advance Directive: Current Advance Directive: None Litigator Attempted to Assist with AD Completion: Yes Action: Education Provided;Patient Unwilling Health Literacy: 1. How often do you need to have someone help you when you read instructions, pamphlets, or other written material from your doctor or pharmacy? Never - 1 2. How confident are you filling out medical forms by yourself? Extremely - 1 If Patient scores > 3 on either question, the following interventions were put into place: Patient did not score > 3 FUNCTIONAL AND COGNITIVE/BEHAVIORAL PRIOR TO ADMISSION: Baseline Mental Status: Alert AND Oriented, Person, Place , Time and Situation Functional Status: Independent Does Patient Currently Receive Any Community Services or Home Care? None Equipment Prior to Admission: Cane - Straight Elevated toilet seat Tub bench/chair Walker Has the Patient Been in a Half-Way Facility in the Past 30 days? No SOCIAL: Living Arrangement: Home Lives With: Alone Financial Resources: Disabled Primary Contact: Extended Emergency Contact Information Primary Emergency Contact: Ruby Norton Relation: Mother Supportive: Yes Other Important Patient Contacts: None Caregiver Assessment: Caregiver is ready, willing and able to meet the patient's needs as recommended by the inter-professional team? No Caregiver Needed Patient's transition needs and plan for meeting these needs: na Does the patient have an acute stroke diagnosis, or has the patient had a stroke during this admission? No Medication Adherence: I am convinced of the importance of my prescription medication: Agree completely - 0 I worry that my prescription medication will do more harm than good to me Disagree completely - 0 I feel financially burdened by my [id number] expenses for my prescription medication: Disagree somewhat - 0 Patient is categorized as low risk < 2 Are you interested in bedside delivery of your medications? Yes Food Concerns: In the Last Month, Have You had Trouble Getting Food? No trouble getting food During the Last Month, Have You Worried Whether Your Food Would Run Out Before You Had Enough Money to Buy More? No Is the Patient Psychosocially Complex? No ASSESSMENT AND PLAN: Medical Needs: 2 or more chronic diseases Psychosocial Needs: None FREEDOM OF CHOICE EXPLAINED: N/A POTENTIAL TRANSITION PLANS No Services Indicated Met with patient at bedside, introduced self/role of TCC. Patient was a scheduled admission for a ARTHROPLASTY REPLACE JOINT TOTAL HIP (Left). Patient is in [place] stay with his sons in the [facility]. Normally he lives alone in a single story apartment. Patient is independent with ADLs and IADLs. Patient will stay with his son while recovering. PT recommended home no needs. Patient agrees with discharge plan. CM will remain available for discharge planning needs. SIGNATURE: Aliyah Reid RN PATIENT NAME: Johnnie Pisano DATE: July 27, 2018 TIME: 11:30 AM PAGER/CONTACT #: [phone] [facility] 07-27-2018 Erythrocyte distribution width Ratio (RBC) 12.5 % Normal 11.5-15.0 [facility] Comment on above: Performed By: #### C BC, BMP ####[facility] [id number] [place] [address] Hematocrit Volume Fraction (Bld) 36.1 % Low 39.0-51.0 [facility] Comment on above: Performed By: #### C BC, BMP ####[place] [address] Hemoglobin mass conc (Bld) 11.9 g/dL Low 13.0-17.0 [facility] Comment on above: Performed By: #### C NICOLE, BMP ####[place] [address] MCH Entitic mass (RBC) 34.8 pG High 26.0-34.0 [facility] Comment on above: Performed By: #### C BC, BMP ####[place] [address] MCHC mass conc (RBC) 33.0 g/dL Normal 30.5-36.0 [facility] Comment on above: Performed By: #### C BC, BMP ####[place] [address] MCV Entitic volume (RBC) 105.6 fL High 80.0-100.0 [facility] Comment on above: Performed By: #### C BC, BMP ####[place] [address] Platelet mean volume Entitic volume (Bld) 11.3 fL Normal 9.0-12.7 [facility] Comment on above: Performed By: #### C BC, BMP ####[facility] [id number] [place] [address] Platelets #/vol (Bld) 165 10*3/uL Normal 150-400 [facility] Comment on above: Performed By: #### C BC, BMP ####[facility] [address] [place] [address] RBC #/vol (Bld) 3.42 10*6/uL Low 4.20-6.00 [facility] Comment on above: Performed By: #### C BC, BMP ####[facility] [id number] [phone] WBC #/vol (Bld) 5.88 10*3/uL Normal 3.70-11.00 [facility] Comment on above: Performed By: #### C BC, BMP ####[facility] [id number] [phone] [facility] 07-27-2018 [facility] Letter Text July 27, 2018 Johnnie Pisano [address] [place] [address] Dear Mr. Pisano, The nurses and staff of [facility] hope this letter finds you feeling well and progressing in your recovery. Our staff would like to thank you for trusting and choosing us for your health care needs. It was an honor for us to provide your nursing care. We know that placing our Patients First and maintaining a culture of continuous improvement each and every day, are essential to the success of our organization. I hope your stay with us has been positive. We want to hear from you. If you have any comments, questions or concerns about your hospital stay, please feel free to contact me, Geetha Mathew RN ([phone]) or email me at, [email or web address] Additionally, you will receive a survey in the mail asking you to rate the care you received while in the hospital. Please take the time to complete and send back the survey, as it is essential to our continued success. I personally review all the results and would appreciate your feedback. Thank you in advance for your participation and thank you for choosing the [facility] for your health needs. Sincerely, Nurse Sales Representative [facility]: Geetha Mathew RN ([phone]) [facility] Unit: 4 [facility] PLAN OF CAREon 07-27-2018 PLAN OF CARE HNO ID: [id number] Author: Jyoti Dorsey (Side Trimmer) Service: (none) Author Type: (none) Type: Plan of Care Filed: 07/27/2018 1:15 PM Note Text: HUMANITIES AND LANGUAGES PROFESSOR BEDSIDE DELIVERY SURVEY 1. Patient to use [facility] Bedside Delivery - YES Insurance Information as follows: 2. Insurance card on file - YES 3. Credit card for payment - YES PHARMACY BEDSIDE DELIVERY SERVICE Patient Name: Johnnie Pisano The marked outpatient medications were Filled at: [facility] and delivered to the patient's bedside to pharm p/u Medication List START taking these medications docusate sodium 100 mg capsule Commonly known as: COLACE Take 1 capsule by mouth twice daily. enoxaparin 40 mg/0.4 mL Syrg Commonly known as: LOVENOX Inject 0.4 mL subcutaneously once daily for 13 days. Start taking on: 07/28/2018 oxyCODONE IR 5 mg immediate release tablet Commonly known as: ROXICODONE Take 1-2 tablets by mouth every 4 hours as needed for Pain (post op acute pain) for up to 7 days. polyethylene glycol 3350 17 gram packet Commonly known as: MIRALAX, GLYCOLAX Take 1 Packet by mouth once daily. Start taking on: 07/28/2018 CHANGE how you take these medications acetaminophen 500 mg tablet Commonly known as: TYLENOL Take 2 tablets by mouth every 8 hours. What changed: ? how much to take ? when to take this ? reasons to take this CONTINUE taking these medications BENADRYL 25 mg capsule Generic drug: diphenhydrAMINE triamcinolone acetonide 0.1 % cream Commonly known as: KENALOG Use as directed You might also be taking other medications not listed above. If you have questions about any of your other medications, talk to the person who prescribed them or your Primary Care Provider. Jyoti Dorsey (Side Trimmer) PAGER: [phone] July 27, 2018 1:15 PM Medication List START taking these medications docusate sodium 100 mg capsule Commonly known as: COLACE Take 1 capsule by mouth twice daily. X enoxaparin 40 mg/0.4 mL Syrg Commonly known as: LOVENOX Inject 0.4 mL subcutaneously once daily for 13 days. Start taking on: 07/28/2018 X oxyCODONE IR 5 mg immediate release tablet Commonly known as: ROXICODONE Take 1-2 tablets by mouth every 4 hours as needed for Pain (post op acute pain) for up to 7 days. X polyethylene glycol 3350 17 gram packet Commonly known as: MIRALAX, GLYCOLAX Take 1 Packet by mouth once daily. Start taking on: 07/28/2018 X CHANGE how you take these medications acetaminophen 500 mg tablet Commonly known as: TYLENOL Take 2 tablets by mouth every 8 hours. What changed: ? how much to take ? when to take this ? reasons to take this CONTINUE taking these medications BENADRYL 25 mg capsule Generic drug: diphenhydrAMINE triamcinolone acetonide 0.1 % cream Commonly known as: KENALOG Use as directed You might also be taking other medications not listed above. If you have questions about any of your other medications, talk to the person who prescribed them or your Primary Care Provider. [facility] PROGRESSon 07-27-2018 Protein mass conc HNO ID: [id number] Author: Kiran Cain Service: General Internal Medicine Author Type: Physician Type: Progress Notes Filed: 07/27/2018 10:07 AM Note Text: INPATIENT CONSULT PROGRESS NOTES Patient Name: Johnnie Pisano DATE of SERVICE: 07/27/18 TIME of SERVICE: 7:43 CONSULTING SERVICE: Medicine,post op 1 INTERVAL HPI: uneventful night, pain is fairly control Patient seen and examined: Vitals/Meds/Labs/U/O reviewed Alert AND Oriented NO nausea, vomiting NO light headedness, NO shortness of breathe Dry oral mucosa CVS ? RRR Lungs ? fair air movement , no wheezing Abdomen ? soft, NT, + BS LLE ? Ankle No edema RLE ? Ankle No edema MEDICATIONS: Current hospital medications: oxyCODONE IR 5-10 mg tab(s) (ROXICODONE) 5-10 mg ORAL q 3 H PRN acetaminophen 1,000 mg tab(s) (TYLENOL) 1,000 mg ORAL q 8 H ondansetron orally disintegrating 4 mg tab(s) (ZOFRAN ODT) 4 mg ORAL q 6 H PRN ondansetron (PF) 4 mg injection (ZOFRAN) 4 mg INTRAVENOUS q 6 H PRN magnesium hydroxide 400 mg/5 mL 30 mL (MOM) 30 mL ORAL DAILY PRN aluminum-magnesium hydroxide-simethicon e 200-200-20 mg/5 mL 30 mL (MAALOX,MYLANTA,MAG- AL PLUS) 30 mL ORAL q 6 H PRN ascorbic acid (vitamin C) 500 mg tab(s) (VITAMIN C) 500 mg ORAL BID w MEALS docusate sodium 100 mg cap(s) (COLACE) 100 mg ORAL BID enoxaparin 40 mg injection (LOVENOX) 40 mg SUBCUTANEOUS DAILY NaCl 0.9% iv infusion 75 mL/hr INTRAVENOUS CONTINUOUS morphine 2 mg injection 2 mg INTRAVENOUS q 2 H PRN ketorolac 15 mg injection (TORADOL) 15 mg INTRAVENOUS q 6 H [START ON 07/28/2018] polyethylene glycol 3350 17 g packet (MIRALAX, GLYCOLAX) 17 g ORAL DAILY nicotine 7 mg/24 hr 1 Patch (NICODERM) 1 Patch TRANSDERMAL DAILY nicotine -- REMOVE patch OTHER DAILY nicotine - verify patch OTHER q 8 H diphenhydrAMINE 25 mg (BENADRYL) 25 mg ORAL q 6 H PRN PHYSICAL EXAM: Patient Vitals for the past 24 hrs: BP Temp Temp src Pulse Resp SpO2 Height Weight 07/27/18 0808 113/66 36.2 ?C (97.2 ?F) Oral 67 18 98 % - - 07/27/18 0343 98/60 36.8 ?C (98.2 ?F) Oral 74 18 94 % - - 07/26/18 2320 131/86 36.6 ?C (97.9 ?F) Oral 83 16 98 % - - 07/26/18 1929 110/80 36.7 ?C (98.1 ?F) Oral 76 18 99 % - - 07/26/18 1655 141/75 36.3 ?C (97.3 ?F) Oral 69 18 99 % - - 07/26/18 1237 - - - - - - 160 cm (5' 3) 59 kg (130 lb 1.1 oz) 07/26/18 1232 114/68 36.4 ?C (97.5 ?F) Oral 68 16 96 % - - 07/26/18 1204 116/65 36.3 ?C (97.3 ?F) Oral 77 18 98 % - - 07/26/18 1123 106/61 36.3 ?C (97.3 ?F) Oral 62 18 96 % - - 07/26/18 1115 128/67 36.2 ?C (97.2 ?F) - 64 16 96 % - - 07/26/18 1100 128/66 - - 65 16 95 % - - 07/26/18 1045 138/61 - - 64 17 97 % - - 07/26/18 1030 89/61 - - 65 17 97 % - - 07/26/18 1015 91/58 - - 72 16 94 % - - Body mass index is 23.04 kg/m?. DATA: CBC: Recent Labs 07/27/18 0557 WBC 5.88 RBC 3.42* HB 11.9* HCT 36.1* PLT 165 MCV 105.6* MCH 34.8* MPV 11.3 Coags: No results for input(s): INR, APTT in the last 24 hours. Invalid input(s): PT CMP: Recent Labs 07/27/18 0557 NA 137 K 4.0 CHLOR 104 CO2 25 BUN 8* CREAT 0.79 GLUC 96 CA 8.7 ANION 8* ASSESSMENT AND PLAN: A. OA S/P - Total Hip Unilateral: left with Lovenox and SCD Continue PT/OT Possible discharge today SIGNATURE: Kiran Cain MD [facility] Protein mass conc HNO ID: [id number] Author: Casa Bobo Service: Orthopaedic Surgery Author Type: Nurse Practitioner Type: Progress Notes Filed: 07/27/2018 9:28 AM Note Text: POSTOP NOTE ORTHOPEDIC SERVICE DATE: 07/27/2018 SERVICE TIME: 9:27 AM IMPRESSION/PLAN: S/P Procedure(s) (LRB): ARTHROPLASTY REPLACE JOINT TOTAL HIP (Left) on 07/26/2018 Physical Therapy, recommending Home DVT prophylaxis: with Lovenox and Intermittent pneumatic compression device (IPCD) Pain control Case Management for discharge planning, discharge home today ACTIVE PROBLEM LIST Hypertriglyceridemia Pyoderma, Unspecified Eczematous Dermatitis Contact Dermatitis and Other Eczema, Due to Unspecified Cause Pruritus Excoriation Disturbance of Skin Sensation Rash and Other Nonspecific Skin Eruption Allergy to Insect Bites Folliculitis 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 Mild incisional pain. OBJECTIVE: VITAL SIGNS: BP 113/66 Pulse 67 Temp 36.2 ?C (97.2 ?F) (Oral) Resp 18 Ht 160 cm (5' 3) Wt 59 kg (130 lb 1.1 oz) SpO2 98% BMI 23.04 kg/m? INTAKE AND OUTPUT: Intake/Output Summary (Last 24 hours) at 07/27/18 0997 Last data filed at 07/27/18 0640 Gross per 24 hour Intake 1340 ml Output 2250 ml Net -910 ml PHYSICAL EXAMINATION: Left Lower Extremity: Dorsalis pedis pulses palpable. Posterior tibial pulses palpable. Dorsi flexion 5/5. Plantar flexion 5/5. Extensor hallucis extension: 5/5. Sensory intact to light touch L1-S1. Dressing clean, dry and intact. Surgical site no drainage and Silverlon intact. Thigh is not swollen, calf is not tender, no signs of DVT or infection Problem Review and Assessment: Skin and Abdominal Wall: Patient monitored, no new events overnight Cardiovascular and Vascular: Patient monitored, no new events overnight Respiratory: Patient monitored, no new events overnight Endocrine and Metabolic: Patient monitored, no new events overnight Gastrointestinal: Patient monitored, no new events overnight Genitourinary and Nephrology: Patient monitored, no new events overnight Behavioral, Cerebrovascular and Nervous: Patient monitored, no new events overnight Infectious: Patient monitored, no new events overnight LABS: Recent Labs 07/27/18 0557 HB 11.9* HCT 36.1* DATA: Diagnostic tests reviewed for today's visit: Most recent labs and imaging results. SIGNATURE: Casa Bobo APRN.CNP PATIENT NAME: Johnnie Pisano DATE: July 27, 2018 TIME: 9:27 AM PAGER/CONTACT #: [phone] The patient has undergone major orthopedic surgery and participating in therapy. Pain cannot be managed within an average of 30 MED per day. Patient requiring average of higher than 30 MED per day in order to control pain and allow patient to actively and safely participate in therapy and this is the lowest dose consistent with patient's medical condition. Non-narcotic medication options have been discussed. In addition, the patient has been advised of the benefits and risks of the opioid (including the potential for addiction). Patient demonstrated understanding of risks of benefits. [facility] THERAPY NT 07-27-2018 THERAPY NT HNO ID: [id number] Author: Rowdy (OtMckayla Lopez Service: Occupational Therapy Author Type: Occupational Therapist Type: Therapy (PT/OT/Speech/Resp) Filed: 07/27/2018 12:16 PM Note Text: Occupational Therapy Evaluation SERVICE DATE: 07/27/2018 SERVICE TIME: 929 to 1006 ROOM: [id number] Recommended Discharge Disposition: Home Recommended Discharge Disposition Comments: Feel patient is safe to return home with family assist Anticipated Discharge Needs: Physical Assist at Home;Supervision at Home Physical Assist at Home for: Cleaning;Laundry;Rani ls;Stairs;Safety;Rebeca f Care;Shopping;Transp ortation Supervision at Home due to: (initially for safety) OT Recommendations to Nursing: To Bathroom for ADL?s /and or Toileting;OOB for meals;Transfer to Chair;With assist of 1 person Equipment: Wheeled Walker OT 6 Clicks Score: 20 Precautions/Activity Restrictions: Total Hip Replacement;Weight Bearing Restrictions;Fall Risk;Hip Precautions - Posterior Dislocation;Lines/Tu bes/Drains Extremity With Weight Bearing Restricted: Left Lower Extremity Left Lower Extremity Weight Bearing Status: PWB (50%) Total Hip Replacement Precautions: Posterior ASSESSMENT: Patient presents with decreased ease independence and safety with ADLS and functional mobility tasks as would be expected s/p L ALTHEA. Patient required CG to SBA with functional mobility and most ADL tasks with cues and education on hip precaution and carryover with ADLS and daily tasks. Patient has all adaptive equipment in place at home. Requires skilled OT for continued education on adaptive equipment and DME for patient to follow hip precautions with all daily tasks.. Patient Disposition at Start of Session: Supine in Bed;Call Colvin in Reach;SCDs Patient Disposition at End of Session: Supine in Bed;Call Colvin in Reach;SCDs Tolerated Full Session Occupational Therapy Problem List: Education Deficit;Pain;Safety Deficits;Impaired Self Care;Functional Mobility Impairment Patient /Caregiver Goals: Go Home;Care For Self Goals for Plan of Care: Grooming with: Contact Guard Assistance Lower Body Dressing with: Contact Guard Assistance Toilet Transfer with: Contact Guard Assistance Demonstrate Competence With Education with: Independent (following 3/3 hip precautions during ADL task) Progress Toward Goals: Progressing as expected Rehab Potential: Excellent PLAN: Treatment Frequency (times per week): 5 Current admission Treatment Interventions: Education;Self Care / Home Management;Functiona l Mobility Training;Balance Training Plan of Care developed with: Patient TREATMENT INTERVENTIONS: Therapy Diagnosis: Reduced mobility-other;Decre ased activities of daily living (ADL) Interventions Provided: Evaluation;Therapeut ic Activity (52890);Self Shelter Management (73798) $ Evaluation-Low (83376) Billed Units: 1 unit Therapeutic Activity (64474) Treatment Minutes: 12 1 unit Skilled Intervention(s): Instructed patient in supine to and from sit pushing with upper extremities to sit up Instruction in sit to and from stand technique with proper hand placement and body positioning at edge of bed/chair to and from walker with cues to follow hip precautions. Education with safety with walker within room and during ADLS with patient instructed to have both hands on walker at all times, approach all the way to the sink for grooming tasks with support from the sink with good reported and demonstrated understanding Self Shelter Management (82033) Treatment Minutes: 15 1 unit Skilled Intervention(s): Instructed in post-op instructions during ADLs with patient instructed on hip precautions, adaptive equipment and DME Cues for sequencing in hygiene tasks standing at sink walker level with CG for cues and safety Provided instruction, cuing and facilitation for upper body dressing with patient able to don pullover short seated at EOB Provided instruction, cuing and facilitation for lower body dressing with patient educated on well head pumper, socks aide, and long shoe horn and sequence for donning doffing pants and shorts with patient able to don with equipment and cues. Provided instruction, cuing and facilitation for bathing with patient instructed on shower bench and technique for use and on long handled sponge Education in role of OT and plans and goals for therapy. Total Timed Code Treatment Minutes: 27 Total Treatment Time (minutes): 37 FUNCTIONAL G CODE: OT 6 Clicks Score: 20 (07/27/18 0930) Based on clinical assessment and the score on the 6 Clicks Functional Assessment Tool, the G code and corresponding severity modifiers are documented above. SUBJECTIVE: Current Hospital Course: Chart reviewed; L ALTHEA, 50% weight bearing Reason for Occupational Therapy Consult: post op state Relevant Past Medical History: AVN of hip, HTN, HLD, lupus Patient Report: Patient supine in bed agreeable to OT with hopes to be discharged later this date I really want a cigarette I would like to get dressed Home Environment Patient Lives With: Family (son and girlfriend in mobile home) Assistance Available: PRN Entry To Home: Ramp Number Of Stairs To Bed/Bath: 1 Tub/Shower Type: tub shower Equipment Owned: ADL Kit;Cane;Commode-Krause sed;Grab Bars-Shower;Hand Held Shower;Wheeled Walker;Shower Bench Prior Functional Level: Within Functional Limits Prior Functional Level Comments: Pt reports independence with ADLs, + driving, no use of AD. OBJECTIVE: Cognition/Communicat ion Deficits Responsiveness: Alert;Awake Follows Commands: Cueing Needed Cueing to Follow Commands: Minimum (for techniques following hip precautions) CURRENT FUNCTIONAL STATUS: Current Activities of Daily Living Assist Level Feeding Independent Grooming Contact Guard Assistance (to SBA standing at sink, cues for safety/technique) Bathing Upper Body Supervision (per clinical judgement) Bathing Lower Body Moderate Assistance (per clinical judgement due to hip precautions, educated onAE) Dressing Upper Body Supervision (seated EOB with set up) Dressing Lower Body Minimal Assistance (educated on AE, donned doffed pants/shorts, socks with AE) Toileting Instrumental Activities of Daily Living Assist Level Meal/Beverage Prep Light Cleaning Laundry Medication Management with Strategies Functional Mobility Assist Level Rolling Supine to Sit Stand By Assistance (cues for technique) Sit to Supine Stand By Assistance Scooting Stand By Assistance Sit to Stand Stand By Assistance (cues for technique) Stand to Sit Stand By Assistance (cues for technique) Bed to Chair Toilet/Commode Contact Guard Assistance (cues for technique) Functional Mobility Stand By Assistance Wheeled Walker Please see discipline specific clinical documentation flowsheet for complete details for this therapy evaluation/treatment . SIGNATURE: JACOB Herman/Grace PATIENT NAME: Johnnie Pisano DATE: July 27, 2018 TIME: 12:06 PM [facility] THERAPY NT HNO ID: [id number] Author: Jeanine Payne Service: Physical Therapy Author Type: Dental Technician Metal Type: Therapy (PT/OT/Speech/Resp) Filed: 07/27/2018 9:53 AM Note Text: Attestation signed by Keri Dudley at 07/27/2018 5:33 PM I reviewed and agree with the documentation corresponding to this therapy visit. SIGNATURE: Keri Dudley PT DATE: July 27, 2018 TIME: 5:33 PM Physical Therapy Treatment SERVICE DATE: 07/27/2018 SERVICE TIME: 832 ROOM: [id number] Recommended Discharge Disposition: Home Recommended Discharge Disposition Comments: Pt with decreased strength and balance post op ALTHEA, would benfit from continued therapy durign acute stay. Do not anticipate further needs after discharge. Anticipated Discharge Needs: Physical Assist at Home Physical Assist at Home for: Cleaning;Laundry;Rani ls;Shopping;Transpor tation Recommended Discharge Equipment: No equipment needs anticipated PT Recommendations to Nursing: Ambulate with device;To bathroom;In halls;Transfer to/from chair;OOB for Meals;Sit at edge of bed;With assist of 1 person Device: Wheeled Walker PT 6 Clicks Score: 23 Precautions/Activity Restrictions: Total Hip Replacement;Weight Bearing Restrictions;Fall Risk;Hip Precautions - Posterior Dislocation;Lines/Tu bes/Drains Extremity With Weight Bearing Restricted: Left Lower Extremity Left Lower Extremity Weight Bearing Status: PWB (50%) Total Hip Replacement Precautions: Posterior ASSESSMENT : Patient able to progress ambulation distance, initiate platform step training and seated exercises with no adverse effects. Patient requires no more than SBA/supervision with all functional mobility. Patient slightly impulsive and requires cues for safety. Patient demonstrates compliance with PWB and was able to state 3/3 hip precautions. Patient is safe for DC home. Patient Disposition at Start of Session: Supine in Bed;Call Colvin in Reach;SCDs Patient Disposition at End of Session: Supine in Bed;Call Colvin in Reach;SCDs;Other: See Comment (Ice to Hip) Tolerated Full Session Physical Therapy Problem List: Pain;Safety Deficits;Decreased Activity Tolerance;Decreased Range Of Motion;Balance Impaired Patient /Caregiver Goals: Go Home (with assist of family) Goals for Plan of Care: Able to perform HEP with: Independent Transfer supine to/from sit with: Stand By Assistance (HOB flat, no use of bed rails) Transfer sit to/from stand with: Stand By Assistance (LRAD, PWB LLE) Ambulate with: Stand By Assistance Distance: 150-200 Device: (LRAD, PWB LLE) Ambulate up and down curb step with: Stand By Assistance Device: (LRAD, PWB LLE) Car transfer with: Verbal Cues Only (demonstration or simulation) Goal: Pt to demonstrate competence with ALTHEA precautions and PWB status to allow for proper healing Progress Toward Goals: Progressing as expected Rehab Potential: Good PLAN: Treatment Frequency (times per week): 7;BID Current admission Treatment Interventions: Education;Joint Mobility;Strengtheni ng;Functional Mobility Training;Balance Training;Neuromuscul ar Re-education;Modalit ies Modalities: Ice Plan of Care developed with: Patient TREATMENT INTERVENTIONS: Therapy Diagnosis: Difficulty walking-musculoskele tracee Interventions Provided: Therapeutic Exercise (08951);Therapeutic Activity (53244);Gait Training (15702) Therapeutic Exercise (19693) Treatment Minutes: 10 1 unit Skilled Intervention(s): Instruction in therapeutic exercise for bilateral AP, QS with 5 sec hold, GS with 5 second hold; L LE only heel slides, LAQ, slightly resisted isometric hip abduction x 15 reps each Verbal and tactile cuing provided for correct performance of exercises Cues for diaphragmatic breathing Re-emphasized the importance of frequent performance of anti-embolic exercises Discussed/reviewed with patient supine/seated HEP (handout provided), patient verbalizes understanding and has no further questions or concerns for PRODUCT DEVELOPMENT COORDINATOR. Therapeutic Activity (84824) Treatment Minutes: 20 1 unit Skilled Intervention(s): Instructed patient in supine to sit pushing with upper extremities to sit up Instructed patient in sit to supine using safe, effective technique Instruction in sit to stand technique with proper hand placement and body positioning at edge of bed/chair Instruction in stand to sit technique with lower extremities touching chair/bed and reaching back for surface Educated patient on correct performance car transfers, patient verbalized understanding and has no further questions or concerns for PRODUCT DEVELOPMENT COORDINATOR. Issued to patient discharge instructions sheet for orthopedics with extensive education/review on the following topics: -safety/precautions recommendations -activity recommendations/cont raindications includin) WB restrictions are in effect until follow-up with surgeon 2) balance activity and rest 3) do not sit for longer than 1 hour without getting up to move around 4) Must contact MD to get permission to resume driving -parameters of ice and cryotherapy as well as elevation of surgical level about level of heart -signs and symptoms of infection -symptoms of blood clot -equipment recommended and issued -rehab department phone number and contact information Gait Training (99971) Treatment Minutes: 29 2 units Skilled Intervention(s): Instruction in sequencing, gait pattern, step-to gait Instruction in correction of gait deviations, cues for upright posture, safety, two hands on FWW at all times Instruction in WB precautions, PWB L LE (scale used to reinforce) Instruction in stair negotiation, [id number] (platform step). Instruction in use of equipment, cues for sequence and pattern Gait belt in place for safety with all functional mobility. RN aware of patient status. Discussed with patient sitting up for no longer than 1 hr and calling for assistance 100% of the time. Total Timed Code Treatment Minutes: 59 Total Treatment Time (minutes): 59 FUNCTIONAL G CODE: PT 6 Clicks Score: 23 (07/27/18 6632) Based on clinical assessment and the score on the 6 Clicks Functional Assessment Tool, the G code and corresponding severity modifiers are documented above. SUBJECTIVE: Current Hospital Course: Chart reviewed and no significant medical updates relevant to therapy were noted Reason for Physical Therapy Consult : post op state Relevant Past Medical History: Pt presents s/p L ALTHEA. Past history of AVN of hip, HTN, HLD, Lupus Patient Report: Patient agreeable and motivated to participate in PT. Patient states, All of my pain is in my knee not my hip. Patient appropriate for PT per RNRhett. Home Environment Patient Lives With: Family (son and girlfriend in mobile home) Assistance Available: PRN Entry To Home: Ramp Number Of Stairs To Bed/Bath: 1 Tub/Shower Type: tub shower Equipment Owned: ADL Kit;Cane;Commode-Krause sed;Grab Bars-Shower;Hand Held Shower;Wheeled Walker;Shower Bench Prior Functional Level: Within Functional Limits Prior Functional Level Comments: Pt reports independence with ADLs, + driving, no use of AD. OBJECTIVE: CURRENT FUNCTIONAL STATUS: Current Functional Mobility Assist Level Additional Information Rolling Supine to Sit Stand By Assistance (HOB flat, no use of rails) Sit to Supine Stand By Assistance (HOB flat, no use of rails) Scooting Supervision (forward/retro/up in bed) Sit to Stand Stand By Assistance (with FWW) x2 trials from EOB, x3 trials from chair Stand to Sit Stand By Assistance (with FWW) Bed to Chair Toilet/Commode Gait Stand By Assistance (step-to gait) Gait Device: Wheeled Walker Gait Distance (feet): 120'x1, 10'x2 Stairs (NA) Curb Step Contact Guard Assistance Wheeled Walker (x2 trials) Car Transfer Set Up x2 trials with car simulator Gait Deviations Right Lower Extremity: Heel strike during initial stance decreased;Push-off during terminal stance decreased;Step length decreased Gait Deviations Left Lower Extremity: Weight bearing decreased;Heel strike during initial stance decreased;Push-off during terminal stance decreased;Step length decreased General Gait Deviations: Laura decreased;Step length decreased;Flexed trunk posture Balance: Static Sitting;Dynamic Sitting;Static Standing;Dynamic Standing Static Sitting Balance: Independent Dynamic Sitting Balance: Independent Static Standing Balance: Supervision Dynamic Standing Balance: Stand By Assistance -HLM: 7: Walk 25 feet or more Please see discipline specific clinical documentation flowsheet for complete details for this therapy evaluation/treatment . SIGNATURE: Jeanine Payne PTA PATIENT NAME: Johnnie Pisano DATE: July 27, 2018 TIME: 9:50 AM [facility] 07-26-2018 ALLIED HEALTH HNO ID: [id number] Author: Chaplain Webber (Chaplain) Service: Spiritual Care Author Type: Chemical Laboratory Chief Type: Allied Health Filed: 07/26/2018 3:26 PM Note Text: SPIRITUAL CARE Spiritual Care Visit Record Name: Johnnie Pisano Date: July 26, 2018 Type of Visit: Referral from Patient's Family Member. Purpose of Referral (if stated): Other Urgency of Visit: Routine Visit was with (pt, family, other) and name(s): Pt. SPIRITUAL CARE VISIT Spiritual Distress: 7 - Chemical Laboratory Chief Observation. Spiritual Distress Scale (1-10 with 1= low distress and 10 = highest distress imaginable) Explain Meaning of Rating: Pt facing difficult decisions regarding his future with his girlfriend 1. Ministry Provided During Visit: Spiritual Presence / Support Spiritual / Theological Reflection 2. Themes Discussed During Visit: Meaning and Purpose Sense of the Holy versus Abandonment Spiritual Aspects of Disease / Illness / Injury 3. Spiritual Jainism Issues, Beliefs Significant to Healing, or Other Notes: Pt expressed confusion and anxiety regarding his primary romantic relationship. Chemical Laboratory Chief provided theological reflection to aid pt in assessing his situation from the perspective of the his spiritual practice. Pt's expression became less anxious and more hopeful during the visit. REFERRAL(S ) / TEAM COLLABORATION Referrals: No referral made Notes Regarding Collaboration / Consultation With Care Team: FUTURE SPIRITUAL CARE PLANS Will See: Regularly Follow-up Notes: Informed patient of Chemical Laboratory Chief availability ___ Chemical Laboratory Chief Signature: Chaplain Lawanda To contact the Spiritual Care Department: Please call [phone] or Page the On-Call Chemical Laboratory Chief at pager [phone] Thank you for the opportunity to be of service. This is an electronically created document. IF PRINTED, PLEASE DO NOT REMOVE FROM THE CHART OR MODIFY PRINTED COPY. [facility] ANES Xu 07-26-2018 ANES POST HNO ID: [id number] Author: Jose Joseph Service: Anesthesiology Author Type: Anesthesiologist Type: Anesthesia PostOp Filed: 07/26/2018 1:44 PM Note Text: POST ANESTHESIA EVALUATION NOTE SERVICE DATE: 07/26/2018 SERVICE TIME: 1:44 PM : 1960 Vitals: 07/26/18 1115 07/26/18 1123 07/26/18 1204 07/26/18 1232 Temp: 36.2 ?C (97.2 ?F) 36.3 ?C (97.3 ?F) 36.3 ?C (97.3 ?F) 36.4 ?C (97.5 ?F) 07/26/18 1115 07/26/18 1123 07/26/18 1204 07/26/18 1232 BP: 128/67 106/61 116/65 114/68 07/26/18 1115 07/26/18 1123 07/26/18 1204 07/26/18 1232 Pulse: 64 62 77 68 07/26/18 1115 07/26/18 1123 07/26/18 1204 07/26/18 1232 Resp: 16 18 18 16 07/26/18 1115 07/26/18 1123 07/26/18 1204 07/26/18 1232 SpO2: 96% 96% 98% 96% Validated Vital Signs: Yes POST ANES STATUS: No apparent anesthetic complications. The patient is appropriately hydrated with stable respiratory and cardiovascular status. Patient has safe and adequate airway control. The patient has appropriate pain relief and no significant post operative nausea or vomiting. The patient has achieved baseline mental status. Further assessment by Anesthesia Service: None Other Remarks: SIGNATURE: Jose Joseph MD PATIENT NAME: Johnnie Pisano DATE: July 26, 2018 TIME: 1:44 PM PAGER/CONTACT #: [phone] [facility] ANES PREOPon 07-26-2018 ANES PREOP HNO ID: [id number] Author: Jose Joseph Service: Anesthesiology Author Type: Anesthesiologist Type: Anesthesia PreOp Filed: 07/26/2018 6:57 AM Note Text: ANESTHESIOLOGY DAY OF SURGERY NOTE SERVICE DATE: 07/26/2018 SERVICE TIME: 6:56 AM : 1960 Procedure(s) (LRB): ARTHROPLASTY REPLACE JOINT TOTAL HIP (Left) Surgeon(s): Robbie Carlos Estimated body mass index is 21.86 kg/m? as calculated from the following: Height as of 07/12/18: 160 cm (5' 3). Weight as of 07/12/18: 56 kg (123 lb 6.4 oz). Most recent hematocrit and potassium results: Hematocrit 40.7 07/12/2018 Potassium 3.6 07/12/2018 ANES DOS/PREOP NOTE: Vitals: 07/26/18 0631 BP: 129/77 Pulse: 78 Resp: 18 Temp: 36.5 ?C (97.7 ?F) SpO2: 99% ACTIVE PROBLEM LIST Hypertriglyceridemia Pyoderma, Unspecified Eczematous Dermatitis Contact Dermatitis and Other Eczema, Due to Unspecified Cause Pruritus Excoriation Disturbance of Skin Sensation Rash and Other Nonspecific Skin Eruption Allergy to Insect Bites Folliculitis Avascular Necrosis of Bones of Both Hips (Hcc) Primary Localized Osteoarthritis of Left Hip Avascular Necrosis of Hip, Left (Hcc) Systemic Lupus Erythematosus (Hcc) Tobacco Use Anxiety and Depression PAST MEDICAL HISTORY Diagnosis Date - Avascular necrosis of bone of hip (HCC) - Eczema - Elevated blood pressure 2010 - Hyperlipidemia - Lupus (HCC) PAST SURGICAL HISTORY Procedure Laterality Date - PAST SURGICAL HISTORY OF teeth extraction FAMILY HISTORY Problem Relation Age of Onset - Cancer Father Lung cancer - Heart Maternal Grandmother - Stroke Maternal Grandmother - Hypertension Maternal Grandmother - Ischemic Heart Disease Maternal Grandfather - None Son - None Son - None Son - other (lupus) Sister - Cancer Brother - other (lupus) Sister Social History: Social History Substance Use Topics - Smoking status: Current Every Day Smoker Packs/day: 1.00 Years: 36.00 Types: Cigarettes - Smokeless tobacco: Former User Comment: Smokes a pack day. - Alcohol use Yes Comment: rare No current facility-administere d medications on file prior to encounter. Current Outpatient Prescriptions on File Prior to Encounter: triamcinolone acetonide 0.1 % cream Use as directed acetaminophen 500 mg tablet Take 1 tablet by mouth every 4 hours as needed. diphenhydrAMINE (BENADRYL) 25 mg capsule Take 1 capsule by mouth every 6 hours as needed. Current Facility-Administere d Medications: lactated ringers infusion 75 mL/hr INTRAVENOUS CONTINUOUS Tierra (Pac) [place] ceFAZolin iv piggyback 2 g in D5W (iso-osmotic) 100 mL (ANCEF) 2 g INTRAVENOUS Pre-Op Once Tierra (Pac) S[place]lock tranexamic acid 1,000 mg in NaCl 0.9% 100 mL (CYKLOKAPRON) 1,000 mg INTRAVENOUS Pre-Op Once Tierra (Pac) Shedlock tranexamic acid 1,000 mg in NaCl 0.9% 100 mL (CYKLOKAPRON) 1,000 mg INTRAVENOUS ONCE Tierra (Pac) [place] midazolam 2 mg injection (VERSED) 2 mg INTRAVENOUS ONCE Jose Joseph acetaminophen 650 mg tab(s) (TYLENOL) 650 mg ORAL Pre-Op Once Jose Joseph celecoxib 200 mg cap(s) (CeleBREX) 200 mg ORAL Pre-Op Once Jose Joseph gabapentin 100 mg cap(s) (NEURONTIN) 100 mg ORAL Pre-Op Once Jose Joseph oxyCODONE ER 10 mg tab(s) (OxyCONTIN) 10 mg ORAL Pre-Op Once Jose Joseph Allergies: ALLERGIES Allergen Reactions - Minocycline Itching DOS EXAM: Adequate NPO status: Yes Anesthetic risks, benefits, alternatives, personnel and consent discussed: Yes Patient agrees to proceed: Yes Previous Anesthesia: No history of adverse event. Airway Assessment: MP 2; Neck ROM: Full ROM without neurologic symptoms; Airway Evaluation: No significant abnormalities Symptoms of Sleep Apnea: Snoring Dentition: Removable partial: upper Additional Physical Exam: Lungs: Patient health status unchanged since recent history and physical. See history and physical for exam findings. Cardiac: Patient health status unchanged since recent history and physical. See history and physical for exam findings. Additional Pertinent Findings: N/A Blood Products: Not anticipated for this procedure. Anesthetic Plan: Spinal Pain Management Plan: Parenteral or Oral ASA Class: 3 Other Medical Problems: smoker sle I have interviewed and examined the patient. I have reviewed the medical record and/or the pre-anesthesia evaluation, pertinent labs, and test results. Significant changes in the patient's condition since the History and Physical, not otherwise documented in primary service progress notes: No This contains updated information obtained within 48 hours of Surgery/Procedure. SIGNATURE: Jose Joseph MD PATIENT NAME: Johnnie Pisano DATE: July 26, 2018 TIME: 6:56 AM CSN: [id number] Normal [facility] CONSULTon 07-26-2018 CONSULT HNO ID: [id number] Author: Kiran Cain Service: General Internal Medicine Author Type: Physician Type: Consults Filed: 08/07/2018 2:51 PM Note Text: [facility]- Consultation JOHNNIE PISANO : 1960 AGE: 57 SEX: M ACCTNUM: [id number] [facility]: [facility] LOCATION: [facility] ATTENDING PHYSICIAN: Robbie Carlos M.D. DATE OF CONSULTATION: 07/26/2018 REASON FOR CONSULTATION: Postop medical management. HISTORY OF PRESENTING ILLNESS: This is a 57-year-old young white gentleman whose significant medical history includes osteoarthritis, hypertension, anxiety/depression, tobacco abuse, and possible lupus diagnosed in 2014. The patient has not been followed by letter carrier. He underwent elective left total hip arthroplasty under general anesthesia. The patient had an uneventful intraoperative course. Estimated blood loss was 100 cc. Postoperatively, the patient did well with the first round of physical therapy without experiencing any nausea, vomiting, lightheadedness, or dizziness. PAST MEDICAL HISTORY: As mentioned above. PAST SURGICAL HISTORY: Tooth extraction. FAMILY HISTORY: Positive for heart disease and stroke. SOCIAL HISTORY: He has a more than 36 pack year smoking history. He does use alcohol rarely. MEDICATIONS: His current home medication list was reviewed. ALLERGIES: He is allergic to minocycline, caused itchiness. REVIEW OF SYSTEMS: The patient denies any history of TIA, seizure, glaucoma, dysphagia, odynophagia. He does have intermittent cough and mild dyspnea with activities. He thinks he has COPD. No history of coronary artery disease, congestive heart failure, or cardiac arrhythmia. No history of bleeding, peptic ulcer disease, hepatitis, colitis. Claims he has good appetite. He has lost 20 pounds in the last 6 months due to stress. He has no recent urinary tract infection. History of stomach ulcer in 1980s. No history of CKD or renal calculi. No history of DVTs, paresthesia of feet, or bleeding disorders. History of anxiety and depression, currently not on any medication. PHYSICAL EXAM: General: On examination, young white gentleman, appears stated age. Alert and oriented. HEENT: Oral mucosa dry. Sclerae anicteric. Neck: Good carotid pulse felt. No carotid bruit. No thyromegaly appreciated. Lungs: Fair air movement. Slight prolonged expiration. Cardiovascular: S1, S2 regular. No murmur, gallop, or rub present. Abdomen: Soft nontender, nondistended. No mass felt. Lower Extremities: No ankle edema noted. ASSESSMENT AND PLAN: 1. Osteoarthritis status post left total hip arthroplasty. Deep venous thrombosis prophylaxis as ordered by Dr. Preston. 2. Hypertension. Currently, not on any medication. 3. Suspected lupus. The patient was advised to follow up with the letter carrier. Hold his iaxh-opr-mazgpez medications. Kiran Cain M.D. Internal Medicine SKJ:[id number] /[id number] Normal [facility] OPERATIVE NOon 07-26-2018 OPERATIVE NO HNO ID: [id number] Author: Robbie Carlos Service: Orthopaedic Surgery Author Type: Physician Type: Operative Report Filed: 07/27/2018 8:36 AM Note Text: [facility] - Operative Report JOHNNIE PISANO : 1960 AGE: 57. SEX: M PATIENT TYPE: I HOSP SVC: OROR LOCATION: [address] ATTENDING PHYSICIAN: Robbie Carlos M.D. CSN NUMBER: [id number] DATE OF SURGERY/PROCEDURE: 07/26/2018 INCISION/PROCEDURE START TIME: 8:07 a.m. INCISION CLOSE/PROCEDURE END TIME: 9:20 a.m. PREOPERATIVE DIAGNOSIS: 1. Primary osteoarthritis of the left hip. 2. Avascular necrosis, left hip. POSTOPERATIVE DIAGNOSIS: 1. Primary osteoarthritis of the left hip. 2. Avascular necrosis, left hip. SURGEON: Robbie Carlos M.D. OIL LEASE OPERATOR: Emily Crane CNP SURGERY/PROCEDURE: Left total hip replacement. ANESTHESIA: Spinal. INDICATION: The patient was seen with complaints of hip pain attributable to the above problem, was failed in conservative care, and elected to undergo surgical procedure. ESTIMATED BLOOD LOSS: 100 cc. SPECIMENS SENT: None. DESCRIPTION OF PROCEDURE: The patient was brought to the operating room and laid supine on the operating table. Spinal anesthesia was administered by the Anesthesia Department without complication. The patient was then rotated to the right-side- down decubitus position with the left hip prepped and draped in the usual sterile fashion. An incision was made slightly angled, centered on the greater trochanter and angled slightly posteriorly superior to that point and anteriorly distal to that point. The incision was approximately 12 cm long. The iliotibial band and gluteus chinedu fascia were incised collinear with the skin incision. With a retractor placed, the external rotators came into view. Full soft tissue periosteal elevation was performed on the external rotators, beginning distally at the reflection of the gluteus chinedu and then proceeding in a proximal direction and then proceeding to the area of the piriformis and then proceeding in a posterior direction to the acetabulum. This was raised in full-thickness fashion and hip was dislocated posteriorly. The head was removed with high-speed oscillating saw after protecting the surrounding structures with a hip skid and 2 Cobra retractors. The cut was made at the appropriate depth. Next, attention was turned toward the acetabulum with retractors placed. Labrum was removed. The remaining cartilage was removed with a large curette and then progressive reaming began with a size 42 reamer, progressing up to a final reaming size of 51 mm. After this had been completed, trial cup demonstrated that the appropriate reaming was completed. Trial cup was removed. The acetabulum was copiously irrigated and suctioned dry using bacteriostatic solution and then a Tritanium 52 mm cluster hole cup was pressed into place with the appropriate orientation. A trial liner was then placed. Attention then returned toward the femoral neck area after using a T-handled hand-held reamer to line the femoral canal. Progressive broaching began with a size 0 and ended with a final trial broach size 6. A 127-degree angled neck with a normal offset was placed and then a trial 32 mm head was snapped on, the hip was reduced, taken through a full range of motion with excellent stability anterior and posterior. The hip was then dislocated. Trial stem was removed along with a trial ball and trial neck. The leg was positioned to gain entry to the acetabulum. The trial liner was removed and a 32 mm inside diameter liner without a lip polyethylene was locked into place. Next, after irrigating the femoral canal, a size 6 127-degree femoral neck, normal offset Accolade II stem was locked into place, and then a 32 mm outside diameter, -4 neck length ceramic ball was locked onto the Griffiths taper. The hip was again reduced. The area was copiously lavaged and suctioned dry. External rotators were repaired through drill holes in the lateral greater trochanter for further stabilization. The iliotibial band and gluteus chinedu fascia were reapproximated using figure-of- eight nonabsorbable braided suture. Skin was closed using absorbable subcutaneous suture followed by absorbable subcuticular stitch, and a bulky sterile compressive dressing was applied. The patient was taken from the operating room to the recovery room in stable condition with no complications. The primary surgeon performed the entire procedure with the first responder helping with the wound closure, dressing application, and protection of neurovascular structures. Javi PandaS:[id number] /[id number] [facility] PT EDon 07-26-2018 PT ED HNO ID: [id number] Author: Parisa (Jazmine) JAZMINE Redmond Service: Nursing Author Type: Registered Nurse Type: Patient Education Filed: 07/26/2018 6:21 AM Note Text: PRE OP LEARNING ASSESSMENT PROCEDURE/SURGERY: SURGERY: Left THR READINESS TO LEARN COGNITIVE ABILITY: Alert and oriented MOTIVATION TO LEARN: Eager Interested FAMILY SUPPORT: High - Very involved in pt care PATIENT LEARNS BEST BY: Individual Instruction Verbal Instruction Multiple Methods FACTORS AFFECTING LEARNING: None PHYSICAL LIMITATIONS AFFECTING LEARNING: Electronically Signed By: Parisa Redmond RN In Department: [facility] SURGERY Normal [facility] SURGICAL PATHOLOGYon 019 SURGICAL PATHOLOGY Specimen originated from [facility] Specimen #: [id number] Submitting Physician: Robbie Carlos M.D. FINAL DIAGNOSIS Left femoral head, arthroplasty - Avascular necrosis with collapse and secondary degenerative joint disease. JDR/gp 07/28/2018 Abraham Loyola M.D. (Electronic Signature) SPECIMEN SUBMITTED A: LEFT HIP BONE, FEMORAL HEAD CLINICAL DATA PRIMARY LOCALIZED OSTEOARTHRITIS OF LEFT HIP, AVASCULAR NECROSIS OF HIP, LEFT GROSS DESCRIPTION A. Received in formalin in a container labeled with patient name and femoral head is a 4.8 x 4.7 x 4.3 cm femoral head. The articular surface is markedly irregular with portions appearing partially detached from the underlying subchondral bone. Adjacent cartilage is roughened with granularity present. The femoral head is cut with a saw to reveal a 4.0 cm in greatest dimension subchondral region of yellow-toledo, soft chalky bone consistent with a zone of necrosis. There is no gross evidence of a pre-existing core biopsy site. The remaining bone is [place], trabecular, and firm. Lockstitch Tunnel Elastic Operator sections to include articular surface and zone of necrosis are submitted in two cassettes following decalcification. ALONZO/german 07/26/2018 Gross examination performed at [address] [address] Date of Report: 07/29/2018 Date of Procedure: 07/26/2018 Date of Receipt: 07/26/2018 Submitted by: Robbie Carlos M.D. Location: 4 S Diagnostic interpretation performed at [facility], [address] [place] [id number]. Normal [facility] Comment on above: Performed By: #### C ONABO #### [facility] [address] [facility] [phone] THERAPY NTon 07-26-2018 THERAPY NT HNO ID: [id number] Author: Keri (Pt) Luis Enrique Service: Physical Therapy Author Type: Physical Therapist Type: Therapy (PT/OT/Speech/Resp) Filed: 07/26/2018 3:09 PM Note Text: Physical Therapy Evaluation SERVICE DATE: 07/26/2018 SERVICE TIME: 1338 to 1417 ROOM: [place] [address] Recommended Discharge Disposition: Home Recommended Discharge Disposition Comments: Pt with decreased strength and balance post op ALTHEA, would benfit from continued therapy durign acute stay. Do not anticipate further needs after discharge. Anticipated Discharge Needs: Physical Assist at Home Physical Assist at Home for: Cleaning;Laundry;Rani ls;Shopping;Transpor tation Recommended Discharge Equipment: No equipment needs anticipated PT Recommendations to Nursing: Ambulate with device;To bathroom;In halls;Transfer to/from chair;OOB for Meals;Sit at edge of bed;With assist of 1 person Device: Wheeled Walker PT 6 Clicks Score: 18 Precautions/Activity Restrictions: Total Hip Replacement;Weight Bearing Restrictions;Fall Risk;Hip Precautions - Posterior Dislocation;Lines/Tu bes/Drains Extremity With Weight Bearing Restricted: Left Lower Extremity Left Lower Extremity Weight Bearing Status: PWB (50%) Total Hip Replacement Precautions: Posterior ASSESSMENT : Pt requires additional therapy prior to discharge. Patient presents with decreased strength, balance and endurance and with increased difficulty performing functional activity. Pt is CGA with activity, follows cues appropriately and participates throughout without adverse effects. Pt would benefit from continued therapy during acute stay but do not anticipate needs post discharge, will continue to assess. Patient Disposition at Start of Session: Supine in Bed Patient Disposition at End of Session: OOB in Chair Tolerated Full Session Physical Therapy Problem List: Pain;Decreased Range Of Motion;Decreased Strength;Functional Mobility Impairment;Balance Impaired Patient /Caregiver Goals: Go Home Goals for Plan of Care: Able to perform HEP with: Independent Transfer supine to/from sit with: Stand By Assistance (HOB flat, no use of bed rails) Transfer sit to/from stand with: Stand By Assistance (LRAD, PWB LLE) Ambulate with: Stand By Assistance Distance: 150-200 Device: (LRAD, PWB LLE) Ambulate up and down curb step with: Stand By Assistance Device: (LRAD, PWB LLE) Car transfer with: Verbal Cues Only (demonstration or simulation) Goal: Pt to demonstrate competence with ALTHEA precautions and PWB status to allow for proper healing Rehab Potential: Good PLAN: Treatment Frequency (times per week): 7;BID Current admission Treatment Interventions: Education;Joint Mobility;Strengtheni ng;Functional Mobility Training;Balance Training;Neuromuscul ar Re-education;Modalit ies Modalities: Ice Plan of Care developed with: Patient TREATMENT INTERVENTIONS: Therapy Diagnosis: Difficulty walking-musculoskele tracee Interventions Provided: Evaluation;Therapeut ic Activity (37496);Gait Training (44112) $ Evaluation-Low (39333) Billed Units: 1 unit Therapeutic Activity (58493) Treatment Minutes: 15 1 unit Skilled Intervention(s): Instructed patient in supine to sit pushing with upper extremities to sit up with cues for effective use of UEs for assist Education: Pt educated in role of PT during acute stay and PT POC, weight bearing status, extended discussion regarding precautions with demonstrations provided, effects of spinal, importance of OOB activity with nursing to reduce risk of functional decline, purpose of anti-embolic exercises and performs 10 reps ankle pumps, quad sets with 3-5 sec hold and glute sets and educated on parameters of performance, rationale for discharge recommendation of home without needs, use of call light 100% of the time for assist, parameters for safe home going, rationale for equipment recommendation, importance of limiting sitting x 1 hour to reduce edema, role of OT Gait Training (82065) Treatment Minutes: 10 1 unit Skilled Intervention(s): Instruction in sit to stand technique with proper hand placement and body positioning at edge of bed/chair with cues for optimal LLE positioning Instruction in stand to sit technique with LE's touching chair/bed and reaching back for surface, cues for safe approach, controlled descent to sit Instruction in sequencing, gait pattern, with step to pattern Instruction in correction of gait deviations, safe walker placement and advancement of LEs, increased use of UEs for assist during LLE stance phase Instruction in use of equipment, cues for sequence and pattern Scale utilized as visual and proprioceptive tool to gauge weight bearing status. Total Timed Code Treatment Minutes: 25 Total Treatment Time (minutes): 39 SUBJECTIVE: Current Hospital Course: Chart reviewed; Reason for Physical Therapy Consult : post op state Relevant Past Medical History: Pt presents s/p L ALTHEA. Past history of AVN of hip, HTN, HLD, Lupus Patient Report: Pt agreeable to PT, ok per nursing to treat. Home Environment Patient Lives With: Family (son and girlfriend in mobile home) Assistance Available: PRN Entry To Home: Ramp Number Of Stairs To Bed/Bath: 1 Tub/Shower Type: tub shower Equipment Owned: ADL Kit;Cane;Commode-Krause sed;Grab Bars-Shower;Hand Held Shower;Wheeled Walker;Shower Bench Prior Functional Level: Within Functional Limits Prior Functional Level Comments: Pt reports independence with ADLs, + driving, no use of AD. OBJECTIVE: Range of Motion: WFL Except (L hip limited to 90 degrees of flexion) Strength: Lower Extremity Comments Right Lower Extremity Strength Comments: WFLs Left Lower Extremity Strength Comments: hip flexion 3-/5, knee flexion 3-/5, knee ext 3/5, ankle DF WFLs CURRENT FUNCTIONAL STATUS: Current Functional Mobility Assist Level Additional Information Rolling Supine to Sit Contact Guard Assistance HOB flat, no use of bed rails, assist with LLE management Sit to Supine Scooting Contact Guard Assistance Sit to Stand Contact Guard Assistance X 3 trials Stand to Sit Contact Guard Assistance Bed to Chair Toilet/Commode Gait Contact Guard Assistance Gait Device: Wheeled Walker Gait Distance (feet): 60 Step to pattern throughout, initial cue to avoid twisting with directional change with good follow through noted Stairs Curb Step Car Transfer Gait Deviations Left Lower Extremity: Weight bearing decreased;Stance time decreased;Heel strike during initial stance decreased;Push-off during terminal stance decreased Gait belt donned for OOB activity Balance: Static Sitting;Dynamic Sitting;Static Standing;Dynamic Standing Static Sitting Balance: Independent Dynamic Sitting Balance: Independent Static Standing Balance: Stand By Assistance Dynamic Standing Balance: Stand By Assistance -M: 7: Walk 25 feet or more Please see discipline specific clinical documentation flowsheet for complete details for this therapy evaluation/treatment . SIGNATURE: Keri Dudley, PT PATIENT NAME: Johnnie Pisano DATE: July 26, 2018 TIME: 3:00 PM [facility] XR HIP 1V LTon 07-26-2018 XR HIP 1V LT * * *Final Report* * * DATE OF EXAM: Jul 26 2018 8:50AM MDR [id number] - XR HIP 1V LT / PROCEDURE REASON: TOTAL HIP REPLACEMENT * * * * Physician Interpretation * * * * EXAMINATION: XR HIP 1V LT CLINICAL HISTORY: TOTAL HIP REPLACEMENT Technique: XR HIP 1V LT -- LEFT hip with 1 views on 1 images Comparison: 06/04/2018 RESULT: Single intraoperative film of the left hip demonstrates a left total hip arthroplasty in progress. The greater trochanter of the left femur is not present. Associated soft tissue changes are compatible with intraoperative nature of the radiograph. IMPRESSION: Refer to the result. Electronic Device Repairer: [facility] Transcribe Date/Time: Jul 26 2018 8:56A Dictated by : EILEEN PAGAN MD This examination was interpreted and the report reviewed and electronically signed by: EILEEN PAGAN MD on Jul 26 2018 8:57AM EST [id number] [facility] XR PELVIS 1V APon 07-26-2018 XR PELVIS 1V AP * * *Final Report* * * DATE OF EXAM: Jul 26 2018 9:47AM MDX [id number] - XR PELVIS 1V AP / PROCEDURE REASON: Post-operative / post-procedure assessment, asymptomatic * * * * Physician Interpretation * * * * Pelvis and hip radiographs HISTORY: 57 years old Clinical information: Post-operative / post-procedure assessment, asymptomatic POST OP TECHNIQUE: Images: XR PELVIS 1V AP Comparison: June 04, 2018. RESULT: Findings: Status post left total hip arthroplasty. No perihardware osteolysis or findings of hardware fracture. Avascular necrosis involving the right femoral head. No gross subchondral collapse. No acute fracture or dislocation identified. Subchondral sclerosis adjacent to the SI joints. Soft tissue emphysema in the left thigh and intra-articular air in the left hip. IMPRESSION: Postsurgical change. No complication identified. Avascular necrosis involving the right femoral head without obvious associated subchondral collapse.. 1. Electronic Device Repairer: [facility] Transcribe Date/Time: Jul 26 2018 9:48A Dictated by : THIAGO SEQUEIRA MD This examination was interpreted and the report reviewed and electronically signed by: THIAGO SEQUEIRA MD on Jul 26 2018 9:51AM EST [id number] [facility] CNCNPATEDon 07-14-2018 CNCNPATED Education (ME2E) JOHNNIE PISANO ([id number]) 1960 M Date Time Provider Department 07/14/18 MEDARDO FARLEY (KELSEA) ME2E Reason for Visit: Pre-Op Teaching [134] Cmt: Total Joint Class Progress Notes: KELSEA Pineda 07/14/2018 8:24 AM Signed TOTAL JOINT COMPLETE CARE PROGRAM ORTHOPAEDIC TOTAL JOINT CLASS Service Date: 07/14/2018 Service Time: 8:23 AM Johnnie Pisano is scheduled for hip replacement on 07/26/18. He did attend the pre-op joint replacement class. Issues Reviewed: below Education Topic/Teaching Points: Day of surgery arrival instructions (including phone number to call for arrival time) Pre-op skin wipes Hospital course: -TCI area, operating room, recovery room -Anesthesia: Spinal vs general -Pain control: Nerve block, epidural, oral medications, AND IV medications -DVT prophylaxis ASA, Lovenox, Coumadin Post-op dressings Showering instructions Aquacell dressing to be removed 7 days post op Incision care: [place] vs dissolvable sutures with glue Signs AND symptoms of infection Signs AND symptoms of DVT Home physical therapy Home pain medications: Refill protocol and side effects Pain management: Ice, elevation of extremity and pain meds Care Management Discharge plan Discuss with family/friends about assistance after discharge from the hospital SNF ([facility]) Rehab nurse will contact prior to admission to discuss post-op needs and home therapy vs SNF farm manager/secondary social studies teacher in hospital final arrangements for discharge Physical and occupational therapy while in the hospital Getting your home ready What to bring to the hospital Preparing yourself for surgery: Dentist, stop smoking Diet Exercises: Circulation exercises Adaptive equipment Hip and knee precautions SIGNATURE: KELSEA Pineda PATIENT NAME: Johnnie Pisano DATE: July 14, 2018 TIME: 8:23 AM PAGER/CONTACT #: [phone] During your visit today, we recorded the following information about you: Allergies As of Date: 07/14/2018 Noted Allergy Reaction MINOCYCLINE 04/21/2011 9 - Itching Date Reviewed: 07/12/2018 Reviewed by: Cynthia Yepez) Jorge - Fully Assessed Prescriptions as of 07/14/2018 Sig: HYDROCODONE 5 MG-ACETAMINOPHE* Take 1 tablet by mouth every * Patient not taking: Reported on 07/12/2018 TRIAMCINOLONE ACETONIDE 0.1 %* Use as directed ACETAMINOPHEN 500 MG TABLET Take 1 tablet by mouth every * * DIPHENHYDRAMINE 25 MG CAPSULE Take 1 capsule by mouth every* Encounter Status:Closed by MEDARDO FARLEY on 07/14/18 [facility] NURSING PROGon 07-14-2018 Protein mass conc HNO ID: [id number] Author: Maida Hernandez) JAZMINE Sanchez Service: Nursing Author Type: Registered Nurse Type: Nursing Progress Note Filed: 07/16/2018 9:35 AM Note Text: PACC Nurse Progress Note History AND Physical: PACC Visit Date: 07/12/18 Original HANDP Date: 06/22/18 ED visit Date: N/A Outside HANDP Scanned Date: N/A Labs Within Last 6 Months: CBC: Date 07/12/18 cbc/diff- within acceptable limits BMP/CMP: Date 07/12/18 cmp- within acceptable limits, K+ 3.6 STAAMP: Date 07/12/18 negative TYPE AND SCREEN: Date 07/12/18 [place]: Date 07/12/18 Imaging Within Last 12 Months: Chest X-ray- 07/12/18 no acute radiographic abnormality Cardiac Testing: EKG in last 12 Months: Yes: Date: 07/12/18, Comment: pending BMI Percentile (PEDS): N/A Risk Assessment: N/A Anesthesia Review: N/A Narrative: Hx avascular necrosis left hip, SLE Pre-op Considerations: N/A Chart Check: IN PROGRESS Final ekg pending from 07/12/18 Maida Sanchez RN July 14, 2018 8:04 AM 07/16/18 9:30 am Final ekg from 07/12/18 NSR, septal infarct, ? Age. Chart check complete. JAZMINE Arrington [facility] PROGRESSon 07-14-2018 Protein mass conc HNO ID: [id number] Author: Medardo Farley (Psa) Service: (none) Author Type: Patient Brick Pointer Type: Progress Notes Filed: 07/14/2018 8:24 AM Note Text: TOTAL JOINT COMPLETE CARE PROGRAM ORTHOPAEDIC TOTAL JOINT CLASS Service Date: 07/14/2018 Service Time: 8:23 AM Johnnie Pisano is scheduled for hip replacement on 07/26/18. He did attend the pre-op joint replacement class. Issues Reviewed: below Education Topic/Teaching Points: Day of surgery arrival instructions (including phone number to call for arrival time) Pre-op skin wipes Hospital course: -TCI area, operating room, recovery room -Anesthesia: Spinal vs general -Pain control: Nerve block, epidural, oral medications, AND IV medications -DVT prophylaxis ASA, Lovenox, Coumadin Post-op dressings Showering instructions Aquacell dressing to be removed 7 days post op Incision care: [place] vs dissolvable sutures with glue Signs AND symptoms of infection Signs AND symptoms of DVT Home physical therapy Home pain medications: Refill protocol and side effects Pain management: Ice, elevation of extremity and pain meds Care Management Discharge plan Discuss with family/friends about assistance after discharge from the hospital SNF ([facility]) Rehab nurse will contact prior to admission to discuss post-op needs and home therapy vs SNF farm manager/secondary social studies teacher in hospital final arrangements for discharge Physical and occupational therapy while in the hospital Getting your home ready What to bring to the hospital Preparing yourself for surgery: Dentist, stop smoking Diet Exercises: Circulation exercises Adaptive equipment Hip and knee precautions SIGNATURE: KELSEA Pineda PATIENT NAME: Johnnie Pisano DATE: July 14, 2018 TIME: 8:23 AM PAGER/CONTACT #: [phone] [facility] Confirm Blood Typeon 019 ABO/RH(D) Positive [facility] Comment on above: Performed By: #### C ONABO #### [facility] [address] [place] [address] Type and SCR (30D)on 019 ABO/RH(D) Positive [facility] Comment on above: Performed By: #### T SCR30 #### [facility] [address] [place] [address] HOSPon 06-30-2018 HOSP Patient:Johnnie Pisano MRN: Height:5' 3(1.6 m) Weight:123 lb 6.4 oz (55.974 kg) Outpatient Medications as of 07/26/18: triamcinolone acetonide 0.1 % cream acetaminophen 500 mg tablet diphenhydrAMINE (BENADRYL) 25 mg capsule Admission/Clinic Administered Medications as of 07/26/18: lactated ringers infusion ceFAZolin iv piggyback 2 g in D5W (iso-osmotic) 100 mL (ANCEF) tranexamic acid 1,000 mg in NaCl 0.9% 100 mL (CYKLOKAPRON) tranexamic acid 1,000 mg in NaCl 0.9% 100 mL (CYKLOKAPRON) Problem List: Hypertriglyceridemia [E78.1] Pyoderma, unspecified [L08.0] Eczematous dermatitis [L30.9] Contact dermatitis and other eczema, due to unspecified cause [L25.9] Pruritus [L29.9] Excoriation [T14.8XXA] Disturbance of skin sensation [R20.9] Rash and other nonspecific skin eruption [R21] Allergy to insect bites [Z91.038] Folliculitis [L73.9] Avascular necrosis of bones of both hips (HCC) [M87.051, M87.052] Primary localized osteoarthritis of left hip [M16.12] Avascular necrosis of hip, left (HCC) [M87.052] Systemic lupus erythematosus (HCC) [M32.9] Tobacco use [Z72.0] Anxiety and depression [F41.9, F32.9] Allergies: Minocycline Date Verified: 07/26/18 Lab Values Lab Value Units Date High Low POTA* 3.6 mmol/L 07/12/2018 5.1 3.7 ISSAC* 40.7 % 07/12/2018 51.0 39.0 Progress Notes ([address]): KELSEA Pineda 07/15/2018 2:48 PM Signed TOTAL JOINT COMPLETE CARE PROGRAM PRE-OPERATIVE TEACHING Service Date: 07/15/2018 Service Time: 2:41 PM Date of : 1960 Gender: male Date of Surgery: 07/26/18 Procedure: Left Total Hip Replacement Complete Care Program was discussed with the patient: Floor Coverer Apprentice Identification: Patient identified a acute care occupational therapist to help when discharged to home: staying with son and his gf, most of time someone is there Home Environment: Home Layout: trailer, Entry Steps: ramp to door, one step into trailer, Bedroom Location: 1st floor, Bathroom Location: 1st floor and tub shower. Pt friend may get him walker, cane. Plans to get raised toilet seat and hip kit. Discussed with patient importance of attending joint education class and provided date and times of class: YES attended 07/13/18 Patient received Joint Education Binder: Yes Patient plans home discharge with [facility] if needed. (has 2 dogs that are protective). SIGNATURE: KELSEA Pineda PATIENT NAME: Johnnie Pisano DATE: July 15, 2018 TIME: 2:37 PM PAGER/CONTACT #: [phone] Progress Notes ([address]): KELSEA Pineda 07/14/2018 8:24 AM Signed TOTAL JOINT COMPLETE CARE PROGRAM ORTHOPAEDIC TOTAL JOINT CLASS Service Date: 07/14/2018 Service Time: 8:23 AM Johnnie Pisano is scheduled for hip replacement on 07/26/18. He did attend the pre-op joint replacement class. Issues Reviewed: below Education Topic/Teaching Points: Day of surgery arrival instructions (including phone number to call for arrival time) Pre-op skin wipes Hospital course: -TCI area, operating room, recovery room -Anesthesia: Spinal vs general -Pain control: Nerve block, epidural, oral medications, AND IV medications -DVT prophylaxis ASA, Lovenox, Coumadin Post-op dressings Showering instructions Aquacell dressing to be removed 7 days post op Incision care: [place] vs dissolvable sutures with glue Signs AND symptoms of infection Signs AND symptoms of DVT Home physical therapy Home pain medications: Refill protocol and side effects Pain management: Ice, elevation of extremity and pain meds Care Management Discharge plan Discuss with family/friends about assistance after discharge from the hospital SNF ([facility]) Rehab nurse will contact prior to admission to discuss post-op needs and home therapy vs SNF farm manager/secondary social studies teacher in hospital final arrangements for discharge Physical and occupational therapy while in the hospital Getting your home ready What to bring to the hospital Preparing yourself for surgery: Dentist, stop smoking Diet Exercises: Circulation exercises Adaptive equipment Hip and knee precautions SIGNATURE: KELSEA Pineda PATIENT NAME: Johnnie Pisano DATE: July 14, 2018 TIME: 8:23 AM PAGER/CONTACT #: [phone] [facility] PROGRESSon 06-04-2018 Protein mass conc HNO ID: [id number] Author: Kiley Shirley) SU García Service: (none) Author Type: Clinical Coffee Weigher Type: Progress Notes Filed: 06/04/2018 11:59 AM Note Text: NAME:Johnnie Pisano DATE: June 04, 2018 [facility]#: [id number] Pelvis X-Ray and Hip LEFT X-Ray COMPLETED TECH ID SIGN: KILEY GARCÍA [facility] XR HIP 3V PELV+ AP/LAT LTon 06-04-2018 XR HIP 3V PELV+ AP/LAT LT * * *Final Report* * * DATE OF EXAM: Jun 04 2018 9:22AM CHRISSY 5351 - XR HIP 3V PELV+ AP/LAT LT / PROCEDURE REASON: [id number] * * * * Physician Interpretation * * * * Left hip History: Left hip pain Prior study: 10/24/2014 Findings: AP mid and lower pelvis and left cross table lateral views of the hip joint were performed. There is narrowing superior compartment LEFT hip joint with prominent femoral head hypertrophic spurring and moderate acetabular spurring. Also noted are subchondral cysts associated with the acetabulum and femoral head. Central femoral head heterogeneity and mild collapse consistent with known avascular necrosis. There is sclerotic density with central lucency in the RIGHT femoral head about 2.2 cm in diameter. No RIGHT hip joint space narrowing. IMPRESSION: Left hip avascular necrosis and degenerative joint disease with interval progression of degenerative changes. Right hip avascular necrosis without degenerative findings. Electronic Device Repairer: [facility] Transcribe Date/Time: Jun 04 2018 3:35P Dictated by : KAI ALONZO MD This examination was interpreted and the report reviewed and electronically signed by: KAI ALONZO MD on Jun 04 2018 3:38PM EST [id number] [facility] Vital Signs Date Time Vital Sign Value Performing Clinician Facility 02-06-2025 10:44-0400 Body mass index (BMI) [Ratio] 24.02 kg/m2 Nicole Howard RELIEF CHARGE NURSE.RUBBERIZING MECHANIC Work Phone: [facility] 02-06-2025 10:44-0400 Body weight 59.97 kg Nicole Howard RELIEF CHARGE NURSE.RUBBERIZING MECHANIC Work Phone: [facility] 02-06-2025 10:44-0400 Diastolic blood pressure 52 mm[Hg] Nicole Goodter RELIEF CHARGE NURSE.RUBBERIZING MECHANIC Work Phone: [facility] 02-06-2025 10:44-0400 Heart rate 94 /min Nicole Godoter RELIEF CHARGE NURSE.RUBBERIZING MECHANIC Work Phone: [facility] 02-06-2025 10:44-0400 Respiratory rate 20 /min Nicole Goodter RELIEF CHARGE NURSE.RUBBERIZING MECHANIC Work Phone: [facility] 02-06-2025 10:44-0400 SaO2% (BldA) [Mass fraction] 99 % Nicole Howard RELIEF CHARGE NURSE.RUBBERIZING MECHANIC Work Phone: [facility] 02-06-2025 10:44-0400 Systolic blood pressure 131 mm[Hg] Nicole Howard RELIEF CHARGE NURSE.RUBBERIZING MECHANIC Work Phone: [facility] 12-28-2024 11:59-0400 Body temperature 98.3 [degF] Dr. Maco Morales MD Work Phone: [facility] 12-28-2024 11:59-0400 Diastolic blood pressure 84 mm[Hg] Dr. Maco Morales MD Work Phone: [facility] 12-28-2024 11:59-0400 Heart rate 84 /min Dr. Maco Morales MD Work Phone: [facility] 12-28-2024 11:59-0400 Respiratory rate 16 /min Dr. Maco Morales MD Work Phone: [facility] 12-28-2024 11:59-0400 SaO2% (BldA) [Mass fraction] 97 % Dr. Maco Morales MD Work Phone: [facility] 12-28-2024 11:59-0400 Systolic blood pressure 113 mm[Hg] Dr. Maco Morales MD Work Phone: [facility] 12-28-2024 07:14-0400 Body height 157.[address] Maco Morales MD Work Phone: [facility] 12-28-2024 07:14-0400 Body mass index (BMI) [Ratio] 24.5 kg/m2 Dr. Maco Morales MD Work Phone: [facility] 12-28-2024 07:14-0400 Body weight 60.[address] Maco Morales MD Work Phone: [facility] 12-03-2024 10:40-0400 Body mass index (BMI) [Ratio] 24.43 kg/m2 Krislyn Aberegg PA Work Phone: [facility] 12-03-2024 10:40-0400 Body temperature 98.01 [degF] Krislyn Aberegg PA Work Phone: [facility] 12-03-2024 10:40-0400 Body weight 61 kg Krislyn Aberegg PA Work Phone: [facility] 12-03-2024 10:40-0400 Diastolic blood pressure 87 mm[Hg] Krislyn Aberegg PA Work Phone: [facility] 12-03-2024 10:40-0400 Heart rate 95 /min Krislyn Aberegg PA Work Phone: [facility] 12-03-2024 10:40-0400 Respiratory rate 20 /min Krislyn Aberegg PA Work Phone: [facility] 12-03-2024 10:40-0400 SaO2% (BldA) [Mass fraction] 98 % Krislyn Aberegg PA Work Phone: [facility] 12-03-2024 10:40-0400 Systolic blood pressure 115 mm[Hg] Krislyn Aberegg PA Work Phone: [facility] 11-03-2024 15:45-0400 Body height 158 cm Antonietta Suppan RELIEF CHARGE NURSE.RUBBERIZING MECHANIC Work Phone: [facility] 11-03-2024 15:45-0400 Body mass index (BMI) [Ratio] 25.98 kg/m2 Antonietta Suppan RELIEF CHARGE NURSE.RUBBERIZING MECHANIC Work Phone: [facility] 11-03-2024 15:45-0400 Body weight 64.86 kg Antonietta Suppan RELIEF CHARGE NURSE.RUBBERIZING MECHANIC Work Phone: [facility] 11-03-2024 15:45-0400 Diastolic blood pressure 68 mm[Hg] Antonietta Suppan RELIEF CHARGE NURSE.RUBBERIZING MECHANIC Work Phone: [facility] 11-03-2024 15:45-0400 Heart rate 90 /min Antonietta Suppan RELIEF CHARGE NURSE.RUBBERIZING MECHANIC Work Phone: [facility] 11-03-2024 15:45-0400 SaO2% (BldA) [Mass fraction] 97 % Antonietta Suppan RELIEF CHARGE NURSE.RUBBERIZING MECHANIC Work Phone: [facility] 11-03-2024 15:45-0400 Systolic blood pressure 118 mm[Hg] Antonietta Suppan RELIEF CHARGE NURSE.RUBBERIZING MECHANIC Work Phone: [facility] 10-19-2023 14:00-0400 Body mass index (BMI) [Ratio] 24.87 kg/m2 Maco Morales MD Work Phone: [facility] 10-19-2023 14:00-0400 Body weight 61.69 kg Maco Morales MD Work Phone: [facility] 10-19-2023 14:00-0400 Diastolic blood pressure 71 mm[Hg] Maco Morales MD Work Phone: [facility] 10-19-2023 14:00-0400 Heart rate 81 /min Maco Moarles MD Work Phone: [facility] 10-19-2023 14:00-0400 SaO2% (BldA) [Mass fraction] 97 % Maco Morales MD Work Phone: [facility] 10-19-2023 14:00-0400 Systolic blood pressure 116 mm[Hg] Maco Morales MD Work Phone: [facility] 10-12-2023 14:06-0400 Body height 157.5 cm Shima Martin MD Work Phone: [facility] 10-12-2023 14:06-0400 Body mass index (BMI) [Ratio] 25.06 kg/m2 Shima Martin MD Work Phone: [facility] 10-12-2023 14:06-0400 Body temperature 98.2 [degF] Shima Martin MD Work Phone: [facility] 10-12-2023 14:06-0400 Body weight 62.14 kg Shima Martin MD Work Phone: [facility] 10-12-2023 14:06-0400 Diastolic blood pressure 82 mm[Hg] Shima Martin MD Work Phone: [facility] 10-12-2023 14:06-0400 Heart rate 100 /min Shima Martin MD Work Phone: [facility] 10-12-2023 14:06-0400 Respiratory rate 20 /min Shima Martin MD Work Phone: [facility] 10-12-2023 14:06-0400 SaO2% (BldA) [Mass fraction] 97 % Shima Martin MD Work Phone: [facility] 10-12-2023 14:06-0400 Systolic blood pressure 132 mm[Hg] Shima Martin MD Work Phone: [facility] 10-05-2023 14:21-0400 Body height 157.5 cm Nicole Howard RELIEF CHARGE NURSE.RUBBERIZING MECHANIC Work Phone: [facility] 10-05-2023 14:21-0400 Body weight 62.6 kg Nicole Howard RELIEF CHARGE NURSE.RUBBERIZING MECHANIC Work Phone: [facility] 10-05-2023 14:21-0400 Diastolic blood pressure 76 mm[Hg] Nicole Howard RELIEF CHARGE NURSE.RUBBERIZING MECHANIC Work Phone: [facility] 10-05-2023 14:21-0400 Heart rate 96 /min Nicole Eldridge RELIEF CHARGE NURSE.RUBBERIZING MECHANIC Work Phone: [facility] 10-05-2023 14:21-0400 Respiratory rate 14 /min Nicole Eldridge RELIEF CHARGE NURSE.RUBBERIZING MECHANIC Work Phone: [facility] 10-05-2023 14:21-0400 SaO2% (BldA) [Mass fraction] 97 % Nicole Eldridge RELIEF CHARGE NURSE.RUBBERIZING MECHANIC Work Phone: [facility] 10-05-2023 14:21-0400 Systolic blood pressure 122 mm[Hg] Nicole Eldridge RELIEF CHARGE NURSE.RUBBERIZING MECHANIC Work Phone: [facility] 09-11-2023 14:44-0400 Body height 158.5 cm Pulm Wstr Work Phone: [facility] 09-11-2023 14:44-0400 Body weight 61.24 kg Pulm Wstr Work Phone: [facility] 09-11-2023 14:44-0400 Heart rate 108 /min Pulm Wstr Work Phone: [facility] 09-11-2023 14:44-0400 Respiratory rate 15 /min Pulm Wstr Work Phone: [facility] 09-11-2023 14:44-0400 SaO2% (BldA) [Mass fraction] 98 % Pulm Wstr Work Phone: [facility] 09-01-2023 15:56-0400 Body height 160 cm Maco Morales MD Work Phone: [facility] 09-01-2023 15:56-0400 Body weight 64.05 kg Maco Morales MD Work Phone: [facility] 09-01-2023 15:56-0400 Diastolic blood pressure 64 mm[Hg] Maco Morales MD Work Phone: [facility] 09-01-2023 15:56-0400 Heart rate 82 /min Maco Morales MD Work Phone: [facility] 09-01-2023 15:56-0400 SaO2% (BldA) [Mass fraction] 97 % Maco Morales MD Work Phone: [facility] 09-01-2023 15:56-0400 Systolic blood pressure 112 mm[Hg] Maco Morales MD Work Phone: [facility] Encounters Encounter Date Encounter Type Care Provider Facility Start: 04-26-2025 ambulatory Taylor Karlos [facility] Start: 04-25-2025 ambulatory [facility] Facility:[facility] Start: 04-25-2025 End: 04-28-2025 [facility] Start: 04-25-2025 [facility] Facility:[facility] Start: 02-09-2025 End: 02-11-2025 Follow-up encounter Nicole Howard APRN.CNP Work Phone: Pulmonary Medicine Start: 02-09-2025 ambulatory ANTONIETTA SYKES Fac ility:[facility] Start: 02-09-2025 End: 02-09-2025 Subsequent hospital visit by physician [facility] Work Phone: Radiology Comment on above: Tobacco abuse [Z72.0 ] Start: 02-06-2025 End: 02-06-2025 Telephone encounter Antonietta Sykes APRN.CNP Work Phone: [facility] [place] Comment on above: Orders Start: 02-06-2025 End: 02-06-2025 Patient encounter procedure Nicole Howard APRN.CNP Work Phone: Pulmonary Medicine Comment on above: Multiple lung nodule s (Primary Dx); Encounter for screening for lung cancer; Tobacco use current Start: 02-06-2025 End: 02-06-2025 ambulatory NICOLE HOWARD Facility:[facility] Start: 02-06-2025 End: 02-06-2025 Subsequent hospital visit by physician [facility] ([facility]) Work Phone: Cat Scan Comment on above: Encounter for screen ing for lung cancer [Z12.2] Start: 12-29-2024 End: 12-29-2024 Telephone encounter Maco Morales MD Work Phone: [facility] [place] Comment on above: Patient Update Start: 12-28-2024 End: 12-28-2024 Emergency department patient visit Dr. Maco Morales MD Work Phone: -Emergency Department Work Phone: Start: 12-03-2024 End: 12-03-2024 Follow-up encounter Yaw LLANOS Work Phone: [facility] Start: 12-03-2024 End: 12-03-2024 Subsequent hospital visit by physician [facility] [place] Work Phone: Radiology Comment on above: Subacute cough [R05. 2] Start: 12-03-2024 End: 12-03-2024 ambulatory MACO MORALES Facility:[facility] Start: 12-03-2024 End: 12-03-2024 Patient encounter procedure Yaw LLANOS Work Phone: [facility] Comment on above: Subacute cough (Prim duane Dx); COPD with exacerbation (HCC); Nicotine dependence, cigarettes, uncomplicated Start: 12-01-2024 End: 12-03-2024 Telephone encounter Maco Morales MD Work Phone: [facility] [place] Comment on above: Patient Question Start: 11-15-2024 End: 11-15-2024 Telephone encounter Antonietta Sykes RELIEF CHARGE NURSE.RUBBERIZING MECHANIC Work Phone: [facility] [place] Comment on above: Patient Question; si de effects Start: 11-03-2024 End: 11-03-2024 ambulatory ANTONIETTA SYKES Facility:[facility] Start: 11-03-2024 End: 11-03-2024 Patient encounter procedure Antonietta Sykes RELIEF CHARGE NURSE.RUBBERIZING MECHANIC Work Phone: [facility] [place] Comment on above: Tobacco use (Primary Dx); Other emphysema (HCC); Chronic obstructive pulmonary disease, unspecified COPD type (HCC); Screening for depression; Hypertriglyceridemia; Cutaneous lupus erythematosus; Encounter for screening examination for other mental health and behavioral disorders; Encounter for immunization; Initial Medicare annual wellness visit; Screening for abdominal aortic aneurysm Start: 10-25-2024 End: 10-25-2024 Refill Maco Morales MD Work Phone: [facility] [place] Comment on above: Refill Request Start: 09-07-2024 End: 09-07-2024 Orders Only Nicole De Souzapster RELIEF CHARGE NURSE.RUBBERIZING MECHANIC Work Phone: Pulmonary Medicine Comment on above: Encounter for screen ing for lung cancer (Primary Dx); Tobacco use Start: 05-17-2024 End: 05-17-2024 ambulatory Ирина Yanez MA [facility] Start: 05-17-2024 End: 05-17-2024 Patient encounter procedure [facility] Comment on above: Population Health Na vigation Outreach ([facility] [place] [facility] ) Start: 02-23-2024 End: 02-23-2024 Refill Maco Morales MD Work Phone: Family [facility] [place] Comment on above: duplicate not needed Start: 12-11-2023 Telephone encounter Indio Trevino MD Work Phone: Gastroenterology Comment on above: Received Outside Med ical Records Start: 12-04-2023 Telephone encounter Shima Garcia MD Work Phone: General Surgery Start: 11-30-2023 Refill Maco Morales MD Work Phone: [facility] [place] Comment on above: Refill Request Start: 11-05-2023 End: 11-05-2023 ambulatory [facility]ARTIN [facility] Start: 10-20-2023 ambulatory Maco Morales MD Work Phone: [facility] [place] Comment on above: Test results Start: 10-20-2023 Telephone encounter Maco Morales MD Work Phone: [facility] [place] Comment on above: Results Start: 10-19-2023 End: 10-19-2023 Patient encounter procedure Maco Morales MD Work Phone: [facility] [place] Comment on above: Cutaneous lupus eryt hematosus (Primary Dx); Other emphysema (HCC); Tobacco use; Hypertriglyceridemia; Positive colorectal cancer screening using Cologuard test Start: 10-16-2023 Orders Only Nicole Shayan esquivel RELIEF CHARGE NURSE.RUBBERIZING MECHANIC Work Phone: Pulmonary Medicine Comment on above: Tobacco use (Primary Dx) Start: 10-15-2023 End: 10-15-2023 Subsequent hospital visit by physician [facility] ([facility]) Work Phone: Cat Scan Comment on above: Tobacco use [Z72.0] Refill Request Start: 10-12-2023 End: 10-12-2023 Patient encounter procedure Shima Martin MD Work Phone: General Surgery Comment on above: Positive colorectal cancer screening using Cologuard test Start: 10-12-2023 End: 04-26-2024 Telephone encounter Shima Martin MD Work Phone: General Surgery Comment on above: 11/05/2023 COLON LODI Start: 10-05-2023 End: 10-05-2023 Patient encounter procedure Nicole Anita RELIEF CHARGE NURSE.RUBBERIZING MECHANIC Work Phone: Pulmonary Medicine Comment on above: Encounter for screen ing for lung cancer (Primary Dx); Tobacco use Start: 09-22-2023 Telephone encounter Maco Morales MD Work Phone: [facility] [place] Comment on above: Results Start: 09-11-2023 End: 09-11-2023 ambulatory Pulm Lab [facility] Work Phone: PULM LAB [facility] Comment on above: Spirometry Start: 09-11-2023 End: 09-11-2023 Patient encounter procedure Pulm [facility] Work Phone: [place] [facility] Start: 09-11-2023 Telephone encounter Maco Morales MD Work Phone: [facility] [place] Comment on above: Results Start: 09-01-2023 End: 09-01-2023 Patient encounter procedure Maco Morales MD Work Phone: [facility] [place] Comment on above: Well adult exam (Laura rome Dx); Cutaneous lupus erythematosus; Tobacco use; History of depression; Screening for colon cancer; Screening for prostate cancer; SOB (shortness of breath) Start: 09-01-2023 End: 10-19-2023 Patient encounter status Maco Morales MD Work Phone: [facility] Work Phone: Start: 08-01-2023 End: 08-02-2023 ambulatory PHY WO ID REFERRING Facility:A Start: 03-31-2023 ambulatory [facility] [place] Comment on above: Population Health Na vigation Outreach ([facility] care gap) Start: 01-07-2023 ambulatory Laur[facility] Charles [facility] [place] Comment on above: Population Health Na vigation Outreach (/[facility] care gaps) Start: 11-18-2022 ambulatory Janice Joynercarter [facility] [place] Comment on above: Population Health Na vigation Outreach ([facility] care gap) Start: 05-07-2021 End: 05-07-2021 Subsequent hospital visit by physician [facility] [place] Work Phone: Radiology Comment on above: Suspected COVID-19 v irus infection [Z20.822] Start: 07-26-2018 End: 07-27-2018 Evaluation and management of inpatient [facility] Start: 06-04-2018 End: 06-04-2018 Patient encounter procedure [facility] Procedures Date Procedure Procedure Detail Performing Clinician Start: 02-09-2025 Us abdominal aorta r eal time screen study aaa Antonietta A Suppan RELIEF CHARGE NURSE.RUBBERIZING MECHANIC Work Phone: Start: 12-28-2024 SARS-CoV-2, Influenz a & RSV (PCR) Dr. Maco Morales MD Work Phone: Start: 12-28-2024 Urnls dip stick/tabl et reagent auto microscopy Dr. Maco Morales MD Work Phone: Start: 12-28-2024 X-ray of chest, PA a nd lateral views Dr. Maco Morales MD Work Phone: Start: 12-28-2024 D-dimer assay, quantitative Dr. Maco Morales MD Work Phone: Comment on above: NORMAL D-Dimer level (<0.50) indicates no DVT or PE. Start: 12-28-[address] Maco Morales MD Work Phone: Start: 12-03-2024 Radiologic exam ches t 2 views Yaw Langston PA Work Phone: Start: 11-03-2024 Adult depression scr eening assessment Antonietta Sykes RELIEF CHARGE NURSE.RUBBERIZING MECHANIC Work Phone: Start: 11-21-2023 Colonoscopy Shima Martin MD Work Phone: Start: 10-19-2023 Adult depression scr eening assessment Maco Morales MD Work Phone: Start: 10-19-2023 Lipid 1996 panel - S remi or Plasma Maco Morales MD Work Phone: Start: 09-11-2023 Plethysmography lung volumes w/wo airway resist Maco Morales MD Work Phone: Start: 05-07-2021 Radiologic exam ches t 2 views Ирина Garcia RELIEF CHARGE NURSE.RUBBERIZING MECHANIC Work Phone: Start: 07-12-2018 Antibody screen ROBBIE CARLOS Comment on above: Performed By: #### T [id number] #### [facility] [address] [place] [address] Start: 12-02-2010 Lipid 1996 panel - S remi or Plasma Zaira Moreno MA Plan of Treatment Date Care Activity Detail Author Start: 10-18-2028 Lipid panel Lipid Screening [facility] Start: 08-31-2028 Prostate specific antigen measurement Prostate Cancer Screening Discussion [facility] Start: 10-18-2026 Diabetes Screening Diabetes Screenin g [facility] Start: 09-13-2026 Screening for malign ant neoplasm of colon [facility] Start: 02-08-2026 End: 02-08-2026 Patient encounter procedure [facility] Comment on above: Encounter for screen ing for lung cancer [Z12.2]; Tobacco use current [Z72.0] Start: 02-06-2026 Screening for malign ant neoplasm of lung Lung Cancer Screening [facility] Start: 11-20-2025 Screening for malign ant neoplasm of colon [facility] Start: 11-07-2025 End: 11-07-2025 Patient encounter procedure 11/07/2025 2:40 PM EDT Office Visit [facility] [place] [address] [place] [id number] Maco Morales MD [address] [place], [place] [id number] Medicare Wellness [facility] [place] Comment on above: Medicare Wellness Start: 11-03-2025 Annual PCP Team Lion Trainer valerie Disease Visit Annual PCP Team Chronic Disease Visit [facility] Start: 11-03-2025 Anxiety Screening Anxiety Screening [facility] Start: 11-03-2025 Covid-19 Vaccine () Covid-19 Vaccine () [facility] Comment on above: Postponed from 02/20 (Declined at this time) Start: 11-03-2025 Depression Screening Depression Scre ening [facility] Start: 11-03-2025 RSV Vaccine (1 - Ris k 60-74 years 1-dose series) RSV Vaccine (1 - Risk 60-74 years 1-dose series) [facility] Comment on above: Postponed from 08/04 (Declined at this time) Start: 11-03-2025 Urine microalbumin profile DTaP,Tdap,Td Vaccine (1 - Tdap) [facility] Comment on above: Postponed from 08/04 (Declined at this time) Start: 08-10-2025 End: 08-10-2025 Patient encounter procedure Cat [facility] Comment on above: 6 mo follow up Start: 02-20-2025 Influenza vaccination [facility] Start: 02-09-2025 End: 02-09-2025 Patient encounter procedure 02/09/2025 8:30 AM EDT Appointment Radiology [address] [place], [place] [phone] Tobacco use [Z72.0] Radiology Comment on above: Tobacco use [Z72.0] Start: 02-06-2025 End: 12-03-2025 US Abdominal Aorta US ABD AORTA Radiology Routine Tobacco use Expected: 02/06/2025, Expires: 12/03/2025 [facility] Work Phone: Comment on above: Expected: 02/06/2025 , Expires: 12/03/2025 Start: 02-06-2025 End: 02-06-2025 Patient encounter procedure 02/06/2025 10:30 AM EDT Office Visit Pulmonary Medicine [address] [place] [address] Nicole Howard APRN.RUBBERIZING MECHANIC [address] [place] [address] [facility] Pulmonary Medicine Comment on above: [facility] Start: 02-06-2025 End: 02-06-2025 Patient encounter procedure 02/06/2025 9:20 AM EDT Appointment Cat Scan [address] [facility] [place] [address] [facility] Cat Scan Comment on above: [facility] Start: 12-28-2024 [facility] Start: 11-03-2024 End: 11-03-2024 Patient encounter procedure 11/03/2024 3:40 PM EDT Office Visit [facility] [place] [address] [place] [address] Antonietta Sykes APRN.RUBBERIZING MECHANIC [address] [place] [address] Medicare Wellness [facility] [place] Comment on above: Medicare Wellness Start: 10-18-2024 Annual PCP Team Lion Trainer valerie Disease Visit Annual PCP Team Chronic Disease Visit [facility] Start: 10-18-2024 Anxiety Screening Anxiety Screening [facility] Start: 10-18-2024 Depression Screening Depression Scre ening [facility] Start: 10-14-2024 Screening for malign ant neoplasm of lung Lung Cancer Screening [facility] Start: 08-31-2024 Covid-19 Vaccine () Covid-19 Vaccine () [facility] Comment on above: Postponed from 02/20 (Declined at this time) Start: 08-31-2024 Pneumococcal vaccination Pneum ococcal Vaccine (1 of 2 - PCV) [facility] Comment on above: Postponed from 08/04 (Declined at this time) Start: 08-31-2024 RSV Vaccine (1 - 1-d ose 60+ series) RSV Vaccine (1 - 1-dose 60+ series) [facility] Comment on above: Postponed from 08/04 (Declined at this time) Start: 08-31-2024 RSV Vaccine (1 - Ris k 60-74 years 1-dose series) RSV Vaccine (1 - Risk 60-74 years 1-dose series) [facility] Comment on above: Postponed from 08/04 (Declined at this time) Start: 08-31-2024 Shingrix Vaccine (1 of 2) Shingrix Vaccine (1 of 2) [facility] Comment on above: Postponed from 08/04 (Declined at this time) Start: 08-31-2024 Urine microalbumin profile DTaP,Tdap,Td Vaccine (1 - Tdap) [facility] Comment on above: Postponed from 08/04 (Declined at this time) Start: 2024 Advance Directive Discussion Advance Directive Discussion [facility] Start: 06-17-2024 End: 06-17-2024 Patient encounter procedure 06/17/2024 4:00 PM EST Office Visit Family [facility] [place] [address] [place] [address] Maco Morales MD [address] [place] [id number] 6 month follow up Family [facility] [place] Comment on above: 6 month follow up Start: 04-19-2024 End: 04-19-2024 Patient encounter procedure 04/19/2024 3:40 PM EDT Office Visit Family [facility] [place] [address] [place] [address] Maco Morales MD [address] [place] [id number] 6 month follow up Family [facility] Comment on above: 6 month follow up Start: 02-21-2024 Covid-19 Vaccine ( season) Covid-19 Vaccine ( season) [facility] Start: 02-21-2024 Covid-19 Vaccine ( season) Covid-19 Vaccine ( season) [facility] Start: 02-21-2024 Influenza vaccination [facility] Start: 12-20-2023 Influenza vaccination Influenza Vacc ine (#1) [facility] Comment on above: Postponed from 02/20 (Declined at this time) Start: 12-14-2023 End: 12-14-2023 Patient encounter procedure 12/14/2023 11:00 AM EDT Office Visit Colorectal Surgery [address] [address] Thiago Santana MD [address] [address] ESD Discussion Colorectal Surgery Comment on above: ESD Discussion Start: 11-05-2023 End: 11-05-2023 Patient encounter procedure 11/05/2023 1:00 PM EDT Appointment LD SURGERY [address] [place] [address] Shima Martin MD [address] [place] [id number] LD SURGERY Start: 10-20-2023 End: 01-19-2024 ALK PHOS ISOENZYM BL ALK PHOS ISOENZYM BL Lab Routine Elevated alkaline phosphatase level Expected: 10/20/2023, Expires: 01/19/2024 [facility] Comment on above: Expected: 10/20/2023 , Expires: 01/19/2024 Start: 10-20-2023 End: 01-19-2024 Cobalamin (Vitamin B12) [Mass/volume] in Serum or Plasma VITAMIN B12 Lab Routine Elevated alkaline phosphatase level Macrocytosis Expected: 10/20/2023, Expires: 01/19/2024 [facility] Work Phone: Comment on above: Expected: 10/20/2023 , Expires: 01/19/2024 Start: 10-20-2023 End: 01-19-2024 Folate [Mass/volume] in Serum or Plasma FOLATE, SERUM Lab Routine Elevated alkaline phosphatase level Macrocytosis Expected: 10/20/2023, Expires: 01/19/2024 [facility] Comment on above: Expected: 10/20/2023 , Expires: 01/19/2024 Start: 10-19-2023 End: 10-19-2023 Patient encounter procedure 10/19/2023 2:20 PM EDT Office Visit [facility] [place] [address] [place], [place] [address] Maco Morales MD [address] [place], [place] [phone] 1 month follow up [facility] [place] [place] Comment on above: 1 month follow up Start: 10-15-2023 End: 10-15-2023 Patient encounter procedure 10/15/2023 3:40 PM EDT Appointment Cat Scan [address] [place], [place] [phone] LUNG CANCER SCREENING CT Cat Scan Comment on above: LUNG CANCER SCREENIN G CT Start: 09-01-2023 End: 08-31-2024 KRYSTIN BY IFA SCREEN KRYSTIN BY IFA SCREEN Lab Routine Cutaneous lupus erythematosus Expected: 09/01/2023, Expires: 08/31/2024 [facility] Work Phone: Comment on above: Expected: 09/01/2023 , Expires: 08/31/2024 Start: 09-01-2023 End: 08-31-2024 C reactive protein [Mass/volume] in Serum or Plasma C-REACTIVE PROTEIN (CRP) Lab Routine Cutaneous lupus erythematosus Expected: 09/01/2023, Expires: 08/31/2024 [facility] Work Phone: Comment on above: Expected: 09/01/2023 , Expires: 08/31/2024 Start: 09-01-2023 End: 12-01-2023 CBC W Auto Differential panel - Blood CBC + DIFF Lab Routine Well adult exam Expected: 09/01/2023, Expires: 12/01/2023 [facility] Work Phone: Comment on above: Expected: 09/01/2023 , Expires: 12/01/2023 Start: 09-01-2023 End: 12-01-2023 Comprehensive metabolic 2000 panel - Serum or Plasma COMP METABOLIC PANEL Lab Routine Well adult exam Expected: 09/01/2023, Expires: 12/01/2023 [facility] Work Phone: Comment on above: Expected: 09/01/2023 , Expires: 12/01/2023 Start: 09-01-2023 End: 08-31-2024 Erythrocyte sedimentation rate SED RATE WESTERGREN Lab Routine Cutaneous lupus erythematosus Expected: 09/01/2023, Expires: 08/31/2024 [facility] Work Phone: Comment on above: Expected: 09/01/2023 , Expires: 08/31/2024 Start: 09-01-2023 End: 12-01-2023 Lipid 1996 panel - Serum or Plasma LIPID PANEL BASIC Lab Routine Well adult exam Expected: 09/01/2023, Expires: 12/01/2023 [facility] Work Phone: Comment on above: Expected: 09/01/2023 , Expires: 12/01/2023 Start: 09-01-2023 End: 08-31-2024 Rheumatoid factor [Units/volume] in Serum or Plasma RHEUMATOID FACTOR BL Lab Routine Cutaneous lupus erythematosus Expected: 09/01/2023, Expires: 08/31/2024 [facility] Work Phone: Comment on above: Expected: 09/01/2023 , Expires: 08/31/2024 Start: 06-22-2023 Behavioral Health Screening Behavioral Health Screening [facility] Start: 06-22-2023 Depression Assessment Depression Ass essment [facility] Start: 02-20-2023 Influenza vaccination C [facility] Start: 07-27-2021 DIABETES SCREEN DIABETES SCREEN [facility] Start: 07-27-2021 Diabetes Screening Diabetes Screenin g [facility] Start: 2019 RSV Vaccine (1 - Ris k 60-74 years 1-dose series) RSV Vaccine (1 - Risk 60-74 years 1-dose series) [facility] Start: 12-03-2015 Lipid 1996 panel - S remi or Plasma Lipid Screening [facility] Start: 12-03-2015 Lipid panel Lipid Screening [facility] Start: 12-03-2015 LIPID SCREEN LIPID SCREEN [facility] Start: 12-03-2015 PROSTATE CANCER SCREENING DISCUSSION PROSTATE CANCER SCREENING DISCUSSION [facility] Start: 12-03-2011 COLORECTAL CANCER SCREENING COLORECTAL CANCER SCREENING [facility] Start: 12-03-2011 FECAL OCCULT BLOOD FECAL OCCULT BLOO D [facility] Start: 12-03-2011 Screening for malign ant neoplasm of colon [facility] Start: 2009 Screening for malign ant neoplasm of lung Lung Cancer Screening [facility] Start: 2009 SHINGRIX VACCINE (1 of 2) SHINGRIX VACCINE (1 of 2) [facility] Start: 2004 COLOGUARD (FIT-DNA) COLOGUARD (FIT-D NA) [facility] Start: 2004 Colonoscopy COLONOSCOPY [facility] Start: [address] COLONOGRAPHY [facility] Start: 2004 Screening for malign ant neoplasm of colon [facility] Start: 2004 SIGMOIDOSCOPY SIGMOIDOSCOPY [facility] Start: 1989 Zoledronic acid therapy Alpha- 1 Antitrypsin Deficiency Screening [facility] Start: 1978 Pneumococcal Vaccine : 50+ (1 of 2 - PCV) Pneumococcal Vaccine: 50+ (1 of 2 - PCV) [facility] Start: 1978 Urine microalbumin profile [facility] Start: 1965 PNEUMOCOCCAL (1 - PCV) PNEUMOCOCCAL (1 - PCV) [facility] Start: 1965 Pneumococcal vaccination Pneum ococcal Vaccine (1 - PCV) [facility] Start: 02-02-1960 COVID-19 VACCINE (#1) COVID-19 VACCI NE (#1) [facility] Start: 1959 Abdominal aortic aneurysm screening Abdominal Aortic Aneurysm Screening [facility] COLOGUARD COLOGUARD Lab Ro utine Screening for colon cancer Ordered: 09/01/2023 [facility] Work Phone: Comment on above: Ordered: 09/01/2023 End: 11-03-2024 CT Chest for screening WO contrast CT LUNG SCREEN WO IVCON Radiology Routine Tobacco use 1 Occurrences starting 10/05/2023 until 11/03/2024 [facility] Work Phone: Comment on above: 1 Occurrences starti ng 10/05/2023 until 11/03/2024 CT Chest for screeni ng WO contrast CT LUNG SCREEN WO IVCON Radiology Routine Tobacco use 10/15/2023 4:01 PM EDT [facility] Work Phone: End: 11-14-2024 CT Chest for screening WO contrast CT LUNG SCREEN WO IVCON Radiology Routine Tobacco use 1 Occurrences starting 10/16/2023 until 11/14/2024 [facility] Work Phone: Comment on above: 1 Occurrences starti ng 10/16/2023 until 11/14/2024 End: 10-07-2025 CT Chest for screening WO contrast CT LUNG SCREEN WO IVCON Radiology Routine Encounter for screening for lung cancer Tobacco use 1 Occurrences starting 09/07/2024 until 10/07/2025 [facility] Work Phone: Comment on above: 1 Occurrences starti ng 09/07/2024 until 10/07/2025 End: 03-08-2026 CT Chest for screening WO contrast CT LUNG SCREEN WO IVCON Radiology Routine Encounter for screening for lung cancer Tobacco use current 1 Occurrences starting 02/06/2025 until 03/08/2026 [facility] Work Phone: Comment on above: 1 Occurrences starti ng 02/06/2025 until 03/08/2026 CT Chest for screeni ng WO contrast CT LUNG SCREEN WO IVCON Radiology Routine Encounter for screening for lung cancer Tobacco use 02/06/2025 10:38 AM EDT [facility] Work Phone: End: 03-11-2026 CT Lung parenchyma WO contrast CT LUNG FOLLOWUP WO IVCON Radiology Routine Lung nodules 1 Occurrences starting 02/09/2025 until 03/11/2026 [facility] Work Phone: Comment on above: 1 Occurrences starti ng 02/09/2025 until 03/11/2026 End: 10-11-2024 Flexible sigmoidoscopy study COLONOSCOPY DIAGNOSTIC Endoscopy Routine Positive colorectal cancer screening using Cologuard test 1 Occurrences starting 10/12/2023 until 10/11/2024 [facility] Work Phone: Comment on above: 1 Occurrences starti ng 10/12/2023 until 10/11/2024 End: 09-30-2024 LUNG VOLUMES LUNG VOLUMES PFT Routine Cutaneous lupus erythematosus SOB (shortness of breath) 1 Occurrences starting 09/01/2023 until 09/30/2024 [facility] Work Phone: Comment on above: 1 Occurrences starti ng 09/01/2023 until 09/30/2024 Patient Education ED Anxiety Reaction [facility] Work Phone: End: 09-30-2024 SPIROMETRY WITH DILATOR IF OBSTRUCTED SPIROMETRY WITH DILATOR IF OBSTRUCTED PFT Routine Cutaneous lupus erythematosus SOB (shortness of breath) 1 Occurrences starting 09/01/2023 until 09/30/2024 [facility] Work Phone: Comment on above: 1 Occurrences starti ng 09/01/2023 until 09/30/2024 End: 03-08-2026 US Abdominal Aorta for screening US SCREENING FOR AAA Radiology Routine Tobacco abuse 1 Occurrences starting 02/06/2025 until 03/08/2026 [facility] Work Phone: Comment on above: 1 Occurrences starti ng 02/06/2025 until 03/08/2026 End: 12-03-2025 US.doppler Thoracic and abdominal aorta US DOPPLER AORTA Radiology Routine Tobacco use 1 Occurrences starting 11/03/2024 until 12/03/2025 [facility] Comment on above: 1 Occurrences starti ng 11/03/2024 until 12/03/2025 [facility] Payers Date Payer Category Payer Self-pay 2023 Medicare (Managed Care) [id number]. [id number] 2023 Unknown [id number] 2023 Unknown [id number] 2021 Medicare [id number] 2014 Medicaid [id number] 1960 Unknown [id number] 2.16.8 [id number] Medicare [id number] Unknown [id number] Unknown [id number] 2.16.8 [id number] Unknown [id number] 2.16.8 [id number] Unknown [id number] 2.16.8 [id number] Unknown [id number] 2.16.8 [id number] Unknown [id number] 2.16.8 [id number] Unknown [id number] 2.16.8 [id number] Unknown [id number] 2.16.8 [id number] Unknown [id number] 2.16.8 [id number] Unknown [id number] 2.16.8 [id number] Unknown [id number] 2.16.8 [id number] Social History Date Type Detail Facility Start: 04-21-2014 End: 11-03-2024 Tobacco smoking status NHIS Smokes tobacco daily [facility] History of tobacco use Cigarette Smoker C [facility] Start: 04-21-2014 End: 06-17-2024 Cigarettes smoked current (pack per day) - Reported 1 [facility] Start: 04-21-2014 End: 11-03-2024 Tobacco use and exposure Former smokeless tobacco user [facility] Start: 05-07-2021 End: 02-06-2025 Alcohol intake Current drinker of alcohol (finding) [facility] Start: 02-17-2011 End: 09-01-2023 Tobacco Comment Smokes a pack day. [facility] Start: 02-17-2011 Alcohol Comment rare [facility] Start: 1960 Sex Assigned At Not on file C [facility] Start: 05-07-2021 End: 06-17-2024 Gender identity Not on file [facility] Start: 05-23-2012 PHQ2 Score 0 [facility] History of tobacco use Snuff User [facility] History of tobacco use [facility]ws [facility] Start: 10-05-2023 Alcohol intake Ex-drinker (finding) [facility] Has the Given.to, or [employer] threatened to shut off services in your home in past 12Mo No [facility] Are you now , , , , never or living with a partner? [facility] How often to you hav e a drink containing alcohol? 2-4 times a month [facility] How many standard drinks containing alcohol do you have on a typical day? 1 or 2 [facility] How often do you hav e 6 or more drinks on 1 occasion? Less than monthly [facility] How hard is it for y ou to pay for the very basics like food, housing, medical care, and heating Not very hard [facility] Do you feel stress - tense, restless, nervous, or anxious, or unable to sleep at night because your mind is troubled all the time - these days [OSQ] To some extent [facility] (I/We) worried srinivas er (my/our) food would run out before (I/we) got money to buy more. Sometimes true [facility] Start: 10-12-2023 Alcohol Comment approx 8 beers/month [facility] How often to you hav e a drink containing alcohol? Monthly or less [facility] How often do you hav e 6 or more drinks on 1 occasion? Never [facility] Start: 1960 Sex Assigned At Male W [facility] Medical Equipment Procedure Code Equipment Code Equipment Origin al Text Equipment Identifier Dates Head V40 28mm -2 .7mm Offset Taper Biolox Delta Femoral Hip - [id number] Start: 07-26-2018 Stem Accolade Ii 6 127d Femoral - [id number] Start: 07-26-2018 Shell 52mm D Tri tanium Acetabular Primary Hemispherical Cluster Hole - [id number] Start: 07-26-2018 Liner 32mm 0d D X3 5.9mm Acetabular Hip - [id number] Start: 07-26-2018 Functional Status Date Assessment Result Facility 11-03-2024 Total score [AUDIT-C] 1 11/04/19 25 3:36 PM EDT Raquel Bean MA [facility] 07-27-2018 Are you deaf, or do you have serious difficulty hearing No 07/27/2018 12:42 PM Celio Lowe RN No [facility] 07-27-2018 Are you blind, or do you have serious difficulty seeing, even when wearing glasses No 07/27/2018 12:42 PM Celio Lowe RN [facility] 07-27-2018 Do you have serious difficulty walking or climbing stairs No 07/27/2018 12:42 PM Celio Lowe RN [facility] 07-27-2018 Do you have difficul ty dressing or bathing No 07/27/2018 12:42 PM Celio Lowe RN [facility] 07-27-2018 Because of a physica l, mental, or emotional condition, do you have difficulty doing errands alone such as visiting a physician's office or shopping No 07/27/2018 12:42 PM Celio Lowe RN [facility] Mental Status Date Assessment Result Facility 07-27-2018 Because of a physica l, mental, or emotional condition, do you have serious difficulty concentrating, remembering, or making decisions No 07/27/2018 12:42 PM Celio Lowe RN [facility] Clinical Notes 07-26-2018 to 05-01-2025 Telephone Encounter - Raquel Bean MA - 02/11/2025 11:34 AM EDTTelephone Encounter - Raquel Bean MA - 02/11/2025 11:34 AM EDTTelephone Encounter - Raquel Bean MA - 02/11/2025 11:34 AM EDT Note Date & Type Note Facility 05-01-2025 Note HNO ID: [id number] Author: Kalie GUZMAN RN Service: ? Author Type: Registered Nurse Type: Progress Notes Filed: 05/01/2025 09:42 Note Text: TRANSITION CARE MANAGEMENT (TCM) INITIAL CONTACT Full Stack Developer Outreach Provider Action/FYI: Pt will f/u with [facility], Dr. Ferguson, in 2 weeks. [facility] will see pt today at 10 am- unsure what company. Pt has hx: copd/lupus and quit smoking 6 days ago. Pt reports he has 1 stent and was told he has 2 areas that have blockage that will need to be done. Pt has need for his medications to be delivered to his home and will check with insurance to see what pharmacy they will cover. Pt will check with insurance to see if they cover a home BP monitor. Pt would like a device to help him in the bath. Initial contact with patient post discharge, spoke to patient. Patient identified by name and . TRANSITION CARE MANAGEMENT INITIAL OUTREACH DOCUMENTATION: 05/01/2025 Date of Outreach: Outreach Attempt 1: Contact Made Date of Discharge 04/28/2025 SUMMARY: -Pt discharged from [facility] on 04/28/25. -Admitted for: CT Do you have a hospital follow up appointment with your PCP? Appointment on 05/08/[address] Morales. Yes. Remind patient of appointment date, time, and location. If not within 14 calendar days of discharge - please reschedule accordingly. MEDICATIONS: Many patients have questions or concerns about their medications once they are home. Were you prescribed any new medications? If yes, what are those medications? Asa 81 mg daily, atorvastatin 40 mg daily, lisinopril 2.5 mg daily, metoprolol 12.5 mg twice daily, oxycodone 5 mg q6h prn for 3 days, ticagrelor (brilinta) 90 mg twice daily. Were you told to hold any medications? No Were any of your medications discontinued? No Do you have any questions about getting or taking your medications? No Your discharge instructions/After visit Summary (AVS) are important in guiding you through the recovery process. Is there anything I might help you understand? No Do you have all the necessary equipment and supplies at home? Yes Medical records from recent hospitalization: Care Everywhere [facility] 05-01-2025 Note Patient Outreach (FA MPWS) JOHNNIE PISANO ([id number]) 1960 M Date Time Provider Department 05/01/25 MACO MORALES During your visit today, we recorded the following information about you: Kalie Guzman RN 05/01/2025 9:42 AM Signed TRANSITION CARE MANAGEMENT (TCM) INITIAL CONTACT Full Stack Developer Outreach Provider Action/FYI: Pt will f/u with [facility], Dr. Ferguson, in 2 weeks. [facility] will see pt today at 10 am- unsure what company. Pt has hx: copd/lupus and quit smoking 6 days ago. Pt reports he has 1 stent and was told he has 2 areas that have blockage that will need to be done. Pt has need for his medications to be delivered to his home and will check with insurance to see what pharmacy they will cover. Pt will check with insurance to see if they cover a home BP monitor. Pt would like a device to help him in the bath. Initial contact with patient post discharge, spoke to patient. Patient identified by name and . TRANSITION CARE MANAGEMENT INITIAL OUTREACH DOCUMENTATION: 05/01/2025 Date of Outreach: Outreach Attempt 1: Contact Made Date of Discharge 04/28/2025 SUMMARY: -Pt discharged from [facility] on 04/28/25. -Admitted for: CT Do you have a hospital follow up appointment with your PCP? Appointment on 05/08/[address] Morales. Yes. Remind patient of appointment date, time, and location. If not within 14 calendar days of discharge - please reschedule accordingly. MEDICATIONS: Many patients have questions or concerns about their medications once they are home. Were you prescribed any new medications? If yes, what are those medications? Asa 81 mg daily, atorvastatin 40 mg daily, lisinopril 2.5 mg daily, metoprolol 12.5 mg twice daily, oxycodone 5 mg q6h prn for 3 days, ticagrelor (brilinta) 90 mg twice daily. Were you told to hold any medications? No Were any of your medications discontinued? No Do you have any questions about getting or taking your medications? No Your discharge instructions/After visit Summary (AVS) are important in guiding you through the recovery process. Is there anything I might help you understand? No Do you have all the necessary equipment and supplies at home? Yes Medical records from recent hospitalization: Care Everywhere Allergies As of Date: 05/01/2025 Noted Allergy Reaction PERCOCET (OXYCODONE-ACETAMINOPHEN) 1 1 - Mental Status Change CHANTIX (VARENICLINE) 11/15/2024 14 - Other: See Comments Comments: panic WELLBUTRIN (BUPROPION) 11/15/2024 16 - Unknown Comments: Panic MINOCYCLINE 04/21/2011 9 - Itching Date Reviewed: 02/06/2025 Reviewed by: Shima Chow MA - Fully Assessed Reason for Visit: Transition Of Care [4074] Prescriptions as of 05/01/2025 - acetaminophen (TYLENOL) 325 mg tablet Take 325 mg by mouth every 6 hours as needed for pain. - albuterol HFA (VENTOLIN HFA) 90 mcg/actuation inhaler Inhale 2 puffs as instructed every 4 hours as needed for wheezing/shortness of breath. - gctwpubzdc-jhdkgjiz-ncqmtxiaic (BREZTRI) 160-9-4.8 mcg/actuation HFA aerosol inhaler Inhale 2 puffs as instructed two times a day. Problem List As Of Date 05/01/2025 Noted Resolved Hypertriglyceridemia [E78.1] 12/04/2010 Pyoderma, unspecified [L08.0] 04/08/2011 Eczematous dermatitis [L30.9] 04/08/2011 09/01/2023 Contact dermatitis and other eczema, due to uns*04/08/2011 09/01/2023 Pruritus [L29.9] 04/08/2011 09/01/2023 Excoriation [T14.8XXA] 04/08/2011 09/01/2023 Disturbance of skin sensation [R20.9] 04/08/2011 09/01/2023 Rash and other nonspecific skin eruption [R21] 04/08/2011 09/01/2023 Allergy to insect bites [Z91.038] 04/08/2011 Folliculitis [L73.9] 04/09/2011 09/01/2023 Avascular necrosis of bones of both hips [M87.0*09/13/2013 Primary localized osteoarthritis of left hip [M*06/30/2018 07/26/2018 Avascular necrosis of hip, left (HCC) [M87.052] 06/30/2018 07/26/2018 Systemic lupus erythematosus (HCC) [M32.9] 07/12/2018 09/01/2023 Tobacco use [Z72.0] 07/12/2018 Anxiety and depression [F41.9, F32.A] 07/12/2018 09/01/2023 Post-operative state [Z98.890] 07/26/2018 07/27/2018 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 Maco Morales MD Status:DIS IN Location: [place] [address] Providers Date of Admission: 04/25/25 Date of Discharge: 04/28/25 Primary Care Physician: Dr. Maco Morales MD Reason For Visit: STEMI Diagnosis Discharge Diagnosis (1) Cardiac arrest with successful resuscitation: Status: Acute Code(s): I46.9 - Cardiac arrest, cause unspecified (2) Cardiac arrest with ventricular fibrillation: Status: Acute Code(s): I46.9 - Cardiac arrest, cause unspecified; I49.01 - Ventricular fibrillation Medications at Discharge Home Medications albuterol sulfate 90 mcg/actuation aerosol inhaler 2 puff inhalation Q4H PRN PRN wheezing 12/28/24 budesonide 160 mcg-glycopyr 9 mcg-formot 4.8 mcg/actuation HFA inhaler (Breztri Aerosphere) 2 inh inhalation BID COPD 12/28/24 hydroxyzine pamoate 25 mg capsule 50 mg (2 x 25 mg) PO TID PRN PRN Anxiety #30 CAPSULES 12/28/24 aspirin 81 mg tablet,delayed release 81 mg PO BREAKFAST #30 tabs 04/28/25 atorvastatin 40 mg tablet 40 mg PO QHS #30 tabs 04/28/25 lisinopril 2.5 mg tablet 2.5 mg PO DAILY #30 tabs 04/28/25 metoprolol tartrate 25 mg tablet 12.5 mg (1/2 x 25 mg) PO BID #30 tabs 04/28/25 oxycodone 5 mg tablet 5 mg PO Q6H PRN PRN Pain Score 6-10 3 days #12 tabs 04/28/25 ticagrelor 90 mg tablet 90 mg PO BID #60 tabs 04/28/25 Hospital Course Operations None Procedures 2-D Echocardiogram and Cardiac catheterization Summary of Care Provided Minutes Spent on Discharge: 45 Hospital Course: Patient is a 64-year-old male with a past medical history as outlined was admitted to the ED on 04/25/2025 with complaint of shortness of breath and chest pain which she thought was heartburn as well as nausea and vomiting. He subsequently became nonresponsive. EMS was called to his home and he was initially in what was thought to be an AV block but subsequently went into V-fib and cardiac arrest. He was successfully resuscitated via ACLS protocol and had defibrillation done and was transferred to the hospital. He had emergent cardiac cath which showed 100% proximal RCA lesion as well as 70% mid LAD and 90% proximal obtuse marginal 1 artery lesion and had an EF of 40%. Cath. He had a drug-eluting stent inserted in the proximal RCA with plan for outpatient staged PCI of the remaining blood vessels. He was admitted and managed for acute cardiopulmonary arrest in the setting of ST elevation CT. Cardiology was on board during the admission. He had 2D echo which showed stage I diastolic dysfunction with normal left ventricular size and thickness and inferior hypokinesis and EF of 55% as well as stage I diastolic dysfunction. He was placed on aspirin and Brilinta as well as high intensity statin. He was also placed on lisinopril and metoprolol. He was discharged on p.o. oxycodone 5 mg every 6 hours as needed for total of 12 tablets for 3 days for the chest pain that he was having on account of the CPR with rib contusions. OARRS score was checked and no red flags were seen. He was discharged on 04/28/2025 and is follow-up with his PCP and follow-up with cardiology on outpatient basis Patient seen and examined prior to discharge. He still did complain of the musculoskeletal chest pain from the chest compressions. Review of systems otherwise negative. Labs and vitals reviewed. Home medication reviewed and reconciled. Physical Exam Const alert, oriented x3 and no apparent distress General Appearance: cooperative and comfortable Orientation / Consciousness: awake Exam Limitations: no limitations HEENT normocephalic, head/scalp atraumatic, hearing grossly normal bilaterally, moist oral mucous membranes and oropharynx normal Mouth: oral and palatal mucosa normal Eyes PERRL, EOMs intact bilaterally and conjunctivae normal Neck supple and no JVD Resp normal respiratory effort, no retractions, no use of accessory muscles and clear to auscultation bilaterally Cardio regular rate, regular rhythm, S1 normal heart sound, S2 normal heart sound and no murmurs GI normal to inspection, nondistended, normoactive bowel sounds, soft to palpation, non-tender and non- distended Extremity normal to inspection, full ROM and no clubbing, cyanosis or edema Skin no rashes or lesions noted Neuro oriented x3, CN's II-XII intact bilaterally, moves all extremities, no focal motor deficits and no sensory deficits noted Sensorium / Orientation: awake and alert Motor Exam: strength 5/5 throughout Psych affect normal Weight / BMI Weight Weight: 133 lb 6.075 oz Body Mass Index (BMI) 24.5 ABG / Lab / Microbiology Data 04/28/25 04:10 04/28/25 0 (more content not included)... [facility] 02-11-2025 Telephone encounter Note Patient was made aware of the results. Patient verbalizes understanding. Raquel Bean Ma [facility] 02-11-2025 Telephone encounter Note ----- Message from Antonietta Sykes sent at 02/09/2025 10:24 AM EDT ----- Ultrasound of the abdomen was normal and did not show aneurysm. ----- Message ----- From: Radiology Orangela In Sent: 02/09/2025 10:09 AM EDT To: Antonietta Sykes APRN.CNP [facility] 02-11-2025 Miscellaneous Notes Patient was made aware of the results. Patient verbalizes understanding. Raquel Bean Ma ----- Message from Antonietta Sykes sent at 02/09/2025 10:24 AM EDT ----- Ultrasound of the abdomen was normal and did not show aneurysm. ----- Message ----- From: Radiology Orang[place] In Sent: 02/09/2025 10:09 AM EDT To: Antonietta Sykes APRN.CNP Ultrasound of the abdomen was normal and did not show aneurysm. documented in this encounter [facility] 02-09-2025 Telephone encounter Note Spoke with patient and the following results were discussed: LDCT Lung Screen Results LungRADS category: 3 for new RLL 4 mm nodule Incidentals: NA Recommendations: Continue annual screening with LDCT in 12 months. Patient verbalized understanding of the results and had no other questions or concerns at this time. Nicole Howard APRN.CNP February 09, 2025 11:17 AM [facility] 02-09-2025 Miscellaneous Notes Spoke with patient and the following results were discussed: LDCT Lung Screen Results LungRADS category: 3 for new RLL 4 mm nodule Incidentals: NA Recommendations: Continue annual screening with LDCT in 12 months. Patient verbalized understanding of the results and had no other questions or concerns at this time. Nicole Howard APRN.CNP February 09, 2025 11:17 AM documented in this encounter [facility] 02-09-2025 Progress note Formatting of t his note might be different from the original. Ultrasound of the abdomen was normal and did not show aneurysm. [facility] 02-09-2025 Note HNO ID: [id number] Author: FARHEEN NAPIER RDMS Service: ? Author Type: Hazard Waste Handler Type: Progress Notes Filed: 02/10/2025 13:11 Note Text: Radiology Service Progress Note PATIENT NAME: Johnnie Pisano DATE OF SERVICE: February 10, 2025 TIME: 1:10 PM PATIENT IDENTITY VERIFICATION COMPLETED USING TWO (2) IDENTIFIERS: Name and Date of confirmed by patient verbally. FALL SCREENING: Has the patient had 2 falls in the last year or 1 fall with injury or currently using an Ambulatory Assistive Device (Walker, Cane, Wheelchair, Crutches, etc.)? No PATIENT GENDER DATA: Assigned male at PATIENT RELEVANT IMPLANT DATA REVIEWED: Not Applicable PATIENT PRESENTS WITH AN IMPLANTABLE OR ATTACHED EXPRESS CLERK: No RADIOLOGY DEPARTMENT: Ultrasound PERIPHERAL IV DATA: Not applicable SIGNED BY: Farheen Napier RDMS RVT February 10, 2025 1:10 PM [facility] 02-06-2025 Telephone encounter Note Third order placed [facility] 02-06-2025 Miscellaneous Notes Third order placed Good afternoon, Please change the Aorta ultrasound to an US SCREENING FOR AAA- this is the correct order for that diagnosis. Thanks, Fahreen Napier RDMS [facility] US documented in this encounter [facility] 02-06-2025 Telephone encounter Note Good afternoon, Please change the Aorta ultrasound to an US SCREENING FOR AAA- this is the correct order for that diagnosis. Thanks, Farheen Napier RDMS [facility] US [facility] 02-06-2025 Nicole Mandujano APRN.CNP - 02/06/2025 11:54 AM EDT We discussed your lung cancer screening: - Your CT scan from today was compared to your previous scan and showed no changes. The small lung nodule remains stable, which is a good sign. There are no new or concerning findings. - We recommend a follow-up CT scan in one year to continue monitoring. We discussed your shortness of breath and emphysema: - Your CT scan shows that 21% of your lung tissue is damaged due to emphysema, with 79% of normal lung tissue remaining. This damage is permanent and can worsen with continued smoking. - Your shortness of breath is likely related to the emphysema. The Breztri inhaler you are using contains three medications and is considered a maximum therapy for COPD. You mentioned it has been helping reduce your symptoms, and you are using your albuterol inhaler less frequently. Continue using Breztri as prescribed. - If you feel your symptoms are not well-controlled or worsen, I recommend seeing a other wood processing machine operator. They can evaluate other treatment options, including supplemental oxygen or additional inhalers. - A other wood processing machine operator can also assess whether a Callaway valve procedure might be appropriate for you. This is a specialized treatment for certain cases of emphysema. We discussed your smoking: - You are currently smoking just over a pack a day. Reducing or quitting smoking is critical to prevent further lung damage and worsening of your symptoms. - You have tried various methods to quit, including nicotine patches and Chantix, but these were not successful for you. You are now considering a laser treatment program, which has been effective for some patients. This is a dimas-pay option, and you are working on saving for it. - In the meantime, continue working on reducing your smoking. Strategies such as delaying your first cigarette in the morning, tracking your cigarette use, and substituting with alternatives like Lifesavers can help. Cutting back gradually is a good step toward quitting. We discussed your nasal congestion and nighttime breathing issues: - You mentioned feeling like your nose is plugged and waking up in a panic at night. Using nasal strips has been helping, and you are not experiencing shortness of breath at night as you were before. Continue using the nasal strips as needed. We discussed your coughing and mucus production: - You are experiencing a samuels, gummy mucus with occasional wheezing. This is likely related to your COPD. Continue using your inhalers as prescribed. If your symptoms worsen or you notice blood in your mucus, please let us know immediately. We discussed your chest pain: - Your chest pain appears to be positional and related to movement, rather than activity or shortness of breath. This may be related to your lupus or joint issues. If the pain worsens or changes, please let us know. Follow-Up: - Your next lung cancer screening CT scan is scheduled for one year from now. - If your symptoms worsen or you feel your current treatment is not effective, I recommend scheduling an appointment with a other wood processing machine operator for further evaluation. They can also assess your eligibility for the Callaway valve procedure. - Please continue working on reducing your smoking and let us know if you need additional support or resources to quit. documented in this encounter [facility] 02-06-2025 Note HNO ID: [id number] Author: NICOLE HOWARD APRN.CNP Service: ? Author Type: Nurse Practitioner Type: Progress Notes Filed: 02/06/2025 11:54 Note Text: [facility] Lung Cancer Screening Annual Visit Current or Ex-smoker? [Current] Exam Type: annual LDCT Number of Pack Years: 36 Current smoker (=0) or Number of Years since Quit: 0 The patient's smoking history is similar to prior year lung cancer screening visit. Chief Complaint: Established patient in lung cancer screening program here for annual follow-up and preliminary evaluation of today's LDCT exam for lung nodule surveillance/management. Impression / Recommendations Assessment: Johnnie Pisano is at an increased risk for developing lung cancer based on their past tobacco use and continues to qualify for annual low dose CT screening. Plan: Indeterminate pulmonary nodules: Previously identified lung nodules appear stable and no new nodules of concern were noted during preliminary review of today's exam. Anticipated result: LUNG RADS Category 2 - Low dose CT Scan to be repeated in one year. Plan subject to change pending final radiology report and recommendations. Nature of the lung nodule(s) and the recommendations for further evaluation discussed in detail with patient. Johnnie Pisano expressed understanding and is in agreement with plan. 2. Encounter for screening for malignant neoplasm of respiratory organs I have determined that the patient is eligible for continued low dose CT screening based on age, absence of signs or symptoms of lung cancer, smoking history and total pack years. The patient was counseled on the importance of adherence to annual LDCT lung cancer screening, impact of comorbidities and ability or willingness to undergo diagnosis and treatment. The patient understands and would like to continue with annual lung screening: Yes. 3. Personal history of nicotine dependence reports that he has been smoking cigarettes. He has a 36 pack-year smoking history. He has quit using smokeless tobacco. His smokeless tobacco use included chew and snuff. The patient was counseled on the importance of smoking cessation if current smoker and, if appropriate, offered additional tobacco cessation counseling services - Smoking Cessation Counseling. SMOKING CESSATION COUNSELING Smoking cessation methods including Nicotine Replacement Therapies, Varenicline, and Behavior Modification were discussed with the patient and assistance offered. Consider aculaser treatment. The medical conditions adversely affected by cigarette use include:COPD, Emphysema, and Lung Cancer. Counseled on benefits of quitting smoking, recommended cessation or reduction to prevent development and/or progression of emphysema. The patient is currently not ready to quit. I personally spent 5 minutes in counseling. The time spent in smoking cessation counseling is exclusive of any other counseling during this visit. Nicole Howard APRN.RUBBER[employer]ING [employer]CH[employer]IC History of Present Illness: Johnnie Pisano is a 64-year-old male with a history of COPD and emphysema, presenting for annual lung cancer screening follow-up. Johnnie reports chronic dyspnea, which has been progressively worsening. He experiences significant shortness of breath with minimal exertion, such as walking from room to room or checking the mail. He also notes dyspnea when drying himself after bathing. He denies chest pain associated with exertion but reports positional chest discomfort when sitting, which he attributes to his posture and underlying lupus. This discomfort is exacerbated by movement and is described as a stretching sensation in the chest. Johnnie has a chronic cough with sputum production, which he describes as thick, gummy, and grayish in color. He denies hemoptysis. He also reports wheezing, which has improved since using Breztri inhaler. He occasionally uses albuterol, especially in hotter weather. He has been on Breztri for 2 months and notes relief of chest pressure after use. He was previously on Spiriva for a year but found it less effective. Johnnie has a significant smoking history, currently smoking a little over a pack per day. He has attempted to reduce his smoking to three-quarters of a pack but increased due to recent family stress. He has tried various methods to quit, including Chantix, which he discontinued after two doses due to panic attacks and crazy thoughts. He has also tried nicotine patches without success. He is considering laser treatment for smoking cessation but is saving money for it. Johnnie also reports nocturnal dyspnea, which has improved with the use of nasal strips. He denies current use of Chantix or other smoking cessation aids. He is interested in exploring other treatment options, such as the Callaway valve, and i (more content not included)... [facility] 02-06-2025 History of Present illness Narrative Images from the original note were not included. [facility] Lung Cancer Screening Annual Visit Current or Ex-smoker? [Current] Exam Type: annual LDCT Number of Pack Years: 36 Current smoker (=0) or Number of Years since Quit: 0 The patient's smoking history is similar to prior year lung cancer screening visit. Chief Complaint: Established patient in lung cancer screening program here for annual follow-up and preliminary evaluation of today's LDCT exam for lung nodule surveillance/management. Impression / Recommendations Assessment: Johnnie Pisano is at an increased risk for developing lung cancer based on their past tobacco use and continues to qualify for annual low dose CT screening. Plan: Indeterminate pulmonary nodules: Previously identified lung nodules appear stable and no new nodules of concern were noted during preliminary review of today's exam. Anticipated result: LUNG RADS Category 2 - Low dose CT Scan to be repeated in one year. Plan subject to change pending final radiology report and recommendations. Nature of the lung nodule(s) and the recommendations for further evaluation discussed in detail with patient. Johnnie Pisano expressed understanding and is in agreement with plan. 2. Encounter for screening for malignant neoplasm of respiratory organs I have determined that the patient is eligible for continued low dose CT screening based on age, absence of signs or symptoms of lung cancer, smoking history and total pack years. The patient was counseled on the importance of adherence to annual LDCT lung cancer screening, impact of comorbidities and ability or willingness to undergo diagnosis and treatment. The patient understands and would like to continue with annual lung screening: Yes. 3. Personal history of nicotine dependence reports that he has been smoking cigarettes. He has a 36 pack-year smoking history. He has quit using smokeless tobacco. His smokeless tobacco use included chew and snuff. The patient was counseled on the importance of smoking cessation if current smoker and, if appropriate, offered additional tobacco cessation counseling services - Smoking Cessation Counseling. SMOKING CESSATION COUNSELING Smoking cessation methods including Nicotine Replacement Therapies, Varenicline, and Behavior Modification were discussed with the patient and assistance offered. Consider aculaser treatment. The medical conditions adversely affected by cigarette use include:COPD, Emphysema, and Lung Cancer. Counseled on benefits of quitting smoking, recommended cessation or reduction to prevent development and/or progression of emphysema. The patient is currently not ready to quit. I personally spent 5 minutes in counseling. The time spent in smoking cessation counseling is exclusive of any other counseling during this visit. Nicole Howard APRN.[facility] History of Present Illness: Johnnie Pisano is a 64-year-old male with a history of COPD and emphysema, presenting for annual lung cancer screening follow-up. Johnnie reports chronic dyspnea, which has been progressively worsening. He experiences significant shortness of breath with minimal exertion, such as walking from room to room or checking the mail. He also notes dyspnea when drying himself after bathing. He denies chest pain associated with exertion but reports positional chest discomfort when sitting, which he attributes to his posture and underlying lupus. This discomfort is exacerbated by movement and is described as a stretching sensation in the chest. Johnnie has a chronic cough with sputum production, which he describes as thick, gummy, and grayish in color. He denies hemoptysis. He also reports wheezing, which has improved since using Breztri inhaler. He occasionally uses albuterol, especially in hotter weather. He has been on Breztri for 2 months and notes relief of chest pressure after use. He was previously on Spiriva for a year but found it less effective. Johnnie has a significant smoking history, currently smoking a little over a pack per day. He has attempted to reduce his smoking to three-quarters of a pack but increased due to recent family stress. He has tried various methods to quit, including Chantix, which he discontinued after two doses due to panic attacks and crazy thoughts. He has also tried nicotine patches without success. He is considering laser treatment for smoking cessation but is saving money for it. Johnnie also reports nocturnal dyspnea, which has improved with the use of nasal strips. He denies current use of Chantix or other smoking cessation aids. 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 Last 12 Encounter Wt Readings: Date: Wt: 02/06/2025 60 kg (132 lb 3.2 oz) 12/03/2024 61 kg (134 lb 7.7 oz) 11/03/2024 64.9 kg (143 lb) 10/29/2023 61.7 kg (136 lb) 10/19/2023 61.7 kg (136 lb) 10/12/2023 62.1 kg (137 lb) 10/05/2023 62.6 kg (138 lb) 09/11/2023 61.2 kg (135 lb) 09/01/2023 64 kg (141 lb 3.2 oz) 05/07/2021 65.5 kg (144 lb 6.4 oz) 09/02/2018 56.2 kg (124 lb) 08/10/2018 53.5 kg (118 lb) Modified [employer] [place] Dyspnea Scale (MMRC) I am too breathless to leave the house or I am breathless when dressing 4 Social History Social History Tobacco Use Smoking status: Every Day Packs/day: 1.00 Years: 1 pack/day for 36.0 years (36.0 ttl pk-yrs) Types: Cigarettes Smokeless tobacco: Former Types: Chew, Snuff Past Medical History: PAST MEDICAL HISTORY Diagnosis Date Avascular necrosis of bone of hip (HCC) Eczema Elevated blood pressure 2010 Hyperlipidemia Lupus Family Hx: FAMILY HISTORY Problem Relation Age of Onset Cancer Father Lung cancer other (lupus) Sister other (lupus) Sister Cancer Brother ? unsure what type(s) of CA Heart Maternal Grandmother Stroke Maternal Grandmother Hypertension Maternal Grandmother Ischemic Heart Disease Maternal Grandfather None Son None Son None Son Surgical Hx: PAST SURGICAL HISTORY Procedure Laterality Date COLONOSCOPY FLX DX W/COLLJ SPEC WHEN PFRMD 11/2023 rpt 2yrs PAST SURGICAL HISTORY OF teeth extraction TOTAL HIP REPLACEMENT Left 07/2018 [facility] Allergies: ALLERGIES Allergen Reactions Percocet [Oxycodone* Mental Status Change Chantix [Vareniclin* Other: See Comments panic Wellbutrin [Bupropi* Unknown Panic Minocycline Itching Review Of Systems: See HPI for ROS All of the remainder systems were reviewed and negative. PHYSICAL EXAMINATION: General: Alert, oriented, no acute distress Neck: No carotid bruit on bilateral auscultation Respiratory: Wheezing noted, productive cough with samuels sputum Cardiovascular: Jugular venous pressure normal. Regular rate and rhythm, normal S1 and S2, no murmurs or added sounds Abdomen: Soft, non-tender, normal bowel sounds Extremities: No clubbing, cyanosis, or edema Data Review I have visually reviewed imaging and testing below CT imaging done today was reviewed independently and compared to prior CT chest imaging by practitioner and awaiting radiology review. Labs: [No labs discussed] Tests: Pulmonary Function Test: - Mild obstruction Imaging: (Today) CT Chest: - One small stable lung nodule - No new abnormalities - 21% lung capacity damaged consistent with emphysema - 79% normal density CT Chest: - One small lung nodule identified as baseline comparison Imaging Last CT/CTA Chest/Lungs CT LUNG SCREEN WO IVCON Exam End: 02/06/2025 10:38 AM (In process) CT LUNG SCREEN WO IVCON 10/15/2023 Narrative * * *Final Report* * * DATE OF EXAM: Oct 15 2023 4:01PM [facility] 0562 - CT LUNG SCREEN WO IVCON / PROCEDURE REASON: Tobacco use * * * * Physician Interpretation * * * * EXAMINATION: CHEST CT WITHOUT CONTRAST (LOW-DOSE CT LUNG CANCER SCREENING PROTOCOL) CLINICAL HISTORY: Lung cancer LDCT screening ? absence of signs or symptoms of lung cancer. Nicotine dependence (cigarettes). Baseline (initial) Technique: Spiral CT acquisition of the chest from the thoracic inlet to the upper abdomen without contrast. MQ: [id number]_6 Patient characteristics: * Yiju-ie-Bltyd: 1960; Age at exam: 63 years * Gender: Male * Lung Disease: Asymptomatic (no signs or symptoms of lung disease) * Number of Pack Years: 49 * Current smoker (=0) or Number of Years since Quit: 0 * Ordering provider and NPI: NICOLE HOWARD [id number] * Interpreting radiologist and NPI: Aramis [id number] Exam acquisition parameters: * Exam Date: 10/15/2023 4:01 PM * Site: [facility] * * CT System Doubler Helper: [place] * CT System Model: Sensation * Tube Current-Time (mA-sec): 24 * Peak Voltage (kV): 120V * Scan Time (sec): 11.37 * Scan Volume (z-length, cm): -30.35 * Pitch: 0.75 * Slice Thickness (mm): 1.5 * CT Dose-Length Product: 84 mGy*cm * CT Dose Index: 1.89mGy * CT Dose Reduction Method: Automated exposure control(AEC) and iterative recon COMPARISON: No prior CT chest is available for comparison. RESULT: Are nodules present? Yes, 1-5 nodules If No, go to Impression . If yes, proceed with characterization of the FIVE largest nodules. Nodule 1: This Solid nodule is located in the Right Upper Lobe on slice number 61 with an average diameter of 2.6 mm (3.0 mm x 2.1 mm). Other lung nodule comments: None Other findings: The central airways are patent without evidence of endobronchial lesion. Upper lobe predominant centrilobular and paraseptal emphysema with diffuse bronchial wall thickening is seen. Biapical scarring is likely postinflammatory. No acute focal lung consolidation is seen. There is no pleural effusion or pneumothorax. No enlarged supraclavicular, axillary, mediastinal or hilar lymph nodes are seen. The aorta and main pulmonary artery are normal in course and caliber. Atherosclerotic calcifications are seen in the aorta. Aortic calcifications are seen. The heart size is normal. There is no pericardial effusion. The thyroid gland is unremarkable. The esophagus is nondilated. The soft tissues of the chest wall are unremarkable. A 13 mm low-attenuation lesion in the left hepatic lobe (image 218) likely represents a cyst. Compression deformity of L1 vertebral body is seen which was present on the radiograph dated 05/07/2021. No destructive bone lesion is seen. Degenerative changes are seen in the thoracic spine. Emphysema: Mild (5-25%), Centrilobular, Upper lobe Coronary Artery Calcifications: Circumflex Mild; Left Anterior Descending Mild; Right Coronary Minimum Localizer images: No additional findings. IMPRESSION IMPRESSION: LungRADS category: 2 LungRADS modifier: None LungRADS 0 reason: n/a Recommendations: Continue annual screening with LDCT in 12 months. Other actionable findings: ======= Reference: [employer]. Lung CT Screening Reporting and Data System (Lung-RADS). 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 4 puffs Albuterol (360 mcg) delivered by MDI via holding chamber. HR pre = 108 /min, HR post = 111 /min. Current ATS/ERS acceptability and repeatability standards for spirometry met. Start of test and EOFE criteria met. IMPRESSION: Spirometry shows a reduced FEV1/FVC ratio; but individually normal FVC and FEV1 predicted values.This pattern indicates mild obstruction or a normal variant. The increase in FEF 25-75 post-bronchodilator reflects an improvement in the small airway obstruction. The increased TLC indicates hyperinflation. The RV and RV/TLC are elevated indicating air trapping. Electronically Signed On 09-11-2023 16:55:21 EDT by Eileen Huff MD ID: [id number] Name: PISANOJOHNNIE Sherry Race: White Ht: 62.40 in Wt: 135.00 lbs Age: 63 Gender: Male : 1960 Dx: Shortness of breath Smoking Hx: Non-smoker Doctor: MACO MORALES Test Date: 09/11/2023 Site: [facility] Tech: PetSonal [place] PRE-BRONCH POST-BRONCH Pre LLN Pred ULN %Pred Post %Pred %Chg SPIROMETRY FVC (L) 3.61 2.31 3.09 3.88 116 3.86 125 8 FEV1 (L) 2.02 1.81 2.45 3.06 82 2.16 88 5 FEV1/FVC 0.56 0.67 0.79 0.90 70 0.56 70 0 PEF L/s (L/sec) 4.38 5.44 7.28 9.12 60 4.28 58 -2 FEF50 (L/sec) 1.12 0.83 2.95 5.08 37 1.35 45 20 FIF50 (L/sec) 3.24 4.08 25 FEF50/FIF50 0.35 90-100 0.33 -4 FIVC (L) 3.53 3.57 1 UBC70-17 (L/sec) 0.81 1.06 2.27 3.92 35 0.96 42 18 Time (sec) 14.79 14.96 1 FET PEF (sec) 0.10 0.12 26 INES (L) 0.05 0.09 75 Vol Extrap % (%) 1 2 63 LUNG VOLUMES TGV (L) 4.61 1.59 2.77 3.95 166 ERV (L) 1.13 1.03 109 RV (Pleth) (L) 3.43 1.30 1.91 2.53 179 SVC (L) 3.37 2.31 3.09 3.88 109 IC (L) 2.24 2.06 108 TLC (Pleth) (L) 6.78 4.17 5.47 6.78 123 RV/TLC (Pleth) (%) 51 27 34 41 149 Recording using Estimize software for draft documentation of the visit was discussed with the patient/authorized community representative; all questions welcomed and answered. Patient/authorized community representative agreed to proceed Some of this note was generated using AI assistance and dictation software, which may result in errors in word translation, typographical mistakes, or grammatical inconsistencies that may not have been identified before finalization. Please consider this when reviewing the note. Patient presents with: Follow up lung cancer screening AMB ROOMING INTAKE FLOWSHEET DATA Pain Pain Level: 3 Pain Location: (Side in ribs) Description: Aching Duration Amount of Time: 3 Duration Units: Months Frequency: Intermittent Intervention/Comfort measure: Medication Patient is having pain on both sides of his ribs,. Feels is from his coughing. Patient states his mucous has been more solid lately. CT Scan done today. Taking Tylenol for his pain and is effective. documented in this encounter [facility] 02-06-2025 Note HNO ID: [id number] Author: SHIMA CHOW MA Service: ? Author Type: Full Stack Developer Type: Progress Notes Filed: 02/06/2025 11:54 Note Text: Patient presents with: Follow up lung cancer screening AMB ROOMING INTAKE FLOWSHEET DATA Pain Pain Level: 3 Pain Location: (Side in ribs) Description: Aching Duration Amount of Time: 3 Duration Units: Months Frequency: Intermittent Intervention/Comfort measure: Medication Patient is having pain on both sides of his ribs,. Feels is from his coughing. Patient states his mucous has been more solid lately. CT Scan done today. Taking Tylenol for his pain and is effective. [facility] 02-06-2025 History of Present illness Narrative Radiology Service Progress Note PATIENT NAME: Johnnie Pisano DATE OF SERVICE: February 06, 2025 TIME: 3:48 PM PATIENT IDENTITY VERIFICATION COMPLETED USING TWO (2) IDENTIFIERS: Name and Date of confirmed by patient verbally. FALL SCREENING: Has the patient had 2 falls in the last year or 1 fall with injury or currently using an Ambulatory Assistive Device (Walker, Cane, Wheelchair, Crutches, etc.)? No PATIENT GENDER DATA: Assigned male at PATIENT RELEVANT IMPLANT DATA REVIEWED: Yes PATIENT PRESENTS WITH AN IMPLANTABLE OR ATTACHED EXPRESS CLERK: No RADIOLOGY DEPARTMENT: CT; Exam(s) Completed: Lung Screening PERIPHERAL IV DATA: Not applicable SIGNED BY: RT Marilee(R) February 06, 2025 3:48 PM documented in this encounter [facility] 08-18-2025 Note HNO ID: [id number] Author: LAURITA TREVINO RT(R) Service: ? Author Type: Coffee Weigher Type: Progress Notes Filed: 02/06/2025 15:48 Note Text: Radiology Service Progress Note PATIENT NAME: Johnnie Pisano DATE OF SERVICE: February 06, 2025 TIME: 3:48 PM PATIENT IDENTITY VERIFICATION COMPLETED USING TWO (2) IDENTIFIERS: Name and Date of confirmed by patient verbally. FALL SCREENING: Has the patient had 2 falls in the last year or 1 fall with injury or currently using an Ambulatory Assistive Device (Walker, Cane, Wheelchair, Crutches, etc.)? No PATIENT GENDER DATA: Assigned male at PATIENT RELEVANT IMPLANT DATA REVIEWED: Yes PATIENT PRESENTS WITH AN IMPLANTABLE OR ATTACHED EXPRESS CLERK: No RADIOLOGY DEPARTMENT: CT; Exam(s) Completed: Lung Screening PERIPHERAL IV DATA: Not applicable SIGNED BY: RT Marilee(R) February 06, 2025 3:48 PM [facility] 12-29-2024 Telephone encounter Note Patient requesting to cancel today's appt due to transportation issues. Appt was for anxiety issues related to 9 year anniversary of his 's . Reports he did have recent ER visit due to this. He was evaluated and discharged. ER ordered him 30 pills of hydroxyzine to use prn. Patirnt unable to make ER F/U at this time but plans to call back in to make appt. Dafne Dumont RN [facility] 12-29-2024 Miscellaneous Notes Patient requesting to cancel today's appt due to transportation issues. Appt was for anxiety issues related to 9 year anniversary of his 's . Reports he did have recent ER visit due to this. He was evaluated and discharged. ER ordered him 30 pills of hydroxyzine to use prn. Patirnt unable to make ER F/U at this time but plans to call back in to make appt. Dafne Dumont RN documented in this encounter [facility] 12-28-2024 Radiology Diagnostic study note [facility] Imaging Services [address] [place], [place] [address] Chest PA and Lateral MR#: [id number] Acct: [id number] Name: JOHNNIE PISANO Rep #: [id number] : 1960 M 64 From: Mario Chavez MD PCP: Dr. Maco Morales MD Status: REG E R Study:Chest PA and Lateral Date of Exam: 12/28/24 Exam# [id number] Ordering Dr: Lauro Barker DO PROCEDURE: CHEST PA AND LATERAL 12/28/2024 REASON FOR EXAM: DYSPNEA TECHNIQUE: CHEST PA AND LATERAL COMPARISON: None. FINDINGS: The lungs are clear. The heart size is normal. The mediastinum and pulmonary vascular pattern are unremarkable. The upper abdominal bowel gas pattern is normal. There is a wedge compression fracture probably T12. RAD/Chest PA and Lateral IMPRESSION: No evidence of acute cardiopulmonary pathology. Other findings as noted. Reading Location: [id number] CC: Dr. Lauro Barker DO; Dr. Maco Morales MD ~ Electronic Device Repairer: Signed [facility] Work Phone: 12-03-2024 Telephone encounter Note Called patient with x-ray result. Continue medications as prescribed at visit. Patient agreeable [facility] 12-03-2024 Miscellaneous Notes Called patient with x-ray result. Continue medications as prescribed at visit. Patient agreeable documented in this encounter [facility] 12-03-2024 History of Present illness Narrative Radiology Service Progress Note PATIENT NAME: Johnnie Pisano DATE OF SERVICE: December 03, 2024 TIME: 10:55 AM PATIENT IDENTITY VERIFICATION COMPLETED USING TWO (2) IDENTIFIERS: Name and Date of confirmed by patient verbally. FALL SCREENING: Has the patient had 2 falls in the last year or 1 fall with injury or currently using an Ambulatory Assistive Device (Walker, Cane, Wheelchair, Crutches, etc.)? No PATIENT GENDER DATA: Assigned male at PATIENT RELEVANT IMPLANT DATA REVIEWED: Not Applicable PATIENT PRESENTS WITH AN IMPLANTABLE OR ATTACHED EXPRESS CLERK: No RADIOLOGY DEPARTMENT: General X-ray: Exam(s) Completed: Chest X-Ray PERIPHERAL IV DATA: Not applicable SIGNED BY: RT Gee(Jessy) December 03, 2024 10:55 AM documented in this encounter [facility] 12-03-2024 Note HNO ID: [id number] Author: KRYS ALEJANDRO RT(R) Service: Radiology Author Type: Technologist Type: Progress Notes Filed: 12/03/2024 10:59 Note Text: Radiology Service Progress Note PATIENT NAME: Johnnie Pisano DATE OF SERVICE: December 03, 2024 TIME: 10:55 AM PATIENT IDENTITY VERIFICATION COMPLETED USING TWO (2) IDENTIFIERS: Name and Date of confirmed by patient verbally. FALL SCREENING: Has the patient had 2 falls in the last year or 1 fall with injury or currently using an Ambulatory Assistive Device (Walker, Cane, Wheelchair, Crutches, etc.)? No PATIENT GENDER DATA: Assigned male at PATIENT RELEVANT IMPLANT DATA REVIEWED: Not Applicable PATIENT PRESENTS WITH AN IMPLANTABLE OR ATTACHED EXPRESS CLERK: No RADIOLOGY DEPARTMENT: General X-ray: Exam(s) Completed: Chest X-Ray PERIPHERAL IV DATA: Not applicable SIGNED BY: RT Gee(Jessy) December 03, 2024 10:55 AM [facility] 12-03-2024 Note HNO ID: [id number] Author: YAW LANGSTON PA Service: ? Author Type: Physician Rehab Office Coordinator Type: Progress Notes Filed: 12/03/2024 10:59 Note Text: [facility] Subjective Johnnie Pisano is a 64 year old male. Patient presents with: Wheezing: SOB, cough chronic, increased and changed, states mucous is solid and is sticking in throat, x months worsening HPI Dyspnea: - Experiencing dyspnea, particularly when warm; leads to panic and hyperventilation. - Using Breztri and albuterol inhalers; albuterol use increased to every 2 hours when outdoors. - Noted increase in thick phlegm production. - Denies recent chest X-ray. COPD: - Diagnosed with COPD; using Breztri and albuterol inhalers. - Albuterol use increased to every 2 hours when outdoors. - Noted increase in thick phlegm production. - Denies recent chest X-ray. Anxiety: - Experiencing anxiety attacks related to dyspnea. - Reports hot and cold flashes, with difficulty regulating body temperature. - Loss of appetite; eating minimally over the past few days. - History of significant family stress and loss of , which may contribute to anxiety. - No SI/HI. Tobacco Use: - Smoking over a pack of cigarettes per day - Tried Chantix- had side effects - Considering laser treatment for smoking cessation. PAST MEDICAL HISTORY Diagnosis Date Avascular necrosis of bone of hip (HCC) Eczema Elevated blood pressure 2010 Hyperlipidemia Lupus PAST SURGICAL HISTORY Procedure Laterality Date COLONOSCOPY FLX DX W/COLLJ SPEC WHEN PFRMD 11/2023 rpt 2yrs PAST SURGICAL HISTORY OF teeth extraction TOTAL HIP REPLACEMENT Left 07/2018 [facility] ALLERGIES Percocet [Oxycodone-Acetaminophen], Chantix [Varenicline], Wellbutrin [Bupropion], and Minocycline MEDICATIONS albuterol HFA (VENTOLIN HFA) 90 mcg/actuation inhaler Inhale 2 puffs as instructed every 4 hours as needed for wheezing/shortness of breath. lccskvhfdd-fgvzzbsf-ntxrchtgna (BREZTRI) 160-9-4.8 mcg/actuation HFA aerosol inhaler Inhale 2 puffs as instructed two times a day. azithromycin (ZITHROMAX) 250 mg tablet Take 2 tablets by mouth once daily for 1 day, THEN 1 tablet once daily for 4 days. predniSONE (DELTASONE) 10 mg tablet Take 4 tabs daily for 3 days, then 2 tabs daily for 3 days, then 1 tab daily for 3 days with food. varenicline (CHANTIX) 1 mg tablet Take 0.5 tablets by mouth once daily for 3 days, THEN 0.5 tablets two times a day for 4 days, THEN 1 tablet two times a day for 23 days. (Patient not taking: Reported on 12/03/2024) varenicline (CHANTIX) 1 mg tablet Take 1 tablet by mouth two times a day. Patient should start on December 03, 2024. (Patient not taking: Reported on 12/03/2024) FAMILY HISTORY Problem Relation Age of Onset Cancer Father Lung cancer other (lupus) Sister other (lupus) Sister Cancer Brother ? unsure what type(s) of CA Heart Maternal Grandmother Stroke Maternal Grandmother Hypertension Maternal Grandmother Ischemic Heart Disease Maternal Grandfather None Son None Son None Son Social History Tobacco Use Smoking status: Every Day Current packs/day: 1.00 Average packs/day: 1 pack/day for 36.0 years (36.0 ttl pk-yrs) Types: Cigarettes Smokeless tobacco: Former Types: Chew, Snuff Vaping Use Vaping status: Never Used Substance Use Topics Alcohol use: Yes Comment: approx 8 beers/month Drug use: Yes Frequency: 2.0 times per week Types: Marijuana Review of Systems Constitutional: (+) hot flashes, (+) chills, (+) decreased appetite Ears/Nose/Mouth/Throat: (+) nasal congestion Respiratory: (+) dyspnea, (+) hyperventilation, (+) cough with thick sputum Psychiatric: (+) panic attacks, (+) anxiety Objective BP 115/87 Pulse 95 Temp 36.7 ?C (98 ?F) Resp 20 Wt 61 kg (134 lb 7.7 oz) SpO2 98% BMI 24.43 kg/m? Physical Exam Vitals reviewed. Constitutional: General: He is not in acute distress. Appearance: Normal appearance. He is not toxic-appearing. HENT: Right Ear: Tympanic membrane and ear canal normal. Left Ear: Tympanic membrane and ear canal normal. Nose: Nose normal. Mouth/Throat: Mouth: Mucous membranes are moist. Cardiovascular: Rate and Rhythm: Normal rate and regular rhythm. Pulmonary: Effort: Pulmonary effort is normal. Breath sounds: Wheezing present. No rhonchi or rales. Skin: General: Skin is warm and dry. Neurological: Mental Status: He is alert. General: No acute distress. Resp: Wheezing noted in left lung. {1. Subacute cough (R05.2) 2. COPD with exacerbation (HCC) (J44.1) - Increased cough with production of thick sputum; wheezing noted in the left lung on auscultation. - Increased use of albuterol rescue inhaler to every 2 hours. - Ordered chest X-ray to rule out pneumonia. - Prescribed antibiotic and steroid; will add a second antibiotic if pneumonia is confirmed. - Advised to limit albuterol use to 2 puffs every 4 (more content not included)... [facility] 12-03-2024 History of Present illness Narrative [facility] Subjective Johnnie Pisano is a 64 year old male. Patient presents with: Wheezing: SOB, cough chronic, increased and changed, states mucous is solid and is sticking in throat, x months worsening HPI Dyspnea: - Experiencing dyspnea, particularly when warm; leads to panic and hyperventilation. - Using Breztri and albuterol inhalers; albuterol use increased to every 2 hours when outdoors. - Noted increase in thick phlegm production. - Denies recent chest X-ray. COPD: - Diagnosed with COPD; using Breztri and albuterol inhalers. - Albuterol use increased to every 2 hours when outdoors. - Noted increase in thick phlegm production. - Denies recent chest X-ray. Anxiety: - Experiencing anxiety attacks related to dyspnea. - Reports hot and cold flashes, with difficulty regulating body temperature. - Loss of appetite; eating minimally over the past few days. - History of significant family stress and loss of , which may contribute to anxiety. - No SI/HI. Tobacco Use: - Smoking over a pack of cigarettes per day - Tried Chantix- had side effects - Considering laser treatment for smoking cessation. PAST MEDICAL HISTORY Diagnosis Date Avascular necrosis of bone of hip (HCC) Eczema Elevated blood pressure 2010 Hyperlipidemia Lupus PAST SURGICAL HISTORY Procedure Laterality Date COLONOSCOPY FLX DX W/COLLJ SPEC WHEN PFRMD 11/2023 rpt 2yrs PAST SURGICAL HISTORY OF teeth extraction TOTAL HIP REPLACEMENT Left 07/2018 [facility] ALLERGIES Percocet [Oxycodone-Acetaminophen], Chantix [Varenicline], Wellbutrin [Bupropion], and Minocycline MEDICATIONS albuterol HFA (VENTOLIN HFA) 90 mcg/actuation inhaler Inhale 2 puffs as instructed every 4 hours as needed for wheezing/shortness of breath. tfjrefipby-zdrmklho-dxseejoquc (BREZTRI) 160-9-4.8 mcg/actuation HFA aerosol inhaler Inhale 2 puffs as instructed two times a day. azithromycin (ZITHROMAX) 250 mg tablet Take 2 tablets by mouth once daily for 1 day, THEN 1 tablet once daily for 4 days. predniSONE (DELTASONE) 10 mg tablet Take 4 tabs daily for 3 days, then 2 tabs daily for 3 days, then 1 tab daily for 3 days with food. varenicline (CHANTIX) 1 mg tablet Take 0.5 tablets by mouth once daily for 3 days, THEN 0.5 tablets two times a day for 4 days, THEN 1 tablet two times a day for 23 days. (Patient not taking: Reported on 12/03/2024) varenicline (CHANTIX) 1 mg tablet Take 1 tablet by mouth two times a day. Patient should start on December 03, 2024. (Patient not taking: Reported on 12/03/2024) FAMILY HISTORY Problem Relation Age of Onset Cancer Father Lung cancer other (lupus) Sister other (lupus) Sister Cancer Brother ? unsure what type(s) of CA Heart Maternal Grandmother Stroke Maternal Grandmother Hypertension Maternal Grandmother Ischemic Heart Disease Maternal Grandfather None Son None Son None Son Social History Tobacco Use Smoking status: Every Day Current packs/day: 1.00 Average packs/day: 1 pack/day for 36.0 years (36.0 ttl pk-yrs) Types: Cigarettes Smokeless tobacco: Former Types: Chew, Snuff Vaping Use Vaping status: Never Used Substance Use Topics Alcohol use: Yes Comment: approx 8 beers/month Drug use: Yes Frequency: 2.0 times per week Types: Marijuana Review of Systems Constitutional: (+) hot flashes, (+) chills, (+) decreased appetite Ears/Nose/Mouth/Throat: (+) nasal congestion Respiratory: (+) dyspnea, (+) hyperventilation, (+) cough with thick sputum Psychiatric: (+) panic attacks, (+) anxiety Objective BP 115/87 Pulse 95 Temp 36.7 C (98 F) Resp 20 Wt 61 kg (134 lb 7.7 oz) SpO2 98% BMI 24.43 kg/m Physical Exam Vitals reviewed. Constitutional: General: He is not in acute distress. Appearance: Normal appearance. He is not toxic-appearing. HENT: Right Ear: Tympanic membrane and ear canal normal. Left Ear: Tympanic membrane and ear canal normal. Nose: Nose normal. Mouth/Throat: Mouth: Mucous membranes are moist. Cardiovascular: Rate and Rhythm: Normal rate and regular rhythm. Pulmonary: Effort: Pulmonary effort is normal. Breath sounds: Wheezing present. No rhonchi or rales. Skin: General: Skin is warm and dry. Neurological: Mental Status: He is alert. General: No acute distress. Resp: Wheezing noted in left lung. {1. Subacute cough (R05.2) 2. COPD with exacerbation (HCC) (J44.1) - Increased cough with production of thick sputum; wheezing noted in the left lung on auscultation. - Increased use of albuterol rescue inhaler to every 2 hours. - Ordered chest X-ray to rule out pneumonia. - Prescribed antibiotic and steroid; will add a second antibiotic if pneumonia is confirmed. - Advised to limit albuterol use to 2 puffs every 4 hours; in severe cases, 2 puffs can be repeated after 20-30 minutes. - Follow-up with primary care physician and pulmonology as needed. 3. Nicotine dependence, cigarettes, uncomplicated (F17.210) - Smoking over a pack per day; previous reduction to half a pack per day was unsuccessful due to family stressors. - Discussed benefits of smoking cessation on COPD symptoms. - Patient considering laser treatment for smoking cessation. Recording using Estimize software for draft documentation of the visit was discussed with the patient/authorized community representative; all questions welcomed and answered. Patient/authorized community representative agreed to proceed History and Record Review External record(s) reviewed: prior outpatient record. Differential Diagnoses - copd exacerbation is more likely for the following reason(s): suggested by H&P Contributing Factors Social Determinants of Health significantly affecting care: smoking Disposition The patient was discharged. Procedures documented in this encounter [facility] 12-03-2024 Telephone encounter Note Completed. [facility] 12-03-2024 Miscellaneous Notes Completed. States that he talked with his insurance company and they are the ones who gave him the info. Advised that would fax the referral as requested. done I don't think it will hurt. Not sure how effective it is. Not well studied. [email or web address] Patient calling in to let the office know he wants to move forward with quitting smoking. He states he has heard good things about a facility in [place] called [facility]. He wanted to see the providers thoughts on this and if they think he would be a good fit he is asking us to send a referral over to them. Their fax number is [phone]. Please review and advise. Dariana Mon December 01, 2024 2:34 PM documented in this encounter [facility] 12-02-2024 Telephone encounter Note States that he talked with his insurance company and they are the ones who gave him the info. Advised that would fax the referral as requested. [facility] 12-02-2024 Telephone encounter Note done [facility] 12-02-2024 Telephone encounter Note I don't think it will hurt. Not sure how effective it is. Not well studied. [facility] 12-02-2024 Telephone encounter Note [email or web address] [facility] 12-01-2024 Telephone encounter Note Patient calling in to let the office know he wants to move forward with quitting smoking. He states he has heard good things about a facility in [place] called [facility]. He wanted to see the providers thoughts on this and if they think he would be a good fit he is asking us to send a referral over to them. Their fax number is [phone]. Please review and advise. Dariana Mon December 01, 2024 2:34 PM T [facility] 11-15-2024 Telephone encounter Note Patient notified of provider's instructions. Patient verbalizes understanding. Heidi Reyna RN T [facility] 11-15-2024 Miscellaneous Notes Patient notified of provider's instructions. Patient verbalizes understanding. Heidi Reyna RN Attempted to call patient. Mailbox is full Raquel Bean MA November 15, 2024 10:47 AM\ Please let patient know that I listed Chantix and Wellbutrin as an intolerance under his allergies. The medication is metabolized out through the urine. He can have some in his system for up to 4 days but will continue to lessen. Patient calling has been having side effects from the chantix rx, he is having anxiety, panic attacks, decreased appetite, worse dry mouth, hot and cold flashes, has very real fear can not shake. He did not take chantix stopped Thursday. He is still very fearful, feels like he needs to talk to someone all the time. Gave him the phone number for [facility]. Patient asking for a referral for Grief counseling to deal with his 10 years ago. Patient said he had similar effects from Wellbutrin in the past. Patient uses [facility] for his pharmacy if needed. He is still trying not to smoke. Please advise documented in this encounter [facility] 11-15-2024 Telephone encounter Note Attempted to call patient. Mailbox is full Raquel Bean MA November 15, 2024 10:47 AM\ [facility] 11-15-2024 Telephone encounter Note Please let patient know that I listed Chantix and Wellbutrin as an intolerance under his allergies. The medication is metabolized out through the urine. He can have some in his system for up to 4 days but will continue to lessen. [facility] 11-15-2024 Telephone encounter Note Patient calling has been having side effects from the chantix rx, he is having anxiety, panic attacks, decreased appetite, worse dry mouth, hot and cold flashes, has very real fear can not shake. He did not take chantix stopped Thursday. He is still very fearful, feels like he needs to talk to someone all the time. Gave him the phone number for the [facility] to call. Patient asking for a referral for Grief counseling to deal with his 10 years ago. Patient said he had similar effects from Wellbutrin in the past. Patient uses [facility] for his pharmacy if needed. He is still trying not to smoke. Please advise [facility] 11-03-2024 Instructions Antonietta Sykes APRN.RUBBERIZING MECHANIC - 11/03/2024 4:27 PM EDT Switch to the new Breztri inhaler for your COPD. Use 2 puffs in the morning and 2 puffs at night; if you notice any issues with your breathing or if cost becomes a concern, please call the office. Begin using Chantix as a smoking cessation aid. Use it as directed (starter pack followed by twice-daily dosing) and choose a quit date once the medication builds up in your system. If you have any concerns while using it or cost issues, contact us. Continue protecting your skin related to your lupus by keeping the spots moisturized and wearing long sleeves when exposed to the sun. Practice posture and stretching exercises at home to help relieve shoulder and back muscle tension. Try gentle morning stretches (such as doorway stretches) and adjusting your seating posture to reduce strain. Undergo the recommended aortic ultrasound screening, scheduled to coincide with your lung cancer screening in January (around February 06). Screening schedule The following prevention plan is recommended: Abdominal Aortic Aneurysm Screening Never done Pneumococcal Vaccine: 50+(1 of 2 - PCV) Never done Shingrix Vaccine(1 of 2) Never done Lung Cancer Screening due on 10/14/2024 WHAT YOU CAN DO TO PREVENT FALLS Many falls can be prevented. By making some changes, you can lower your chances of falling. Four things YOU can do to prevent falls for you* and your caregiver 1. Begin a regular exercise program Exercise is one of the most important ways to lower your chances of falling. It makes you stronger and helps you feel better. Exercises that improve balance and coordination (like Joshua Chi) are the most helpful. Lack of exercise leads to weakness and increases your chances of falling. Ask your doctor or health care provider about the best type of exercise program for you. 2. Have your health care provider review your medicines Have your doctor or pharmacist review all the medicines you take, even xbmn-hhg-rhhnlvs medicines. As you get older, the way medicines work in your body can change. Some medicines, or combinations of medicines, can make you sleepy or dizzy and can cause you to fall. 3. Have your vision checked Have your eyes checked by an eye doctor at least once a year. You may be wearing the wrong glasses or have a condition like glaucoma or cataracts that limits your vision. Poor vision can increase your chances of falling. 4. Make your home safer About half of all falls happen at home. To make your home safer: Remove things you can trip over (like papers, books, clothes, and shoes) from stairs and places where you walk. Remove small throw rugs or use double-sided tape to keep the rugs from slipping. Keep items you use often in cabinets you can reach easily without using a step stool. Have grab bars put in next to your toilet and in the tub or shower. Use non-slip mats in the bathtub and on shower floors. Improve the lighting in your home. As you get older, you need brighter lights to see well. Hang light-weight curtains or shades to reduce glare. Have handrails and lights put in on all staircases. Wear shoes both inside and outside the house. Avoid going barefoot or wearing slippers. For more information, contact: Centers for Disease Control and Prevention www.cdc.gov/injury * This information may not apply if you have certain medical conditions. Screening schedule The following prevention plan is recommended: Abdominal Aortic Aneurysm Screening Never done Pneumococcal Vaccine: 50+(1 of 2 - PCV) Never done Shingrix Vaccine(1 of 2) Never done Lung Cancer Screening due on 10/14/2024 WHAT YOU CAN DO TO PREVENT FALLS Many falls can be prevented. By making some changes, you can lower your chances of falling. Four things YOU can do to prevent falls for you* and your caregiver 1. Begin a regular exercise program Exercise is one of the most important ways to lower your chances of falling. It makes you stronger and helps you feel better. Exercises that improve balance and coordination (like Joshua Chi) are the most helpful. Lack of exercise leads to weakness and increases your chances of falling. Ask your doctor or health care provider about the best type of exercise program for you. 2. Have your health care provider review your medicines Have your doctor or pharmacist review all the medicines you take, even ppkc-gke-dhehfop medicines. As you get older, the way medicines work in your body can change. Some medicines, or combinations of medicines, can make you sleepy or dizzy and can cause you to fall. 3. Have your vision checked Have your eyes checked by an eye doctor at least once a year. You may be wearing the wrong glasses or have a condition like glaucoma or cataracts that limits your vision. Poor vision can increase your chances of falling. 4. Make your home safer About half of all falls happen at home. To make your home safer: Remove things you can trip over (like papers, books, clothes, and shoes) from stairs and places where you walk. Remove small throw rugs or use double-sided tape to keep the rugs from slipping. Keep items you use often in cabinets you can reach easily without using a step stool. Have grab bars put in next to your toilet and in the tub or shower. Use non-slip mats in the bathtub and on shower floors. Improve the lighting in your home. As you get older, you need brighter lights to see well. Hang light-weight curtains or shades to reduce glare. Have handrails and lights put in on all staircases. Wear shoes both inside and outside the house. Avoid going barefoot or wearing slippers. For more information, contact: Centers for Disease Control and Prevention www.cdc.gov/injury * This information may not apply if you have certain medical conditions. documented in this encounter [facility] 11-03-2024 Note HNO ID: [id number] Author: ANTONIETTA SYKES APRN.CNP Service: ? Author Type: Nurse Practitioner Type: Progress Notes Filed: 11/03/2024 16:38 Note Text: Chief Reason For Appointment Patient presents with: Medicare Wellness Exam Johnnie Pisano is a 64 year old male who presents for annual exam. Last office visit date: 10/19/2023 Accompanied By self only Have you had any critical events, hospital stays, ER visits, surgeries or procedures since your last visit here in our office: No Specialists/Other Healthcare Providers Seen: Patient Care Team: Maco Morales MD as PCP - General (Family Medicine) Vee Clayton APRN.MILENA as Floor Coverer Apprentice (Family Medicine) Antonietta Sykes APRN.CNP as Floor Coverer Apprentice (Family Medicine) Concerns today: Tobacco use Emphysema Pain in back between scapula- occ. Into shoulder tips HPI Breathing bad espeically when it is dense air Johnnie is a 64-year-old male with a history of lupus and COPD, presenting for evaluation of shoulder pain. Shoulder Pain: - Chronic bilateral shoulder pain, initially in the right shoulder, now also in the left. - Pain localized to the scapular region and occasionally at the distal end of the shoulder. - Aggravated by prolonged sitting with pressure on the shoulders; radiates to the neck. - Denies known trauma or injury. - Attempts to alleviate pain by changing posture and stretching. COPD: - Managed with Spiriva and albuterol; notices increased dyspnea when Spiriva is not used in the morning. - Dyspnea exacerbated by heavy air, such as during foggy or rainy mornings. - Chronic cough with sputum production, thicker in the morning. - Occasional chest pain, not worsened by movement or palpation, typically occurs when sitting. - Occasional palpitations. - Denies orthopnea or paroxysmal nocturnal dyspnea. - Smokes approximately one pack per day; previously reduced to half a pack per day. - Has tried nicotine patches in the past without success. - Interested in smoking cessation options. - Recent lung cancer screening performed in [place]; next screening scheduled for February 06. Lupus: - Diagnosed while living in [place]; has not seen a letter carrier due to distance and cost. - Manages symptoms independently, using moisturizing cream for skin lesions and wearing UV-protective sleeves. - Experiences joint pain primarily in the winter and skin issues in the summer. - Avoids sun exposure and wears long sleeves when possible. - Reports excessive thirst and sweating, believes it is related to lupus. - Denies seizures or tremors. - Denies suicidal thoughts, but expresses concern about current world events. 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 SKIN: unremarkable, no rash but multiple round lesions that itch. HEAD: normocephalic. EYES: PERRLA, EOMI, conjunctiva clear. EARS: external ears normal, canals clear, TM's normal. NOSE/SINUSES: Nares normal. Septum midline. OROPHARYNX: lips, mucosa, and tongue normal, good dentition. No oral lesions noted. Throat appears dry. NECK: Supple, no lymphadenopathy, normal thyroid, no carotid bruits. LUNGS: Clear to auscultation bilaterally, no wheezes/rhonchi/rales. HEART: Regular rate and rhythm, no murmurs. No ectopy. EXTREMITIES: Normal, No deformities, No skin discoloration, No edema. NEURO: Awake, alert and oriented x3, cranial nerves II-XII grossly intact, normal gait, no involuntary motions. PAST MEDICAL HISTORY Diagnosis Date Avascular necrosis of bone of hip (HCC) Eczema Elevated blood pressure 2010 Hyperlipidemia Lupus PAST SURGICAL HISTORY Procedure Laterality Date COLONOSCOPY FLX DX W/COLLJ SPEC WHEN PFRMD 11/2023 rpt 2yrs PAST SURGICAL HISTORY OF teeth extraction TOTAL HIP REPLACEMENT Left 07/2018 [facility] Medication List Current Outpatient Medications Medication Sig Dispense Refill albuterol HFA (VENTOLIN HFA) 90 mcg/actuation inhaler Inhale 2 puffs as instructed every 4 hours as needed for wheezing/shortness of breath. 1 each 11 igsqkruqeq-govqobbx-vdwjywwneu (BREZTRI) 160-9-4.8 mcg/actuation HFA aerosol inhaler Inhale 2 puffs as instructed two times a day. 1 each 11 varenicline (CHANTIX) 1 mg tablet Take 0.5 tablets by mouth once daily for 3 days, THEN 0.5 tablets two times a day for 4 days, THEN 1 tablet two times a day for 23 days. 52 tablet 0 [START ON 12/03/2024] varenicline (CHANTIX) 1 mg tablet Take 1 tablet by mouth two times a day. Patient should sta (more content not included)... [facility] 11-03-2024 History of Present illness Narrative Images from the original note were not included. Chief Reason For Appointment Patient presents with: Medicare Wellness Exam Johnnie Pisano is a 64 year old male who presents for annual exam. Last office visit date: 10/19/2023 Accompanied By self only Have you had any critical events, hospital stays, ER visits, surgeries or procedures since your last visit here in our office: No Specialists/Other Healthcare Providers Seen: Patient Care Team: Maco Morales MD as PCP - General (Family Medicine) Vee Clayton APRN.CNP as Floor Coverer Apprentice (Family Medicine) Antonietta Sykes APRN.CNP as Floor Coverer Apprentice (Family Medicine) Concerns today: Tobacco use Emphysema Pain in back between scapula- occ. Into shoulder tips HPI Breathing bad espeically when it is dense air Johnnie is a 64-year-old male with a history of lupus and COPD, presenting for evaluation of shoulder pain. Shoulder Pain: - Chronic bilateral shoulder pain, initially in the right shoulder, now also in the left. - Pain localized to the scapular region and occasionally at the distal end of the shoulder. - Aggravated by prolonged sitting with pressure on the shoulders; radiates to the neck. - Denies known trauma or injury. - Attempts to alleviate pain by changing posture and stretching. COPD: - Managed with Spiriva and albuterol; notices increased dyspnea when Spiriva is not used in the morning. - Dyspnea exacerbated by heavy air, such as during foggy or rainy mornings. - Chronic cough with sputum production, thicker in the morning. - Occasional chest pain, not worsened by movement or palpation, typically occurs when sitting. - Occasional palpitations. - Denies orthopnea or paroxysmal nocturnal dyspnea. - Smokes approximately one pack per day; previously reduced to half a pack per day. - Has tried nicotine patches in the past without success. - Interested in smoking cessation options. - Recent lung cancer screening performed in [place]; next screening scheduled for February 06. Lupus: - Diagnosed while living in [place]; has not seen a letter carrier due to distance and cost. - Manages symptoms independently, using moisturizing cream for skin lesions and wearing UV-protective sleeves. - Experiences joint pain primarily in the winter and skin issues in the summer. - Avoids sun exposure and wears long sleeves when possible. - Reports excessive thirst and sweating, believes it is related to lupus. - Denies seizures or tremors. - Denies suicidal thoughts, but expresses concern about current world events. 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 SKIN: unremarkable, no rash but multiple round lesions that itch. HEAD: normocephalic. EYES: PERRLA, EOMI, conjunctiva clear. EARS: external ears normal, canals clear, TM's normal. NOSE/SINUSES: Nares normal. Septum midline. OROPHARYNX: lips, mucosa, and tongue normal, good dentition. No oral lesions noted. Throat appears dry. NECK: Supple, no lymphadenopathy, normal thyroid, no carotid bruits. LUNGS: Clear to auscultation bilaterally, no wheezes/rhonchi/rales. HEART: Regular rate and rhythm, no murmurs. No ectopy. EXTREMITIES: Normal, No deformities, No skin discoloration, No edema. NEURO: Awake, alert and oriented x3, cranial nerves II-XII grossly intact, normal gait, no involuntary motions. PAST MEDICAL HISTORY Diagnosis Date Avascular necrosis of bone of hip (HCC) Eczema Elevated blood pressure 2010 Hyperlipidemia Lupus PAST SURGICAL HISTORY Procedure Laterality Date COLONOSCOPY FLX DX W/COLLJ SPEC WHEN PFRMD 11/2023 rpt 2yrs PAST SURGICAL HISTORY OF teeth extraction TOTAL HIP REPLACEMENT Left 07/2018 [facility] Medication List Current Outpatient Medications Medication Sig Dispense Refill albuterol HFA (VENTOLIN HFA) 90 mcg/actuation inhaler Inhale 2 puffs as instructed every 4 hours as needed for wheezing/shortness of breath. 1 each 11 xygqzsspxa-uqgmcist-ckbxklefma (BREZTRI) 160-9-4.8 mcg/actuation HFA aerosol inhaler Inhale 2 puffs as instructed two times a day. 1 each 11 varenicline (CHANTIX) 1 mg tablet Take 0.5 tablets by mouth once daily for 3 days, THEN 0.5 tablets two times a day for 4 days, THEN 1 tablet two times a day for 23 days. 52 tablet 0 [START ON 12/03/2024] varenicline (CHANTIX) 1 mg tablet Take 1 tablet by mouth two times a day. Patient should start on December 03, 2024. 60 tablet 11 No current facility-administered medications for this visit. Weight Summary: Weight Change: Body mass index is 25.98 kg/m . Last Wt 11/03/24 : 64.9 kg (143 lb) 10/29/23 : 61.7 kg (136 lb) 10/19/23 : 61.7 kg (136 lb) 10/12/23 : 62.1 kg (137 lb) 10/05/23 : 62.6 kg (138 lb) Physical Exam: GENERAL: NAD, alert and oriented. SKIN: unremarkable, no rash but multiple round lesions that itch. HEAD: normocephalic. EYES: PERRLA, EOMI, conjunctiva clear. EARS: external ears normal, canals clear, TM's normal. NOSE/SINUSES: Nares normal. Septum midline. OROPHARYNX: lips, mucosa, and tongue normal, good dentition. No oral lesions noted. Throat appears dry. NECK: Supple, no lymphadenopathy, normal thyroid, no carotid bruits. LUNGS: Clear to auscultation bilaterally, no wheezes/rhonchi/rales. HEART: Regular rate and rhythm, no murmurs. No ectopy. EXTREMITIES: Normal, No deformities, No skin discoloration, No edema. NEURO: Awake, alert and oriented x3, cranial nerves II-XII grossly intact, normal gait, no involuntary motions. SCREENINGS Health Maintenance Listing Abdominal Aortic Aneurysm Screening DTaP,Tdap,Td Vaccine(1 - Tdap) Pneumococcal Vaccine: 50+(1 of 2 - PCV) Shingrix Vaccine(1 of 2) RSV Vaccine(1 - Risk 60-74 years 1-dose series) Covid-19 Vaccine(2023- season) Advance Directive Discussion Lung Cancer Screening Depression Screening Anxiety Screening TEST RESULTS: Lab Studies: Date of lab studies: declined labs - glucose - potassium - Creatinine, gfr - LFTs Lipid: WBC, H&H, Platelets: A1C: Vitamin D: Other: A/P: 1. Other emphysema (HCC) (J43.8)- interested in smoking 2. Chronic obstructive pulmonary disease, unspecified COPD type (HCC) (J44.9) - Currently managed with Spiriva and albuterol; reports increased dyspnea in humid conditions. - Prescribed Breztri Aerosphere, 2 inhalations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 V70.0, ICD10: Z00.00 (primary diagnosis) - CBC + DIFF - COMP METABOLIC PANEL - LIPID PANEL BASIC 2. 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 Consider rheum. - SED RATE WESTERGREN - C-REACTIVE PROTEIN (CRP) - KRYSTIN BY IFA SCREEN - RHEUMATOID FACTOR BL - SPIROMETRY WITH DILATOR IF OBSTRUCTED - LUNG VOLUMES 3. Tobacco use - ICD9: 305.1, ICD10: Z72.0 - Cessation encouraged. - Physiologic and physical aspects of tobacco addiction as well as strategies for quitting were discussed. - Counseling was given focusing on the harmful effects of this addiction especially given the patient's medical condition(s) which will be worsened because of the chemicals in tobacco. - CONSULT LUNG CANCER SCREENING CLINIC 4. History of depression - ICD9: V11.8, ICD10: Z86.59 - call if any issues. 5. Screening for colon cancer - ICD9: V76.51, ICD10: Z12.11 - COLOGUARD 6. Screening for prostate cancer - ICD9: V76.44, ICD10: Z12.5 - Counseled on healthy diet and regular exercise - decline testing. 7. SOB (shortness of breath) - ICD9: 786.05, ICD10: R06.02 - get pfts. Will also be getting a ct. - SPIROMETRY WITH DILATOR IF OBSTRUCTED - LUNG VOLUMES Maco Morales MD documented in this encounter [facility] 03-31-2023 History of Present illness Narrative POPULATION HEALTH NAVIGATION OUTREACH Action/FYI Called and spoke with pt, informed of HM and confirmed PCP. States he will reach back out to schedule appts, declined scheduling assistance at this time. Patient Identified by Name and : YES, via phone Outreach Outcome/Action Spoke to patient / parent / legal guardian: Patient will return the call or ask for return call Did you use a PCP flex slot to schedule this appointment? N/A Reason for Outreach Care Gap or Scheduling/Wellness visits Payer: Payor: [employer] MEDICARE / Plan: [employer] MEDICARE HMO / Product Type: HMO / Care Gap Reviewed:: Annual Wellness visit Colorectal Cancer Screening Flu Vaccine Reminder: Reminder note to check Health Maintenance for items below Health Maintenance items due: Covid-19 Vaccine(1) Never done Pneumococcal Vaccine(1 - PCV) Never done DTaP,Tdap,Td Vaccine(1 - Tdap) Never done Shingrix Vaccine(1 of 2) Never done Colorectal Cancer Screening due on 12/03/2011 Lipid Screening due on 12/03/2015 Prostate Cancer Screening Discussion due on 12/03/2015 Diabetes Screening due on 07/27/2021 Influenza Vaccine(1) Never done Navigation Signature: Zaira Randle MA March 31, 2023 1:52 PM documented in this encounter [facility] 01-07-2023 History of Present illness Narrative POPULATION HEALTH NAVIGATION OUTREACH Action/I Corrected home phone prefix- it was [phone] and should be [phone]- same as mobile Called and left a message to call [phone], to discuss health maintenance items that are due. Sent My Chart message. PCP appt: wellness and confirm PCP last seen 09/02/18 My chart activation: active Advance directive: needs info HM due: Wellness and confirm PCP CRS AD M32.9 - Systemic lupus erythematosus (HCC)
Patient Identified by Name and : NO Outreach Outcome/Action Unable to reach patient: Left message MyChart message sent Did you use a PCP flex slot to schedule this appointment? N/A Reason for Outreach Care Gap or Scheduling/Wellness visits Payer: Payor: [employer] MEDICARE / Plan: [employer] MEDICARE HMO / Product Type: HMO / Care Gap Reviewed:: Annual Wellness visit Colorectal Cancer Screening Reminder: Reminder note to check Health Maintenance for items below Health Maintenance items due: COVID-19 VACCINE(1) Never done PNEUMOCOCCAL(1 - PCV) Never done DTAP,TDAP,TD(1 - Tdap) Never done SHINGRIX VACCINE(1 of 2) Never done COLORECTAL CANCER SCREENING due on 12/03/2011 LIPID SCREEN due on 12/03/2015 PROSTATE CANCER SCREENING DISCUSSION due on 12/03/2015 DIABETES SCREEN due on 07/27/2021 Navigation Signature: Laurita Charles MA January 07, 2023 4:42 PM documented in this encounter [facility] 11-18-2022 History of Present illness Narrative POPULATION HEALTH NAVIGATION OUTREACH Action/FYI Unable to reach patient phone rings busy My chart sent Need to verify pcp Patient Identified by Name and : NO Outreach Outcome/Action Unable to reach patient: Phone number not valid / voicemail full UserMojot message sent Did you use a PCP flex slot to schedule this appointment? N/A Reason for Outreach Care Gap or Scheduling/Wellness visits Payer: Payor: [facility] MEDICARE / Plan: [employer] MEDICARE HMO / Product Type: HMO / Care Gap Reviewed:: Annual Wellness visit Colorectal Cancer Screening Reminder: Reminder note to check Health Maintenance for items below Health Maintenance items due: COVID-19 VACCINE(1) Never done PNEUMOCOCCAL(1 - PCV) Never done DTAP,TDAP,TD(1 - Tdap) Never done SHINGRIX VACCINE(1 of 2) Never done COLORECTAL CANCER SCREENING due on 12/03/2011 LIPID SCREEN due on 12/03/2015 PROSTATE CANCER SCREENING DISCUSSION due on 12/03/2015 DIABETES SCREEN due on 07/27/2021 Navigation Signature: Janice Arechiga November 18, 2022 10:24 AM documented in this encounter [facility] 05-07-2021 History of Present illness Narrative Radiology Service Progress Note PATIENT NAME: Johnnie Pisano DATE OF SERVICE: May 07, 2021 TIME: 2:11 PM PATIENT IDENTITY VERIFICATION COMPLETED USING TWO (2) IDENTIFIERS: Name and Date of confirmed by patient verbally. FALL SCREENING: Has the patient had 2 falls in the last year or 1 fall with injury or currently using an Ambulatory Assistive Device (Walker, Cane, Wheelchair, Crutches, etc.)? No PATIENT GENDER DATA: Male PATIENT RELEVANT IMPLANT DATA REVIEWED: Yes RADIOLOGY DEPARTMENT: General X-ray: Exam(s) Completed: Chest X-Ray PERIPHERAL IV DATA: Not applicable SIGNED BY: RT Jim(R) May 07, 2021 2:11 PM documented in this encounter [facility] 07-26-2018 History of Past i llness Narrative Problem Noted Date Resolved Date Post-operative state 07/26/2018 07/27/2018 Primary localized osteoarthritis of left hip 02/201907/26/2018 Overview: Added automatically from request for surgery [id number] Avascular necrosis of hip, left 06/30/2018 07/26/2018 Overview: Added automatically from request for surgery [id number] documented as of this encounter (statuses as of 11/18/2022) [facility] History of Past illness Narrative* Problem Noted Date Diagnosed Date Resolved Date Post-operative state 07/26/2018 019 Primary localized osteoarthritis of left hip 9 07/26/2018 Overview: Added automatically from request for surgery [id number] Avascular necrosis of hip, left 06/30/2018 07/26/2018 Overview: Added automatically from request for surgery [id number] documented as of this encounter (statuses as of 01/08/2023) [facility] History of Past illness Narrative* Problem Noted Date Diagnosed Date Resolved Date Post-operative state 07/26/2018 019 Primary localized osteoarthritis of left hip 9 07/26/2018 Overview: Added automatically from request for surgery [id number] Avascular necrosis of hip, left 06/30/2018 07/26/2018 Overview: Added automatically from request for surgery [id number] documented as of this encounter (statuses as of 04/01/2023) [facility] History of Past illness Narrative* Problem Noted Date Diagnosed Date Resolved Date Post-operative state 07/26/2018 019 Systemic lupus erythematosus 07/12/2018 09/01/2023 Anxiety and depression 07/12/201808/31 Primary localized osteoarthritis of left hip 9 07/26/2018 Overview: Added automatically from request for surgery [id number] Avascular necrosis of hip, left 06/30/2018 07/26/2018 Overview: Added automatically from request for surgery [id number] Folliculitis 04/09/2011 09/01/2023 Eczematous dermatitis 04/08/20112023 Contact dermatitis and other eczema, due to unspecified cause 04/08/2011 09/01/2023 Pruritus 04/08/2011 09/01/2023 Excoriation 04/08/2011 09/01/2023 Disturbance of skin sensation 04/08/2011 09/01/2023 Rash and other nonspecific skin eruption 04/08/2011 09/01/2023 documented as of this encounter (statuses as of 09/02/2023) [facility] History of Past illness Narrative* Problem Noted Date Diagnosed Date Resolved Date Post-operative state 07/26/2018 019 Systemic lupus erythematosus 07/12/2018 09/01/2023 Anxiety and depression 07/12/201808/31 Primary localized osteoarthritis of left hip 9 07/26/2018 Overview: Added automatically from request for surgery [id number] Avascular necrosis of hip, left 06/30/2018 07/26/2018 Overview: Added automatically from request for surgery [id number] Folliculitis 04/09/2011 09/01/2023 Eczematous dermatitis 04/08/20112023 Contact dermatitis and other eczema, due to unspecified cause 04/08/2011 09/01/2023 Pruritus 04/08/2011 09/01/2023 Excoriation 04/08/2011 09/01/2023 Disturbance of skin sensation 04/08/2011 09/01/2023 Rash and other nonspecific skin eruption 04/08/2011 09/01/2023 documented as of this encounter (statuses as of 09/11/2023) [facility] History of Past illness Narrative* Problem Noted Date Diagnosed Date Resolved Date Post-operative state 07/26/2018 019 Systemic lupus erythematosus 07/12/2018 09/01/2023 Anxiety and depression 07/12/201808/31 Primary localized osteoarthritis of left hip 9 07/26/2018 Overview: Added automatically from request for surgery [id number] Avascular necrosis of hip, left 06/30/2018 07/26/2018 Overview: Added automatically from request for surgery [id number] Folliculitis 04/09/2011 09/01/2023 Eczematous dermatitis 04/08/20112023 Contact dermatitis and other eczema, due to unspecified cause 04/08/2011 09/01/2023 Pruritus 04/08/2011 09/01/2023 Excoriation 04/08/2011 09/01/2023 Disturbance of skin sensation 04/08/2011 09/01/2023 Rash and other nonspecific skin eruption 04/08/2011 09/01/2023 documented as of this encounter (statuses as of 09/14/2023) [facility] History of Past illness Narrative* Problem Noted Date Diagnosed Date Resolved Date Post-operative state 07/26/2018 019 Systemic lupus erythematosus 07/12/2018 09/01/2023 Anxiety and depression 07/12/201808/31 Primary localized osteoarthritis of left hip 9 07/26/2018 Overview: Added automatically from request for surgery [id number] Avascular necrosis of hip, left 06/30/2018 07/26/2018 Overview: Added automatically from request for surgery [id number] Folliculitis 04/09/2011 09/01/2023 Eczematous dermatitis 04/08/20112023 Contact dermatitis and other eczema, due to unspecified cause 04/08/2011 09/01/2023 Pruritus 04/08/2011 09/01/2023 Excoriation 04/08/2011 09/01/2023 Disturbance of skin sensation 04/08/2011 09/01/2023 Rash and other nonspecific skin eruption 04/08/2011 09/01/2023 documented as of this encounter (statuses as of 10/06/2023) [facility] Well adult exam- Primary Routine general medical examination at a [facility] care facility Cutaneous lupus erythematosus Lupus erythematosus Tobacco use Tobacco use disorder History of depression Personal history of other mental disorder Screening for colon cancer Special screening for malignant neoplasms, colon Screening for prostate cancer Special screening for malignant neoplasm of prostate SOB (shortness of breath) Shortness of breath [facility] Cutaneous lupus erythematosus Lupus erythematosus SOB (shortness of breath) Shortness of breath [facility] Diagnosis Cutaneous lupus erythematosus Lupus erythematosus SOB (shortness of breath) Shortness of breath [facility] Diagnosis Chronic obstructive pulmonary disease, unspecified COPD type (HCC)- Primary [facility] Diagnosis Encounter for screening for lung cancer- Primary Tobacco use Tobacco use disorder [facility] Diagnosis Positive colorectal cancer screening using Cologuard test [facility] Diagnosis Tobacco use Tobacco use disorder [facility] Diagnosis Chronic obstructive pulmonary disease, unspecified COPD type (HCC) [facility] Diagnosis Tobacco use- Primary Tobacco use disorder [facility] Diagnosis Cutaneous lupus erythematosus- Primary Lupus erythematosus Other emphysema (HCC) Other emphysema Tobacco use Tobacco use disorder Hypertriglyceridemia Pure hyperglyceridemia Positive colorectal cancer screening using Cologuard test [facility] Diagnosis Positive colorectal cancer screening using Cologuard test- Primary [facility] Diagnosis Elevated alkaline phosphatase level- Primary Other nonspecific abnormal serum enzyme levels Macrocytosis Other specified diseases of blood and blood-forming organs [facility] Diagnosis Chronic obstructive pulmonary disease, unspecified COPD type (HCC) Other emphysema (HCC) Other emphysema [facility] Diagnosis Other emphysema (HCC) Other emphysema Chronic obstructive pulmonary disease, unspecified COPD type (HCC) [facility] Diagnosis Suspected COVID-19 virus infection [facility] Diagnosis Encounter for screening for lung cancer- Primary Tobacco use Tobacco use disorder [facility] Diagnosis Chronic obstructive pulmonary disease, unspecified COPD type (HCC) Other emphysema (HCC) Other emphysema [facility] Diagnosis Tobacco use- Primary Tobacco use disorder Other emphysema (HCC) Other emphysema Chronic obstructive pulmonary disease, unspecified COPD type (HCC) Screening for depression Hypertriglyceridemia Pure hyperglyceridemia Cutaneous lupus erythematosus Lupus erythematosus Encounter for screening examination for other mental health and behavioral disorders Encounter for immunization Need for other specified prophylactic vaccination against single bacterial disease Initial Medicare annual wellness visit Screening for abdominal aortic aneurysm Screening for other and unspecified cardiovascular conditions [facility] Diagnosis Tobacco use- Primary Tobacco use disorder [facility] Diagnosis Subacute cough- Primary Cough COPD with exacerbation (HCC) Obstructive chronic bronchitis with exacerbation Nicotine dependence, cigarettes, uncomplicated Subacute cough Cough [facility]* Diagnosis Subacute cough Cough [facility] noteNo assessment information availableWAshtabula [facility] Work Phone: Evaluation note* Diagnosis Multiple lung nodules- Primary Other nonspecific abnormal finding of lung field Encounter for screening for lung cancer Tobacco use current [facility] Diagnosis Tobacco abuse- Primary Tobacco use disorder [facility] Diagnosis Encounter for screening for lung cancer Tobacco use Tobacco use disorder [facility] Diagnosis Lung nodules- Primary Other nonspecific abnormal finding of lung field [facility] Diagnosis Tobacco use Tobacco use disorder Tobacco abuse Tobacco use disorder documented in this encounter [facility] for referral (narrative)* Outpatient Procedure (Routine) - Pending Review Specialty Diagnoses / Procedures Referred By Contac t Referred To [facility] Diagnoses Cutaneous lupus erythematosus SOB (shortness of breath) Procedures LUNG VOLUMES Maco Morales MD [address] [place] [address] [facility] [address] [place] [address] Referral ID Status Reason Start Date Expiration Date Visits Requested Visits Authorized [id number] Pending Review Auto-Generat ed Referral 09/01/2023 09/30/2024 1 1 * Outpatient Procedure (Routine) - Authorized Specialty Diagnoses / Procedures Referred By Contac t Referred To [facility] Diagnoses Cutaneous lupus erythematosus SOB (shortness of breath) Procedures SPIROMETRY WITH DILATOR IF OBSTRUCTED BRNCDILAT RSPSE SPMTRY PRE&POST-BRNCDILAT ADMN Maco Morales MD [address] [place] [address] [id number] [place] [address] Referral ID Status Reason Start Date Expiration Date Visits Requested Visits Authorized [id number] Authorized Auto-Generat ed Referral 09/01/2023 09/30/2024 1 1 [facility] for referral (narrative)* Outpatient Procedure (Routine) - Authorized Specialty Diagnoses / Procedures Referred By Contac t Referred To Contact Diagnoses Positive colorectal cancer screening using Cologuard test Procedures COLONOSCOPY DIAGNOSTIC COLONOSCOPY FLX DX W/COLLJ SPEC WHEN PFRMD hSima Martin MD [address] [place] [address] [address] [place] [address] Referral ID Status Reason Start Date Expiration Date Visits Requested Visits Authorized [id number] Authorized Auto-Generat ed Referral 11/05/2023 10/11/2024 1 1 [facility] for referral (narrative)No reason for referral information availableWAshtabula General Hospital Work Phone: Reason for visit Narrative* Diagnostic Procedure Only (Routine) - Closed Specialty Diagnoses / Procedures Referred By Contac t Referred To Contact Radiology / [facility] Diagnoses xr chest rm 4 Procedures XR CHEST Ирина Garcia, ASHLEE.RUBBERIZING MECHANIC [address] [place] [address] [facility] [address] [place] [address] Referral ID Status Reason Start Date Expiration Date Visits Re quested Visits Authorized [id number] Closed 05/07/2021 06/21/2021 1 1 [facility] for visit Narrative* Diagnostic Procedure Only (Routine) - Closed Specialty Diagnoses / Procedures Referred By Buzz martínez Referred To Contact [facility] Diagnoses Tobacco use Procedures US ABD AORTA US RETROPERITONEAL REAL TIME W/IMAGE LIMITED Antonietta Sykes APRN.RUBBERIZING MECHANIC [address] [place] [address] Phone: tel: fax: [place] [phone] Referral ID Status Reason Start Date Expiration Date V isits Requested Visits Authorized [id number] Closed Auto-Generate d Referral 02/06/2025 12/03/2025 1 1 [facility] Summary Purpose Family History No Family History Records FoundNo Family History Records FoundNo Family History Records FoundNo Family History Records FoundNo Family History Records Found Advance Directives No Advanced Directives Records Found Advance Directive Response Recorded Date/ Time Do you have a Healthcare 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 No December 28, 2024 7:48am Procedure Findings Note HNO ID: [id number] Author: Sandra Carlos Service: Orthopaedic Surgery Author Type: Physician Type: Brief Op Note Filed: 07/26/2018 9:25 AM Note Text: BRIEF OPERATIVE / PROCEDURE NOTE TOTAL HIP ARTHROPLASTY LOG ID: [id number] Surgery/Procedure Date: 07/26/2018 Incision/Procedure Start Time: 8:07 AM Incision Close/Procedure End Time: 9:18 AM Surgeon(s)/Proceduralist(s) and Rehab Office Coordinator(s): Surgeon(s) and Role: * Robbie Carlos - Primary Nurse Practitioner: Emily Crane Registered Nurse Sample Steamer: Cathy (Rn) JAZMINE Hernandez Procedure(s): Procedure(s) (LRB): ARTHROPLASTY REPLACE JOINT TOTAL HIP (Left) Anesthesia: General Approach: Posterior Findings: OA hip Estimated Blood Loss: 100 mls Specimens: None Complications: None Implant: Implant Name Type Inv. Item Serial No. Doubler Helper Lot No. LRB No. Used SHELL 52MM D TRITANIUM ACETABULAR PRIMARY HEMISPHERICAL CLUSTER HOLE - [id number] Joint - Hip SHELL 52MM D TRITANIUM ACETABULAR PRIMARY HEMISPHERICAL CLUSTER HOLE STRY/HOWM OR (more content not included)... Note HNO ID: [id number] Author: Estephania De La Rosa) Jihan Service: Orthopaedic Surgery Author Type: Nurse Practitioner Type: Discharge Summaries Filed: 07/27/2018 10:16 AM Note Text: DISCHARGE SUMMARY PATIENT NAME: Johnnie Pisano ADMISSION DATE: 07/26/2018 DISCHARGE DATE: 07/27/2018 PATIENT DISCHARGE SUMMARY C O N F I D E N T I A L I N F O R M A T I O N The following is a brief overview of your hospitalization. Some of the information contained on this summary may be confidential. This information should be kept in your records and should be shared with your regular doctor. These instructions explain what you or your acute care occupational therapist need to do to continue your care at home or at another healthcare facility ? Please go over these instructions with your nurse and acute care occupational therapist. ? If you are not sure about something, please ask. Highest Readmission Risk Score: 6 The 30 day readmissio (more content not included)... Hospital Course Note HNO ID: [id number] Author: Estephania De La Rosa) Jihan Service: Orthopaedic Surgery Author Type: Nurse Practitioner Type: Discharge Summaries Filed: 07/27/2018 10:16 AM Note Text: DISCHARGE SUMMARY PATIENT NAME: Johnnie Pisano ADMISSION DATE: 07/26/2018 DISCHARGE DATE: 07/27/2018 PATIENT DISCHARGE SUMMARY C O N F I D E N T I A L I N F O R M A T I O N The following is a brief overview of your hospitalization. Some of the information contained on this summary may be confidential. This information should be kept in your records and should be shared with your regular doctor. These instructions explain what you or your acute care occupational therapist need to do to continue your care at home or at another healthcare facility ? Please go over these instructions with your nurse and acute care occupational therapist. ? If you are not sure about something, please ask. Highest Readmission Risk Score: 6 The 30 day readmissio (more content not included)... Reason for Referral Specialty Diagnoses / Procedures Referred By Contac t Referred To Contact [facility] Diagnoses Tobacco use Procedures CT LUNG SCREEN WO IVCON COMPUTED TOMOGRAPHY THORAX LW DOSE LNG CA SCR Fernando- Nicole Howard, RELIEF CHARGE NURSE.RUBBERIZING MECHANIC [id number] [facility] [place] [address] Referral ID Status Reason Start Date Expiration Date V isits Requested Visits Authorized [id number] Open Auto-Generate d Referral 10/05/2023 11/03/2024 1 1 Referral ID Status Reason Start Date Expiration Date Visits Requested Visits Authorized [id number] Pending Review Auto-Generat ed Referral 10/16/2023 11/14/2024 1 1 Specialty Diagnoses / Procedures Referred By Contac t Referred To Contact General Surgery Diagnoses Positive colorectal cancer screening using Cologuard test Procedures CONSULT TO GENERAL SURGERY OFFICE/OUTPATIENT [facility] 60 MINUTES Maco Morales MD [address] [place] [address] Referral ID Status Reason Start Date Expiration Date V isits Requested Visits Authorized [id number] Closed PCP Requested Referral 09/22/2023 09/21/2024 1 1 Chief Complaint and Reason for Visit Chief Complaint Admit Date sob December 28, 2024 7:13a m Additional Source Comments (unrecognized sect ion and content) No Status Records FoundNo Status Records FoundNo Status Records FoundNo Status Records FoundNo Status Records Found INFORMATION SOURCE (unrecogn ized section and content) DATE CREATED AUTHOR 08/11/2018 [facility] DATE CREATED AUTHOR AUTHOR'S ORGANIZ ATION 08/05/2023 [facility] ([place]) DATE CREATED AUTHOR AUTHOR'S ORGANIZ ATION 11/10/2023 [facility] DATE CREATED AUTHOR AUTHOR'S ORGANIZ ATION 05/03/2025 [facility] DATE CREATED AUTHOR AUTHOR'S ORGANIZ ATION 05/04/2025 [facility] Source Comments (unrecognize d section and content) In the event this informatio n is protected by the Federal Confidentiality of Alcohol and Drug Abuse Patient Records regulations: The Federal rules restrict any use of the information to criminally investigate or prosecute any alcohol or drug abuse patient.[facility] the event this information is protected by the Federal Confidentiality of Alcohol and Drug Abuse Patient Records regulations: The Federal rules restrict any use of the information to criminally investigate or prosecute any alcohol or drug abuse patient.[facility] the event this information is protected by the Federal Confidentiality of Alcohol and Drug Abuse Patient Records regulations: The Federal rules restrict any use of the information to criminally investigate or prosecute any alcohol or drug abuse patient.[facility] the event this information is protected by the Federal Confidentiality of Alcohol and Drug Abuse Patient Records regulations: The Federal rules restrict any use of the information to criminally investigate or prosecute any alcohol or drug abuse patient.[facility] the event this information is protected by the Federal Confidentiality of Alcohol and Drug Abuse Patient Records regulations: The Federal rules restrict any use of the information to criminally investigate or prosecute any alcohol or drug abuse patient.[facility] the event this information is protected by the Federal Confidentiality of Alcohol and Drug Abuse Patient Records regulations: The Federal rules restrict any use of the information to criminally investigate or prosecute any alcohol or drug abuse patient.[facility] the event this information is protected by the Federal Confidentiality of Alcohol and Drug Abuse Patient Records regulations: The Federal rules restrict any use of the information to criminally investigate or prosecute any alcohol or drug abuse patient.[facility] the event this information is protected by the Federal Confidentiality of Alcohol and Drug Abuse Patient Records regulations: The Federal rules restrict any use of the information to criminally investigate or prosecute any alcohol or drug abuse patient.[facility] the event this information is protected by the Federal Confidentiality of Alcohol and Drug Abuse Patient Records regulations: The Federal rules restrict any use of the information to criminally investigate or prosecute any alcohol or drug abuse patient.[facility] the event this information is protected by the Federal Confidentiality of Alcohol and Drug Abuse Patient Records regulations: The Federal rules restrict any use of the information to criminally investigate or prosecute any alcohol or drug abuse patient.[facility] the event this information is protected by the Federal Confidentiality of Alcohol and Drug Abuse Patient Records regulations: The Federal rules restrict any use of the information to criminally investigate or prosecute any alcohol or drug abuse patient.[facility] the event this information is protected by the Federal Confidentiality of Alcohol and Drug Abuse Patient Records regulations: The Federal rules restrict any use of the information to criminally investigate or prosecute any alcohol or drug abuse patient.[facility] the event this information is protected by the Federal Confidentiality of Alcohol and Drug Abuse Patient Records regulations: The Federal rules restrict any use of the information to criminally investigate or prosecute any alcohol or drug abuse patient.[facility] the event this information is protected by the Federal Confidentiality of Alcohol and Drug Abuse Patient Records regulations: The Federal rules restrict any use of the information to criminally investigate or prosecute any alcohol or drug abuse patient.[facility] the event this information is protected by the Federal Confidentiality of Alcohol and Drug Abuse Patient Records regulations: The Federal rules restrict any use of the information to criminally investigate or prosecute any alcohol or drug abuse patient.[facility] the event this information is protected by the Federal Confidentiality of Alcohol and Drug Abuse Patient Records regulations: The Federal rules restrict any use of the information to criminally investigate or prosecute any alcohol or drug abuse patient.[facility] the event this information is protected by the Federal Confidentiality of Alcohol and Drug Abuse Patient Records regulations: The Federal rules restrict any use of the information to criminally investigate or prosecute any alcohol or drug abuse patient.[facility] the event this information is protected by the Federal Confidentiality of Alcohol and Drug Abuse Patient Records regulations: The Federal rules restrict any use of the information to criminally investigate or prosecute any alcohol or drug abuse patient.[facility] the event this information is protected by the Federal Confidentiality of Alcohol and Drug Abuse Patient Records regulations: The Federal rules restrict any use of the information to criminally investigate or prosecute any alcohol or drug abuse patient.[facility] the event this information is protected by the Federal Confidentiality of Alcohol and Drug Abuse Patient Records regulations: The Federal rules restrict any use of the information to criminally investigate or prosecute any alcohol or drug abuse patient.[facility] the event this information is protected by the Federal Confidentiality of Alcohol and Drug Abuse Patient Records regulations: The Federal rules restrict any use of the information to criminally investigate or prosecute any alcohol or drug abuse patient.[facility] the event this information is protected by the Federal Confidentiality of Alcohol and Drug Abuse Patient Records regulations: The Federal rules restrict any use of the information to criminally investigate or prosecute any alcohol or drug abuse patient.[facility] the event this information is protected by the Federal Confidentiality of Alcohol and Drug Abuse Patient Records regulations: The Federal rules restrict any use of the information to criminally investigate or prosecute any alcohol or drug abuse patient.[facility] the event this information is protected by the Federal Confidentiality of Alcohol and Drug Abuse Patient Records regulations: The Federal rules restrict any use of the information to criminally investigate or prosecute any alcohol or drug abuse patient.[facility] the event this information is protected by the Federal Confidentiality of Alcohol and Drug Abuse Patient Records regulations: The Federal rules restrict any use of the information to criminally investigate or prosecute any alcohol or drug abuse patient.[facility] the event this information is protected by the Federal Confidentiality of Alcohol and Drug Abuse Patient Records regulations: The Federal rules restrict any use of the information to criminally investigate or prosecute any alcohol or drug abuse patient.[facility] the event this information is protected by the Federal Confidentiality of Alcohol and Drug Abuse Patient Records regulations: The Federal rules restrict any use of the information to criminally investigate or prosecute any alcohol or drug abuse patient.[facility] the event this information is protected by the Federal Confidentiality of Alcohol and Drug Abuse Patient Records regulations: The Federal rules restrict any use of the information to criminally investigate or prosecute any alcohol or drug abuse patient.[facility]In the event this information is protected by the Federal Confidentiality of Alcohol and Drug Abuse Patient Records regulations: The Federal rules restrict any use of the information to criminally investigate or prosecute any alcohol or drug abuse patient.[facility] the event this information is protected by the Federal Confidentiality of Alcohol and Drug Abuse Patient Records regulations: The Federal rules restrict any use of the information to criminally investigate or prosecute any alcohol or drug abuse patient.[facility] the event this information is protected by the Federal Confidentiality of Alcohol and Drug Abuse Patient Records regulations: The Federal rules restrict any use of the information to criminally investigate or prosecute any alcohol or drug abuse patient.[facility] Hospital[facility] the event this information is protected by the Federal Confidentiality of Alcohol and Drug Abuse Patient Records regulations: The Federal rules restrict any use of the information to criminally investigate or prosecute any alcohol or drug abuse patient.[facility] the event this information is protected by the Federal Confidentiality of Alcohol and Drug Abuse Patient Records regulations: The Federal rules restrict any use of the information to criminally investigate or prosecute any alcohol or drug abuse patient.[facility] the event this information is protected by the Federal Confidentiality of Alcohol and Drug Abuse Patient Records regulations: The Federal rules restrict any use of the information to criminally investigate or prosecute any alcohol or drug abuse patient.[facility] Hospital[facility] the event this information is protected by the Federal Confidentiality of Alcohol and Drug Abuse Patient Records regulations: The Federal rules restrict any use of the information to criminally investigate or prosecute any alcohol or drug abuse patient.[facility] HospitalIn the event this information is protected by the Federal Confidentiality of Alcohol and Drug Abuse Patient Records regulations: The Federal rules restrict any use of the information to criminally investigate or prosecute any alcohol or drug abuse patient.[facility]In the event this information is protected by the Federal Confidentiality of Alcohol and Drug Abuse Patient Records regulations: The Federal rules restrict any use of the information to criminally investigate or prosecute any alcohol or drug abuse patient.[facility] Hospital[facility] the event this information is protected by the Federal Confidentiality of Alcohol and Drug Abuse Patient Records regulations: The Federal rules restrict any use of the information to criminally investigate or prosecute any alcohol or drug abuse patient.[facility] Reason for Visit (unrecogniz ed section and content) Reason Onset Date Comments Population Health Navigation Outreach 11/18/2022 [facility] care gap Reason Onset Date Comments Population Health Navigation Outreach 01/07/2023 [facility] care gaps Reason Onset Date Comments Population Health Navigation Outreach 03/31/2023 [facility] care gap Reason Comments New Patient Reestablish care Reason Comments Spirometry Specialty Diagnoses / Procedures Referred By Contac t Referred To Contact [facility] Diagnoses Cutaneous lupus erythematosus SOB (shortness of breath) Procedures LUNG VOLUMES Maco Morales MD [address] [place] [address] [facility] [place] [address] [place] [id number] Referral ID Status Reason Start Date Expiration Date V isits Requested Visits Authorized [id number] Closed Auto-Generate d Referral 06/22/2023 06/21/2024 1 1 Specialty Diagnoses / Procedures Referred By Contac t Referred To Contact [facility] Diagnoses Cutaneous lupus erythematosus SOB (shortness of breath) Procedures SPIROMETRY WITH DILATOR IF OBSTRUCTED BRNCDILAT RSPSE SPMTRY PRE&POST-BRNCDILAT ADMN Maco Morales MD [address] [place] [address] [facility] [place] [address] [place] [address] Referral ID Status Reason Start Date Expiration Date V isits Requested Visits Authorized [id number] Closed Auto-Generate d Referral 09/01/2023 09/30/2024 1 1 Reason Comments Results Reason Comments Consult Lung Screening Appointment Reason Comments Colonoscopy Consult Positive Cologuard t est 09/14/2023 Specialty Diagnoses / Procedures Referred By Contac t Referred To Contact General Surgery Diagnoses Positive colorectal cancer screening using Cologuard test Procedures CONSULT TO GENERAL SURGERY OFFICE/OUTPATIENT NEW HIGH MDM 60 MINUTES Maco Morales MD [address] [place] [address] Referral ID Status Reason Start Date Expiration Date V isits Requested Visits Authorized [id number] Closed PCP Requested Referral 09/22/2023 09/21/2024 1 1 Specialty Diagnoses / Procedures Referred By Contac t Referred To Contact CT [facility] Diagnoses Tobacco use Procedures CT LUNG SCREEN WO IVCON COMPUTED TOMOGRAPHY THORAX LW DOSE LNG CA SCR C- Eldridge, Nicole, RELIEF CHARGE NURSE.RUBBERIZING MECHANIC [address] [place] [address] [place] [address] Referral ID Status Reason Start Date Expiration Date V isits Requested Visits Authorized [id number] Closed Auto-Generate d Referral 10/05/2023 11/03/2024 1 1 Reason Onset Date Comments Refill Request 10/15/2023 Reason Comments Follow Up Reason Comments Results Reason Onset Date Comments Refill Request 11/30/2023 Reason Comments Received Outside Medical Records Reason Onset Date Comments duplicate not needed 02/23/2024 Reason Comments 11/05/2023 [facility] Reason Onset Date Comments Population Health Navigation Outreach 05/17/2024 [facility] [place] [facility] Reason Onset Date Comments Refill Request 10/25/2024 Reason Comments Medicare Wellness Exam Reason Comments Patient Question side effects Reason Comments Patient Question Reason Comments Wheezing SOB, cough chronic, increased and changed, states mucous is solid and is sticking in throat, x months worsening Reason Comments Patient Update Reason Comments Follow up lung cancer screening Specialty Diagnoses / Procedures Referred By Contac t Referred To Contact CT [facility] Diagnoses Encounter for screening for lung cancer Tobacco use Procedures CT LUNG SCREEN WO IVCON COMPUTED TOMOGRAPHY THORAX LW DOSE LNG CA SCR C- Eldridge, Nicole, RELIEF CHARGE NURSE.RUBBERIZING MECHANIC [address] [place] [address] Phone: tel: fax: [facility] [place] [address] Referral ID Status Reason Start Date Expiration Date V isits Requested Visits Authorized [id number] Closed Auto-Generate d Referral 09/07/2024 10/07/2025 1 1 Reason Comments Orders Reason Comments Radiology CT Specialty Diagnoses / Procedures Referred By Contac t Referred To Contact CT [facility] Diagnoses Encounter for screening for lung cancer Tobacco use Procedures CT LUNG SCREEN WO IVCON COMPUTED TOMOGRAPHY THORAX LW DOSE LNG CA SCR C- Nicole Howard, RELIEF CHARGE NURSE.RUBBERIZING MECHANIC [address] [place] [id number] Phone: tel: fax: [facility] [place] [address] Referral ID Status Reason Start Date Expiration Date V isits Requested Visits Authorized [id number] Closed Auto-Generate d Referral 09/07/2024 10/07/2025 1 1 Care Teams (unrecognized sec tion and content) Power House Engineer Relationship Specialty Start Date End Date Maco Morales MD [address] [place] [address] PCP - General Family Medicine 06/08/12 Power House Engineer Relationship Specialty Start Date End Date Maco Morales MD [address] [place], [place] [id number] PCP - General Family Medicine 06/08/12 Power House Engineer Relationship Specialty Start Date End Date Maco Morales MD [address] [place], [place] [id number] PCP - General Family Medicine 06/08/12 Power House Engineer Relationship Specialty Start Date End Date Maco Morales MD [address] [place] [address] PCP - General Family Medicine 06/08/12 Power House Engineer Relationship Specialty Start Date End Date Maco Morales MD [address] [facility] [address] PCP - General Family Medicine 06/08/12 Power House Engineer Relationship Specialty Start Date End Date Maco Morales MD [address] [place] [address] PCP - General Family Medicine 06/08/12 Power House Engineer Relationship Specialty Start Date End Date Maco Morales MD [address] [place] [address] PCP - General Family Medicine 06/08/12 Power House Engineer Relationship Specialty Start Date End Date Maco Morales MD [address] [place] [address] PCP - General Family Medicine 06/08/12 Power House Engineer Relationship Specialty Start Date End Date Maco Morales MD [address] [place] [address] PCP - General Family Medicine 06/08/12 Power House Engineer Relationship Specialty Start Date End Date Maco Morales MD [address] [place] [address] PCP - General Family Medicine 06/08/12 Power House Engineer Relationship Specialty Start Date End Date Maco Morales MD [address] [place] [address] PCP - General Family Medicine 06/08/12 Power House Engineer Relationship Specialty Start Date End Date Maco Morales MD [address] [place] [address] PCP - General Family Medicine 06/08/12 Power House Engineer Relationship Specialty Start Date End Date Maco Morales MD [address] [facility] [place] [address] PCP - General Family Medicine 06/08/12 Power House Engineer Relationship Specialty Start Date End Date Maco Morales MD [address] [place] [address] PCP - General Family Medicine 06/08/12 Power House Engineer Relationship Specialty Start Date End Date Maco Morales MD [address] [place] [address] PCP - General Family Medicine 06/08/12 Power House Engineer Relationship Specialty Start Date End Date Maco Morales MD [address] [place] [address] PCP - General Family Medicine 06/08/12 Power House Engineer Relationship Specialty Start Date End Date Maco Morales MD [address] [place] [address] PCP - General Family Medicine 06/08/12 Vee Clayton, RELIEF CHARGE NURSE.RUBBERIZING MECHANIC [address] [place] [address] Floor Coverer Apprentice Family Medicine 05/30/24 Antonietta Sykes RELIEF CHARGE NURSE.RUBBERIZING MECHANIC [address] [facility] [place] [address] Floor Coverer Apprentice Family Medicine 05/30/24 Power House Engineer Relationship Specialty Start Date End Date Maco Morales MD [address] [place] [address] PCP - General Family Medicine 06/08/12 Vee Clayton RELIEF CHARGE NURSE.RUBBERIZING MECHANIC [address] [place] [address] Floor Coverer Apprentice Family [facility] 05/30/24 Antonietta Sykes APRN.RUBBERIZING MECHANIC [address] [place] [address] Floor Coverer Apprentice [facility] Medicine 05/30/24 Power House Engineer Relationship Specialty Start Date End Date Maco Morales MD [address] [place] [address] PCP - General Family Medicine 06/08/12 Vee Clayton APRN.RUBBERIZING MECHANIC [address] [place] [address] Floor Coverer Apprentice [facility] 05/30/24 Antonietta Sykes APRN.RUBBERIZING MECHANIC [address] [place] [address] [facility] Power House Engineer Relationship Specialty Start Date End Date Maco Morales MD [address] [place] [address] PCP - General Family Medicine 06/08/12 Vee Clayton APRN.RUBBERIZING MECHANIC [address] [place] [address] Floor Coverer Apprentice [facility] Medicine 05/30/24 Antonietta Sykes APRN.RUBBERIZING MECHANIC [address] [place] [address] [facility] 05/30/[facility] Power House Engineer Relationship Specialty Start Date End Date Maco Morales MD [address] [place] [address] PCP - General Family Medicine 06/08/12 Vee Clayton APRN.RUBBERIZING MECHANIC [address] [facility] [address] Floor Coverer Apprentice Family Medicine 05/30/24 Antonietta Sykes APRN.RUBBERIZING MECHANIC [address] [facility] [place] [address] [facility] 05/30/24 Power House Engineer Relationship Specialty Start Date End Date Maco Morales MD [address] [place] [address] PCP - General Family Medicine 06/08/12 Vee Clayton APRN.RUBBERIZING MECHANIC [address] [place] [address] [facility] 05/30/24 Antonietta Sykes APRN.RUBBERIZING MECHANIC [address] [facility] [place] [address] [facility] 05/30/24 Power House Engineer Relationship Specialty Start Date End Date Maco Morales MD [address] [facility] [address] PCP - General Family Medicine 06/08/12 Vee Clayton APRN.RUBBERIZING MECHANIC [address] [place] [address] Floor Coverer Apprentice Family Medicine 05/30/24 Antonietta Sykes APRN.RUBBERIZING MECHANIC [address] [place] [address] [facility] 05/30/24 Power House Engineer Relationship Specialty Start Date End Date Maco Morales MD [address] [facility] [place], [place] [address] PCP - General Family Medicine 06/08/12 Vee Clayton, RELIEF CHARGE NURSE.RUBBERIZING MECHANIC [address] [facility] [place] [address] [facility] 05/30/24 Antonietta Sykes RELIEF CHARGE NURSE.RUBBERIZING MECHANIC [address] [facility] [place] [address] [facility] 05/30/24 Team Status: Active Member Role/Relationship Status Dates Dr. Maco Morales MD Primary Care Provider Active Team Status: Inactive Member Role/Relationship Status Dates Dr. Maco Morales MD Primary Care Provider Active Start: December 28, 2024 End: December 28, 2024 Dr. Lauro Barker , DO Emergency Provider Active Start: December 28, 2024 End: December 28, 2024 Power House Engineer Relationship Specialty Start Date End Date Maco Morales MD [address] [facility] [place] [address] PCP - General Family Medicine 06/08/12 Vee Clayton RELIEF CHARGE NURSE.RUBBERIZING MECHANIC [address] [facility] [place] [address] [facility] 05/30/24 Antonietta Sykes RELIEF CHARGE NURSE.RUBBERIZING MECHANIC [address] [facility] [place], [place] [id number] [facility] 05/30/24 Power House Engineer Relationship Specialty Start Date End Date Maco Morales MD [address] [facility] [place] [id number] PCP - General Family Medicine 06/08/12 eVe Clayton APRN.RUBBERIZING MECHANIC [address] [place], [place] [address] [phone] Floor Coverer Apprentice Family Medicine 05/30/24 Antonietta Sykes APRN.RUBBERIZING MECHANIC [address] [place] [address] Floor Coverer Apprentice Family Medicine 05/30/24 Power House Engineer Relationship Specialty Start Date End Date Maco Morales MD [address] [place] [address] PCP - General Family Medicine 06/08/12 Vee Clayton APRN.RUBBERIZING MECHANIC [address] [place] [address] Floor Coverer Apprentice Family Medicine 05/30/24 Antonietta Sykes APRN.RUBBERIZING MECHANIC [address] [place] [address] [facility] 05/30/24 Power House Engineer Relationship Specialty Start Date End Date Maco Morales MD [address] [place] [address] PCP - General Family Medicine 06/08/12 Vee Clayton APRN.RUBBERIZING MECHANIC [address] [place] [address] Floor Coverer Apprentice Family Medicine 05/30/24 Antonietta Sykes APRN.RUBBERIZING MECHANIC [address] [place] [address] Floor Coverer Apprentice Family Medicine 05/30/24 Power House Engineer Relationship Specialty Start Date End Date Maco Morales MD [address] [place], [place] [id number] PCP - General Family Medicine 06/08/12 Vee Clayton APRN.RUBBERIZING MECHANIC [address] [place] [address] Floor Coverer Apprentice [facility] 05/30/24 Antonietta Sykes APRN.RUBBERIZING MECHANIC [address] [place] [address] [facility] 05/30/24 Goals (unrecognized section and content) Goals may be documented in a n alternate section FOR RECORDS PERTAINING TO PATIENTS WHO ARE OR HAVE BEEN ENROLLED IN A CHEMICAL DEPENDENCY/SUBSTANCEABUSE PROGRAM, SOME INFORMATION MAY BE OMITTED. This clinical summary was aggregated from multiple sources. Caution should be exercised in using it in the provision of clinical care. This summary normalizes information from multiple sources, and as a consequence, information in this document may materially change the coding, format and clinical context of patient data. In addition, data may be omitted in some cases. CLINICAL DECISIONS SHOULD BE BASED ON THE PRIMARY CLINICAL RECORDS. [facility]. provides no warranty or guarantee of the accuracy or completeness of information in this document.
--- NOTE | 2025-06-06 10:23 | DCINST_ITS ---
Discharge Instructions DC O2, CPAP, BIPAP needs Home O2 Discharge instructions: No Dressing / Incision Discharge Activity: Return to Normal Activity May resume sexual activity in: No Restrictions Dressing / Incision Call your doctor if your incision/area has: Continuous Slow Oozing, Sudden Increased Bleeding, Increased Pain/ Swelling, Increased Redness, Foul Smelling Discharge and Swelling at the incision site Call your doctor if you observe: Fever of 101 or Higher, Coldness, Increased Pain and Numbness or Tingling Follow Up Care Please Follow Up With: Taylor Everett MD When: 2-4 weeks Test Results: Test results from this visit will be discussed in further detail at your follow- up appointment, if applicable. Discharge Plan Admission Attending Provider: Taylor Everett Primary Care Provider: Maco Bettencourt Consulting Providers: Cassandra Salazar NP Instructions Print Language: Dutch Discharge Orders/Prescriptions Prescriptions: New nitroglycerin 0.4 mg tablet, sublingual 0.4 mg sublingual Q5M PRN (Reason: chest pain) Qty: 14 5RF Rx Instructions: do not exceed 3 doses per episode Continued albuterol sulfate 90 mcg/actuation HFA aerosol inhaler 2 puff inhalation Q4H PRN PRN (Reason: wheezing) Breztri Aerosphere 160-9-4.8 mcg/actuation HFA aerosol inhaler 2 inh inhalation BID hydroxyzine pamoate 25 mg capsule 50 mg PO TID PRN PRN (Reason: Anxiety) Qty: 30 0RF aspirin 81 mg Tablet,Delayed Release (Dr/Ec) 81 mg PO BREAKFAST Qty: 30 2RF atorvastatin 40 mg Tablet 40 mg PO QHS Qty: 30 2RF lisinopril 2.5 mg Tablet 2.5 mg PO DAILY Qty: 30 2RF oxycodone 5 mg Tablet 5 mg PO Q6H PRN PRN (Reason: Pain Score 6-10) 3 Days Qty: 12 0RF metoprolol tartrate 25 mg Tablet 12.5 mg PO BID Qty: 30 2RF ticagrelor 90 mg Tablet 90 mg PO BID Qty: 60 2RF Referrals / Follow Up: Maco Bettencourt MD [Primary Care Provider, Medical] Disposition Disposition (needs filled in before D/C Order can be placed): Home, Self Care
[2025-06-06] MEDS: 0.9% Normal Saline (1000mL) 1,000 ML 100 ML IV (11:50)
--- NOTE | 2025-06-06 12:05 | CRPHASE1_ITS ---
Patient Communication Patient Information Former Patient:: Phase I PHII Cardiac Rehab Discussed with Patient:: Yes Guide to Cardiac Rehab Given to Patient:: Yes Cardiac Rehab Facility Choice List Given to Patient:: Yes Communication to Cardiac Rehab Choice Program [facility] CR PHII:: Communication Given to CR Choice Program Other:: Communication Given to CR Manager Market:: Taylor Everett Phase II Cardiac Rehab:: Yes Sessions:: 36 sessions - 3 days/wk, 12 weeks Cardiac Rehabilitation Info Program Information Cardiac Rehabilitation Program Information: Cardiac Rehab The cardiac rehab team at [facility] consists of highly skilled exercise physiologists, nurses, respiratory therapists and physicians working together with you. Our purpose is to help you have a full recovery and achieve the goals you set for yourself. Over the years many of our patients have returned to activities they assumed they would never do again! We can help restore your confidence and motivation to make lifestyle changes that can have a significant impact on your health and quality of life! We can help answer questions and concerns you may have about exercise, lifestyle, medications, diet, stress and anxiety which are common following a hospitalization. WE monitor ECG and vital signs during exercise and discuss your progress with you and report to your physician(s). Cardiac Rehab is proven to help reduce readmissions, improve functional capacity and lower recurrence of problems with your heart. Our Cardiac Rehab program is Certified by the [place] [employer]-Vascular and Pulmonary [employer] (AACVPR) and Accredited by the [place] [employer] through our [facility]. You can contact us at . We invite you to call us with your questions or to get started in our program. If you have other questions or concerns be sure to ask your physician/provider during your follow-up visit. WE look forward to seeing you!
--- NOTE | 2025-06-06 12:05 | CRPH1.INSTRU ---
General Education Discussed with Patient CAD and cardiac anatomy and function:: Patient communicates acknowledgment Explanation of diagnoses and procedures:: Patient communicates acknowledgment Sign/Symptoms of ND:: Patient communicates acknowledgment Antiplatelet therapy: Patient communicates acknowledgment Proper use of NTG-SL: Patient communicates acknowledgment Emergency procedures and activation of EMS: Patient communicates acknowledgment Compliance of all prescribed medications: Patient communicates acknowledgment Smoking Recommendations Recommendations Include:: Smoking cessation strategies/Smoking packet Response Code Nicotine/Smoking Response Code:: Patient communicates acknowledgment Dyslipidemia Recommendations Recommendations Include:: Lipid profile not available Response Code Dyslipidemia Response Code:: Patient communicates acknowledgment Overweight/Obesity Risk Factors Patient Overweight/Obesity Risk Factors Are:: BMI Normal [24-29 & > 65 years old] Response Code Overweight/Obesity:: Patient communicates acknowledgment Hypertension Recommendations Recommendations Include:: Maintain BP <130/85 Response Code Hypertension:: Patient communicates acknowledgment Heart Disease Risk Factors Patient Heart Disease Risk Factors Are:: Previous cardiac event Recommendations Recommendations Include:: Educated family members of their risk Response Code Heart Disease Response Code:: Patient communicates acknowledgment Diabetes Risk Factors Patient Diabetes Risk Factors Are:: No documented hx of diabetes Response Code Diabetes:: Patient communicates acknowledgment Metabolic Syndrome Recommendations Recommendations Include:: Does not meet criteria Response Code Metabolic Syndrome Response Code:: Patient communicates acknowledgment Sedentary Risk Factors Patient Sedentary Risk Factors Are:: Lack of regular exercise Recommendations Recommendations Include:: Discussed home walking program and Monitored Outpatient Cardiac Rehab Response Code Sedentary Response Code:: Patient communicates acknowledgment Stress Recommendations Recommendations Include:: Identification of stressors, and assessment of coping skills and Stress management techniques Response Code Stress Response Code:: Patient communicates acknowledgment
--- NOTE | 2025-06-06 12:33 | CL.I_ITS ---
Patient Name: JARRELL MERCER Study Date: 06/06/2025 Performing: Taylor Everett MD Ht: 62 inches 157.48 cm : 1960 Wt: 135.14 lbs 61.3 kg Age: 64 Gender: male BSA: 1.62 PROCEDURE(S) PERFORMED IC12-(25834/C9600)CAROLYNE W/WO PTCA, SINGLE CORONARY ARTERY IC12-([id number]/[id number])CAROLYNE W/WO PTCA, SINGLE CORONARY ARTERY CLINICAL PROFILE AND CO-MORBIDITIES Indications: Staged PCI Heart Failure: None CONCLUSIONS Successful PTCA/CAROLYNE OM1 using Lashon [place] 2.25x18, optimized proximally using 2.5 mm balloon Successful CAROLYNE Mid LAD using Lashon [place] 3.0x22 mm, optimized proximally using 3.5 mm balloon RECOMMENDATIONS ASA Indefinitley P2Y12 inhibitors for atleast 6 months DESCRIPTION OF PROCEDURE The patient arrived to the procedure lab. The risks and benefits of the procedure as well as a full description of our services here and current unavailability of surgical backup were fully explained to the patient and/or their significant other prior to the catheterization. The Timeout was completed, verifying the correct patient and procedure. The patient's procedural site was prepped and draped in the usual fashion. Local anesthetic was given subcutaneously to right radial region with Lidocaine 2%. Using a modified Seldinger technique, arterial access was obtained via the right radial artery, a 6Fr sheath was inserted.. xb3 Guide catheter was inserted and engaged into the LCA. xb3 Guide catheter was exchanged for a xb 2.5 runthrough Guide wire was advanced to the OM. emerge 2.5 x 15 Balloon catheter was advanced across lesion in the first obtuse marginal, proximal. PTCA balloon inflated at 6 atms for 12 secs. PTCA balloon inflated at 6 atms for 9 secs. PTCA balloon inflated at 8 atms for 15 secs. PTCA balloon inflated at 8 atms for 9 secs. Angiogram performed post balloon dilatation. 2.25 x 18 Drug Eluting stent was advanced across the lesion in the first obtuse marginal, proximal. Angiogram performed post stent deployment. 2.25 x 12 nc emerge Balloon catheter was inserted post stent. 2.5 x 8 nc euphora Balloon catheter was inserted post stent. Angiogram performed post balloon dilatation. runthrough Guide wire was advanced to the LAD. lashon 3.0 x 22 Drug Eluting stent was advanced across the lesion in the LAD, mid. Angiogram performed post stent deployment. nc emerge 3.0 x 15 Balloon catheter was inserted post stent. Angiogram performed post balloon dilatation. The arterial sheath was pulled and a TR Band was applied for hemostasis INTERVENTION INFORMATION LESION SITE: 1st OM (Proximal) Lesion Complexity: Non-High/Non-C, lesion length: 16 mm Pre Stenosis: 95 % Pre intervention NURA flow: 3 PROCEDURE: Drug Eluting Stent with pre and post dilatation Post Stenosis: 0 % Post intervention NURA flow: 3 Lesion Devices: Terumo .014 180cm Runthrough Extra Floppy straight Medtronic 2.25 x 18 LASHON FRONTIER CAROLYNE Cordis 6 Fr XB2.5 VBT 100cm Guide Catheter Humza Sci EMERGE MR 2.00x15 BALLOON Humza Sci NC EMERGE MR 2.25x12 BALLOON Medtronic NC EUPHORA RX 2.5x08 BALLOON LESION SITE: LAD (Mid) Lesion Complexity: Non-High/Non-C, lesion length: 20 mm Pre Stenosis: 80 % Pre intervention NURA flow: 3 PROCEDURE: Drug Eluting Stent with post dilatation Post Stenosis: 0 % Post intervention NURA flow: 3 Lesion Devices: Medtronic NC EUPHORA RX 2.5x08 BALLOON Terumo .014 180cm Runthrough Extra Floppy straight Medtronic 3.0 x 22 LASHON FRONTIER CAROLYNE Humza Sci NC EMERGE MR 3.00x15 BALLOON Medtronic NC EUPHORA RX 3.5x08 BALLOON COMPLICATIONS No Complications PROCEDURE MEDICATIONS Versed 2 mg IV Fentanyl 50 mcg IV Versed 1 mg IV Fentanyl 50 mcg IV Fentanyl 50 mcg IV Oxygen: 2 L/min via nasal cannula Heparin given IA 06/06/2025 09:16:29 Heparin 4000 unit(s) IV 06/06/2025 09:17:22 Heparin 2000 unit(s) IV 06/06/2025 09:50:42 Nitro 100 mcg IC 06/06/2025 09:43:07 Nitro 100 mcg IC 06/06/2025 09:43:07 Nitro 100 mcg IC 06/06/2025 09:52:25 Verapamil 2.5mg, Ntg 200mcgs, 2000 units of Heparin given IA 06/06/2025 09:16:29 SUMMARY OF HEMODYNAMIC DATA Time AIR REST ECG 07:36:41 AO 97/48 (76) SA 09:20:00 AIR REST 11:00:53 Signed By Taylor Everett MD On 06/07/2025 09:02:04 Taylor Everett MD
[2025-06-06 16:02] LABS: ACT Activated Clotting Time 261 sec (74-137)
[2025-06-06] MEDS: Budesonide Respules 0.5 MG/2 ML AMPUL.NEB. INHALATION (19:05)
--- NOTE | 2025-06-06 20:10 | CPS ---
pt rinsed and spit x 2
[2025-06-06] MEDS: TICAGRELOR 90 MG TABLET PO (20:47)
[2025-06-06] MEDS: hydrOXYzine PAM 25 MG Capsule 50 MG PO (20:55)
[2025-06-07] VITALS (7 sets, daily range): BP systolic 106–130; BP diastolic 65–80; PULSE 71–83; RESP 16–20; TEMP 36.2–36.9; O2SAT 94–98; BMI 25.4
[2025-06-07 06:39] LABS: Hematocrit 42.6 % (40-54); Hemoglobin 14.6 g/dL (13.0-16.5); Mean Corp Hgb Conc 34.3 g/dL (32-36); Mean Corpuscular Volume 106.5 fL (80-94); Mean Platelet Vol. 10.0 fl (6.2-12.0); Platelet Count 259 K/mm3 (150-450); RBC Distribution Width CV 13.9 % (11.6-14.6); RBC Distribution Width SD 54.6 fl (35.1-43.9); Red Blood Count 4.00 M/mm3 (4.6-6.2); White Blood Count 8.7 K/mm3 (4.4-11.0)
[2025-06-07] MEDS: Budesonide Respules 0.5 MG/2 ML AMPUL.NEB. INHALATION (06:56)
[2025-06-07 07:16] LABS: AST(SGOT) 27 U/L (<=37); Alanine Aminotransfer ALT/SGPT 25 U/L (<=46); Albumin, Serum 4.4 g/dL (3.4-4.8); Alkaline Phosphatase 177 U/L (40-129); Anion Gap 11 (5-15); BUN 11 mg/dL (4-19); BUN/Creat Ratio 9.4 RATIO (10-20); Calcium,Total 9.4 mg/dL (7.6-11.0); Carbon Dioxide 25.1 mmol/L (21.0-32.0); Chloride 104 mmol/L (98-108); Estimated Creatinine Clearance 50.78 ml/min (50-250); Globulin 2.6 g/dL (2.2-4.2); Glucose 99 mg/dL (70-99); Potassium 4.3 mmol/L (3.3-5.1)
--- NOTE | 2025-06-07 09:25 | CASEMGMT ---
Patient has order for discharge. RN CM in to discuss needs at discharge. Patient denies needs or help at discharge. Patient had no further questions or concerns. [facility], [employer] [employer] to update N C of discharge.
[2025-06-07] MEDS: Aspirin E.C. 81 MG Tablet PO (09:38)
[2025-06-07] MEDS: TICAGRELOR 90 MG TABLET PO (09:39)
--- NOTE | 2025-06-07 09:43 | CASEMGMT ---
Discharge Planning DC instructions and H&P sent via [facility] to [facility]. Becky Gaston, [employer] Planning Asst.
--- NOTE | 2025-06-07 10:34 | PHA.DC.MC.R ---
Pharmacy [facility] Counseling Pharmacy Service has performed discharge medication reconciliation and counseling for this patient. 1. NITROGLYCERIN 0.4MG SL Q5M PRN CHEST PAIN The patient's discharge medication list was reviewed for discrepancies and discrepancies were resolved. The patient was counseled on the following discharge medications and changes in medications for homegoing were reviewed. The Reason for Use, instructions for use, and potential side effects were reviewed for all new medications. The patient's questions regarding all of their medications were answered. The patient was able to verbally demonstrate an understanding of their discharge medications. Medications at Discharge Home Medications albuterol sulfate 90 mcg/actuation aerosol inhaler 2 puff inhalation Q4H PRN PRN wheezing 12/28/24 budesonide 160 mcg-glycopyr 9 mcg-formot 4.8 mcg/actuation HFA inhaler (Breztri Aerosphere) 2 inh inhalation BID COPD 12/28/24 hydroxyzine pamoate 25 mg capsule 50 mg (2 x 25 mg) PO TID PRN PRN Anxiety #30 CAPSULES 12/28/24 aspirin 81 mg tablet,delayed release 81 mg PO BREAKFAST heart health #30 tabs 04/28/25 atorvastatin 40 mg tablet 40 mg PO QHS choleterol #30 tabs 04/28/25 lisinopril 2.5 mg tablet 2.5 mg PO DAILY blood pressure #30 tabs 04/28/25 metoprolol tartrate 25 mg tablet 12.5 mg (1/2 x 25 mg) PO BID blood pressure #30 tabs 04/28/25 oxycodone 5 mg tablet 5 mg PO Q6H PRN PRN Pain Score 6-10 3 days #12 tabs 04/28/25 ticagrelor 90 mg tablet 90 mg PO BID anti platelet #60 tabs 04/28/25 nitroglycerin 0.4 mg sublingual tablet 0.4 mg sublingual Q5M PRN chest pain #14 tabs 06/06/25
== END 2025-06-07 11:36 | disposition home or self-care (01) ==
LOC: CLSP 10:24 → PCU 10:54
PROVIDERS: Nurse Practitioner Gerontology; PCP Family Medicine; Referring Provider Internal Medicine Cardiovascular Disease; Visit Provider Internal Medicine Cardiovascular Disease
DX: I25.10 Atherosclerotic heart disease of native coronary artery without angina pectoris (principal); J44.9 Chronic obstructive pulmonary disease, unspecified; F17.210 Nicotine dependence, cigarettes, uncomplicated; Z95.5 Presence of coronary angioplasty implant and graft
CPT/HCPCS: 36415; 80048; 80053; 85025; 85027; 85347; 92928; 94640; 99152; 99153; C1887; C1894; Q9967; C1725; C1769; C1874; C9600